=== PATIENT | female | born 1985 | race American Indian/Alaskan Native ===

== ENCOUNTER → 2016-11-22 | Outpatient (CLI) | payer OTHER ==
[2016-11-22 09:37] LABS: ALBUMIN 3.5 GM/DL (3.2-5.2); ALBUMIN/GLOBULIN RATIO 0.95 (1.00-1.93); ALKALINE PHOSPHATASE 110 U/L (45-117); ALT/SGPT 24 U/L (12-78); ANION GAP 12 MEQ/L (8-16); AST/SGOT 12 U/L (15-37); BILIRUBIN,TOTAL 0.4 MG/DL (0.2-1.0); BLOOD UREA NITROGEN 10 MG/DL (7-18); CALCIUM LEVEL 8.5 MG/DL (8.5-10.1); CARBON DIOXIDE LEVEL 22 MEQ/L (21-32); CHLORIDE LEVEL 107 MEQ/L (98-107); CHOLESTEROL LEVEL 193 MG/DL (<200); CREATININE FOR GFR 0.84 MG/DL (0.55-1.02); FREE T4 1.09 NG/DL (0.76-1.46); GLOMERULAR FILTRATION RATE > 60.0 (>60); GLUCOSE, FASTING 91 MG/DL (70-105); POTASSIUM SERUM 4.2 MEQ/L (3.5-5.1); SODIUM LEVEL 141 MEQ/L (136-145); TOTAL PROTEIN 7.2 GM/DL (6.4-8.2); TRIGLYCERIDES LEVEL 106 MG/DL (<150)
[2016-11-22 10:35] LABS: BASO % 0.5 % (0.0-1.0); EOS # 0.3 K/mm3 (0.0-0.50); EOS % 3.1 % (0.0-3.0); LARGE UNSTAINED CELL # 0.1 K/mm3 (0.0-0.4); LARGE UNSTAINED CELL % 0.6 % (0.0-4.0); LYMPH # 3.2 K/mm3 (1.5-4.5); LYMPH % 30.7 % (24.0-44.0); MEAN CORPUSCULAR HEMOGLOBIN 26.3 pg (27.0-33.0); MEAN CORPUSCULAR HGB CONC 33.8 g/dl (32.0-36.5); MEAN CORPUSCULAR VOLUME 77.8 fl (80.0-96.0); MONO # 0.4 K/mm3 (0.0-0.8); MONO % 3.9 % (0.0-5.0); NEUTROPHILS # 6.2 K/mm3 (1.8-7.7); NEUTROPHILS % 61.2 % (36.0-66.0); PLATELET COUNT, AUTOMATED 314 k/mm3 (150-450); RED CELL DISTRIBUTION WIDTH 13.8 % (11.5-14.5); WHITE BLOOD COUNT 10.1 K/mm3 (4.0-10.0)
== END ==
LOC: M LAB 08:39
PROVIDERS: ATTEND Family Medicine
DX: Z00.00 Encounter for general adult medical examination without abnormal findings (principal)

== ENCOUNTER 2017-03-30 08:22 | Emergency (ER) | payer OTHER ==
[~2017-03-30] VITALS: Ht 170.2 cm; Wt 140.0 kg
[2017-03-30 08:26] VITALS: BP 141/91
[2017-03-30] MEDS ORDERED: ALBUTEROL SULFATE 2.5 MG/0.5 ML INH NEB SOLN NEB ONE (08:45)
--- NOTE | 2017-03-30 09:10 | REP ---
PA and lateral chest: Comparison is the portable chest dated 09/01/2015. The lung brody are clear. The cardiac size is normal The trini, mediastinum, and bony thorax are unremarkable. Impression: Negative PA and lateral chest. There is no interval change. Signed by Tommy Paredes MD 03/30/2017 09:01 A
[2017-03-30] MEDS ORDERED: ALBU17IN INH (09:15)
[2017-03-30] MEDS ORDERED: ZITHTAB PO (09:15)
== END 2017-03-30 09:19 | disposition home or self-care (01) ==
LOC: M ED 08:22
DX: J45.909 Unspecified asthma, uncomplicated (principal); J20.9 Acute bronchitis, unspecified; F17.200 Nicotine dependence, unspecified, uncomplicated

== ENCOUNTER → 2018-07-24 | Outpatient (REF) | payer OTHER ==
[~2018-07-24] MED LIST: ALBU17IN INH; ZITHTAB PO
== END ==
LOC: M LAB REF 12:48
PROVIDERS: ATTEND Specialist
DX: H66.11 Chronic tubotympanic suppurative otitis media, right ear (principal)

== ENCOUNTER → 2018-12-06 | Outpatient (CLI) | payer OTHER ==
[2018-12-06 08:40] LABS: BASO # 0.1 10^3/uL (0.0-0.2); BASO % 0.6 % (0.0-1.0); EOS # 0.4 10^3/uL (0.0-0.50); HEMATOCRIT 44.9 % (36.0-47.0); HEMOGLOBIN 14.3 g/dl (12.0-15.5); LYMPH # 3.2 10^3/uL (1.5-4.5); MEAN CORPUSCULAR HEMOGLOBIN 24.4 pg (27.0-33.0); MEAN CORPUSCULAR HGB CONC 31.8 g/dl (32.0-36.5); MEAN CORPUSCULAR VOLUME 76.5 fl (80.0-96.0); MONO # 0.5 10^3/uL (0.0-0.8); MONO % 4.7 % (0.0-5.0); NEUTROPHILS # 6.5 10^3/uL (1.8-7.7); NEUTROPHILS % 60.1 % (36.0-66.0); PLATELET COUNT, AUTOMATED 324 10^3/uL (150-450); RED BLOOD COUNT 5.87 10^6/uL (4.00-5.40); WHITE BLOOD COUNT 10.8 10^3/uL (4.0-10.0)
[2018-12-06 08:43] LABS: AMORPHOUS SEDIMENT SMALL (NEGATIVE); APPEARANCE, URINE HAZY (CLEAR); BACTERIA, URINE AUTO 1+ (NEGATIVE); BILIRUBIN, URINE AUTO NEGATIVE (NEGATIVE); BLOOD, URINE BLOOD NEGATIVE (NEGATIVE); COLOR, URINE YELLOW (YELLOW); GLUCOSE, URINE (UA) AUTO NEGATIVE (NEGATIVE); KETONE, URINE AUTO NEGATIVE (NEGATIVE); LEUKOCYTE ESTERASE, URINE AUTO 3+ (NEGATIVE); MUCUS, URINE SMALL (NEGATIVE); NITRITE, URINE AUTO NEGATIVE (NEGATIVE); PROTEIN, URINE AUTO NEGATIVE (NEGATIVE); RBC, URINE AUTO 2 /HPF (0-3); SPECIFIC GRAVITY URINE AUTO 1.024 (1.002-1.035); SQUAMOUS EPITHELIAL CELL UR AU 18 /HPF (0-6); UROBILINOGEN, URINE AUTO 0.2 mg/dL (0.0-2.0); WBC, URINE AUTO 11 /HPF (0-3)
[2018-12-06 09:03] LABS: HEMOGLOBIN A1c 6.1 %
[2018-12-06 09:22] LABS: ALBUMIN 3.6 GM/DL (3.2-5.2); ALT/SGPT 33 U/L (12-78); BILIRUBIN,TOTAL 0.4 MG/DL (0.2-1.0); BLOOD UREA NITROGEN 13 MG/DL (7-18); CALCIUM LEVEL 8.8 MG/DL (8.5-10.1); CARBON DIOXIDE LEVEL 23 MEQ/L (21-32); CHLORIDE LEVEL 108 MEQ/L (98-107); CHOLESTEROL LEVEL 209 MG/DL (<200); CHOLESTEROL RISK RATIO 6.147 (<5); CREATININE FOR GFR 0.78 MG/DL (0.55-1.30); FREE T4 0.92 NG/DL (0.76-1.46); GLOMERULAR FILTRATION RATE > 60.0 (>60); GLUCOSE, FASTING 96 MG/DL (70-100); HDL CHOLESTEROL 34 MG/DL (>40); IRON (FE) 43 UG/DL (50-170); LDL CHOLESTEROL 142 MG/DL (<100); NON-HDL-C 175 MG/DL; POTASSIUM SERUM 4.4 MEQ/L (3.5-5.1); SODIUM LEVEL 138 MEQ/L (136-145); THYROID STIMULATING HORMONE 0.928 uIU/ML (0.358-3.740); TOTAL PROTEIN 7.5 GM/DL (6.4-8.2); TRIGLYCERIDES LEVEL 166 MG/DL (<150)
[2018-12-06 09:51] LABS: VITAMIN B12 LEVEL 775 PG/ML (247-911)
[2018-12-06 09:52] LABS: FOLATE 9.6 NG/ML (>5.4)
[2018-12-07 10:11] LABS: ANTINUCLEAR ANTIBODIES DIRECT Negative (Negative)
== END ==
LOC: M LAB 07:58
PROVIDERS: ATTEND Family Medicine
DX: R53.83 Other fatigue (principal)

== ENCOUNTER → 2019-03-19 | Outpatient (CLI) | payer OTHER ==
[2019-03-19 16:28] LABS: BASO # 0.1 10^3/uL (0.0-0.2); BASO % 0.5 % (0.0-1.0); EOS # 0.4 10^3/uL (0.0-0.5); EOS % 3.3 % (0.0-3.0); HEMOGLOBIN 13.7 g/dl (12.0-15.5); LYMPH # 3.7 10^3/uL (1.5-5.0); MEAN CORPUSCULAR HEMOGLOBIN 24.7 pg (27.0-33.0); MEAN CORPUSCULAR HGB CONC 31.9 g/dl (32.0-36.5); MEAN CORPUSCULAR VOLUME 77.6 fl (80.0-96.0); MONO # 0.6 10^3/uL (0.0-0.8); MONO % 4.9 % (0.0-5.0); NEUTROPHILS # 7.5 10^3/uL (1.5-8.5); PLATELET COUNT, AUTOMATED 331 10^3/uL (150-450); RED BLOOD COUNT 5.54 10^6/uL (4.00-5.40); WHITE BLOOD COUNT 12.2 10^3/uL (4.0-10.0)
[2019-03-19 16:56] LABS: ALBUMIN 3.5 GM/DL (3.2-5.2); ALT/SGPT 31 U/L (12-78); BILIRUBIN,TOTAL 0.2 MG/DL (0.2-1.0); BLOOD UREA NITROGEN 11 MG/DL (7-18); CALCIUM LEVEL 8.8 MG/DL (8.5-10.1); CARBON DIOXIDE LEVEL 24 MEQ/L (21-32); CHLORIDE LEVEL 108 MEQ/L (98-107); CHOLESTEROL LEVEL 184 MG/DL (<200); CREATININE FOR GFR 0.95 MG/DL (0.55-1.30); FERRITIN 16 NG/ML (8-252); GLOMERULAR FILTRATION RATE > 60.0 (>60); GLUCOSE, FASTING 93 MG/DL (70-100); HDL CHOLESTEROL 32 MG/DL (>40); IRON (FE) 34 UG/DL (50-170); LDL CHOLESTEROL 115 MG/DL (<100); NON-HDL-C 152 MG/DL; PERCENT SATURATION 9.3 % (13.2-45.0); POTASSIUM SERUM 4.2 MEQ/L (3.5-5.1); SODIUM LEVEL 140 MEQ/L (136-145); TOTAL IRON BINDING CAPACITY 364 UG/DL (250-450); TOTAL PROTEIN 7.3 GM/DL (6.4-8.2); TRIGLYCERIDES LEVEL 183 MG/DL (<150)
[2019-03-19 17:15] LABS: HEMOGLOBIN A1c 5.9 %
== END ==
LOC: M LAB 15:43
PROVIDERS: ATTEND Family Medicine
DX: D50.9 Iron deficiency anemia, unspecified (principal)

== ENCOUNTER → 2020-11-19 | Outpatient (CLI) | payer OTHER ==
[2020-11-19 13:59] LABS: BASO % 0.5 % (0.0-1.0); EOS # 0.4 10^3/uL (0.0-0.5); EOS % 4.5 % (0.0-3.0); HEMOGLOBIN 12.6 g/dl (12.0-15.5); LYMPH # 2.2 10^3/uL (1.5-5.0); LYMPH % 26.8 % (24.0-44.0); MEAN CORPUSCULAR HEMOGLOBIN 25.3 pg (27.0-33.0); MEAN CORPUSCULAR HGB CONC 31.5 g/dl (32.0-36.5); MEAN CORPUSCULAR VOLUME 80.2 fl (80.0-96.0); MONO # 0.4 10^3/uL (0.0-0.8); MONO % 5.2 % (2.0-8.0); NEUTROPHILS # 5.2 10^3/uL (1.5-8.5); NEUTROPHILS % 62.6 % (36.0-66.0); PLATELET COUNT, AUTOMATED 282 10^3/uL (150-450); RED BLOOD COUNT 4.99 10^6/uL (4.00-5.40); WHITE BLOOD COUNT 8.3 10^3/uL (4.0-10.0)
[2020-11-19 14:01] LABS: HEMATOCRIT 40.5 % (36.0-47.0)
[2020-11-19 14:37] LABS: ALBUMIN 3.3 GM/DL (3.2-5.2); ALT/SGPT 23 U/L (12-78); BILIRUBIN,TOTAL 0.3 MG/DL (0.2-1.0); BLOOD UREA NITROGEN 8 MG/DL (7-18); CALCIUM LEVEL 8.5 MG/DL (8.5-10.1); CARBON DIOXIDE LEVEL 25 MEQ/L (21-32); CHLORIDE LEVEL 112 MEQ/L (98-107); CREATININE FOR GFR 0.68 MG/DL (0.55-1.30); FERRITIN 15 NG/ML (8-252); GLOMERULAR FILTRATION RATE > 60.0 (>60); GLUCOSE, FASTING 138 MG/DL (70-100); IRON (FE) 30 UG/DL (50-170); MAGNESIUM LEVEL 2.2 MG/DL (1.8-2.4); PERCENT SATURATION 9.6 % (13.2-45.0); POTASSIUM SERUM 3.6 MEQ/L (3.5-5.1); SODIUM LEVEL 142 MEQ/L (136-145); TOTAL 25(OH) VITAMIN D 35.5 NG/ML (30.0-100.0); TOTAL IRON BINDING CAPACITY 311 UG/DL (250-450); TOTAL PROTEIN 6.3 GM/DL (6.4-8.2); VITAMIN B12 LEVEL 599 PG/ML (247-911)
[2020-11-19 14:39] LABS: HEMOGLOBIN A1c 5.4 %
== END ==
LOC: M LAB 13:06
DX: K91.2 Postsurgical malabsorption, not elsewhere classified (principal); E55.9 Vitamin D deficiency, unspecified; Z98.84 Bariatric surgery status

== ENCOUNTER → 2021-03-26 | Outpatient (CLI) | payer OTHER ==
[2021-03-26 19:13] LABS: HIV 1&2 SCREEN CENTAUR NEGATIVE (NEGATIVE)
== END ==
LOC: M LAB 16:35
PROVIDERS: ATTEND Nurse Practitioner Adult Health
DX: Z11.3 Encounter for screening for infections with a predominantly sexual mode of transmission (principal)

== ENCOUNTER → 2021-04-22 | Outpatient (CLI) | payer OTHER ==
[2021-04-22 14:15] LABS: HEMATOCRIT 45.1 % (36.0-47.0)
[2021-04-22 14:16] LABS: BASO # 0.1 10^3/uL (0.0-0.2); BASO % 0.5 % (0.0-1.0); EOS # 0.2 10^3/uL (0.0-0.5); EOS % 2.6 % (0.0-3.0); HEMATOCRIT 43.3 % (36.0-47.0); HEMOGLOBIN 13.9 g/dl (12.0-15.5); LYMPH # 3.5 10^3/uL (1.5-5.0); LYMPH % 37.5 % (24.0-44.0); MEAN CORPUSCULAR HEMOGLOBIN 26.1 pg (27.0-33.0); MEAN CORPUSCULAR HGB CONC 32.1 g/dl (32.0-36.5); MEAN CORPUSCULAR VOLUME 81.4 fl (80.0-96.0); MONO # 0.5 10^3/uL (0.0-0.8); MONO % 5.3 % (2.0-8.0); NEUTROPHILS % 53.8 % (36.0-66.0); PLATELET COUNT, AUTOMATED 297 10^3/uL (150-450); RED BLOOD COUNT 5.32 10^6/uL (4.00-5.40); WHITE BLOOD COUNT 9.2 10^3/uL (4.0-10.0)
[2021-04-22 14:40] LABS: HEMOGLOBIN A1c 5.1 %
[2021-04-22 14:44] LABS: ALBUMIN 3.6 GM/DL (3.2-5.2); ALT/SGPT 28 U/L (12-78); BILIRUBIN,TOTAL 0.2 MG/DL (0.2-1.0); BLOOD UREA NITROGEN 14 MG/DL (7-18); CALCIUM LEVEL 9.1 MG/DL (8.5-10.1); CARBON DIOXIDE LEVEL 24 MEQ/L (21-32); CHLORIDE LEVEL 111 MEQ/L (98-107); CREATININE FOR GFR 0.64 MG/DL (0.55-1.30); FERRITIN 16 NG/ML (8-252); GLOMERULAR FILTRATION RATE > 60.0 (>60); GLUCOSE, FASTING 68 MG/DL (70-100); IRON (FE) 33 UG/DL (50-170); MAGNESIUM LEVEL 2.2 MG/DL (1.8-2.4); PERCENT SATURATION 8.5 % (13.2-45.0); PHOSPHORUS LEVEL 4.2 MG/DL (2.5-4.9); POTASSIUM SERUM 4.2 MEQ/L (3.5-5.1); SODIUM LEVEL 140 MEQ/L (136-145); TOTAL IRON BINDING CAPACITY 390 UG/DL (250-450); TOTAL PROTEIN 7.3 GM/DL (6.4-8.2)
[2021-04-22 15:06] LABS: TOTAL 25(OH) VITAMIN D 25.6 NG/ML (30.0-100.0)
[2021-04-22 15:07] LABS: VITAMIN B12 LEVEL > 2000 PG/ML (247-911)
== END ==
LOC: M LAB 13:07
PROVIDERS: ATTEND Physician Assistant Surgical
DX: K91.2 Postsurgical malabsorption, not elsewhere classified (principal); Z98.84 Bariatric surgery status; E55.9 Vitamin D deficiency, unspecified; Z86.39 Personal history of other endocrine, nutritional and metabolic disease

== ENCOUNTER 2021-05-11 11:31 | Emergency (ER) | payer OTHER ==
[~2021-05-11] VITALS: Ht 167.6 cm; Wt 98.6 kg
[2021-05-11 11:31] VITALS: BP 130/80
--- OUTSIDE RECORDS SUMMARY | 2021-05-11 11:39 | CCD | Continuity of Care Document ---
Author Author Corie MOROCHO M.D. Organization Unknown Address [address] [place] [address] Phone [phone] Care Team Providers Care Conference Assistant Name Role Phone Marco Antonio Godinez M.D. AUTM [phone] [facility] Sleep Center AUTM [phone] [facility] Nutrition Services AUTM [phone] Cristobal Peña AUTM [phone] [facility] vinson AUTM [phone] Problems Active Problems Provider Date Obesity Marco Antonio Godinez MD Onset: 01/26/2016 Pure hypercholesterolemia Marco Antonio Godinez MD Onset: 016 Allison-en-Y gastrojejunostomy Tati Vasquez NP Onset: 02/05 Note: done 10/22 Alopecia Marco Antonio Godinez MD Onset: 03/05/2021 Iron deficiency anemia Marco Antonio Godinez MD Onset: 03/05/2021 Hyperlipidemia Marco Antonio Godinez MD Onset: 03/05/2021 Abnormal glucose level Marco Antonio Godinez MD Onset: 03/05/2021 Adult health examination Marco Antonio Godinez MD Onset: 03/05/20 Social History Type Date Description Comments Sex Unknown Tobacco Use Start: Unknown End: Unknown Former Cigar ette Smoker 5-10 Cigarettes Daily Tobacco Use Start: Unknown Never Smoked Cigars Tobacco Use Start: Unknown Never Smoked A Pipe Tobacco Use Start: Unknown Never Used Smokeless Tobacco ETOH Use Denies alcohol use Recreational Drug Use Denies Drug Use Tobacco Use Start: Unknown End: Unknown Patient is a former smoker Quit 10/02/20 Exercise Type/Frequency Exercises sporadically Tattoo/Piercing Tattoo Tattoo/Piercing Pierced tongue Tattoo/Piercing Pierced ears Seat Belt/Car Seat Always uses seat belt Allergies and adverse reactions Active Allergies Criticality Reaction | Severity Comments Date NKDA Unable to assess criticality 01/23/2016 NKEA Unable to assess criticality 01/23/2016 NKEA Unable to assess criticality 01/26/2016 Inactive Allergies NKFA Unable to assess criticality 01/23/2016 Medications Active Medications SIG Qnty Indications Ordering Provide r Date Ferrous Sulfate 325(65Fe) mg Table ts take 1 tablet by mouth once daily with food 90tabs D50.9 Marco Antonio Godinez MD 12/14/2018 Vitamin B12 1000mcg Tablets ER 1 by mouth every day Unknown Flintstones Gummies Chewtabs 1 by mouth every day Unknown Biotin 2500mcg Capsules take one capusle by mouth once daily Unknown Omeprazole 40mg Capsules DR 1 by mouth every day 30caps Unknown Immunizations Description No Information Available Vital Signs Date Vital Result Comment 04/17/2021 10:12am BP Systolic 130 mmHg BP Diastolic 78 mmHg Heart Rate 75 /min O2 % BldC Oximetry 100 % Weight 220.25 lb Weight 99.905 kg Height 67 inches 5'7" BMI (Body Mass Index) 34.5 kg/m2 BSA (Body Surface Area) 2.11 m2 03/26/2021 2:54pm BP Systolic 110 mmHg BP Diastolic 72 mmHg Heart Rate 60 /min Respiratory Rate 16 /min O2 % BldC Oximetry 99 % Weight 218.12 lb Weight 98.942 kg Height 67 inches 5'7" BMI (Body Mass Index) 34.2 kg/m2 BSA (Body Surface Area) 2.10 m2 Results Test Acquired Date Facility Test Result H/L Range Note Hepatitis C Quant By PCR 03/26/2021 [facility] Hepatitis C Quantitation HCV Not Detected IU/mL Normal . 1 Hepatitis C log10 TNP Normal . Test Information: (SEE NOTE) Normal . 2 H Simplex Virus Type 1&2 Igm 03/26/2021 [facility] C HSV IgM Types 1&2 <0.91 Ratio Normal 0.00-0.90 3 HSV Type 1&2 Igg Specific 03/26/2021 [facility] HSV Type I IgG Specific 56.60 index High 0.00-0.90 4 HSV Type II IgG Specific 10.50 index High 0.00-0.90 5 Laboratory test finding 03/26/2021 In Office Inhouse Urine Test Negative Negative Laboratory test finding 03/26/2021 [facility] Syphilis NONREACTIVE Normal Nonreactive HIV 1&2 Screen [facility] NEGATIVE Normal Negative 6 Comprehensive Metabolic Panel 03/05/2021 [facility] [place] [employer] Comprehensive Metabo (SEE NOTE) 7, 8 Sodium 139 mEq/L 134 - 153 Potassium 3.9 mEq/L 3.6 - 5.0 Chloride 106 mEq/L 98 - 107 Co2 22 mEq/L 22 - 30 Glucose 137 mg/dL High 70 - 99 BUN 14 mg/dL 7 - 21 Creatinine 0.7 mg/dL 0.7 - 1.5 BUN/Creat 20 8 - 27 Total Protein 7.1 g/dL 6.3 - 8.2 Albumin 4.3 g/dL 3.9 - 5.0 Globulin 2.8 GM/DL 2.4 - 3.2 A/G Ratio 1.5 0.8 - 2.0 Calcium 9.2 mg/dL 8.4 - 10.2 Total Bili <0.7 mg/dL 0.2 - 1.3 Alkaline Phos 104 U/L 38 - 126 Sgot/Ast 18 U/L 5 - 40 SGPT/Alt 15 U/L 7 - 56 Anion Gap 11.0 mmol/L 8.0 - 16.0 Age 35 yrs Non-Aa GFR >60 mL/min Afr Amer GFR >60 mL/min 9 Laboratory test finding 03/05/2021 [facility] Vitamin B12 Serum >2000 pg/mL High 232 - 1245 Vitamin D (25-Hydroxy) 46 NG/ML 10 TSH Highly Sensitive 0.73 uIU/mL 0.47 - 5.01 Folic Acid Serum(Folate) 14.4 NG/ML 4.4 - 31.0 Sedimentation Rate 03/05/2021 [facility] Sed Rate 5 mm/hr 0 - 20 Sed Rate Reenter 5 Laboratory test finding 03/05/2021 [facility] Hgba1c 4.9 % 4.4 - 6.1 11 CRP (High Sensitivity) 2.52 mg/L 1.00 - 3.00 12 Cve Panel 03/05/2021 [facility] Cve Panel (SEE NOTE) 13 Cholesterol 159 mg/dL 131 - 200 Triglycerides 127 mg/dL 35 - 160 HDL 44 mg/dL 29 - 86 LDL 103 mg/dL 65 - 175 Risk Factor 3.6 3.2 - 4.4 LDL/HDL 2.34 1.47 - 3.22 14 CBC W/Automated Diff 03/05/2021 [facility] CBC W/Automated Diff (SEE NOTE) 15 WBC 7.3 10^3/uL 4.2 - 11.0 RBC 5.31 10^6/uL 4.20 - 5.40 Hemoglobin 13.8 g/dL 12.0 - 16.0 Hematocrit 42.7 % 37.0 - 47.0 MCV 80.4 fL Low 81.0 - 101 MCH 26.0 pg Low 27.0 - 34.0 MCHC 32.3 g/dL 31.0 - 36.0 RDW 14.2 % 11.5 - 14.5 Platelets 306 10^3/uL 150 - 450 MPV 10.5 fL High 7.4 - 10.4 Neut 60.3 % 37.0 - 80.0 Lymph 32.7 % 25.0 - 40.0 Mayes 4.6 % 3.0 - 8.0 Eos 1.9 % 0.0 - 7.0 Baso 0.4 % 0.0 - 2.5 %Ig 0.1 % High 0.0 - 0.0 %NRBC 0.0 % 0.0 - 0.0 #Neut 4.41 10^3/uL 2.00 - 6.90 #Lymph 2.39 10^3/uL 0.60 - 3.40 #Mayes 0.34 10^3/uL 0.00 - 0.90 #Eos 0.14 10^3/uL 0.00 - 0.70 #Baso 0.03 10^3/uL 0.00 - 0.20 #Ig 0.01 10^3/uL 0.00 - 0.10 #NRBC 0.00 10^3/uL 0.00 - 0.00 Manual Diff NOT INDICATED RBC Morph NOT INDICATED Laboratory test finding 03/05/2021 [facility] l Ferritin Brooke 25.9 ng/mL 3.0 - 105 Iron Binding Capacity 03/05/2021 [facility] Iron 38 g/dL Low 42 - 135 Uibc 312 g/dL 112 - 347 Tibc 350 g/dL 250 - 450 Iron Sat 11 % Chlamydia GC/Am 02/05/2021 [facility] Chlamydia trachomatis,Ksenia Negative Negative 16 Neisseria gonorrhoeae,Ksenia Negative Negative RBC Folate 11/19/2020 [facility] Hematocrit 40.5 % Normal 36.0-47.0 RBC Folate 539 NG/ML Normal 280-791 CBC With Differential 11/19/2020 [facility] White Blood Count 8.3 10 Normal 4.0-10.0 Red Blood Count 4.99 10 Normal 4.00-5.40 Hemoglobin 12.6 g/dL Normal 12.0-15.5 Hematocrit 40.0 % Normal 36.0-47.0 Mean Corpuscular Volume 80.2 fl Normal 80.0-96.0 Mean Corpuscular Hemoglobin 25.3 pg Low 27.0-33.0 Mean Corpuscular HGB Conc 31.5 g/dL Low 32.0-36.5 Red Cell Distribution Width 15.3 % High 11.5-14.5 Platelet Count, Automated 282 10 Normal 150-450 Neutrophils % 62.6 % Normal 36.0-66.0 Lymph % 26.8 % Normal 24.0-44.0 Mayes % 5.2 % Normal 2.0-8.0 Eos % 4.5 % High 0.0-3.0 Baso % 0.5 % Normal 0.0-1.0 Immature Granulocyte % 0.4 % Normal 0-3.0 Nucleated Red Blood Cell % 0.0 % Normal 0-0 Neutrophils # 5.2 10 Normal 1.5-8.5 Lymph # 2.2 10 Normal 1.5-5.0 Mayes # 0.4 10 Normal 0.0-0.8 Eos # 0.4 10 Normal 0.0-0.5 Baso # 0.0 10 Normal 0.0-0.2 Comprehensive Metabolic Profil 11/19/2020 [facility] Glucose, Fasting 138 mg/dL High 70-100 Blood Urea Nitrogen 8 mg/dL Normal 7-18 Creatinine For GFR 0.68 mg/dL Normal 0.55-1.30 Glomerular Filtration Rate > 60.0 Normal >60 1 7 Sodium Level 142 mEq/L Normal 136-145 Potassium Serum 3.6 mEq/L Normal 3.5-5.1 Chloride Level 112 mEq/L High 98-107 Carbon Dioxide Level 25 mEq/L Normal 21-32 Anion Gap 5 mEq/L Low 8-16 Calcium Level 8.5 mg/dL Normal 8.5-10.1 Ast/Sgot 19 U/L Normal 7-37 Alt/SGPT 23 U/L Normal 12-78 Alkaline Phosphatase 97 U/L Normal 45-117 Bilirubin,Total 0.3 mg/dL Normal 0.2-1.0 Total Protein 6.3 GM/DL Low 6.4-8.2 Albumin 3.3 GM/DL Normal 3.2-5.2 Albumin/Globulin Ratio 1.1 Low 1.2-2.2 Laboratory test finding 11/19/2020 [facility] Phosphorus Level 3.0 mg/dL Normal 2.5-4.9 Magnesium Level 2.2 mg/dL Normal 1.8-2.4 Total Iron Binding Capacit 11/19/2020 [facility] Iron (Fe) 30 g/dL Low 50-170 Total Iron Binding Capacity 311 g/dL Normal 250-450 Percent Saturation 9.6 % Low 13.2-45.0 Laboratory test finding 11/19/2020 [facility] Vitamin B12 Level 599 pg/mL Normal 247-911 18 Total 25(Oh) Vitamin D 35.5 NG/ML Normal 30.0-100.0 Ferritin 15 NG/ML Normal 8-252 Hemoglobin A1c 11/19/2020 [facility] Hemoglobin A1c 5.4 % Normal 19 Estimated Average Glucose 108 mg/dL Normal 60-110 Laboratory test finding 11/19/2020 [facility] Vitamin B1 Level Whole Blood 129.9 nmol/L Normal 66.5-200.0 20 1 HCV Not Detected 2 . The quantitative range of this assay is 15 IU/mL to 100 million IU/mL. 3 Negative <0.91 Equivocal 0.91 - 1.09 Positive >1.09 Performed at: RN - [facility] [address] [id number] Environmental Health Nurse: Lois Billy MD, Phone: [phone] 4 Negative <0.91 Equivocal 0.91 - 1.09 Positive >1.09 Note: Negative indicates no antibodies detected to HSV-1. Equivocal may suggest early infection. If clinically appropriate, retest at later date. Positive indicates antibodies detected to HSV-1. 5 Negative <0.91 Equivocal 0.91 - 1.09 Positive >1.09 Note: Negative indicates no antibodies detected to HSV-2. Equivocal may suggest early infection. If clinically appropriate, retest at later date. Positive indicates antibodies detected to HSV-2. 6 This assay was performed uti lizing a chemiluminescent principle technique for the simultaneous qualitative detection of HIV-1 p24 antigen & antibodies to HIV-1 (including group O) & HIV-2 using the [facility] system. The estimated 95% confidence interval for sensitivity of this antigen/antibody combination assay for HIV-1&2 antibodies is 99.7-100% and HIV p24 antigen is 89.4-99.9%. The estimated 95% confidence interval for specificity of this antigen/antibody combination in low risk populations is 99.6-99.8%. 7 Is patient fasting? N 8 COMPREHENSIVE METABOLIC PANE L 9 Male GFR Interprentation 20-49 yrs >60 mL/min Normal 50-59 yrs >56 mL/min Normal 60-69 yrs >49 mL/min Normal 70-79yrs >42 mL/min Normal 80 and above >35 mL/min Normal Female GFR Interpretation 20-39 yrs >60 mL/min Normal 40-49 yrs >58 mL/min Normal 50-59 yrs >51 mL/min Normal 60-69 yrs >45 mL/min Normal 70-79 yrs >39 mL/min Normal 80 and above >32 mL/min Normal 10 VITAMIN-D(25HYDROXY) Deficiency: <=20 ng/ml Insufficiency: 21-29 ng/ml Preferred level: => 30 ng/ml 11 {A1] {HB] 12 CDC/AHS HS-CRP CUT-OFF: RELATIVE RISK: <1.0 mg/L Low 1.0 - 3.0 mg/L A verage >3.0 mg/L High Optimally, the average of HS-CRP results repeated two weeks apart should be used for risk assessment. 13 LIPID PANEL 14 CVE RISK CHOL/HDL LDL/HDL MEN: 1/2 AVERAGE 3.43 1.00 AVERAGE 4.97 3.55 2X AVERAGE 9.55 6.25 3X AVERAGE 23.99 7.99 WOMEN: 1/2 AVERAGE 3.27 1.47 AVERAGE 4.44 3.22 2X AVERAGE 7.05 5.03 3X AVERAGE 11.04 6.14 15 COMPLETE BLOOD COUNT 16 {SOURCE:~.~.~<DG1.3.1>Z01.41 9</DG1.3.1><DG1.3.1>Z01.419</DG1.3.1> 17 Units are mL/min/1.73 m2 Chronic Kidney Disease Staging per NKF: Stage I & II GFR >=60 Normal to Mildly Decreased Stage III GFR 30-59 Moderately Decreased Stage IV GFR 15-29 Severely Decreased Stage V GFR <15 Very Little GFR Left ESRD GFR <15 on TELEMETRY TECHNICIAN 18 VITAMIN B12 NORMAL RANGE NORMAL 247 - 911 PG/ML INDETERMINATE 211 - 246 PG/ML DEFICIENT LESS THAN 211 PG/ML 19 REFERENCE RANGES: <=5.6% NORMAL 5.7-6.4% SUGGESTS IMPAIRED GLUCOSE META BOLISM/PREDIABETIC >= 6.5% ABNORMAL 20 Performed at: - [facility] [id number] Environmental Health Nurse: Margarita Nicholas MD, Phone: [phone] Procedures Date Code Description Status 04/17/2021 18450 Office/Outpatient Established SF MDM 10-19 Min Completed 03/26/2021 82606 Office/Outpatient Established Mo d MDM 30-39 Min Completed 03/17/2021 45413 Phone Evaluation/Management By Connie berg 5-10 Mins Completed 03/05/2021 22440 Preventive Visit Est 18-39 Yrs C ompleted 02/05/2021 52227 Preventive Visit Est 18-39 Yrs C ompleted Medical Devices Description No Information Available Encounters Type Date Location Provider Dx Diagnosis Office Visit 04/17/2021 10:15a [facility] Hayes M.D. Z71.9 Counseling, unspecified Assessments Date Code Description Provider 04/17/2021 Z71.9 Counseling, unspecified Lc Morocho M.D. 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) Tati Vasquez NP 03/26/2021 Z11.3 Encounter for screen ing for infections with a predominantly sexual mode of transmission Tati Vasquez NP 03/17/2021 R73.9 Hyperglycemia, unspecified Nicole Godinez MD 03/17/2021 D50.9 Iron deficiency anemia, unspecif ied Marco Antonio Godinez MD 03/17/2021 E78.00 Pure hypercholesterolemia, unspe cified Marco Antonio Godinez MD 03/05/2021 Z98.84 Bariatric surgery status Marco Antonio Godinez MD 03/05/2021 L65.9 Nonscarring hair loss, unspecifi ed Marco Antonio Godinez MD 03/05/2021 D50.9 Iron deficiency anemia, unspecif ied Marco Antonio Godinez MD 03/05/2021 E78.5 Hyperlipidemia, unspecified Simone Godinez MD 03/05/2021 R73.9 Hyperglycemia, unspecified Nicole Godinez MD 03/05/2021 Z00.00 Encounter for genera l adult medical examination without abnormal findings Marco Antonio Godinez MD 03/05/2021 R01.1 Cardiac murmur, unspecified Simone Godinez MD 02/05/2021 Z01.419 Encounter for gyneco logical examination (general) (routine) without abnormal findings Tati Vasquez NP 02/05/2021 Z80.3 Family history of malignant neop lasm of breast Tati Vasquez NP Plan of Treatment Future Appointment(s):* 05/20/2021 9:00 am - Covid Resource Schedule at [facility] * 05/15/2021 10:00 am - Lc [facility] M.D. [facility] * 06/29/2021 9:00 am - Marco Antonio Godinez MD at [facility] 04/17/2021 - Lc Morocho M.D.* Z71.9 Counseling, unspecified * All * Comments:* We discussed colposcopy results with the patient and need for surgery to remove lesion. We did recommend LEEP procedure and explained what LEEP is. * Follow up:* We will call patient with preop appointment for LEEP. Functional Status Description No Information Available Mental Status Description No Information Available Referrals Refer to Reason for Referral Status Appt Date Yoseph Kat 35 y/o F with 2/6 systolic aortic murmur . Eval and treat. Patient Notified 05/01/2021 [id number] [address] [id number] [phone]
--- OUTSIDE RECORDS SUMMARY | 2021-05-11 11:39 | CCD | Continuity of Care Document ---
Author Author Corie GODINEZ M.D. Organization Unknown Address [address] [place] [address] Phone [phone] Care Team Providers Care Tank House Operator Name Role Phone Marco Antonio Godinez M.D. AUTM [phone] [facility] Sleep Center AUTM [phone] [facility] Nutrition Services AUTM [phone] Cristobal Peña AUTM [phone] Yoseph Kat AUTM [phone] Problems Active Problems Provider Date Obesity Marco [...] Onset: 03/05/2021 Adult health examination Marco Antonio Godniez MD Onset: 03/05/20 Social History Type Date [...] Date Facility Test Result H/L Range Note Hemoglobin A1c 04/22/2021 [facility] Hemoglobin A1c 5.1 % Normal 1 Estimated Average Glucose 100 mg/dL Normal 60-110 Comprehensive Metabolic Profil 04/22/2021 [facility] Glucose, Fasting 68 mg/dL Low 70-100 Blood Urea Nitrogen 14 mg/dL Normal 7-18 Creatinine For GFR 0.64 mg/dL Normal 0.55-1.30 Glomerular Filtration Rate > 60.0 Normal >60 2 Sodium Level 140 mEq/L Normal 136-145 Potassium Serum 4.2 mEq/L Normal 3.5-5.1 Chloride Level 111 mEq/L High 98-107 Carbon Dioxide Level 24 mEq/L Normal 21-32 Anion Gap 5 mEq/L Low 8-16 Calcium Level 9.1 mg/dL Normal 8.5-10.1 Ast/Sgot 13 U/L Normal 7-37 Alt/SGPT 28 U/L Normal 12-78 Alkaline Phosphatase 107 U/L Normal 45-117 Bilirubin,Total 0.2 mg/dL Normal 0.2-1.0 Total Protein 7.3 GM/DL Normal 6.4-8.2 Albumin 3.6 GM/DL Normal 3.2-5.2 Albumin/Globulin Ratio 1.0 Low 1.2-2.2 Laboratory test finding 04/22/2021 [facility] Phosphorus Level 4.2 mg/dL Normal 2.5-4.9 Magnesium Level 2.2 mg/dL Normal 1.8-2.4 Total Iron Binding Capacit 04/22/2021 [facility] Iron (Fe) 33 g/dL Low 50-170 Total Iron Binding Capacity 390 g/dL Normal 250-450 Percent Saturation 8.5 % Low 13.2-45.0 Laboratory test finding 04/22/2021 [facility] Vitamin B12 Level > 2000 pg/mL High 247-911 3 Total 25(Oh) Vitamin D 25.6 NG/ML Low 30.0-100.0 Ferritin 16 NG/ML Normal 8-252 CBC With Differential 04/22/2021 [facility] White Blood Count 9.2 10 Normal 4.0-10.0 Red Blood Count 5.32 10 Normal 4.00-5.40 Hemoglobin 13.9 g/dL Normal 12.0-15.5 Hematocrit 43.3 % Normal 36.0-47.0 Mean Corpuscular Volume 81.4 fl Normal 80.0-96.0 Mean Corpuscular Hemoglobin 26.1 pg Low 27.0-33.0 Mean Corpuscular HGB Conc 32.1 g/dL Normal 32.0-36.5 Red Cell Distribution Width 13.8 % Normal 11.5-14.5 Platelet Count, Automated 297 10 Normal 150-450 Neutrophils % 53.8 % Normal 36.0-66.0 Lymph % 37.5 % Normal 24.0-44.0 [place] % 5.3 % Normal 2.0-8.0 Eos % 2.6 % Normal 0.0-3.0 Baso % 0.5 % Normal 0.0-1.0 Immature Granulocyte % 0.3 % Normal 0-3.0 Nucleated Red Blood Cell % 0.0 % Normal 0-0 Neutrophils # 5.0 10 Normal 1.5-8.5 Lymph # 3.5 10 Normal 1.5-5.0 [place] # 0.5 10 Normal 0.0-0.8 Eos # 0.2 10 Normal 0.0-0.5 Baso # 0.1 10 Normal 0.0-0.2 HSV Type 1&2 Igg Specific 03/26/2021 [facility] HSV Type I IgG Specific 56.60 index High 0.00-0.90 4 HSV Type II IgG Specific 10.50 index High 0.00-0.90 5 Laboratory test finding 03/26/2021 In Office Inhouse Urine Test Negative Negative H Simplex Virus Type 1&2 Igm 03/26/2021 [facility] HSV IgM Types 1&2 <0.91 Ratio Normal 0.00-0.90 6 Hepatitis C Quant By PCR 03/26/2021 [facility] Hepatitis C Quantitation HCV Not Detected IU/mL Normal . 7 Hepatitis C log10 TNP Normal . Test Information: (SEE NOTE) Normal . 8 Laboratory test finding 03/26/2021 [facility] Syphilis NONREACTIVE Normal Nonreactive HIV 1&2 Screen [facility] NEGATIVE Normal Negative 9 Laboratory test finding 03/05/2021 [facility] Ferritin Brooke 25.9 ng/mL 3.0 - 105 10 Laboratory test finding 03/05/2021 [facility] Vitamin B12 Serum >2000 pg/mL High 232 - 1245 Vitamin D (25-Hydroxy) 46 NG/ML 11 TSH Highly Sensitive 0.73 uIU/mL 0.47 - 5.01 Folic Acid Serum(Folate) 14.4 NG/ML 4.4 - 31.0 Sedimentation Rate 03/05/2021 [facility] Sed Rate 5 mm/hr 0 - 20 Sed Rate Reenter 5 Laboratory test finding 03/05/2021 [facility] Hgba1c 4.9 % 4.4 - 6.1 12 CRP (High Sensitivity) 2.52 mg/L 1.00 - 3.00 13 Comprehensive Metabolic Panel 03/05/2021 [facility] Comprehensive Metabo (SEE NOTE) 14 Sodium 139 mEq/L 134 - 153 Potassium [...] >60 mL/min Afr Amer GFR >60 mL/min 15 Cve Panel 03/05/2021 [facility] Cve Panel (SEE NOTE) 16 Cholesterol 159 mg/dL 131 - 200 Triglycerides 127 mg/dL 35 - 160 HDL 44 mg/dL 29 - 86 LDL 103 mg/dL 65 - 175 Risk Factor 3.6 3.2 - 4.4 LDL/HDL 2.34 1.47 - 3.22 17 CBC W/Automated Diff 03/05/2021 [facility] CBC W/Automated Diff (SEE NOTE) 18 WBC 7.3 10^3/uL 4.2 - 11.0 RBC [...] 80.0 Lymph 32.7 % 25.0 - 40.0 [place] 4.6 % 3.0 - 8.0 Eos 1.9 % 0.0 - 7.0 Baso 0.4 % 0.0 - 2.5 %Ig 0.1 % High 0.0 - 0.0 %NRBC 0.0 % 0.0 - 0.0 #Neut 4.41 10^3/uL 2.00 - 6.90 #Lymph 2.39 10^3/uL 0.60 - 3.40 #[place] 0.34 10^3/uL 0.00 - 0.90 #Eos 0.14 10^3/uL 0.00 - 0.70 #Baso 0.03 10^3/uL 0.00 - 0.20 #Ig 0.01 10^3/uL 0.00 - 0.10 #NRBC 0.00 10^3/uL 0.00 - 0.00 Manual Diff NOT INDICATED RBC Morph NOT INDICATED Iron Binding Capacity 03/05/2021 [facility] Iron 38 g/dL Low 42 - 135 Uibc 312 g/dL 112 - 347 Tibc 350 g/dL 250 - 450 Iron Sat 11 % Chlamydia GC/Am 02/05/2021 [facility] Chlamydia trachomatis,Ksenia Negative Negative 19 Neisseria gonorrhoeae,Ksenia Negative Negative RBC Folate 11/19/2020 [facility] Hematocrit 40.5 % Normal 36.0-47.0 RBC Folate 539 NG/ML Normal 280-791 CBC With Differential 11/19/2020 [facility] White Blood Count 8.3 10 [...] 36.0-66.0 Lymph % 26.8 % Normal 24.0-44.0 [place] % 5.2 % Normal 2.0-8.0 Eos % 4.5 % High 0.0-3.0 Baso % 0.5 % Normal 0.0-1.0 Immature Granulocyte % 0.4 % Normal 0-3.0 Nucleated Red Blood Cell % 0.0 % Normal 0-0 Neutrophils # 5.2 10 Normal 1.5-8.5 Lymph # 2.2 10 Normal 1.5-5.0 [place] # 0.4 10 Normal 0.0-0.8 Eos # 0.4 10 Normal 0.0-0.5 Baso # 0.0 10 Normal 0.0-0.2 Comprehensive Metabolic Profil 11/19/2020 [facility] Glucose, Fasting 138 mg/dL High 70-100 Blood Urea Nitrogen 8 mg/dL Normal 7-18 Creatinine For GFR 0.68 mg/dL Normal 0.55-1.30 Glomerular Filtration Rate > 60.0 Normal >60 2 0 Sodium Level 142 mEq/L Normal 136-145 Potassium [...] Low 1.2-2.2 Laboratory test finding 11/19/2020 [facility] Phosphorus Level 3.0 mg/dL Normal 2.5-4.9 Magnesium Level 2.2 mg/dL Normal 1.8-2.4 Total Iron Binding Capacit 11/19/2020 [facility] Iron (Fe) 30 g/dL Low 50-170 Total Iron Binding Capacity 311 g/dL Normal 250-450 Percent Saturation 9.6 % Low 13.2-45.0 Laboratory test finding 11/19/2020 [facility] Vitamin B12 Level 599 pg/mL Normal 247-911 21 Total 25(Oh) Vitamin D 35.5 NG/ML Normal 30.0-100.0 Ferritin 15 NG/ML Normal 8-252 Hemoglobin A1c 11/19/2020 [facility] Hemoglobin A1c 5.4 % Normal 22 Estimated Average Glucose 108 mg/dL Normal 60-110 Laboratory test finding 11/19/2020 [facility] Vitamin B1 Level Whole Blood 129.9 nmol/L Normal 66.5-200.0 23 1 REFERENCE RANGES: <=5.6% NORMAL 5.7-6.4% SUGGESTS IMPAIRED GLUCOSE META BOLISM/PREDIABETIC >= 6.5% ABNORMAL 2 Units are mL/min/1.73 m2 Chronic Kidney Disease Staging per NKF: Stage I & II GFR >=60 Normal to Mildly Decreased Stage III GFR 30-59 Moderately Decreased Stage IV GFR 15-29 Severely Decreased Stage V GFR <15 Very Little GFR Left ESRD GFR <15 on QUALITY REVIEW TRAINER 3 VITAMIN B12 NORMAL RANGE NORMAL 247 - 911 PG/ML INDETERMINATE 211 - 246 PG/ML DEFICIENT LESS THAN 211 PG/ML 4 Negative <0.91 Equivocal 0.91 - 1.09 [...] Positive indicates antibodies detected to HSV-2. 6 Negative <0.91 Equivocal 0.91 - 1.09 Positive >1.09 Performed at: RN - [facility] [address] [id number] Office Rental Clerk: Lois Billy MD, Phone: [phone] HCV Not Detected 8 . The quantitative range of this assay is 15 IU/mL to 100 million IU/mL. 9 This assay was performed uti lizing a chemiluminescent principle technique for the simultaneous qualitative detection of HIV-1 p24 antigen & antibodies to HIV-1 (including group O) & HIV-2 using the [employer] system. The estimated 95% confidence interval for sensitivity of this antigen/antibody combination assay for HIV-1&2 antibodies is 99.7-100% and HIV p24 antigen is 89.4-99.9%. The estimated 95% confidence interval for specificity of this antigen/antibody combination in low risk populations is 99.6-99.8%. 10 Is patient fasting? N 11 VITAMIN-D(25HYDROXY) Deficiency: <=20 ng/ml Insufficiency: 21-29 ng/ml Preferred level: => 30 ng/ml 12 {A1] {HB] 13 CDC/S HS-CRP CUT-OFF: RELATIVE RISK: <1.0 mg/L Low 1.0 - 3.0 mg/L A verage >3.0 mg/L High Optimally, the average of HS-CRP results repeated two weeks apart should be used for risk assessment. 14 COMPREHENSIVE METABOLIC PANE L 15 Male GFR Interprentation 20-49 yrs >60 mL/min Normal 50-59 yrs >56 mL/min Normal 60-69 yrs >49 mL/min Normal 70-79yrs >42 mL/min Normal 80 and above >35 mL/min Normal Female GFR Interpretation 20-39 yrs >60 mL/min Normal 40-49 yrs >58 mL/min Normal 50-59 yrs >51 mL/min Normal 60-69 yrs >45 mL/min Normal 70-79 yrs >39 mL/min Normal 80 and above >32 mL/min Normal 16 LIPID PANEL 17 CVE RISK CHOL/HDL LDL/HDL MEN: 1/2 AVERAGE 3.43 1.00 AVERAGE 4.97 3.55 2X AVERAGE 9.55 6.25 3X AVERAGE 23.99 7.99 WOMEN: 1/2 AVERAGE 3.27 1.47 AVERAGE 4.44 3.22 2X AVERAGE 7.05 5.03 3X AVERAGE 11.04 6.14 18 COMPLETE BLOOD COUNT 19 {SOURCE:~.~.~<DG1.3.1>Z01.41 9</DG1.3.1><DG1.3.1>Z01.419</DG1.3.1> 20 Units are mL/min/1.73 m2 Chronic Kidney Disease Staging per NKF: Stage I & II GFR >=60 Normal to Mildly Decreased Stage III GFR 30-59 Moderately Decreased Stage IV GFR 15-29 Severely Decreased Stage V GFR <15 Very Little GFR Left ESRD GFR <15 on QUALITY REVIEW TRAINER 21 VITAMIN B12 NORMAL RANGE NORMAL 247 - 911 PG/ML INDETERMINATE 211 - 246 PG/ML DEFICIENT LESS THAN 211 PG/ML 22 REFERENCE RANGES: <=5.6% NORMAL 5.7-6.4% SUGGESTS IMPAIRED GLUCOSE META BOLISM/PREDIABETIC >= 6.5% ABNORMAL 23 Performed at: [facility] [address] [id number] Office Rental Clerk: Margarita Nicholas MD, Phone: [phone] Procedures Date Code Description Status 04/17/2021 95948 Office/Outpatient Established SF MDM 10-19 Min Completed 03/26/2021 54423 Office/Outpatient Established Mo d MDM 30-39 Min Completed 03/17/2021 44239 Phone Evaluation/Management By Connie berg 5-10 Mins Completed 03/05/2021 74290 Preventive Visit Est 18-39 Yrs C ompleted 02/05/2021 19814 Preventive Visit Est 18-39 Yrs C ompleted Medical Devices Description No Information Available Encounters Description No Information Available Assessments Date Code Description Provider 04/17/2021 Z71.9 Counseling, unspecified Lc Peoples M.D. 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) Tati Vasquez NP 03/26/2021 Z11.3 Encounter for screen ing for infections with a predominantly sexual mode of transmission Tati Vasquez NP 03/17/2021 R73.9 Hyperglycemia, unspecified Nicole Godinez MD 03/17/2021 D50.9 Iron deficiency anemia, unspecif ied Marco Antonio Godinez MD 03/17/2021 E78.00 Pure hypercholesterolemia, unspe cified Marco Antonio Godinze MD 03/05/2021 Z98.84 Bariatric surgery status Marco Antonio Godinez MD 03/05/2021 L65.9 Nonscarring hair loss, unspecifi ed Marco Antonio Godinez MD 03/05/2021 D50.9 Iron deficiency anemia, unspecif ied Marco Antonio Godinez MD 03/05/2021 E78.5 Hyperlipidemia, unspecified Simone Godinez MD 03/05/2021 R73.9 Hyperglycemia, unspecified Hardi k I. Godinez, MD 03/05/2021 Z00.00 Encounter for genera l adult medical examination without abnormal findings Marco Antonio Godinez MD 03/05/2021 R01.1 Cardiac murmur, unspecified Simone Godinez MD 02/05/2021 Z01.419 Encounter for gyneco logical examination (general) (routine) without abnormal findings Tati Vasquez NP 02/05/2021 Z80.3 Family history of malignant neop lasm of breast Tati Vasquez NP Plan of Treatment Future Appointment(s):* 05/20/2021 9:00 am - [facility] at [facility] * 05/15/2021 10:00 am - Lc Peoples M.D. at [facility] * 06/29/2021 9:00 am - Marco Antonio Godinez MD at [facility] 04/17/2021 - Lc Peoples M.D.* Z71.9 Counseling, unspecified * All * [...] . Eval and treat. Patient Notified 05/01/2021 [address] [place] [address] [phone]
--- OUTSIDE RECORDS SUMMARY | 2021-05-11 11:39 | CCD | Continuity of Care Document ---
Author Author Corie KAT MD Organization Unknown Address [address] [facility], [place] [address] Phone [phone] Care Team Providers Care Tobacco Sprayer Name Role Phone Marco Antonio Godinez MD AUTM [phone] Cristobal Peña MD AUTM [phone] Problems Active Problems Provider Date Dietary management surveillance Yoseph Kat MD Onset: 05/01/2021 Obesity Yoseph Kat MD Onset: 05/01/2021 Heart murmur Yoseph Kat MD Onset: 05/01/2021 Social History Type Date Description Comments Sex Unknown ETOH Use Consumes Liquor 3-4 every 6 mar hs Tobacco Use Start: Unknown End: Unknown Patient is a former smoker up to 1 ppd from age 17, quit 10/2020 Smoking Status Reviewed: 05/01/21 Patient is a former smoker up to 1 ppd from age 17, quit 10/2020 Exercise Type/Frequency Does housework 3 times a week 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 Exercise Type/Frequency Jogs twice a week Exercise Type/Frequency Walks 5 times a week Exercise Limitations None Allergies and adverse reactions Description No Known Drug Allergies Medications Active Medications SIG Qnty Indications Ordering Provide r Date Biotin 2500mcg Capsules take one capusle by mouth once daily Unknown 04/30/[address] 1 by mouth every day 30caps Unknown 04/30/2021 Ferrous Sulfate 325(65Fe) mg Table ts 1 by mouth twice a day D50.9 Cristobal Peña MD 04/30/20 21 Flintstones Complete 18mg Chewtabs chew and swallow 1 by mouth daily Cristobal Peña MD 04/30/2021 Immunizations Description No Information Available Vital Signs Date Vital Result Comment 05/01/2021 8:10am Weight 220.00 lb Height 66 inches 5'6" BMI (Body Mass Index) 35.5 kg/m2 Heart Rate 48 /min BP Systolic Sitting 113 mmHg Omron large cuff, Ra BP Diastolic Sitting 72 mmHg Omron large cuff, R a Results Test Acquired Date Facility Test Result H/L Range Note Laboratory test finding 03/05/2021 [facility] Ferritin Brooke 25.9 ng/mL 3.0-105 1 Cve Panel 03/05/2021 N2N/[facility] Impor t Cve Panel (See Note) 2 Cholesterol 159 mg/dL 131-200 Triglycerides 127 mg/dL 35-160 HDL 44 mg/dL 29-86 LDL 103 mg/dL 65-175 Risk Factor 3.6 1 3.2-4.4 LDL/HDL 2.34 1 1.47-3.22 3 Comprehensive Metabolic Panel 03/05/2021 N2N/[facility] Import Comprehensive Metabo (See Note) 4 Sodium 139 mEq/L 134-153 Potassium 3.9 mEq/L 3.6-5.0 Chloride 106 mEq/L 98-107 Co2 22 mEq/L 22-30 Glucose 137 mg/dL High 70-99 BUN 14 mg/dL 7-21 Creatinine 0.7 mg/dL 0.7-1.5 BUN/Creat 20 1 8-27 Total Protein 7.1 g/dL 6.3-8.2 Albumin 4.3 g/dL 3.9-5.0 Globulin 2.8 GM/DL 2.4-3.2 A/G Ratio 1.5 1 0.8-2.0 Calcium 9.2 mg/dL 8.4-10.2 Total Bili <0.7 mg/dL 0.2-1.3 Alkaline Phos 104 U/L 38-126 Sgot/Ast 18 U/L 5-40 SGPT/Alt 15 U/L 7-56 Anion Gap 11.0 mmol/L 8.0-16.0 Age 35 yrs Non-Aa GFR >60 mL/min Afr Amer GFR >60 mL/min 5 Laboratory test finding 03/05/2021 [facility] Hgba1c 4.9 % 4.4-6.1 6 CRP (High Sensitivity) 2.52 mg/L 1.00-3.00 7 Sedimentation Rate 03/05/2021 N2N/[facility] Impor t Sed Rate 5 mm/hr 0-20 Sed Rate Reenter 5 1 Laboratory test finding 03/05/2021 [facility] Vitamin B12 Serum >2000 pg/mL High 232-1245 Vitamin D (25-Hydroxy) 46 ng/mL 8 TSH Highly Sensitive 0.73 uIU/mL 0.47-5.01 Folic Acid Serum(Folate) 14.4 ng/mL 4.4-31.0 Iron Binding Capacity 03/05/2021 N2N/[facility] Imp ort Iron 38 g/dL Low 42-135 Uibc 312 g/dL 112-347 Tibc 350 g/dL 250-450 Iron Sat 11 % Comprehensive Metabolic Profil 11/19/2020 N2N/Direc t CCD Import Glucose, Fasting 138 mg/dL High 70-100 Blood Urea Nitrogen 8 mg/dL 7-18 Creatinine For GFR 0.68 mg/dL 0.55-1.30 Glomerular Filtration Rate > 60.0 9 Sodium Level 142 mEq/L 136-145 Potassium Serum 3.6 mEq/L 3.5-5.1 Chloride Level 112 mEq/L High 98-107 Carbon Dioxide Level 25 mEq/L 21-32 Anion Gap 5 mEq/L Low 8-16 Calcium Level 8.5 mg/dL 8.5-10.1 Ast/Sgot 19 U/L 7-37 Alt/SGPT 23 U/L 12-78 Alkaline Phosphatase 97 U/L 45-117 Bilirubin,Total 0.3 mg/dL 0.2-1.0 Total Protein 6.3 GM/DL Low 6.4-8.2 Albumin 3.3 GM/DL 3.2-5.2 Albumin/Globulin Ratio 1.1 1 Low 1.2-2.2 Laboratory test finding 11/19/2020 [facility] Vitamin B1 Level Whole Blood 129.9 nmol/L 66.5-200.0 10 Hemoglobin A1c 11/19/2020 N2N/[facility] Impor t Hemoglobin A1c 5.4 % 11 Estimated Average Glucose 108 mg/dL 60-110 Laboratory test finding 11/19/2020 [facility] Vitamin B12 Level 599 pg/mL 247-911 12 Total 25(Oh) Vitamin D 35.5 ng/mL 30.0-100.0 Ferritin 15 ng/mL 8-252 Total Iron Binding Capacit 11/19/2020 N2N/Direct CC D Import Iron (Fe) 30 g/dL Low 50-170 Total Iron Binding Capacity 311 g/dL 250-450 Percent Saturation 9.6 % Low 13.2-45.0 Laboratory test finding 11/19/2020 [facility] Phosphorus Level 3.0 mg/dL 2.5-4.9 Magnesium Level 2.2 mg/dL 1.8-2.4 CBC With Differential 11/19/2020 N2N/Direct CCD Imp ort White Blood Count 8.3 10 4.0-10.0 Red Blood Count 4.99 10 4.00-5.40 Hemoglobin 12.6 g/dL 12.0-15.5 Hematocrit 40.0 % 36.0-47.0 Mean Corpuscular Volume 80.2 fl 80.0-96.0 Mean Corpuscular Hemoglobin 25.3 pg Low 27.0-33.0 Mean Corpuscular HGB Conc 31.5 g/dL Low 32.0-36.5 Red Cell Distribution Width 15.3 % High 11.5-14.5 Platelet Count, Automated 282 10 150-450 Neutrophils % 62.6 % 36.0-66.0 Lymph % 26.8 % 24.0-44.0 [place] % 5.2 % 2.0-8.0 Eos % 4.5 % High 0.0-3.0 Baso % 0.5 % 0.0-1.0 Immature Granulocyte % 0.4 % 0-3.0 Nucleated Red Blood Cell % 0.0 % 0-0 Neutrophils # 5.2 10 1.5-8.5 Lymph # 2.2 10 1.5-5.0 [place] # 0.4 10 0.0-0.8 Eos # 0.4 10 0.0-0.5 Baso # 0.0 10 0.0-0.2 RBC Folate 11/19/2020 N2N/Direct CCD Impor t Hematocrit 40.5 % 36.0-47.0 RBC Folate 539 ng/mL 280-791 1 Is patient fasting? N 2 LIPID PANEL 3 CVE RISK CHOL/HDL LDL/HDL MEN: 1/2 AVERAGE 3.43 1.00 AVERAGE 4.97 3.55 2X AVERAGE 9.55 6.25 3X AVERAGE 23.99 7.99 WOMEN: 1/2 AVERAGE 3.27 1.47 AVERAGE 4.44 3.22 2X AVERAGE 7.05 5.03 3X AVERAGE 11.04 6.14 4 COMPREHENSIVE METABOLIC PANE L 5 Male GFR Interprentation 20-49 yrs >60 mL/min Normal 50-59 yrs >56 mL/min Normal 60-69 yrs >49 mL/min Normal 70-79yrs >42 mL/min Normal 80 and above >35 mL/min Normal Female GFR Interpretation 20-39 yrs >60 mL/min Normal 40-49 yrs >58 mL/min Normal 50-59 yrs >51 mL/min Normal 60-69 yrs >45 mL/min Normal 70-79 yrs >39 mL/min Normal 80 and above >32 mL/min Normal 6 {A1] {HB] 7 CDC/S HS-CRP CUT-OFF: RELATIVE RISK: <1.0 mg/L Low 1.0 - 3.0 mg/L A verage >3.0 mg/L High Optimally, the average of HS-CRP results repeated two weeks apart should be used for risk assessment. 8 VITAMIN-D(25HYDROXY) Deficiency: <=20 ng/ml Insufficiency: 21-29 ng/ml Preferred level: => 30 ng/ml 9 Units are mL/min/1.73 m2 Chronic Kidney Disease Staging per NKF: Stage I & II GFR >=60 Normal to Mildly Decreased Stage III GFR 30-59 Moderately Decreased Stage IV GFR 15-29 Severely Decreased Stage V GFR <15 Very Little GFR Left ESRD GFR <15 on PREPARATION ROOM WORKER 10 Performed at: [facility] [id number] Finance Director: Margarita Nicholas MD, Phone: [phone] REFERENCE RANGES: <=5.6% NORMAL 5.7-6.4% SUGGESTS IMPAIRED GLUCOSE META BOLISM/PREDIABETIC >= 6.5% ABNORMAL 12 VITAMIN B12 NORMAL RANGE NORMAL 247 - 911 PG/ML INDETERMINATE 211 - 246 PG/ML DEFICIENT LESS THAN 211 PG/ML Procedures Date Code Description Status 05/01/2021 61650 Office/Outpatient New Moderate M DM 45-59 Minutes Completed 05/01/2021 68246 ECG 12-Lead Completed Medical Devices Description No Information Available Encounters Type Date Location Provider Dx Diagnosis Office Visit 05/01/2021 8:00a Main Office Yoseph Kat MD R01.1 Cardiac murmur, unspecified E66.09 Other obesity due to excess calories Z71.3 Dietary counseling and surve illance Z68.35 Body mass index [BMI] 35.0-3 5.9, adult Assessments Date Code Description Provider 05/01/2021 R01.1 Systolic murmur NOS Yoseph carolina MD 05/01/2021 E66.09 Other obesity due to excess ravi pedrito Yoseph Kat MD 05/01/2021 Z71.3 Dietary counseling and surveilla nce Yoseph Kat MD 05/01/2021 Z68.35 Body mass index [BMI] 35.0-35.9, adult Yoseph Kat MD Plan of Treatment Future Appointment(s):* 07/24/2021 3:00 pm - ECHO at Main Office 05/01/2021 - Yoseph Kat MD* R01.1 Systolic murmur NOS* New Xrays:* US Echocardiogram Transthoracic W Doppler And Color Flow, Ordered: 05/01/21 * Recommendations:* Echocardiogram-Doppler was ordered * E66.09 Other obesity due to excess calories* Recommendations:* Low-fat, whole- food, plant-based nutrition was encouraged. Walking or equivalent aerobic activity for 40-60 minutes every day. * Z71.3 Dietary counseling and surveillance * Z68.35 Body mass index [BMI] 35.0-35.9, adult * All * Follow up:* Further follow-up, if any, depending upon results of cardiac testing. Functional Status Functional Condition Comment Date Status Independent with all ADL's Activ e Mental Status Description No Information Available Referrals Description No Information Available
--- OUTSIDE RECORDS SUMMARY | 2021-05-11 11:39 | CCD | Continuity of Care Document ---
Author Author Corie GODINEZ M.D. Organization Unknown Address [address] [place] [address] Phone [phone] Care Team Providers Care Quality Technician Fiberglass Name Role Phone Marco Antonio Godinez M.D. AUTM [phone] [facility] Sleep Center AUTM [phone] [facility] Nutrition Services AUTM [phone] Cristobal Peña AUTM [phone] Yoseph Kat AUTM [phone] Problems Active Problems Provider Date Obesity Marco [...] Result H/L Range Note Hemoglobin A1c 04/22/2021 [facility] Hemoglobin A1c 5.1 % Normal 1 Estimated Average Glucose 100 mg/dL Normal 60-110 Comprehensive Metabolic Profil 04/22/2021 [facility] Glucose, Fasting 68 mg/dL Low [...] 1.0 Low 1.2-2.2 Laboratory test finding 04/22/2021 [facility] Phosphorus Level 4.2 mg/dL Normal 2.5-4.9 Magnesium Level 2.2 mg/dL Normal 1.8-2.4 Total Iron Binding Capacit 04/22/2021 [facility] Iron (Fe) 33 g/dL Low 50-170 Total Iron Binding Capacity 390 g/dL Normal 250-450 Percent Saturation 8.5 % Low 13.2-45.0 Laboratory test finding 04/22/2021 [facility] Vitamin B12 Level > 2000 pg/mL High 247-911 3 Total 25(Oh) Vitamin D 25.6 NG/ML Low 30.0-100.0 Ferritin 16 NG/ML Normal 8-252 RBC Folate 04/22/2021 [facility] Hematocrit 45.1 % Normal 36.0-47.0 RBC Folate 591 NG/ML Normal 280-791 CBC With Differential 04/22/2021 [facility] White Blood Count 9.2 10 [...] 36.0-66.0 Lymph % 37.5 % Normal 24.0-44.0 [place] % 5.3 % Normal 2.0-8.0 Eos % 2.6 % Normal 0.0-3.0 Baso % 0.5 % Normal 0.0-1.0 Immature Granulocyte % 0.3 % Normal 0-3.0 Nucleated Red Blood Cell % 0.0 % Normal 0-0 Neutrophils # 5.0 10 Normal 1.5-8.5 Lymph # 3.5 10 Normal 1.5-5.0 [place] # 0.5 10 Normal 0.0-0.8 Eos # 0.2 10 Normal 0.0-0.5 Baso # 0.1 10 Normal 0.0-0.2 HSV Type 1&2 Igg Specific 03/26/2021 [facility] HSV Type I IgG Specific 56.60 index High 0.00-0.90 4 HSV Type II IgG Specific 10.50 index High 0.00-0.90 5 Laboratory test finding 03/26/2021 In Office Inhouse Urine Test Negative Negative H Simplex Virus Type 1&2 Igm 03/26/2021 [facility] HSV IgM Types 1&2 <0.91 Ratio Normal 0.00-0.90 6 Hepatitis C Quant By PCR 03/26/2021 [facility] Hepatitis C Quantitation HCV Not Detected IU/mL Normal . 7 Hepatitis C log10 TNP Normal . Test Information: (SEE NOTE) Normal . 8 Laboratory test finding 03/26/2021 [facility] Syphilis NONREACTIVE Normal Nonreactive HIV 1&2 Screen Centaur NEGATIVE Normal Negative 9 Iron Binding Capacity 03/05/2021 [facility] Iron 38 g/dL Low 42 - 135 10 Uibc 312 g/dL 112 - 347 Tibc 350 g/dL 250 - 450 Iron Sat 11 % Laboratory test finding 03/05/2021 [facility] Vitamin B12 Serum >2000 pg/mL High 232 - 1245 Vitamin D (25-Hydroxy) 46 NG/ML 11 TSH Highly Sensitive 0.73 uIU/mL 0.47 - 5.01 Folic Acid Serum(Folate) 14.4 NG/ML 4.4 - 31.0 Sedimentation Rate 03/05/2021 [facility] Sed Rate 5 mm/hr 0 - 20 Sed Rate Reenter 5 Laboratory test finding 03/05/2021 [facility] l Hgba1c 4.9 % 4.4 - 6.1 12 CRP (High Sensitivity) 2.52 mg/L 1.00 - 3.00 13 Comprehensive Metabolic Panel 03/05/2021 [facility] ospital Comprehensive Metabo (SEE NOTE) 14 Sodium 139 [...] GFR >60 mL/min 15 Cve Panel 03/05/2021 [facility] Cve Panel (SEE NOTE) 16 Cholesterol 159 mg/dL 131 - 200 Triglycerides 127 mg/dL 35 - 160 HDL 44 mg/dL 29 - 86 LDL 103 mg/dL 65 - 175 Risk Factor 3.6 3.2 - 4.4 LDL/HDL 2.34 1.47 - 3.22 17 CBC W/Automated Diff 03/05/2021 [facility] CBC W/Automated Diff (SEE NOTE) 18 WBC [...] 80.0 Lymph 32.7 % 25.0 - 40.0 [place] 4.6 % 3.0 - 8.0 Eos 1.9 % 0.0 - 7.0 Baso 0.4 % 0.0 - 2.5 %Ig 0.1 % High 0.0 - 0.0 %NRBC 0.0 % 0.0 - 0.0 #Neut 4.41 10^3/uL 2.00 - 6.90 #Lymph 2.39 10^3/uL 0.60 - 3.40 #[place] 0.34 10^3/uL 0.00 - 0.90 #Eos 0.14 10^3/uL 0.00 - 0.70 #Baso 0.03 10^3/uL 0.00 - 0.20 #Ig 0.01 10^3/uL 0.00 - 0.10 #NRBC 0.00 10^3/uL 0.00 - 0.00 Manual Diff NOT INDICATED RBC Morph NOT INDICATED Laboratory test finding 03/05/2021 [facility] Ferritin Brooke 25.9 ng/mL 3.0 - 105 Chlamydia GC/Am 02/05/2021 [facility] Chlamydia trachomatis,Ksenia Negative Negative 19 Neisseria gonorrhoeae,Ksenia Negative Negative RBC Folate 11/19/2020 [facility] Hematocrit 40.5 % Normal 36.0-47.0 RBC Folate 539 NG/ML Normal 280-791 CBC With Differential 11/19/2020 [facility] White Blood Count 8.3 10 [...] 36.0-66.0 Lymph % 26.8 % Normal 24.0-44.0 [place] % 5.2 % Normal 2.0-8.0 Eos % 4.5 % High 0.0-3.0 Baso % 0.5 % Normal 0.0-1.0 Immature Granulocyte % 0.4 % Normal 0-3.0 Nucleated Red Blood Cell % 0.0 % Normal 0-0 Neutrophils # 5.2 10 Normal 1.5-8.5 Lymph # 2.2 10 Normal 1.5-5.0 [place] # 0.4 10 Normal 0.0-0.8 Eos # 0.4 10 Normal 0.0-0.5 Baso # 0.0 10 Normal 0.0-0.2 Comprehensive Metabolic Profil 11/19/2020 [facility] Glucose, Fasting 138 mg/dL High [...] 1.1 Low 1.2-2.2 Laboratory test finding 11/19/2020 [facility] Phosphorus Level 3.0 mg/dL Normal 2.5-4.9 Magnesium Level 2.2 mg/dL Normal 1.8-2.4 Total Iron Binding Capacit 11/19/2020 [facility] Iron (Fe) 30 g/dL Low 50-170 Total Iron Binding Capacity 311 g/dL Normal 250-450 Percent Saturation 9.6 % Low 13.2-45.0 Laboratory test finding 11/19/2020 [facility] Vitamin B12 Level 599 pg/mL Normal 247-911 21 Total 25(Oh) Vitamin D 35.5 NG/ML Normal 30.0-100.0 Ferritin 15 NG/ML Normal 8-252 Hemoglobin A1c 11/19/2020 [facility] Hemoglobin A1c 5.4 % Normal 22 Estimated Average Glucose 108 mg/dL Normal 60-110 Laboratory test finding 11/19/2020 [facility] Vitamin B1 Level Whole Blood [...] Little GFR Left ESRD GFR <15 on ENGINEER AUTOMATED EQUIPMENT 3 VITAMIN B12 NORMAL RANGE NORMAL 247 [...] Positive >1.09 Performed at: RN - [facility] [address] [id number] Tire Builder: Lois Billy MD, Phone: [phone] 7 HCV Not Detected 8 . The quantitative range of this assay is 15 IU/mL to 100 million IU/mL. 9 This assay was performed uti lizing a chemiluminescent principle technique for the simultaneous qualitative detection of HIV-1 p24 antigen & antibodies to HIV-1 (including group O) & HIV-2 using the Undertone system. The estimated 95% confidence interval for [...] Little GFR Left ESRD GFR <15 on ENGINEER AUTOMATED EQUIPMENT 21 VITAMIN B12 NORMAL RANGE NORMAL 247 - 911 PG/ML INDETERMINATE 211 - 246 PG/ML DEFICIENT LESS THAN 211 PG/ML 22 REFERENCE RANGES: <=5.6% NORMAL 5.7-6.4% SUGGESTS IMPAIRED GLUCOSE META BOLISM/PREDIABETIC >= 6.5% ABNORMAL 23 Performed at: [facility] [address] [id number] Tire Builder: Margarita Nicholas MD, Phone: [phone] Procedures Date Code Description Status 04/17/2021 69981 Office/Outpatient Established SF MDM 10-19 Min Completed 03/26/2021 27635 Office/Outpatient Established Mo d MDM 30-39 Min Completed 03/17/2021 76911 Phone Evaluation/Management By Connie berg 5-10 Mins Completed 03/05/2021 22683 Preventive Visit Est 18-39 Yrs C ompleted 02/05/2021 09574 Preventive Visit Est 18-39 Yrs C ompleted [...] Tati Vasquez NP 03/17/2021 R73.9 Hyperglycemia, unspecified Simonei toby Godinez MD 03/17/2021 D50.9 Iron deficiency anemia, unspecif ied Marco Antonio Godinez MD 03/17/2021 E78.00 Pure hypercholesterolemia, unspe cified Marco Antonio Godinez MD 03/05/2021 Z98.84 Bariatric surgery status Marco Antonio Godinez MD 03/05/2021 L65.9 Nonscarring hair loss, unspecifi ed Marco Antonio Godinez MD 03/05/2021 D50.9 Iron deficiency anemia, unspecif ied Marco Antonio Godinez MD 03/05/2021 E78.5 Hyperlipidemia, unspecified Hard renee Godinez MD 03/05/2021 R73.9 Hyperglycemia, unspecified Hardi k Willy Godinez MD 03/05/2021 Z00.00 Encounter for genera l adult medical examination without abnormal findings Marco Antonio Godinez MD 03/05/2021 R01.1 Cardiac murmur, unspecified Hard renee Godinez MD 02/05/2021 Z01.419 Encounter for gyneco logical examination (general) (routine) without abnormal findings Tati Vasquez NP 02/05/2021 Z80.3 Family history of malignant neop lasm of breast Tati Vasquez NP Plan of Treatment Future Appointment(s):* 05/25/2021 6:00 am - Lyndon Simpson DO at [facility] * 05/25/2021 6:00 am - Lc Peoples M.D. at [facility] * 05/20/2021 9:00 am - [employer] Resource Schedule at [facility] * 05/15/2021 10:00 am - Lc Peoples M.D. at [facility] * 06/29/2021 9:00 am - Marco Antonio Godinez MD at [facility] 04/17/2021 - Lc Peoples M.D.* Z71.9 Counseling, [...] . Eval and treat. Patient Notified 05/01/2021 [address] [place] [address] [phone]
--- OUTSIDE RECORDS SUMMARY | 2021-05-11 11:39 | CCD | Continuity of Care Document ---
Author Author Corie MOROCHO M.D. Organization Unknown Address [address] [place] [address] Phone [phone] Care Team Providers Care Salt Machine Operator Name Role Phone Marco Antonio Godinez M.D. AUTM [phone] [facility] Sleep Center AUTM [phone] [facility] Nutrition Services AUTM [phone] Cristobal Peña AUTM [phone] [employer] vinson AUTM [phone] Problems Active Problems Provider Date Obesity Marco [...] Note Hepatitis C Quant By PCR 03/26/2021 [facility] Hepatitis C Quantitation HCV Not Detected IU/mL Normal . 1 Hepatitis C log10 TNP Normal . Test Information: (SEE NOTE) Normal . 2 H Simplex Virus Type 1&2 Igm 03/26/2021 [facility] C HSV IgM Types 1&2 <0.91 Ratio Normal 0.00-0.90 3 HSV Type 1&2 Igg Specific 03/26/2021 [facility] HSV Type I IgG Specific 56.60 index High 0.00-0.90 4 HSV Type II IgG Specific 10.50 index High 0.00-0.90 5 Laboratory test finding 03/26/2021 In Office Inhouse Urine Test Negative Negative Laboratory test finding 03/26/2021 [facility] Syphilis NONREACTIVE Normal Nonreactive HIV 1&2 Screen [facility]aur NEGATIVE Normal Negative 6 Comprehensive Metabolic Panel 03/05/2021 [facility] Comprehensive Metabo (SEE NOTE) 7, 8 Sodium [...] >60 mL/min 9 Laboratory test finding 03/05/2021 [facility] Vitamin B12 Serum >2000 pg/mL High 232 - 1245 Vitamin D (25-Hydroxy) 46 NG/ML 10 TSH Highly Sensitive 0.73 uIU/mL 0.47 - 5.01 Folic Acid Serum(Folate) 14.4 NG/ML 4.4 - 31.0 Sedimentation Rate 03/05/2021 [facility] Sed Rate 5 mm/hr 0 - 20 Sed Rate Reenter 5 Laboratory test finding 03/05/2021 [facility] Hgba1c 4.9 % 4.4 - 6.1 11 CRP (High Sensitivity) 2.52 mg/L 1.00 - 3.00 12 Cve Panel 03/05/2021 [facility] Cve Panel (SEE NOTE) 13 Cholesterol 159 mg/dL 131 - 200 Triglycerides 127 mg/dL 35 - 160 HDL 44 mg/dL 29 - 86 LDL 103 mg/dL 65 - 175 Risk Factor 3.6 3.2 - 4.4 LDL/HDL 2.34 1.47 - 3.22 14 CBC W/Automated Diff 03/05/2021 [facility] CBC W/Automated Diff (SEE NOTE) 15 WBC [...] 80.0 Lymph 32.7 % 25.0 - 40.0 [place] 4.6 % 3.0 - 8.0 Eos 1.9 % 0.0 - 7.0 Baso 0.4 % 0.0 - 2.5 %Ig 0.1 % High 0.0 - 0.0 %NRBC 0.0 % 0.0 - 0.0 #Neut 4.41 10^3/uL 2.00 - 6.90 #Lymph 2.39 10^3/uL 0.60 - 3.40 #[place] 0.34 10^3/uL 0.00 - 0.90 #Eos 0.14 10^3/uL 0.00 - 0.70 #Baso 0.03 10^3/uL 0.00 - 0.20 #Ig 0.01 10^3/uL 0.00 - 0.10 #NRBC 0.00 10^3/uL 0.00 - 0.00 Manual Diff NOT INDICATED RBC Morph NOT INDICATED Laboratory test finding 03/05/2021 [facility] l Ferritin Brooke 25.9 ng/mL 3.0 - 105 Iron Binding Capacity 03/05/2021 [facility] Iron 38 g/dL Low 42 - 135 Uibc 312 g/dL 112 - 347 Tibc 350 g/dL 250 - 450 Iron Sat 11 % Chlamydia GC/Am 02/05/2021 [facility] Chlamydia trachomatis,Ksenia Negative Negative 16 Neisseria gonorrhoeae,Ksenia Negative Negative RBC Folate 11/19/2020 [facility] Hematocrit 40.5 % Normal 36.0-47.0 RBC Folate 539 NG/ML Normal 280-791 CBC With Differential 11/19/2020 [facility] White Blood Count 8.3 10 Normal 4.0-10.0 [...] 36.0-66.0 Lymph % 26.8 % Normal 24.0-44.0 [place] % 5.2 % Normal 2.0-8.0 Eos % 4.5 % High 0.0-3.0 Baso % 0.5 % Normal 0.0-1.0 Immature Granulocyte % 0.4 % Normal 0-3.0 Nucleated Red Blood Cell % 0.0 % Normal 0-0 Neutrophils # 5.2 10 Normal 1.5-8.5 Lymph # 2.2 10 Normal 1.5-5.0 [place] # 0.4 10 Normal 0.0-0.8 Eos # 0.4 10 Normal 0.0-0.5 Baso # 0.0 10 Normal 0.0-0.2 Comprehensive Metabolic Profil 11/19/2020 [facility] Glucose, Fasting 138 mg/dL High 70-100 Blood [...] 1.1 Low 1.2-2.2 Laboratory test finding 11/19/2020 [facility] Phosphorus Level 3.0 mg/dL Normal 2.5-4.9 Magnesium Level 2.2 mg/dL Normal 1.8-2.4 Total Iron Binding Capacit 11/19/2020 [facility] Iron (Fe) 30 g/dL Low 50-170 Total Iron Binding Capacity 311 g/dL Normal 250-450 Percent Saturation 9.6 % Low 13.2-45.0 Laboratory test finding 11/19/2020 [facility] Vitamin B12 Level 599 pg/mL Normal 247-911 18 Total 25(Oh) Vitamin D 35.5 NG/ML Normal 30.0-100.0 Ferritin 15 NG/ML Normal 8-252 Hemoglobin A1c 11/19/2020 [facility] Hemoglobin A1c 5.4 % Normal 19 Estimated Average Glucose 108 mg/dL Normal 60-110 Laboratory test finding 11/19/2020 [facility] Vitamin B1 Level Whole Blood 129.9 nmol/L Normal 66.5-200.0 20 1 HCV Not Detected 2 . The quantitative range of this assay is 15 IU/mL to 100 million IU/mL. 3 Negative <0.91 Equivocal 0.91 - 1.09 Positive >1.09 Performed at: RN - [facility] [address] [id number] Assistant Professor Of Drama: Lois Billy MD, Phone: [phone] Negative <0.91 Equivocal 0.91 - 1.09 [...] (including group O) & HIV-2 using the [employer] system. The estimated 95% confidence interval for [...] Little GFR Left ESRD GFR <15 on UNIX CONSULTANT 18 VITAMIN B12 NORMAL RANGE NORMAL 247 - 911 PG/ML INDETERMINATE 211 - 246 PG/ML DEFICIENT LESS THAN 211 PG/ML 19 REFERENCE RANGES: <=5.6% NORMAL 5.7-6.4% SUGGESTS IMPAIRED GLUCOSE META BOLISM/PREDIABETIC >= 6.5% ABNORMAL 20 Performed at: - [address] [id number] Assistant Professor Of Drama: Margarita Nicholas MD, Phone: [phone] Procedures Date Code Description Status 04/17/2021 10240 Office/Outpatient Established SF MDM 10-19 Min Completed 03/26/2021 21658 Office/Outpatient Established Mo d MDM 30-39 Min Completed 03/17/2021 69999 Phone Evaluation/Management By Connie berg 5-10 Mins Completed 03/05/2021 10612 Preventive Visit Est 18-39 Yrs C ompleted 02/05/2021 11952 Preventive Visit Est 18-39 Yrs C ompleted [...] 9:00 am - Covid Resource Schedule at [facility] * 05/15/2021 10:00 am - Lc Morocho M.D. at [facility] * 06/29/2021 9:00 am - Marco Antonio Godinez MD at [facility] 04/17/2021 - Lc Morocho M.D.* Z71.9 [...] . Eval and treat. Patient Notified 05/01/2021 [address] [place] [id number] [phone]
--- OUTSIDE RECORDS SUMMARY | 2021-05-11 11:40 | CCD | Continuity of Care Document ---
Author Author Corie LANZA Organization Unknown Address [address] [place] [address] Phone [phone] Care Team Providers Care Technology Applications Engineer Name Role Phone Marco Antonio Godinez M.D. AUTM [phone] [facility] Sleep Center AUTM [phone] [facility] Nutrition Services AUTM [phone] Cristobal Peña AUTM [phone] Yoseph Kat AUTM [phone] Problems Active Problems Provider Date Obesity Marco [...] Seat Belt/Car Seat Always uses seat belt Allergies, Adverse Reactions, Alerts Active Allergies Criticality Reaction | Severity Comments [...] Available Vital Signs Date Vital Result Comment 03/26/2021 2:54pm BP Systolic 110 mmHg BP Diastolic 72 mmHg Heart Rate 60 /min Respiratory Rate 16 /min O2 % BldC Oximetry 99 % Weight 218.12 lb Weight 98.942 kg Height 67 inches 5'7" BMI (Body Mass Index) 34.2 kg/m2 BSA (Body Surface Area) 2.10 m2 03/05/2021 9:46am BP Systolic 106 mmHg BP Diastolic 60 mmHg Heart Rate 58 /min Body Temperature 97.3 F Respiratory Rate 16 /min O2 % BldC Oximetry 99 % Weight 217.00 lb Weight 98.431 kg Height 67 inches 5'7" BMI (Body Mass Index) 34.0 kg/m2 BSA (Body Surface Area) 2.09 m2 Results Test Acquired Date Facility Test Result H/L Range Note Laboratory test finding 03/26/2021 In Office Inhouse Urine Test Negative Negative Laboratory test finding 03/26/2021 [facility] Cervical Biopsy Jar 1 <pending> Endocervical Biopsy Jar 1 <pending> Laboratory test finding 03/05/2021 [facility] Vitamin B12 Serum >2000 pg/mL High 232 - 1245 1 Vitamin D (25-Hydroxy) 46 NG/ML 2 TSH Highly Sensitive 0.73 uIU/mL 0.47 - 5.01 Folic Acid Serum(Folate) 14.4 NG/ML 4.4 - 31.0 Sedimentation Rate 03/05/2021 [facility] Sed Rate 5 mm/hr 0 - 20 Sed Rate Reenter 5 Laboratory test finding 03/05/2021 [facility] l Hgba1c 4.9 % 4.4 - 6.1 3 CRP (High Sensitivity) 2.52 mg/L 1.00 - 3.00 4 Comprehensive Metabolic Panel 03/05/2021 [facility] ospital Comprehensive Metabo (SEE NOTE) 5 Sodium 139 mEq/L 134 - 153 Potassium [...] >60 mL/min Afr Amer GFR >60 mL/min 6 Cve Panel 03/05/2021 [facility] Cve Panel (SEE NOTE) 7 Cholesterol 159 mg/dL 131 - 200 Triglycerides 127 mg/dL 35 - 160 HDL 44 mg/dL 29 - 86 LDL 103 mg/dL 65 - 175 Risk Factor 3.6 3.2 - 4.4 LDL/HDL 2.34 1.47 - 3.22 8 CBC W/Automated Diff 03/05/2021 [facility] CBC W/Automated Diff (SEE NOTE) 9 WBC 7.3 10^3/uL 4.2 - 11.0 RBC [...] 80.0 Lymph 32.7 % 25.0 - 40.0 [place] 4.6 % 3.0 - 8.0 Eos 1.9 % 0.0 - 7.0 Baso 0.4 % 0.0 - 2.5 %Ig 0.1 % High 0.0 - 0.0 %NRBC 0.0 % 0.0 - 0.0 #Neut 4.41 10^3/uL 2.00 - 6.90 #Lymph 2.39 10^3/uL 0.60 - 3.40 #[place] 0.34 10^3/uL 0.00 - 0.90 #Eos 0.14 10^3/uL 0.00 - 0.70 #Baso 0.03 10^3/uL 0.00 - 0.20 #Ig 0.01 10^3/uL 0.00 - 0.10 #NRBC 0.00 10^3/uL 0.00 - 0.00 Manual Diff NOT INDICATED RBC Morph NOT INDICATED Laboratory test finding 03/05/2021 [facility] l Ferritin Brooke 25.9 ng/mL 3.0 - 105 Iron Binding Capacity 03/05/2021 [facility] Iron 38 g/dL Low 42 - 135 Uibc 312 g/dL 112 - 347 Tibc 350 g/dL 250 - 450 Iron Sat 11 % Chlamydia GC/Am 02/05/2021 [facility] Chlamydia trachomatis,Ksenia Negative Negative 10 Neisseria gonorrhoeae,Ksenia Negative Negative RBC Folate 11/19/2020 [facility] Hematocrit 40.5 % Normal 36.0-47.0 RBC Folate 539 NG/ML Normal 280-791 CBC With Differential 11/19/2020 [facility] White Blood Count 8.3 10 [...] 36.0-66.0 Lymph % 26.8 % Normal 24.0-44.0 [place] % 5.2 % Normal 2.0-8.0 Eos % 4.5 % High 0.0-3.0 Baso % 0.5 % Normal 0.0-1.0 Immature Granulocyte % 0.4 % Normal 0-3.0 Nucleated Red Blood Cell % 0.0 % Normal 0-0 Neutrophils # 5.2 10 Normal 1.5-8.5 Lymph # 2.2 10 Normal 1.5-5.0 [place] # 0.4 10 Normal 0.0-0.8 Eos # 0.4 10 Normal 0.0-0.5 Baso # 0.0 10 Normal 0.0-0.2 Comprehensive Metabolic Profil 11/19/2020 [facility] Glucose, Fasting 138 mg/dL High 70-100 Blood Urea Nitrogen 8 mg/dL Normal 7-18 Creatinine For GFR 0.68 mg/dL Normal 0.55-1.30 Glomerular Filtration Rate > 60.0 Normal >60 1 1 Sodium Level 142 mEq/L Normal 136-145 Potassium [...] 1.1 Low 1.2-2.2 Laboratory test finding 11/19/2020 [facility] Phosphorus Level 3.0 mg/dL Normal 2.5-4.9 Magnesium Level 2.2 mg/dL Normal 1.8-2.4 Total Iron Binding Capacit 11/19/2020 [facility] Iron (Fe) 30 g/dL Low 50-170 Total Iron Binding Capacity 311 g/dL Normal 250-450 Percent Saturation 9.6 % Low 13.2-45.0 Laboratory test finding 11/19/2020 [facility] Vitamin B12 Level 599 pg/mL Normal 247-911 12 Total 25(Oh) Vitamin D 35.5 NG/ML Normal 30.0-100.0 Ferritin 15 NG/ML Normal 8-252 Hemoglobin A1c 11/19/2020 [facility] Hemoglobin A1c 5.4 % Normal 13 Estimated Average Glucose 108 mg/dL Normal 60-110 Laboratory test finding 11/19/2020 [facility] Vitamin B1 Level Whole Blood 129.9 nmol/L Normal 66.5-200.0 14 1 Is patient fasting? N 2 VITAMIN-D(25HYDROXY) Deficiency: <=20 ng/ml Insufficiency: 21-29 ng/ml Preferred level: => 30 ng/ml 3 {A1] {HB] 4 CDC/S HS-CRP CUT-OFF: RELATIVE RISK: <1.0 mg/L Low 1.0 - 3.0 mg/L A verage >3.0 mg/L High Optimally, the average of HS-CRP results repeated two weeks apart should be used for risk assessment. 5 COMPREHENSIVE METABOLIC PANE L 6 Male GFR Interprentation 20-49 yrs >60 mL/min Normal 50-59 yrs >56 mL/min Normal 60-69 yrs >49 mL/min Normal 70-79yrs >42 mL/min Normal 80 and above >35 mL/min Normal Female GFR Interpretation 20-39 yrs >60 mL/min Normal 40-49 yrs >58 mL/min Normal 50-59 yrs >51 mL/min Normal 60-69 yrs >45 mL/min Normal 70-79 yrs >39 mL/min Normal 80 and above >32 mL/min Normal 7 LIPID PANEL 8 CVE RISK CHOL/HDL LDL/HDL MEN: 1/2 AVERAGE 3.43 1.00 AVERAGE 4.97 3.55 2X AVERAGE 9.55 6.25 3X AVERAGE 23.99 7.99 WOMEN: 1/2 AVERAGE 3.27 1.47 AVERAGE 4.44 3.22 2X AVERAGE 7.05 5.03 3X AVERAGE 11.04 6.14 9 COMPLETE BLOOD COUNT 10 {SOURCE:~.~.~<DG1.3.1>Z01.41 9</DG1.3.1><DG1.3.1>Z01.419</DG1.3.1> 11 Units are mL/min/1.73 m2 Chronic Kidney Disease Staging per NKF: Stage I & II GFR >=60 Normal to Mildly Decreased Stage III GFR 30-59 Moderately Decreased Stage IV GFR 15-29 Severely Decreased Stage V GFR <15 Very Little GFR Left ESRD GFR <15 on MANAGER ARCHITECTURE 12 VITAMIN B12 NORMAL RANGE NORMAL 247 - 911 PG/ML INDETERMINATE 211 - 246 PG/ML DEFICIENT LESS THAN 211 PG/ML 13 REFERENCE RANGES: <=5.6% NORMAL 5.7-6.4% SUGGESTS IMPAIRED GLUCOSE META BOLISM/PREDIABETIC >= 6.5% ABNORMAL 14 Performed at: [facility] [address] [id number] Development Mgr: Margarita Nicholas MD, Phone: [phone] Procedures Date Code Description Status 03/26/2021 86202 Office/Outpatient Established Mo d MDM 30-39 Min Completed 03/17/2021 31128 Phone Evaluation/Management By Connie berg 5-10 Mins Completed 03/05/2021 03830 Preventive Visit Est 18-39 Yrs C ompleted 02/05/2021 64649 Preventive Visit Est 18-39 Yrs C ompleted Medical Devices Description No Information Available Encounters Type Date Location Provider Dx Diagnosis Office Visit 03/26/2021 3:[address] [facility] Tati Vasquez NP R87.613 High grade intrepith lesion cyto smr crvx (HGSIL) Z11.3 Encntr screen for infections w sexl mode of transmiss Assessments Date Code Description Provider 03/26/2021 R87.613 High grade squamous intraepithelial lesion [...] Vasquez NP Plan of Treatment Future Appointment(s):* 06/29/2021 9:00 am - Marco Antonio Godinez MD at [facility] 03/26/2021 - Tati Vasquez NP* R86.934 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 * Z11.3 Encounter for screening for infections with a predominantly sexual mode of transmission* Recommendations:* I will notify results Functional Status Description No Information Available Mental Status Description No Information Available Referrals Refer to Reason for Referral Status Appt Date Yoseph Kat 35 y/o F with 2/6 systolic aortic murmur . Eval and treat. Patient Notified 05/01/2021 [address] [place] [address] [phone]
--- OUTSIDE RECORDS SUMMARY | 2021-05-11 11:40 | CCD | Continuity of Care Document ---
Author Author Corie LANZA Organization Unknown Address [address] [place] [address] Phone [phone] Care Team Providers Care Paper Products Supervisor Name Role Phone Marco Antonio Godinez M.D. AUTM [phone] [facility] Sleep Center AUTM [phone] [facility] Nutrition Services AUTM [phone] Cristobal Peña AUTM [phone] Yoseph Kat AUTM [phone] Problems Active Problems Provider Date Obesity Marco [...] H/L Range Note Laboratory test finding 03/26/2021 [facility] Cervical Biopsy Jar 1 <pending> Endocervical Biopsy Jar 1 <pending> Laboratory test finding 03/26/2021 In Office Inhouse Urine Test Negative Negative STD Panel Custom 03/26/2021 [facility] Syphilis <pending> Hepatitis C Antibody W/Refelx Quant PCR <pending> Laboratory test finding 03/26/2021 [facility] Syphilis NONREACTIVE Normal Nonreactive HIV 1&2 Screen Centaur NEGATIVE Normal Negative 1 Laboratory test finding 03/05/2021 [facility] Hgba1c 4.9 % 4.4 - 6.1 2, 3 CRP (High Sensitivity) 2.52 mg/L 1.00 - 3.00 4 Laboratory test finding 03/05/2021 [facility] Vitamin B12 Serum >2000 pg/mL High 232 - 1245 Vitamin D (25-Hydroxy) 46 NG/ML 5 TSH Highly Sensitive 0.73 uIU/mL 0.47 - 5.01 Folic Acid Serum(Folate) 14.4 NG/ML 4.4 - 31.0 Sedimentation Rate 03/05/2021 [facility] Sed Rate 5 mm/hr 0 - 20 Sed Rate Reenter 5 Comprehensive Metabolic Panel 03/05/2021 [facility] ospital Comprehensive Metabo (SEE NOTE) 6 Sodium 139 mEq/L 134 - 153 Potassium [...] >60 mL/min Afr Amer GFR >60 mL/min 7 Cve Panel 03/05/2021 [facility] Cve Panel (SEE NOTE) 8 Cholesterol 159 mg/dL 131 - 200 Triglycerides 127 mg/dL 35 - 160 HDL 44 mg/dL 29 - 86 LDL 103 mg/dL 65 - 175 Risk Factor 3.6 3.2 - 4.4 LDL/HDL 2.34 1.47 - 3.22 9 CBC W/Automated Diff 03/05/2021 [facility] CBC W/Automated Diff (SEE NOTE) 10 WBC 7.3 10^3/uL 4.2 - 11.0 RBC [...] 80.0 Lymph 32.7 % 25.0 - 40.0 [place] 4.6 % 3.0 - 8.0 Eos 1.9 % 0.0 - 7.0 Baso 0.4 % 0.0 - 2.5 %Ig 0.1 % High 0.0 - 0.0 %NRBC 0.0 % 0.0 - 0.0 #Neut 4.41 10^3/uL 2.00 - 6.90 #Lymph 2.39 10^3/uL 0.60 - 3.40 #[place] 0.34 10^3/uL 0.00 - 0.90 #Eos 0.14 10^3/uL 0.00 - 0.70 #Baso 0.03 10^3/uL 0.00 - 0.20 #Ig 0.01 10^3/uL 0.00 - 0.10 #NRBC 0.00 10^3/uL 0.00 - 0.00 Manual Diff NOT INDICATED RBC Morph NOT INDICATED Laboratory test finding 03/05/2021 [facility] l Ferritin Brooke 25.9 ng/mL 3.0 - 105 Iron Binding Capacity 03/05/2021 [facility] Iron 38 g/dL Low 42 - 135 Uibc 312 g/dL 112 - 347 Tibc 350 g/dL 250 - 450 Iron Sat 11 % Chlamydia GC/Am 02/05/2021 [facility] Chlamydia trachomatis,Ksenia Negative Negative 11 Neisseria gonorrhoeae,Ksenia Negative Negative RBC Folate 11/19/2020 [facility] Hematocrit 40.5 % Normal 36.0-47.0 RBC Folate 539 NG/ML Normal 280-791 CBC With Differential 11/19/2020 [facility] White Blood Count 8.3 10 Normal 4.0-10.0 [...] 36.0-66.0 Lymph % 26.8 % Normal 24.0-44.0 [place] % 5.2 % Normal 2.0-8.0 Eos % 4.5 % High 0.0-3.0 Baso % 0.5 % Normal 0.0-1.0 Immature Granulocyte % 0.4 % Normal 0-3.0 Nucleated Red Blood Cell % 0.0 % Normal 0-0 Neutrophils # 5.2 10 Normal 1.5-8.5 Lymph # 2.2 10 Normal 1.5-5.0 [place] # 0.4 10 Normal 0.0-0.8 Eos # 0.4 10 Normal 0.0-0.5 Baso # 0.0 10 Normal 0.0-0.2 Comprehensive Metabolic Profil 11/19/2020 [facility] Glucose, Fasting 138 mg/dL High 70-100 Blood Urea Nitrogen 8 mg/dL Normal 7-18 Creatinine For GFR 0.68 mg/dL Normal 0.55-1.30 Glomerular Filtration Rate > 60.0 Normal >60 1 2 Sodium Level 142 mEq/L Normal 136-145 Potassium [...] 1.1 Low 1.2-2.2 Laboratory test finding 11/19/2020 [facility] Phosphorus Level 3.0 mg/dL Normal 2.5-4.9 Magnesium Level 2.2 mg/dL Normal 1.8-2.4 Total Iron Binding Capacit 11/19/2020 [facility] Iron (Fe) 30 g/dL Low 50-170 Total Iron Binding Capacity 311 g/dL Normal 250-450 Percent Saturation 9.6 % Low 13.2-45.0 Laboratory test finding 11/19/2020 [facility] Vitamin B12 Level 599 pg/mL Normal 247-911 13 Total 25(Oh) Vitamin D 35.5 NG/ML Normal 30.0-100.0 Ferritin 15 NG/ML Normal 8-252 Hemoglobin A1c 11/19/2020 [facility] Hemoglobin A1c 5.4 % Normal 14 Estimated Average Glucose 108 mg/dL Normal 60-110 Laboratory test finding 11/19/2020 [facility] Vitamin B1 Level Whole Blood 129.9 nmol/L Normal 66.5-200.0 15 1 This assay was performed uti lizing a chemiluminescent principle technique for the simultaneous qualitative detection of HIV-1 p24 antigen & antibodies to HIV-1 (including group O) & HIV-2 using the [employer] system. The estimated 95% confidence interval for sensitivity of this antigen/antibody combination assay for HIV-1&2 antibodies is 99.7-100% and HIV p24 antigen is 89.4-99.9%. The estimated 95% confidence interval for specificity of this antigen/antibody combination in low risk populations is 99.6-99.8%. 2 Is patient fasting? N 3 {A1] {HB] 4 CDC/AHS HS-CRP CUT-OFF: RELATIVE RISK: <1.0 mg/L Low 1.0 - 3.0 mg/L A verage >3.0 mg/L High Optimally, the average of HS-CRP results repeated two weeks apart should be used for risk assessment. 5 VITAMIN-D(25HYDROXY) Deficiency: <=20 ng/ml Insufficiency: 21-29 ng/ml Preferred level: => 30 ng/ml 6 COMPREHENSIVE METABOLIC PANE L 7 Male GFR Interprentation 20-49 yrs >60 mL/min Normal 50-59 yrs >56 mL/min Normal 60-69 yrs >49 mL/min Normal 70-79yrs >42 mL/min Normal 80 and above >35 mL/min Normal Female GFR Interpretation 20-39 yrs >60 mL/min Normal 40-49 yrs >58 mL/min Normal 50-59 yrs >51 mL/min Normal 60-69 yrs >45 mL/min Normal 70-79 yrs >39 mL/min Normal 80 and above >32 mL/min Normal 8 LIPID PANEL 9 CVE RISK CHOL/HDL LDL/HDL MEN: 1/2 AVERAGE 3.43 1.00 AVERAGE 4.97 3.55 2X AVERAGE 9.55 6.25 3X AVERAGE 23.99 7.99 WOMEN: 1/2 AVERAGE 3.27 1.47 AVERAGE 4.44 3.22 2X AVERAGE 7.05 5.03 3X AVERAGE 11.04 6.14 10 COMPLETE BLOOD COUNT 11 {SOURCE:~.~.~<DG1.3.1>Z01.41 9</DG1.3.1><DG1.3.1>Z01.419</DG1.3.1> 12 Units are mL/min/1.73 m2 Chronic Kidney Disease Staging per NKF: Stage I & II GFR >=60 Normal to Mildly Decreased Stage III GFR 30-59 Moderately Decreased Stage IV GFR 15-29 Severely Decreased Stage V GFR <15 Very Little GFR Left ESRD GFR <15 on HEALTH OCCUPATIONS INSTRUCTOR 13 VITAMIN B12 NORMAL RANGE NORMAL 247 - 911 PG/ML INDETERMINATE 211 - 246 PG/ML DEFICIENT LESS THAN 211 PG/ML 14 REFERENCE RANGES: <=5.6% NORMAL 5.7-6.4% SUGGESTS IMPAIRED GLUCOSE META BOLISM/PREDIABETIC >= 6.5% ABNORMAL 15 Performed at: - [facility] [id number] Proposal Analyst: Margarita Nicholas MD, Phone: [phone] Procedures Date Code Description Status 03/26/2021 02454 Office/Outpatient Established Mo d MDM 30-39 Min Completed 03/17/2021 38688 Phone Evaluation/Management By Connie berg 5-10 Mins Completed 03/05/2021 44107 Preventive Visit Est 18-39 Yrs C ompleted 02/05/2021 99546 Preventive Visit Est 18-39 Yrs C ompleted [...] am - Marco Antonio Godinez MD at [facility] 03/26/2021 - Tati Vasquez NP* R87.613 High grade squamous intraepithelial lesion on [...] . Eval and treat. Patient Notified 05/01/2021 [address] [employer] [place], [place] [id number] [phone]
--- OUTSIDE RECORDS SUMMARY | 2021-05-11 11:40 | CCD | Continuity of Care Document ---
Author Author Corie MOROCHO M.D. Organization Unknown Address [address] [place] [address] Phone [phone] Care Team Providers Care Chronic Care Nurse Name Role Phone Marco Antonio Godinez M.D. AUTM [phone] [facility] Sleep Center AUTM [phone] [facility] Nutrition Services AUTM [phone] Cristobal Peña AUTM [phone] AntecYoseph vinson AUTM [phone] Problems Active Problems Provider Date Obesity Marco [...] Note Hepatitis C Quant By PCR 03/26/2021 [facility] Hepatitis C Quantitation HCV Not Detected IU/mL Normal . 1 Hepatitis C log10 TNP Normal . Test Information: (SEE NOTE) Normal . 2 H Simplex Virus Type 1&2 Igm 03/26/2021 [facility] C HSV IgM Types 1&2 <0.91 Ratio Normal 0.00-0.90 3 HSV Type 1&2 Igg Specific 03/26/2021 [facility] HSV Type I IgG Specific 56.60 index High 0.00-0.90 4 HSV Type II IgG Specific 10.50 index High 0.00-0.90 5 Laboratory test finding 03/26/2021 In Office Inhouse Urine Test Negative Negative Laboratory test finding 03/26/2021 [facility] Syphilis NONREACTIVE Normal Nonreactive HIV 1&2 Screen Centaur NEGATIVE Normal Negative 6 Comprehensive Metabolic Panel 03/05/2021 [facility] Comprehensive Metabo (SEE NOTE) 7, 8 Sodium [...] >60 mL/min 9 Laboratory test finding 03/05/2021 [facility] Vitamin B12 Serum >2000 pg/mL High 232 - 1245 Vitamin D (25-Hydroxy) 46 NG/ML 10 TSH Highly Sensitive 0.73 uIU/mL 0.47 - 5.01 Folic Acid Serum(Folate) 14.4 NG/ML 4.4 - 31.0 Sedimentation Rate 03/05/2021 [facility] Sed Rate 5 mm/hr 0 - 20 Sed Rate Reenter 5 Laboratory test finding 03/05/2021 [facility] Hgba1c 4.9 % 4.4 - 6.1 11 CRP (High Sensitivity) 2.52 mg/L 1.00 - 3.00 12 Cve Panel 03/05/2021 [facility] Cve Panel (SEE NOTE) 13 Cholesterol 159 mg/dL 131 - 200 Triglycerides 127 mg/dL 35 - 160 HDL 44 mg/dL 29 - 86 LDL 103 mg/dL 65 - 175 Risk Factor 3.6 3.2 - 4.4 LDL/HDL 2.34 1.47 - 3.22 14 CBC W/Automated Diff 03/05/2021 [facility] CBC W/Automated Diff (SEE NOTE) 15 [...] 80.0 Lymph 32.7 % 25.0 - 40.0 [place] 4.6 % 3.0 - 8.0 Eos 1.9 % 0.0 - 7.0 Baso 0.4 % 0.0 - 2.5 %Ig 0.1 % High 0.0 - 0.0 %NRBC 0.0 % 0.0 - 0.0 #Neut 4.41 10^3/uL 2.00 - 6.90 #Lymph 2.39 10^3/uL 0.60 - 3.40 #[place] 0.34 10^3/uL 0.00 - 0.90 #Eos 0.14 10^3/uL 0.00 - 0.70 #Baso 0.03 10^3/uL 0.00 - 0.20 #Ig 0.01 10^3/uL 0.00 - 0.10 #NRBC 0.00 10^3/uL 0.00 - 0.00 Manual Diff NOT INDICATED RBC Morph NOT INDICATED Laboratory test finding 03/05/2021 [facility] l Ferritin Brooke 25.9 ng/mL 3.0 - 105 Iron Binding Capacity 03/05/2021 [facility] Iron 38 g/dL Low 42 - 135 Uibc 312 g/dL 112 - 347 Tibc 350 g/dL 250 - 450 Iron Sat 11 % Chlamydia GC/Am 02/05/2021 [facility] Chlamydia trachomatis,Ksenia Negative Negative 16 Neisseria gonorrhoeae,Ksenia Negative Negative RBC Folate 11/19/2020 [facility] Hematocrit 40.5 % Normal 36.0-47.0 RBC Folate 539 NG/ML Normal 280-791 CBC With Differential 11/19/2020 [facility] White Blood Count 8.3 10 Normal [...] 36.0-66.0 Lymph % 26.8 % Normal 24.0-44.0 [place] % 5.2 % Normal 2.0-8.0 Eos % 4.5 % High 0.0-3.0 Baso % 0.5 % Normal 0.0-1.0 Immature Granulocyte % 0.4 % Normal 0-3.0 Nucleated Red Blood Cell % 0.0 % Normal 0-0 Neutrophils # 5.2 10 Normal 1.5-8.5 Lymph # 2.2 10 Normal 1.5-5.0 [place] # 0.4 10 Normal 0.0-0.8 Eos # 0.4 10 Normal 0.0-0.5 Baso # 0.0 10 Normal 0.0-0.2 Comprehensive Metabolic Profil 11/19/2020 [facility] Glucose, Fasting 138 mg/dL High 70-100 [...] 1.1 Low 1.2-2.2 Laboratory test finding 11/19/2020 [facility] Phosphorus Level 3.0 mg/dL Normal 2.5-4.9 Magnesium Level 2.2 mg/dL Normal 1.8-2.4 Total Iron Binding Capacit 11/19/2020 [facility] Iron (Fe) 30 g/dL Low 50-170 Total Iron Binding Capacity 311 g/dL Normal 250-450 Percent Saturation 9.6 % Low 13.2-45.0 Laboratory test finding 11/19/2020 [facility] Vitamin B12 Level 599 pg/mL Normal 247-911 18 Total 25(Oh) Vitamin D 35.5 NG/ML Normal 30.0-100.0 Ferritin 15 NG/ML Normal 8-252 Hemoglobin A1c 11/19/2020 [facility] Hemoglobin A1c 5.4 % Normal 19 Estimated Average Glucose 108 mg/dL Normal 60-110 Laboratory test finding 11/19/2020 [facility] Vitamin B1 Level Whole Blood 129.9 nmol/L Normal 66.5-200.0 20 1 HCV Not Detected 2 . The quantitative range of this assay is 15 IU/mL to 100 million IU/mL. 3 Negative <0.91 Equivocal 0.91 - 1.09 Positive >1.09 Performed at: RN - [facility] [address] [id number] Manganese Wheeler: Lois Billy MD, Phone: [phone] 4 Negative <0.91 Equivocal 0.91 - 1.09 [...] (including group O) & HIV-2 using the [employer] system. The estimated 95% confidence interval for [...] Little GFR Left ESRD GFR <15 on MILKER MACHINE 18 VITAMIN B12 NORMAL RANGE NORMAL 247 - 911 PG/ML INDETERMINATE 211 - 246 PG/ML DEFICIENT LESS THAN 211 PG/ML 19 REFERENCE RANGES: <=5.6% NORMAL 5.7-6.4% SUGGESTS IMPAIRED GLUCOSE META BOLISM/PREDIABETIC >= 6.5% ABNORMAL 20 Performed at: - [facility] [id number] Manganese Wheeler: Margarita Nicholas MD, Phone: [phone] Procedures Date Code Description Status 04/17/2021 94190 Office/Outpatient Established SF MDM 10-19 Min Completed 03/26/2021 24523 Office/Outpatient Established Mo d MDM 30-39 Min Completed 03/17/2021 46708 Phone Evaluation/Management By Connie berg 5-10 Mins Completed 03/05/2021 98112 Preventive Visit Est 18-39 Yrs C ompleted 02/05/2021 01148 Preventive Visit Est 18-39 Yrs C ompleted [...] 9:00 am - Covid Resource Schedule at [facility] * 05/15/2021 10:00 am - Lc Morocho M.D. at [facility] * 06/29/2021 9:00 am - Marco Antonio Godinez MD at [facility] 04/17/2021 - Lc Morocho M.D.* Z71.9 Counseling, [...] . Eval and treat. Patient Notified 05/01/2021 [address] [place] [id number] [phone]
--- OUTSIDE RECORDS SUMMARY | 2021-05-11 11:40 | CCD | Continuity of Care Document ---
Author Organization Unknown Address Unknown Phone Unavailable Care Team Providers Care Hardwood Floor Finisher Name Role Phone Marco Antonio Godinez MD AUT [phone] Problems Description No Information Available Social History Type Date Description Comments Sex Unknown Allergies, Adverse Reactions, Alerts Description No Information Available Medications Description No Information Available Immunizations Description No Information Available Vital Signs Description No Information Available Results Test Acquired Date Facility Test Result [...] % 36.0-66.0 Lymph % 26.8 % 24.0-44.0 [place] % 5.2 % 2.0-8.0 Eos % 4.5 % High 0.0-3.0 Baso % 0.5 % 0.0-1.0 Immature Granulocyte % 0.4 % 0-3.0 Nucleated Red Blood Cell % 0.0 % 0-0 Neutrophils # 5.2 10 1.5-8.5 Lymph # 2.2 10 1.5-5.0 [place] # 0.4 10 0.0-0.8 Eos # 0.4 [...] Little GFR Left ESRD GFR <15 on CAFETERIA ASSOCIATE 10 Performed at: [facility] - [facility] [id number] Mail Carrier: Margarita Nicholas MD, Phone: [phone] REFERENCE RANGES: <=5.6% NORMAL 5.7-6.4% SUGGESTS IMPAIRED GLUCOSE META BOLISM/PREDIABETIC >= 6.5% ABNORMAL 12 VITAMIN B12 NORMAL RANGE NORMAL 247 - 911 PG/ML INDETERMINATE 211 - 246 PG/ML DEFICIENT LESS THAN 211 PG/ML Procedures Description No Information Available Medical Devices Description No Information Available Encounters Description No Information Available Assessments Description No Information Available Plan of Treatment Future Appointment(s):* 05/01/2021 8:00 am - Yoseph Kat MD at Main Office Functional Status Description No Information Available Mental Status Description No Information Available Referrals Description No Information Available
--- OUTSIDE RECORDS SUMMARY | 2021-05-11 11:40 | CCD | Continuity of Care Document ---
Author Organization Unknown Address Unknown Phone Unavailable Care Team Providers Care Employee Relation Manager Name Role Phone Marco Antonio Godinez MD AUT [phone] Problems Description No Information Available Social History [...] % 36.0-66.0 Lymph % 26.8 % 24.0-44.0 [place] % 5.2 % 2.0-8.0 Eos % 4.5 % High 0.0-3.0 Baso % 0.5 % 0.0-1.0 Immature Granulocyte % 0.4 % 0-3.0 Nucleated Red Blood Cell % 0.0 % 0-0 Neutrophils # 5.2 10 1.5-8.5 Lymph # 2.2 10 1.5-5.0 [place] # 0.4 10 0.0-0.8 Eos # 0.4 [...] Little GFR Left ESRD GFR <15 on HIGH SCHOOL PHYSICAL EDUCATION TEACHER 10 Performed at: [place] - [facility] [id number] Resident Services Manager: Margarita Nicholas MD, Phone: [phone] REFERENCE RANGES: <=5.6% NORMAL 5.7-6.4% SUGGESTS [...]
--- OUTSIDE RECORDS SUMMARY | 2021-05-11 11:40 | CCD | Continuity of Care Document ---
Author Author Corie LANZA Organization Unknown Address [address] [place] [address] Phone [phone] Care Team Providers Care Biometrics Analyst Name Role Phone Marco Antonio Godinez M.D. AUTM [phone] [facility] Sleep Center AUTM [phone] [facility] Nutrition Services AUTM [phone] Cristobal Peña AUTM [phone] Yoseph Kat AUTM [phone] Problems Active Problems Provider Date Obesity Marco [...] Note Hepatitis C Quant By PCR 03/26/2021 [facility] Hepatitis C Quantitation HCV Not Detected IU/mL Normal . 1 Hepatitis C log10 TNP Normal . Test Information: (SEE NOTE) Normal . 2 H Simplex Virus Type 1&2 Igm 03/26/2021 [facility] HSV IgM Types 1&2 <0.91 Ratio Normal 0.00-0.90 3 HSV Type 1&2 Igg Specific 03/26/2021 [facility] HSV Type I IgG Specific 56.60 index High 0.00-0.90 4 HSV Type II IgG Specific 10.50 index High 0.00-0.90 5 Laboratory test finding 03/26/2021 In Office Inhouse Urine Test Negative Negative Laboratory test finding 03/26/2021 [facility] Syphilis NONREACTIVE Normal Nonreactive HIV 1&2 Screen Centaur NEGATIVE Normal Negative 6 Comprehensive Metabolic Panel 03/05/2021 [facility] Comprehensive Metabo (SEE NOTE) 7, 8 [...] >60 mL/min 9 Laboratory test finding 03/05/2021 [facility] Vitamin B12 Serum >2000 pg/mL High 232 - 1245 Vitamin D (25-Hydroxy) 46 NG/ML 10 TSH Highly Sensitive 0.73 uIU/mL 0.47 - 5.01 Folic Acid Serum(Folate) 14.4 NG/ML 4.4 - 31.0 Sedimentation Rate 03/05/2021 [facility] Sed Rate 5 mm/hr 0 - 20 Sed Rate Reenter 5 Laboratory test finding 03/05/2021 [facility] Hgba1c 4.9 % 4.4 - 6.1 11 CRP (High Sensitivity) 2.52 mg/L 1.00 - 3.00 12 Cve Panel 03/05/2021 [facility] Cve Panel (SEE NOTE) 13 Cholesterol 159 mg/dL 131 - 200 Triglycerides 127 mg/dL 35 - 160 HDL 44 mg/dL 29 - 86 LDL 103 mg/dL 65 - 175 Risk Factor 3.6 3.2 - 4.4 LDL/HDL 2.34 1.47 - 3.22 14 CBC W/Automated Diff 03/05/2021 [facility] CBC W/Automated Diff (SEE NOTE) 15 [...] 80.0 Lymph 32.7 % 25.0 - 40.0 [place] 4.6 % 3.0 - 8.0 Eos 1.9 % 0.0 - 7.0 Baso 0.4 % 0.0 - 2.5 %Ig 0.1 % High 0.0 - 0.0 %NRBC 0.0 % 0.0 - 0.0 #Neut 4.41 10^3/uL 2.00 - 6.90 #Lymph 2.39 10^3/uL 0.60 - 3.40 #[place] 0.34 10^3/uL 0.00 - 0.90 #Eos 0.14 10^3/uL 0.00 - 0.70 #Baso 0.03 10^3/uL 0.00 - 0.20 #Ig 0.01 10^3/uL 0.00 - 0.10 #NRBC 0.00 10^3/uL 0.00 - 0.00 Manual Diff NOT INDICATED RBC Morph NOT INDICATED Laboratory test finding 03/05/2021 [facility] Ferritin Brooke 25.9 ng/mL 3.0 - 105 Iron Binding Capacity 03/05/2021 [facility] Iron 38 g/dL Low 42 - 135 Uibc 312 g/dL 112 - 347 Tibc 350 g/dL 250 - 450 Iron Sat 11 % Chlamydia GC/Am 02/05/2021 [facility] Chlamydia trachomatis,Ksenia Negative Negative 16 Neisseria gonorrhoeae,Ksenia Negative Negative RBC Folate 11/19/2020 [facility] Hematocrit 40.5 % Normal 36.0-47.0 RBC Folate 539 NG/ML Normal 280-791 CBC With Differential 11/19/2020 [facility] White Blood Count 8.3 10 Normal [...] 36.0-66.0 Lymph % 26.8 % Normal 24.0-44.0 [place] % 5.2 % Normal 2.0-8.0 Eos % 4.5 % High 0.0-3.0 Baso % 0.5 % Normal 0.0-1.0 Immature Granulocyte % 0.4 % Normal 0-3.0 Nucleated Red Blood Cell % 0.0 % Normal 0-0 Neutrophils # 5.2 10 Normal 1.5-8.5 Lymph # 2.2 10 Normal 1.5-5.0 [place] # 0.4 10 Normal 0.0-0.8 Eos # 0.4 10 Normal 0.0-0.5 Baso # 0.0 10 Normal 0.0-0.2 Comprehensive Metabolic Profil 11/19/2020 [facility] Glucose, Fasting 138 mg/dL High 70-100 [...] 1.1 Low 1.2-2.2 Laboratory test finding 11/19/2020 [facility] Phosphorus Level 3.0 mg/dL Normal 2.5-4.9 Magnesium Level 2.2 mg/dL Normal 1.8-2.4 Total Iron Binding Capacit 11/19/2020 [facility] Iron (Fe) 30 g/dL Low 50-170 Total Iron Binding Capacity 311 g/dL Normal 250-450 Percent Saturation 9.6 % Low 13.2-45.0 Laboratory test finding 11/19/2020 [facility] Vitamin B12 Level 599 pg/mL Normal 247-911 18 Total 25(Oh) Vitamin D 35.5 NG/ML Normal 30.0-100.0 Ferritin 15 NG/ML Normal 8-252 Hemoglobin A1c 11/19/2020 [facility] Hemoglobin A1c 5.4 % Normal 19 Estimated Average Glucose 108 mg/dL Normal 60-110 Laboratory test finding 11/19/2020 [facility] Vitamin B1 Level Whole Blood 129.9 nmol/L Normal 66.5-200.0 20 1 HCV Not Detected 2 . The quantitative range of this assay is 15 IU/mL to 100 million IU/mL. 3 Negative <0.91 Equivocal 0.91 - 1.09 Positive >1.09 Performed at: RN - [facility] [address] [id number] Survey Operations Director: Lois Billy MD, Phone: [phone] 4 Negative <0.91 Equivocal 0.91 - 1.09 [...] (including group O) & HIV-2 using the [employer] system. The estimated 95% confidence interval for [...] Little GFR Left ESRD GFR <15 on OPERATING SYSTEM PROGRAMMER 18 VITAMIN B12 NORMAL RANGE NORMAL 247 - 911 PG/ML INDETERMINATE 211 - 246 PG/ML DEFICIENT LESS THAN 211 PG/ML 19 REFERENCE RANGES: <=5.6% NORMAL 5.7-6.4% SUGGESTS IMPAIRED GLUCOSE META BOLISM/PREDIABETIC >= 6.5% ABNORMAL 20 Performed at: [facility] [address] [id number] Survey Operations Director: Margarita Nicholas MD, Phone: [phone] Procedures Date Code Description Status 03/26/2021 88578 Office/Outpatient Established Mo d MDM 30-39 Min Completed 03/17/2021 44772 Phone Evaluation/Management By Connie berg 5-10 Mins Completed 03/05/2021 06517 Preventive Visit Est 18-39 Yrs C ompleted 02/05/2021 82317 Preventive Visit Est 18-39 Yrs C ompleted Medical Devices Description No Information Available Encounters Description No Information Available Assessments Date Code Description Provider 03/26/2021 R87.613 [...] renee Godinez MD 03/05/2021 R73.9 Hyperglycemia, unspecified Simonei toby Godinez MD 03/05/2021 Z00.00 Encounter for genera l adult medical examination without abnormal findings Marco Antonio Godinez MD 03/05/2021 R01.1 Cardiac murmur, unspecified Simone Godinez MD 02/05/2021 Z01.419 Encounter for gyneco logical examination (general) (routine) without abnormal findings Tati Vasquez NP 02/05/2021 Z80.3 Family history of malignant neop lasm of breast Tati Vasquez NP Plan of Treatment Future Appointment(s):* 04/17/2021 10:15 am - Lc Peoples M.D. at [facility] * 06/29/2021 9:00 am - Marco [facility] MD at [facility] 03/26/2021 - Tati Vasquez NP* R87.613 High [...] . Eval and treat. Patient Notified 05/01/2021 [address] [place] [address] [phone]
--- OUTSIDE RECORDS SUMMARY | 2021-05-11 11:40 | CCD | Continuity of Care Document ---
Author Author Corie LANZA Organization Unknown Address [address] [place] [address] Phone [phone] Care Team Providers Care Apparel Sales Associate Name Role Phone Marco Antonio Godinez M.D. AUTM [phone] [facility] Sleep Center AUTM [phone] [facility] Nutrition Services AUTM [phone] Cristobal Peña AUTM [phone] Yoseph Kat AUTM [phone] Problems Active Problems Provider Date Obesity Marco [...] Available Vital Signs Date Vital Result Comment 03/05/2021 9:46am BP Systolic 106 mmHg BP Diastolic 60 mmHg Heart Rate 58 /min Body Temperature 97.3 F Respiratory Rate 16 /min O2 % BldC Oximetry 99 % Weight 217.00 lb Weight 98.431 kg Height 67 inches 5'7" BMI (Body Mass Index) 34.0 kg/m2 BSA (Body Surface Area) 2.09 m2 02/05/2021 10:03am BP Systolic 120 mmHg BP Diastolic 72 mmHg Heart Rate 63 /min Body Temperature 98.2 F Respiratory Rate 16 /min O2 % BldC Oximetry 98 % Weight 221.00 lb Weight 100.246 kg Height 67 inches 5'7" BMI (Body Mass Index) 34.6 kg/m2 BSA (Body Surface Area) 2.11 m2 Results Test Acquired Date Facility Test Result H/L Range Note Laboratory test finding 03/26/2021 In Office Inhouse Urine Test Negative Negative Iron Binding Capacity 03/05/2021 [facility] Iron 38 g/dL Low 42 - 135 1 Uibc 312 g/dL 112 - 347 Tibc 350 g/dL 250 - 450 Iron Sat 11 % Laboratory test finding 03/05/2021 [facility] l Ferritin Brooke 25.9 ng/mL 3.0 - 105 CBC W/Automated Diff 03/05/2021 [facility] CBC W/Automated Diff (SEE NOTE) 2 WBC 7.3 10^3/uL 4.2 - 11.0 RBC [...] 80.0 Lymph 32.7 % 25.0 - 40.0 [place] 4.6 % 3.0 - 8.0 Eos 1.9 % 0.0 - 7.0 Baso 0.4 % 0.0 - 2.5 %Ig 0.1 % High 0.0 - 0.0 %NRBC 0.0 % 0.0 - 0.0 #Neut 4.41 10^3/uL 2.00 - 6.90 #Lymph 2.39 10^3/uL 0.60 - 3.40 #[place] 0.34 10^3/uL 0.00 - 0.90 #Eos 0.14 10^3/uL 0.00 - 0.70 #Baso 0.03 10^3/uL 0.00 - 0.20 #Ig 0.01 10^3/uL 0.00 - 0.10 #NRBC 0.00 10^3/uL 0.00 - 0.00 Manual Diff NOT INDICATED RBC Morph NOT INDICATED Cve Panel 03/05/2021 [facility] Cve Panel (SEE NOTE) 3 Cholesterol 159 mg/dL 131 - 200 Triglycerides 127 mg/dL 35 - 160 HDL 44 mg/dL 29 - 86 LDL 103 mg/dL 65 - 175 Risk Factor 3.6 3.2 - 4.4 LDL/HDL 2.34 1.47 - 3.22 4 Comprehensive Metabolic Panel 03/05/2021 [facility] Comprehensive Metabo (SEE NOTE) 5 Sodium [...] mL/min Afr Amer GFR >60 mL/min 6 Laboratory test finding 03/05/2021 [facility] Hgba1c 4.9 % 4.4 - 6.1 7 CRP (High Sensitivity) 2.52 mg/L 1.00 - 3.00 8 Sedimentation Rate 03/05/2021 [facility] Sed Rate 5 mm/hr 0 - 20 Sed Rate Reenter 5 Laboratory test finding 03/05/2021 [facility] Vitamin B12 Serum >2000 pg/mL High 232 - 1245 Vitamin D (25-Hydroxy) 46 NG/ML 9 TSH Highly Sensitive 0.73 uIU/mL 0.47 - 5.01 Folic Acid Serum(Folate) 14.4 NG/ML 4.4 - 31.0 Chlamydia GC/Am 02/05/2021 [facility] Chlamydia trachomatis,Ksenia Negative Negative 10 Neisseria gonorrhoeae,Ksenia Negative Negative RBC Folate 11/19/2020 [facility] Hematocrit 40.5 % Normal 36.0-47.0 RBC Folate 539 NG/ML Normal 280-791 CBC With Differential 11/19/2020 [facility] White Blood Count 8.3 10 Normal [...] 36.0-66.0 Lymph % 26.8 % Normal 24.0-44.0 [place] % 5.2 % Normal 2.0-8.0 Eos % 4.5 % High 0.0-3.0 Baso % 0.5 % Normal 0.0-1.0 Immature Granulocyte % 0.4 % Normal 0-3.0 Nucleated Red Blood Cell % 0.0 % Normal 0-0 Neutrophils # 5.2 10 Normal 1.5-8.5 Lymph # 2.2 10 Normal 1.5-5.0 [place] # 0.4 10 Normal 0.0-0.8 Eos # 0.4 10 Normal 0.0-0.5 Baso # 0.0 10 Normal 0.0-0.2 Comprehensive Metabolic Profil 11/19/2020 [facility] Glucose, Fasting 138 mg/dL High 70-100 [...] 1.1 Low 1.2-2.2 Laboratory test finding 11/19/2020 [facility] Phosphorus Level 3.0 mg/dL Normal 2.5-4.9 Magnesium Level 2.2 mg/dL Normal 1.8-2.4 Total Iron Binding Capacit 11/19/2020 [facility] Iron (Fe) 30 g/dL Low 50-170 Total Iron Binding Capacity 311 g/dL Normal 250-450 Percent Saturation 9.6 % Low 13.2-45.0 Laboratory test finding 11/19/2020 [facility] Vitamin B12 Level 599 pg/mL Normal 247-911 12 Total 25(Oh) Vitamin D 35.5 NG/ML Normal 30.0-100.0 Ferritin 15 NG/ML Normal 8-252 Hemoglobin A1c 11/19/2020 [facility] Hemoglobin A1c 5.4 % Normal 13 Estimated Average Glucose 108 mg/dL Normal 60-110 Laboratory test finding 11/19/2020 [facility] Vitamin B1 Level Whole Blood 129.9 nmol/L Normal 66.5-200.0 14 1 Is patient fasting? N 2 COMPLETE BLOOD COUNT 3 LIPID PANEL 4 CVE RISK CHOL/HDL LDL/HDL MEN: 1/2 AVERAGE 3.43 1.00 AVERAGE 4.97 3.55 2X AVERAGE 9.55 6.25 3X AVERAGE 23.99 7.99 WOMEN: 1/2 AVERAGE 3.27 1.47 AVERAGE 4.44 3.22 2X AVERAGE 7.05 5.03 3X AVERAGE 11.04 6.14 5 COMPREHENSIVE METABOLIC PANE L 6 Male [...] 80 and above >32 mL/min Normal 7 {A1] {HB] 8 [facility]/S HS-CRP CUT-OFF: RELATIVE RISK: <1.0 mg/L Low 1.0 - 3.0 mg/L A verage >3.0 mg/L High Optimally, the average of HS-CRP results repeated two weeks apart should be used for risk assessment. 9 VITAMIN-D(25HYDROXY) Deficiency: <=20 ng/ml Insufficiency: 21-29 ng/ml Preferred level: => 30 ng/ml 10 {SOURCE:~.~.~<DG1.3.1>Z01.41 9</DG1.3.1><DG1.3.1>Z01.419</DG1.3.1> 11 Units are mL/min/1.73 m2 Chronic Kidney Disease Staging per NKF: Stage I & II GFR >=60 Normal to Mildly Decreased Stage III GFR 30-59 Moderately Decreased Stage IV GFR 15-29 Severely Decreased Stage V GFR <15 Very Little GFR Left ESRD GFR <15 on HUMAN RESOURCES CLERK 12 VITAMIN B12 NORMAL RANGE NORMAL 247 - 911 PG/ML INDETERMINATE 211 - 246 PG/ML DEFICIENT LESS THAN 211 PG/ML 13 REFERENCE RANGES: <=5.6% NORMAL 5.7-6.4% SUGGESTS IMPAIRED GLUCOSE META BOLISM/PREDIABETIC >= 6.5% ABNORMAL 14 Performed at: [facility] [address] [id number] Final Dressing Cutter: Margarita Nicholas MD, Phone: [phone] Procedures Date Code Description Status 03/17/2021 77328 Phone Evaluation/Management By Connie berg 5-10 Mins Completed 03/05/2021 03541 Preventive Visit Est 18-39 Yrs C ompleted 02/05/2021 19561 Preventive Visit Est 18-39 Yrs C ompleted Medical Devices Description No Information Available Encounters Description No Information Available Assessments Date Code Description Provider 03/17/2021 R73.9 Hyperglycemia, unspecified Simonei toby Godinez [...] Godinez MD 03/05/2021 R73.9 Hyperglycemia, unspecified Simonei k Willy Godinez MD 03/05/2021 Z00.00 Encounter [...] am - Marco Antonio Godinez MD at [facility] Functional Status Description No Information Available Mental Status Description No Information Available Referrals Refer to Reason for Referral Status Appt Date Yoseph Kat 35 y/o F with 2/6 systolic aortic murmur . Eval and treat. Patient Notified 05/01/2021 [address] [facility] [place], [place] [address] [phone]
--- OUTSIDE RECORDS SUMMARY | 2021-05-11 11:40 | CCD | Continuity of Care Document ---
Author Author Corie GODINEZ M.D. Organization Unknown Address [address] [place] [address] Phone [phone] Care Team Providers Care Tax Preparer Name Role Phone Marco Antonio Godinez M.D. AUTM [phone] [facility] Sleep Center AUTM [phone] [facility] Nutrition Services AUTM [phone] Cristobal Peña AUTM [phone] Problems Active Problems Provider Date Obesity Marco Antonio Godinez MD Onset: 01/26/2016 Pure hypercholesterolemia Marco Antonio Godinez MD Onset: 016 Allison-en-Y gastrojejunostomy Tati Vasquez NP Onset: 02/05 Note: done 10/22 Adult health examination Marco Antonio oGdinez MD Onset: 03/05/20 Abnormal glucose level Marco Antonio Godinez MD Onset: 03/05/2021 Hyperlipidemia Marco Antonio Godinez MD Onset: 03/05/2021 Iron deficiency anemia Marco Antonio Godinez MD Onset: 03/05/2021 Alopecia Marco Antonio Godinez MD Onset: 03/05/2021 Social History Type Date Description Comments Sex [...] H/L Range Note Laboratory test finding 03/05/2021 [facility] l Ferritin Brooke 25.9 ng/mL 3.0 - 105 1 CBC W/Automated Diff 03/05/2021 [facility] CBC W/Automated Diff (SEE NOTE) 2 WBC [...] 80.0 Lymph 32.7 % 25.0 - 40.0 [place] 4.6 % 3.0 - 8.0 Eos 1.9 % 0.0 - 7.0 Baso 0.4 % 0.0 - 2.5 %Ig 0.1 % High 0.0 - 0.0 %NRBC 0.0 % 0.0 - 0.0 #Neut 4.41 10^3/uL 2.00 - 6.90 #Lymph 2.39 10^3/uL 0.60 - 3.40 #[place] 0.34 10^3/uL 0.00 - 0.90 #Eos 0.14 10^3/uL 0.00 - 0.70 #Baso 0.03 10^3/uL 0.00 - 0.20 #Ig 0.01 10^3/uL 0.00 - 0.10 #NRBC 0.00 10^3/uL 0.00 - 0.00 Manual Diff NOT INDICATED RBC Morph NOT INDICATED Cve Panel 03/05/2021 [facility] Cve Panel (SEE NOTE) 3 Cholesterol 159 mg/dL 131 - 200 Triglycerides 127 mg/dL 35 - 160 HDL 44 mg/dL 29 - 86 LDL 103 mg/dL 65 - 175 Risk Factor 3.6 3.2 - 4.4 LDL/HDL 2.34 1.47 - 3.22 4 Comprehensive Metabolic Panel 03/05/2021 [facility] Comprehensive Metabo (SEE NOTE) 5 Sodium 139 [...] >60 mL/min 6 Laboratory test finding 03/05/2021 [facility] Hgba1c 4.9 % 4.4 - 6.1 7 CRP (High Sensitivity) 2.52 mg/L 1.00 - 3.00 8 Sedimentation Rate 03/05/2021 [facility] Sed Rate 5 mm/hr 0 - 20 Sed Rate Reenter 5 Laboratory test finding 03/05/2021 [facility] Vitamin B12 Serum >2000 pg/mL High 232 - 1245 Vitamin D (25-Hydroxy) 46 NG/ML 9 TSH Highly Sensitive 0.73 uIU/mL 0.47 - 5.01 Folic Acid Serum(Folate) 14.4 NG/ML 4.4 - 31.0 Iron Binding Capacity 03/05/2021 [facility] Iron 38 g/dL Low 42 - 135 Uibc 312 g/dL 112 - 347 Tibc 350 g/dL 250 - 450 Iron Sat 11 % Chlamydia GC/Am 02/05/2021 [facility] Chlamydia trachomatis,Ksenia Negative Negative 10 Neisseria gonorrhoeae,Ksenia Negative Negative RBC Folate 11/19/2020 [facility] Hematocrit 40.5 % Normal 36.0-47.0 RBC Folate 539 NG/ML Normal 280-791 CBC With Differential 11/19/2020 [facility] White Blood Count 8.3 10 Normal 4.0-10.0 [...] 36.0-66.0 Lymph % 26.8 % Normal 24.0-44.0 [place] % 5.2 % Normal 2.0-8.0 Eos % 4.5 % High 0.0-3.0 Baso % 0.5 % Normal 0.0-1.0 Immature Granulocyte % 0.4 % Normal 0-3.0 Nucleated Red Blood Cell % 0.0 % Normal 0-0 Neutrophils # 5.2 10 Normal 1.5-8.5 Lymph # 2.2 10 Normal 1.5-5.0 [place] # 0.4 10 Normal 0.0-0.8 Eos # 0.4 10 Normal 0.0-0.5 Baso # 0.0 10 Normal 0.0-0.2 Comprehensive Metabolic Profil 11/19/2020 [facility] Glucose, Fasting 138 mg/dL High 70-100 Blood [...] 1.1 Low 1.2-2.2 Laboratory test finding 11/19/2020 [facility] Phosphorus Level 3.0 mg/dL Normal 2.5-4.9 Magnesium Level 2.2 mg/dL Normal 1.8-2.4 Total Iron Binding Capacit 11/19/2020 [facility] Iron (Fe) 30 g/dL Low 50-170 Total Iron Binding Capacity 311 g/dL Normal 250-450 Percent Saturation 9.6 % Low 13.2-45.0 Laboratory test finding 11/19/2020 [facility] Vitamin B12 Level 599 pg/mL Normal 247-911 12 Total 25(Oh) Vitamin D 35.5 NG/ML Normal 30.0-100.0 Ferritin 15 NG/ML Normal 8-252 Hemoglobin A1c 11/19/2020 [facility] Hemoglobin A1c 5.4 % Normal 13 Estimated Average Glucose 108 mg/dL Normal 60-110 Laboratory test finding 11/19/2020 [facility] Vitamin B1 Level Whole Blood 129.9 nmol/L [...] >32 mL/min Normal 7 {A1] {HB] 8 CDC/S HS-CRP CUT-OFF: RELATIVE RISK: <1.0 mg/L [...] Little GFR Left ESRD GFR <15 on SENSITIZER 12 VITAMIN B12 NORMAL RANGE NORMAL 247 - 911 PG/ML INDETERMINATE 211 - 246 PG/ML DEFICIENT LESS THAN 211 PG/ML 13 REFERENCE RANGES: <=5.6% NORMAL 5.7-6.4% SUGGESTS IMPAIRED GLUCOSE META BOLISM/PREDIABETIC >= 6.5% ABNORMAL 14 Performed at: [facility] [address] [id number] Cardroom Drawing Runner: Margarita Nicholas MD, Phone: [phone] Procedures Date Code Description Status 03/05/2021 57211 Preventive Visit Est 18-39 Yrs C ompleted 02/05/2021 76919 Preventive Visit Est 18-39 Yrs C ompleted Medical Devices Description No Information Available Encounters Type Date Location Provider Dx Diagnosis Office Visit 03/05/2021 10:00a [facility] Marco Antonio Goidnez MD Z9 8.84 Bariatric surgery status L65.9 Nonscarring hair loss, unspe cified D50.9 Iron deficiency anemia, unsp ecified E78.5 Hyperlipidemia, unspecified R73.9 Hyperglycemia, unspecified Z00.00 Encntr for general adult med ical exam w/o abnormal findings R01.1 Cardiac murmur, unspecified Assessments Date Code Description Provider 03/05/2021 Z98.84 Bariatric surgery status Marco Antonio [...] Vasquez NP Plan of Treatment Future Appointment(s):* 03/17/2021 9:00 am - Marco Antonio Godinez MD at [facility] * 03/26/2021 3:00 pm - Tati Vasquez NP at [facility] 03/05/2021 - Marco Antonio Godinez MD* Z98.84 Bariatric surgery status* Comments:* The patient has lost 4 lb of body weight since previous visit and currently weighs 217 lb. Her current BMI is 34.0. * L65.9 Nonscarring hair loss, unspecified* Comments:* She takes Biotin 2500 mcg and uses a special shampoo for thinning of hair. * D50.9 Iron deficiency anemia, unspecified* Comments:* We will check her iron levels. If her iron levels are low, we will give her IV iron infusion. * E78.5 Hyperlipidemia, unspecified* Comments:* She was encouraged to maintain a low-cholesterol diet. Include more whole grains, fruits and vegetables in diet. Avoid red meat and include lean meat in diet. Advised the patient about the importance of regular exercise regimen to help control his cholesterol. She is aware of the cardiac risks associated with elevated cholesterol. We will continue to monitor. * R73.9 Hyperglycemia, unspecified* Comments:* Glucose 138. We will recheck HbA1c and fasting glucose. She will benefit from maintaining a strict diabetic diet and a regular exercise regimen. Advised to try to limit carbs in her diet. We will continue to monitor. * Follow up:* 1-2 weeks telephone visit * Z00.00 Encounter for general adult medical examination without abnormal findings* Comments:* Examination performed today was normal. Routine labs were ordered today. * R01.1 Cardiac murmur, unspecified* Comments:* We will refer her to rustic terrazzo setter Dr. Kat for further evaluation. * Referral:* Yoseph Kat, Functional Status Description No Information Available Mental Status Description No Information Available Referrals Refer to Reason for Referral Status Appt Date Yoseph Kat 35 y/o F with 2/6 systolic aortic murmur . Eval and treat. Created [address] [place] [address] [phone]
--- OUTSIDE RECORDS SUMMARY | 2021-05-11 11:40 | CCD | Continuity of Care Document ---
Author Author Corie LANZA Organization Unknown Address [address] [place] [address] Phone [phone] Care Team Providers Care Oyster Planter Name Role Phone Marco Antonio Godinez M.D. AUTM [phone] [facility] Sleep Center AUTM [phone] [facility] Nutrition Services AUTM [phone] Cristobal Peña AUTM [phone] Yoseph Kat AUTM [phone] Problems Active Problems Provider Date Obesity Marco [...] Note Hepatitis C Quant By PCR 03/26/2021 [facility] Hepatitis C Quantitation HCV Not Detected IU/mL Normal . 1 Hepatitis C log10 TNP Normal . Test Information: (SEE NOTE) Normal . 2 H Simplex Virus Type 1&2 Igm 03/26/2021 [facility] HSV IgM Types 1&2 <0.91 Ratio Normal 0.00-0.90 3 HSV Type 1&2 Igg Specific 03/26/2021 [facility] HSV Type I IgG Specific 56.60 index High 0.00-0.90 4 HSV Type II IgG Specific 10.50 index High 0.00-0.90 5 Laboratory test finding 03/26/2021 In Office Inhouse Urine Test Negative Negative Laboratory test finding 03/26/2021 [facility] Syphilis NONREACTIVE Normal Nonreactive HIV 1&2 Screen Centaur NEGATIVE Normal Negative 6 Comprehensive Metabolic Panel 03/05/2021 [facility] Comprehensive Metabo (SEE NOTE) 7, 8 [...] >60 mL/min 9 Laboratory test finding 03/05/2021 [facility] Vitamin B12 Serum >2000 pg/mL High 232 - 1245 Vitamin D (25-Hydroxy) 46 NG/ML 10 TSH Highly Sensitive 0.73 uIU/mL 0.47 - 5.01 Folic Acid Serum(Folate) 14.4 NG/ML 4.4 - 31.0 Sedimentation Rate 03/05/2021 [facility] Sed Rate 5 mm/hr 0 - 20 Sed Rate Reenter 5 Laboratory test finding 03/05/2021 [facility] Hgba1c 4.9 % 4.4 - 6.1 11 CRP (High Sensitivity) 2.52 mg/L 1.00 - 3.00 12 Cve Panel 03/05/2021 [facility] Cve Panel (SEE NOTE) 13 Cholesterol 159 mg/dL 131 - 200 Triglycerides 127 mg/dL 35 - 160 HDL 44 mg/dL 29 - 86 LDL 103 mg/dL 65 - 175 Risk Factor 3.6 3.2 - 4.4 LDL/HDL 2.34 1.47 - 3.22 14 CBC W/Automated Diff 03/05/2021 [facility] CBC W/Automated Diff (SEE NOTE) 15 [...] 80.0 Lymph 32.7 % 25.0 - 40.0 Barren 4.6 % 3.0 - 8.0 Eos 1.9 % 0.0 - 7.0 Baso 0.4 % 0.0 - 2.5 %Ig 0.1 % High 0.0 - 0.0 %NRBC 0.0 % 0.0 - 0.0 #Neut 4.41 10^3/uL 2.00 - 6.90 #Lymph 2.39 10^3/uL 0.60 - 3.40 #Barren 0.34 10^3/uL 0.00 - 0.90 #Eos 0.14 10^3/uL 0.00 - 0.70 #Baso 0.03 10^3/uL 0.00 - 0.20 #Ig 0.01 10^3/uL 0.00 - 0.10 #NRBC 0.00 10^3/uL 0.00 - 0.00 Manual Diff NOT INDICATED RBC Morph NOT INDICATED Laboratory test finding 03/05/2021 [facility] Ferritin Brooke 25.9 ng/mL 3.0 - 105 Iron Binding Capacity 03/05/2021 [facility] Iron 38 g/dL Low 42 - 135 Uibc 312 g/dL 112 - 347 Tibc 350 g/dL 250 - 450 Iron Sat 11 % Chlamydia GC/Am 02/05/2021 [facility] Chlamydia trachomatis,Ksenia Negative Negative 16 Neisseria gonorrhoeae,Ksenia Negative Negative RBC Folate 11/19/2020 [facility] Hematocrit 40.5 % Normal 36.0-47.0 RBC Folate 539 NG/ML Normal 280-791 CBC With Differential 11/19/2020 [facility] White Blood Count 8.3 10 Normal 4.0-10.0 [...] 36.0-66.0 Lymph % 26.8 % Normal 24.0-44.0 Barren % 5.2 % Normal 2.0-8.0 Eos % 4.5 % High 0.0-3.0 Baso % 0.5 % Normal 0.0-1.0 Immature Granulocyte % 0.4 % Normal 0-3.0 Nucleated Red Blood Cell % 0.0 % Normal 0-0 Neutrophils # 5.2 10 Normal 1.5-8.5 Lymph # 2.2 10 Normal 1.5-5.0 Barren # 0.4 10 Normal 0.0-0.8 Eos # 0.4 10 Normal 0.0-0.5 Baso # 0.0 10 Normal 0.0-0.2 Comprehensive Metabolic Profil 11/19/2020 [facility] Glucose, Fasting 138 mg/dL High 70-100 Blood [...] 1.1 Low 1.2-2.2 Laboratory test finding 11/19/2020 [facility] Phosphorus Level 3.0 mg/dL Normal 2.5-4.9 Magnesium Level 2.2 mg/dL Normal 1.8-2.4 Total Iron Binding Capacit 11/19/2020 [facility] Iron (Fe) 30 g/dL Low 50-170 Total Iron Binding Capacity 311 g/dL Normal 250-450 Percent Saturation 9.6 % Low 13.2-45.0 Laboratory test finding 11/19/2020 [facility] Vitamin B12 Level 599 pg/mL Normal 247-911 18 Total 25(Oh) Vitamin D 35.5 NG/ML Normal 30.0-100.0 Ferritin 15 NG/ML Normal 8-252 Hemoglobin A1c 11/19/2020 [facility] Hemoglobin A1c 5.4 % Normal 19 Estimated Average Glucose 108 mg/dL Normal 60-110 Laboratory test finding 11/19/2020 [facility] Vitamin B1 Level Whole Blood 129.9 nmol/L Normal 66.5-200.0 20 1 HCV Not Detected 2 . The quantitative range of this assay is 15 IU/mL to 100 million IU/mL. 3 Negative <0.91 Equivocal 0.91 - 1.09 Positive >1.09 Performed at: RN - [facility] [address] [id number] Milk Vendor: Lois Billy MD, Phone: [phone] Negative <0.91 Equivocal 0.91 - 1.09 [...] (including group O) & HIV-2 using the [employer] system. The estimated 95% confidence interval for [...] Little GFR Left ESRD GFR <15 on POWER PLANT OPERATOR 18 VITAMIN B12 NORMAL RANGE NORMAL 247 - 911 PG/ML INDETERMINATE 211 - 246 PG/ML DEFICIENT LESS THAN 211 PG/ML 19 REFERENCE RANGES: <=5.6% NORMAL 5.7-6.4% SUGGESTS IMPAIRED GLUCOSE META BOLISM/PREDIABETIC >= 6.5% ABNORMAL 20 Performed at: [facility] [address] [id number] 61 Milk Vendor: Margarita Nicholas MD, Phone: [phone] Procedures Date Code Description Status 03/26/2021 54481 Office/Outpatient Established Mo d MDM 30-39 Min Completed 03/17/2021 89268 Phone Evaluation/Management By Connie breg 5-10 Mins Completed 03/05/2021 74130 Preventive Visit Est 18-39 Yrs C ompleted 02/05/2021 99555 Preventive Visit Est 18-39 Yrs C ompleted [...] am - Lc Peoples M.D. at [facility] * 06/29/2021 9:00 am - Marco Antonio Godinez MD at [facility] 03/26/2021 - Tati Vasquez NP* R87.613 High [...] . Eval and treat. Patient Notified 05/01/2021 [address] [place] [address] [phone]
--- OUTSIDE RECORDS SUMMARY | 2021-05-11 11:40 | CCD | Continuity of Care Document ---
Author Organization Unknown Address Unknown Phone Unavailable Care Team Providers Care Delivery Truck Driver Name Role Phone Marco Antonio Godinez MD AUT [phone] Problems Description No Information Available Social History [...] % 36.0-66.0 Lymph % 26.8 % 24.0-44.0 [place] % 5.2 % 2.0-8.0 Eos % 4.5 % High 0.0-3.0 Baso % 0.5 % 0.0-1.0 Immature Granulocyte % 0.4 % 0-3.0 Nucleated Red Blood Cell % 0.0 % 0-0 Neutrophils # 5.2 10 1.5-8.5 Lymph # 2.2 10 1.5-5.0 [place] # 0.4 10 0.0-0.8 Eos # 0.4 [...] Little GFR Left ESRD GFR <15 on FLASHER ADJUSTER 10 Performed at: [facility] [id number] Manager Beauty: Margarita Nicholas MD, Phone: [phone] REFERENCE RANGES: <=5.6% NORMAL 5.7-6.4% SUGGESTS [...]
--- OUTSIDE RECORDS SUMMARY | 2021-05-11 11:41 | CCD | Continuity of Care Document ---
Author Author Corie GODINEZ M.D. Organization Unknown Address [address] [place] [address] Phone [phone] Care Team Providers Care Embedded Software Test Engineer Name Role Phone Marco Antonio Godinez M.D. AUTM [phone] [facility] Sleep Center AUTM [phone] [facility] Nutrition Services AUTM [phone] Cristobal Peña AUTM [phone] Problems Active Problems Provider Date Obesity Marco Antonio Godinez MD Onset: 01/26/2016 Pure hypercholesterolemia Marco Antonio Godinez MD Onset: 016 Allison-en-Y gastrojejunostomy Tati Vasquez NP Onset: 02/05 Note: done 10/22 Adult health examination Marco Antonio Godinez MD Onset: 03/05/20 21 Abnormal glucose level Marco Antonio Godinez MD [...] H/L Range Note Laboratory test finding 03/05/2021 [facility] Iron <pending> Iron Binding Capacity <pending> Ferritin Brooke <pending> Laboratory test finding 03/05/2021 [facility] Hgba1c <pending> CRP (High Sensitivity) <pending> Sedimentation Rate <pending> Vitamin B12 Serum <pending> Vitamin D (25-Hydroxy) <pending> TSH Highly Sensitive <pending> Folic Acid Serum (Folate) <pending> Chlamydia GC/Am 02/05/2021 [facility] Chlamydia trachomatis,Ksenia Negative Negative 1 Neisseria gonorrhoeae,Ksenia Negative Negative RBC Folate 11/19/2020 [facility] Hematocrit 40.5 % Normal 36.0-47.0 RBC Folate 539 NG/ML Normal 280-791 CBC With Differential 11/19/2020 [facility] White Blood Count 8.3 10 Normal [...] 36.0-66.0 Lymph % 26.8 % Normal 24.0-44.0 Fisher % 5.2 % Normal 2.0-8.0 Eos % 4.5 % High 0.0-3.0 Baso % 0.5 % Normal 0.0-1.0 Immature Granulocyte % 0.4 % Normal 0-3.0 Nucleated Red Blood Cell % 0.0 % Normal 0-0 Neutrophils # 5.2 10 Normal 1.5-8.5 Lymph # 2.2 10 Normal 1.5-5.0 Fisher # 0.4 10 Normal 0.0-0.8 Eos # 0.4 10 Normal 0.0-0.5 Baso # 0.0 10 Normal 0.0-0.2 Comprehensive Metabolic Profil 11/19/2020 [facility] Glucose, Fasting 138 mg/dL High 70-100 Blood Urea Nitrogen 8 mg/dL Normal 7-18 Creatinine For GFR 0.68 mg/dL Normal 0.55-1.30 Glomerular Filtration Rate > 60.0 Normal >60 2 Sodium Level 142 mEq/L Normal 136-145 [...] 1.1 Low 1.2-2.2 Laboratory test finding 11/19/2020 [facility] Phosphorus Level 3.0 mg/dL Normal 2.5-4.9 Magnesium Level 2.2 mg/dL Normal 1.8-2.4 Total Iron Binding Capacit 11/19/2020 [facility] Iron (Fe) 30 g/dL Low 50-170 Total Iron Binding Capacity 311 g/dL Normal 250-450 Percent Saturation 9.6 % Low 13.2-45.0 Laboratory test finding 11/19/2020 [facility] Vitamin B12 Level 599 pg/mL Normal 247-911 3 Total 25(Oh) Vitamin D 35.5 NG/ML Normal 30.0-100.0 Ferritin 15 NG/ML Normal 8-252 Hemoglobin A1c 11/19/2020 [facility] Hemoglobin A1c 5.4 % Normal 4 Estimated Average Glucose 108 mg/dL Normal 60-110 Laboratory test finding 11/19/2020 [facility] Vitamin B1 Level Whole Blood 129.9 nmol/L Normal 66.5-200.0 5 1 {SOURCE:~.~.~<DG1.3.1>Z01.41 9</DG1.3.1><DG1.3.1>Z01.419</DG1.3.1> 2 Units are mL/min/1.73 m2 Chronic Kidney Disease Staging per NKF: Stage I & II GFR >=60 Normal to Mildly Decreased Stage III GFR 30-59 Moderately Decreased Stage IV GFR 15-29 Severely Decreased Stage V GFR <15 Very Little GFR Left ESRD GFR <15 on [employer]JUNCT [employer] DEPARTMENT 3 VITAMIN B12 NORMAL RANGE NORMAL 247 - 911 PG/ML INDETERMINATE 211 - 246 PG/ML DEFICIENT LESS THAN 211 PG/ML 4 REFERENCE RANGES: <=5.6% NORMAL 5.7-6.4% SUGGESTS IMPAIRED GLUCOSE META BOLISM/PREDIABETIC >= 6.5% ABNORMAL 5 Performed at: [facility] [id number] [address] Cafe Manager: Margarita Nicholas MD, Phone: [phone] Procedures Date Code Description Status 03/05/2021 79132 Preventive Visit Est 18-39 Yrs C ompleted 02/05/2021 01002 Preventive Visit Est 18-39 Yrs C ompleted Medical Devices Description No Information Available Encounters Type Date Location Provider Dx Diagnosis Office Visit 03/05/2021 10:00a Family Practice Marco Antonio Godinez MD Z9 8.84 Bariatric surgery status L65.9 [...] am - Marco Antonio Godinez MD at [facility] * 03/26/2021 3:00 pm - Tati Vasquez NP at [facility] 03/05/2021 - Marco Antonio Godinez MD* Z98.84 Bariatric surgery status * L65.9 Nonscarring hair loss, unspecified * D50.9 Iron deficiency anemia, unspecified * E78.5 Hyperlipidemia, unspecified * R73.9 Hyperglycemia, unspecified* Follow up:* 1-2 weeks telephone visit * Z00.00 Encounter for general adult medical examination without abnormal findings * R01.1 Cardiac murmur, unspecified Functional Status Description No Information Available Mental Status Description No Information Available Referrals Description No Information Available
--- OUTSIDE RECORDS SUMMARY | 2021-05-11 11:42 | CCD ---
Author Author [facility] Organization [facility] Address Unknown Phone Unavailable Care Team Providers Care Band Saw Runner Name Role Phone Maring, Jacques PA Unavailable Unavailable Maring, Jacques PA Unavailable Unavailable Maring, Jacques PA Unavailable Unavailable Maring, Jacques PA Unavailable Unavailable Maring, Jacques PA Unavailable Unavailable Maring, Jacques PA Unavailable Unavailable Maring, Jacques PA Unavailable Unavailable Maring, Jacques PA Unavailable Unavailable Maring, Jacques PA Unavailable Unavailable Maring, Jacques PA Unavailable Unavailable Maring, Jacques PA Unavailable Unavailable Maring, Jacques PA Unavailable Unavailable Maring, Jacques PA Unavailable Unavailable Maring, Jacques PA Unavailable Unavailable Maring, Jacques PA Unavailable Unavailable Maring, Jacques PA Unavailable Unavailable LYNDON LION MD Unavailable Unavailable LYNDON LION MD Unavailable Unavailable LYNDON LION MD Unavailable Unavailable LYNDON LION MD Unavailable Unavailable LETTIERE, A MEHNAZ PA Unavailable Unavailable LETTIERE, A MEHNAZ PA Unavailable Unavailable LETTIERE, A MEHNAZ PA Unavailable Unavailable LETTIERE, A MEHNAZ PA Unavailable Unavailable LETTIERE, A MEHNAZ PA Unavailable Unavailable LETTIERE, A MEHNAZ PA Unavailable Unavailable LETTIERE, A MEHNAZ PA Unavailable Unavailable LETTIERE, A MEHNAZ PA Unavailable Unavailable LETTIERE, A MEHNAZ PA Unavailable Unavailable LETTIERE, A MEHNAZ PA Unavailable Unavailable LETTIERE, A MEHNAZ PA Unavailable Unavailable LETTIERE, A MEHNAZ PA Unavailable Unavailable LETTIERE, A MEHNAZ PA Unavailable Unavailable LETTIERE, A MEHNAZ PA Unavailable Unavailable LETTIERE, A MEHNAZ PA Unavailable Unavailable LETTIERE, A MEHNAZ PA Unavailable Unavailable LETTIERE, A MEHNAZ PA Unavailable Unavailable LETTIERE, A MEHNAZ PA Unavailable Unavailable LETTIERE, A MEHNAZ PA Unavailable Unavailable LETTIERE, A MEHNAZ PA Unavailable Unavailable LETTIERE, A MEHNAZ PA Unavailable Unavailable LETTIERE, A MEHNAZ PA Unavailable Unavailable LETTIERE, A MEHNAZ PA Unavailable Unavailable LETTIERE, A MEHNAZ PA Unavailable Unavailable LETTIERE, A MEHNAZ PA Unavailable Unavailable LETTIERE, A MEHNAZ PA Unavailable Unavailable LETTIERE, A MEHNAZ PA Unavailable Unavailable LETTIERE, A MEHNAZ PA Unavailable Unavailable LETTIERE, A MEHNAZ PA Unavailable Unavailable LETTIERE, A MEHNAZ PA Unavailable Unavailable LETTIERE, A MEHNAZ PA Unavailable Unavailable Landon Ibrahim MD Unavailable Unavailable Landon Ibrahim MD Unavailable Unavailable Landon Ibrahim MD Unavailable Unavailable Landon Ibrahim MD Unavailable Unavailable Landon Ibrahim MD Unavailable Unavailable Landon Ibrahim MD Unavailable Unavailable Landon Ibrahim MD Unavailable Unavailable Landon Ibrahim MD Unavailable Unavailable Landon Ibrahim MD Unavailable Unavailable Landon bIrahim MD Unavailable Unavailable Landon Ibrahim MD Unavailable Unavailable Landon Ibrahim MD Unavailable Unavailable Landon Ibrahim MD Unavailable Unavailable Landon Ibrahim MD Unavailable Unavailable Landon Ibrahim MD Unavailable Unavailable Landon Ibrahim MD Unavailable Unavailable Landon Ibrahim MD Unavailable Unavailable Landon Ibrahim MD Unavailable Unavailable Landon Ibrahim MD Unavailable Unavailable Landon Ibrahim MD Unavailable Unavailable Landon Ibrahim MD Unavailable Unavailable Landon Ibrahim MD Unavailable Unavailable Landon Ibrahim MD Unavailable Unavailable Landon Ibrahim MD Unavailable Unavailable Landon Ibrahim MD Unavailable Unavailable Landon Ibrahim MD Unavailable Unavailable Landon Ibrahim MD Unavailable Unavailable Landon Ibrahim MD Unavailable Unavailable Landon Ibrahim MD Unavailable Unavailable Landon Ibrahim MD Unavailable Unavailable Landon Ibrahim MD Unavailable Unavailable Landon Ibrahim MD Unavailable Unavailable Landon Ibrahim MD Unavailable Unavailable Landon Ibrahim MD Unavailable Unavailable Landon Ibrahim MD Unavailable Unavailable Landon Ibrahim MD Unavailable Unavailable Landon Ibrahim MD Unavailable Unavailable Landon Ibrahim MD Unavailable Unavailable Landon Ibrahim MD Unavailable Unavailable Landon Ibrahim MD Unavailable Unavailable Landon Ibrahim MD Unavailable Unavailable Landon Ibrahim MD Unavailable Unavailable Landon Ibrahim MD Unavailable Unavailable Landon Ibrahim MD Unavailable Unavailable Landon Ibrhaim MD Unavailable Unavailable Landon Ibrahim MD Unavailable Unavailable Landon Ibrahim MD Unavailable Unavailable Landon Ibrahim MD Unavailable Unavailable Landon Ibrahim MD Unavailable Unavailable Landon Ibrahim MD Unavailable Unavailable Landon Ibrahim MD Unavailable Unavailable Landon Ibrahim MD Unavailable Unavailable Patrice, Landon Hagen MD Unavailable Unavailable Landon Ibrahim MD Unavailable Unavailable Landon Ibrahim MD Unavailable Unavailable Landon Ibrahim MD Unavailable Unavailable Landon Ibrahim MD Unavailable Unavailable Landon Ibrahim MD Unavailable Unavailable Landon Ibrahim MD Unavailable Unavailable Landon Ibrahim MD Unavailable Unavailable Landon Ibrahim MD Unavailable Unavailable Landon Ibrahim MD Unavailable Unavailable Landon Ibrahim MD Unavailable Unavailable Landon Ibrahim MD Unavailable Unavailable LAROCK, J CRISTOBAL CHISEL WORKER Unavailable Unavailable LAROCK, J CRISTOBAL CHISEL WORKER Unavailable Unavailable LAROCK, J CRISTOBAL CHISEL WORKER Unavailable Unavailable LAROCK, J CRISTOBAL CHISEL WORKER Unavailable Unavailable LAROCK, J CRISTOBAL CHISEL WORKER Unavailable Unavailable LAROCK, J CRISTOBAL CHISEL WORKER Unavailable Unavailable LAROCK, J CRISTOBAL CHISEL WORKER Unavailable Unavailable LAROCK, J CRISTOBAL CHISEL WORKER Unavailable Unavailable LAROCK, J CRISTOBAL CHISEL WORKER Unavailable Unavailable LAROCK, J CRISTOBAL CHISEL WORKER Unavailable Unavailable LAROCK, J CRISTOBAL CHISEL WORKER Unavailable Unavailable LAROCK, J CRISTOBAL CHISEL WORKER Unavailable Unavailable LAROCK, J CRISTOBAL CHISEL WORKER Unavailable Unavailable LAROCK, J CRISTOBAL CHISEL WORKER Unavailable Unavailable LAROCK, J CRISTOBAL CHISEL WORKER Unavailable Unavailable LAROCK, J CRISTOBAL CHISEL WORKER Unavailable Unavailable LAROCK, J CRISTOBAL CHISEL WORKER Unavailable Unavailable LAROCK, J CRISTOBAL CHISEL WORKER Unavailable Unavailable LAROCK, J CRISTOBAL CHISEL WORKER Unavailable Unavailable LAROCK, J CRISTOBAL CHISEL WORKER Unavailable Unavailable LAROCK, J CRISTOBAL CHISEL WORKER Unavailable Unavailable LAROCK, J CRISTOBAL CHISEL WORKER Unavailable Unavailable Feola, T Jazmyne PA Unavailable Unavailable Feola, T Jazmyne PA Unavailable Unavailable Feola, T Jazmyne PA Unavailable Unavailable Feola, T Jazmyne PA Unavailable Unavailable Feola, T Jazmyne PA Unavailable Unavailable Feola, T Jazmyne PA Unavailable Unavailable Feola, T Jazmyne PA Unavailable Unavailable Feola, T Jazmyne PA Unavailable Unavailable Feola, T Jazmyne PA Unavailable Unavailable Feola, T Jazmyne PA Unavailable Unavailable Feola, T Jazmyne PA Unavailable Unavailable Feola, T Jazmyne PA Unavailable Unavailable Feola, T Jazmyne PA Unavailable Unavailable Feola, T Jazmyne PA Unavailable Unavailable Feola, T Jazmyne PA Unavailable Unavailable Feola, T Jazmyne PA Unavailable Unavailable Feola, T Jazmyne PA Unavailable Unavailable Feola, T Jazmyne PA Unavailable Unavailable Feola, T Jazmyne PA Unavailable Unavailable Feola, T Jazmyne PA Unavailable Unavailable Feola, T Jazmyne PA Unavailable Unavailable Feola, T Jazmyne PA Unavailable Unavailable Feola, T Jazmyne PA Unavailable Unavailable Feola, T Jazmyne PA Unavailable Unavailable Feola, T Jazmyne PA Unavailable Unavailable Feola, T Jazmyne PA Unavailable Unavailable Feola, T Jazmyne PA Unavailable Unavailable Feola, T Jazmyne PA Unavailable Unavailable Feola, T Jazmyne PA Unavailable Unavailable Feola, T Jazmyne PA Unavailable Unavailable Feola, T Jazmyne PA Unavailable Unavailable Feola, T Jazmyne PA Unavailable Unavailable Feola, T Jazmyne PA Unavailable Unavailable Feola, T Jazmyne PA Unavailable Unavailable Feola, T Jazmyne PA Unavailable Unavailable Feola, T Jazmyne PA Unavailable Unavailable Feola, T Jazmyne PA Unavailable Unavailable Feola, T Jazmyne PA Unavailable Unavailable Feola, T Jazmyne PA Unavailable Unavailable Feola, T Jazmyne PA Unavailable Unavailable Feola, T Jazmyne PA Unavailable Unavailable BLAIRABDULAZIZ TREJO MD Unavailable Unavailable BLAIRABDULAZIZ TREJO MD Unavailable Unavailable BLAIRABDULAZIZ TREJO MD Unavailable Unavailable BLAIRABDULAZIZ TREJO MD Unavailable Unavailable BLAIRABDULAZIZ TREJO MD Unavailable Unavailable BALIRABDULAZIZ TREJO MD Unavailable Unavailable BLAIRABDULAZIZ TREJO MD Unavailable Unavailable BLAIRABDULAZIZ TREJO MD Unavailable Unavailable BLAIRABDULAZIZ TREJO MD Unavailable Unavailable BLAIRABDULAZIZ TREJO MD Unavailable Unavailable BLAIRABDULAZIZ TREJO MD Unavailable Unavailable BLAIRABDULAZIZ TREJO MD Unavailable Unavailable BLAIRABDULAZIZ TREJO MD Unavailable Unavailable BLAIRABDULAZIZ TREJO MD Unavailable Unavailable BLAIRABDULAZIZ TREJO MD Unavailable Unavailable BLAIRABDULAZIZ TREJO MD Unavailable Unavailable BLAIRABDULAZIZ TREJO MD Unavailable Unavailable BLAIRABDULAZIZ TREJO MD Unavailable Unavailable BLAIRABDULAZIZ TREJO MD Unavailable Unavailable BLAIRABDULAZIZ TREJO MD Unavailable Unavailable BLAIRABDULAZIZ TREJO MD Unavailable Unavailable BLAIRABDULAZIZ TREJO MD Unavailable Unavailable BLAIRABDULAZIZ TREJO MD Unavailable Unavailable BLAIRABDULAZIZ TREJO MD Unavailable Unavailable BLAIRABDULAZIZ TREJO MD Unavailable Unavailable BLAIRABDULAZIZ TREJO MD Unavailable Unavailable BLAIRABDULAZIZ TREJO MD Unavailable Unavailable BLAIRABDULAZIZ TREJO MD Unavailable Unavailable BLAIRABDULAZIZ TREJO MD Unavailable Unavailable BLAIRABDULAZIZ TREJO MD Unavailable Unavailable BLAIRABDULAZIZ TREJO MD Unavailable Unavailable BLAIRABDULAZIZ TREJO MD Unavailable Unavailable BLAIRABDULAZIZ TREJO MD Unavailable Unavailable BLAIRABDULAZIZ TREJO MD Unavailable Unavailable BLAIRABDULAZIZ TREJO MD Unavailable Unavailable BLAIRABDULAZIZ TREJO MD Unavailable Unavailable BLAIRABDULAZIZ TREJO MD Unavailable Unavailable BLAIRABDULAZIZ TREJO MD Unavailable Unavailable BLAIRABDULAZIZ TREJO MD Unavailable Unavailable BLAIRABDULAZIZ TREJO MD Unavailable Unavailable BLAIRABDULAZIZ MD Unavailable Unavailable BLAIRABDULAZIZ MD Unavailable Unavailable BLAIR ABDULAZIZ MD Unavailable Unavailable BLAIR, ABDULAZIZ MD Unavailable Unavailable BLAIRABDULAZIZ TREJO MD Unavailable Unavailable BLAIR, ABDULAZIZ MD Unavailable Unavailable BLAIR, ABDULAZIZ MD Unavailable Unavailable BLAIR ABDULAZIZ MD Unavailable Unavailable BLAIR ABDULAZIZ MD Unavailable Unavailable BLAIR ABDULAZIZ MD Unavailable Unavailable BLAIR ABDULAZIZ MD Unavailable Unavailable BLAIR ABDULAZIZ MD Unavailable Unavailable BLAIRABDULAZIZ TREJO MD Unavailable Unavailable BLAIR ABDULAZIZ MD Unavailable Unavailable BLAIR ABDULAZIZ MD Unavailable Unavailable BLAIR ABDULAZIZ MD Unavailable Unavailable BLAIR ABDULAZIZ MD Unavailable Unavailable BLAIR, ABDULAZIZ MD Unavailable Unavailable BLAIR, ABDULAZIZ MD Unavailable Unavailable BLAIRABDULAZIZ TREJO MD Unavailable Unavailable BLAIRABDULAZIZ TREJO MD Unavailable Unavailable BLAIRABDULAZIZ TREJO MD Unavailable Unavailable BLAIRABDULAZIZ TREJO MD Unavailable Unavailable BLAIRABDULAZIZ TREJO MD Unavailable Unavailable BLAIRABDULAZIZ TREJO MD Unavailable Unavailable BLAIRABDULAZIZ TREJO MD Unavailable Unavailable BLAIRABDULAZIZ TREJO MD Unavailable Unavailable BLAIRABDULAZIZ TREJO MD Unavailable Unavailable BLAIRABDULAZIZ TREJO MD Unavailable Unavailable BLAIRABDULAZIZ TREJO MD Unavailable Unavailable ROCK, AICHA RUY CHISEL WORKER Unavailable Unavailable ROCK, AICHA RUY CHISEL WORKER Unavailable Unavailable ROCK, AICHA RUY CHISEL WORKER Unavailable Unavailable ROCK, AICHA RUY CHISEL WORKER Unavailable Unavailable ROCK, AICHA RUY CHISEL WORKER Unavailable Unavailable ROCK, AIHCA RUY CHISEL WORKER Unavailable Unavailable ROCK, AICHA RUY CHISEL WORKER Unavailable Unavailable ROCK, AICHA RUY CHISEL WORKER Unavailable Unavailable ROCK, AICHA RUY CHISEL WORKER Unavailable Unavailable ROCK, AICHA RUY CHISEL WORKER Unavailable Unavailable ROCK, AICHA RUY CHISEL WORKER Unavailable Unavailable ROCK, AICHA RUY CHISEL WORKER Unavailable Unavailable ROCK, AICHA RUY CHISEL WORKER Unavailable Unavailable ROCK, AICHA RUY CHISEL WORKER Unavailable Unavailable ROCK, AICHA RUY CHISEL WORKER Unavailable Unavailable ROCK, AICHA RUY CHISEL WORKER Unavailable Unavailable ROCK, AICHA RUY CHISEL WORKER Unavailable Unavailable ROCK, AICHA RUY CHISEL WORKER Unavailable Unavailable ROCK, AICHA RUY CHISEL WORKER Unavailable Unavailable ROCK, AICHA RUY CHISEL WORKER Unavailable Unavailable ROCK, AICHA RUY CHISEL WORKER Unavailable Unavailable ROCK, AICHA RUY CHISEL WORKER Unavailable Unavailable ROCK, AICHA RUY CHISEL WORKER Unavailable Unavailable BAILEE, F BENNY BA Unavailable Unavailable BAILEE F BENNY BA Unavailable Unavailable BAILEEMoses MD Unavailable Unavailable BAILEEMoses MD Unavailable Unavailable BAILEEMoses MD Unavailable Unavailable BAILEEMoses MD Unavailable Unavailable BAILEEMoses MD Unavailable Unavailable BAILEEMoses MD Unavailable Unavailable BAILEEMoses MD Unavailable Unavailable BAILEEMoses MD Unavailable Unavailable BAILEEMoses MD Unavailable Unavailable BAILEEMoses MD Unavailable Unavailable BAILEEMoses MD Unavailable Unavailable BAILEEMoses MD Unavailable Unavailable BAILEEMoses MD Unavailable Unavailable BAILEEMoses MD Unavailable Unavailable BAILEEMoses MD Unavailable Unavailable BAILEEMoses MD Unavailable Unavailable BAILEEMoses MD Unavailable Unavailable BAILEEMoses MD Unavailable Unavailable BAILEEMoses MD Unavailable Unavailable BAILEEMoses MD Unavailable Unavailable BAILEEMoses MD Unavailable Unavailable BAILEEMoses MD Unavailable Unavailable BAILEEMoses MD Unavailable Unavailable BAILEEMoses MD Unavailable Unavailable BAILEEMoses MD Unavailable Unavailable BAILEEMoses MD Unavailable Unavailable BAILEEMoses MD Unavailable Unavailable BAILEEMoses MD Unavailable Unavailable BAILEEMoses MD Unavailable Unavailable ANTECOL, Marlene MCINTYRE MD Unavailable Unavailable ANTECOL, Marlene MCINTYRE MD Unavailable Unavailable ANTECOL, Marlene MCINTYRE MD Unavailable Unavailable ANTECOL, Marlene MCINTYRE MD Unavailable Unavailable ANTECOL, Marlene MCINTYRE MD Unavailable Unavailable ANTECOL, Marlene MCINTYRE MD Unavailable Unavailable ANTECOL, Marlene MCINTYRE MD Unavailable Unavailable ANTECOL, Marlene MCINTYRE MD Unavailable Unavailable ANTECOL, Marlene MCINTYRE MD Unavailable Unavailable ANTECOL, Marlene MCINTYRE MD Unavailable Unavailable ANTECOL, Marlene MCINTYRE MD Unavailable Unavailable ANTECOL, Marlene MCINTYRE MD Unavailable Unavailable ANTECOL, Marlene MCINTYRE MD Unavailable Unavailable ANTECOL, Marlene MCINTYRE MD Unavailable Unavailable ANTECOL, Marlene MCINTYRE MD Unavailable Unavailable ANTECOL, Marlene MCINTYRE MD Unavailable Unavailable ANTECOL, Marlene MCINTYRE MD Unavailable Unavailable ANTECOL, Marlene MCINTYRE MD Unavailable Unavailable ANTECOL, Marlene MCINTYRE MD Unavailable Unavailable ANTECOL, Marlene MCINTYRE MD Unavailable Unavailable ANTECOL, Marlene MCINTYRE MD Unavailable Unavailable ANTECOL, Marlene MCINTYRE MD Unavailable Unavailable ANTECOL, Marlene MCINTYRE MD Unavailable Unavailable ANTECOL, Marlene MCINTYRE MD Unavailable Unavailable ANTECOL, Marlene MCINTYRE MD Unavailable Unavailable ANTECOL, Marlene MCINTYRE MD Unavailable Unavailable ANTECOL, Marlene MCINTYRE MD Unavailable Unavailable ANTECOL, Marlene MCINTYRE MD Unavailable Unavailable ANTECOL, Marlene MCINTYRE MD Unavailable Unavailable ANTECOL, Marlene MCINTYRE MD Unavailable Unavailable ANTECOL, Marlene MCINTYRE MD Unavailable Unavailable ANTECOL, Marlene MCINTYRE MD Unavailable Unavailable ANTECOL, Marlene MCINTYRE MD Unavailable Unavailable ANTECOL, Marlene MCINTYRE MD Unavailable Unavailable ANTECOL, Marlene MCINTYRE MD Unavailable Unavailable ANTECOL, Marlene MCINTYRE MD Unavailable Unavailable ANTECOL, Marlene MCINTYRE MD Unavailable Unavailable ANTECOL, Marlene MCINTYRE MD Unavailable Unavailable ANTECOL, Marlene MCINTYRE MD Unavailable Unavailable ANTECOL, Marlene MCINTYRE MD Unavailable Unavailable ANTECOL, Marlene MCINTYRE MD Unavailable Unavailable ANTECOL, Marlene MCINTYRE MD Unavailable Unavailable ANTECOL, Marlene MCINTYRE MD Unavailable Unavailable ANTECOL, Marlene MCINTYRE MD Unavailable Unavailable ANTECOL, Marlene MCINTYRE MD Unavailable Unavailable ANTECOL, Marlene MCINTYRE MD Unavailable Unavailable ANTECOL, Marlene MCINTYRE MD Unavailable Unavailable ANTECOL, Marlene MCINTYRE MD Unavailable Unavailable ANTECOL, Marlene MCINTYRE MD Unavailable Unavailable ANTECOL, Marlene MCINTYRE MD Unavailable Unavailable ANTECOL, Marlene MCINTYRE MD Unavailable Unavailable ANTECOL, Marlene MCINTYRE MD Unavailable Unavailable ANTECOL, Marlene MCINTYRE MD Unavailable Unavailable ANTECOL, Marlene MCINTYRE MD Unavailable Unavailable Casey, Joey Jain MD Unavailable Unavailable Casey, Joey Jain MD Unavailable Unavailable Casey, Joey Jain MD Unavailable Unavailable Casey, Joey Jain MD Unavailable Unavailable Casey, Joey Jain MD Unavailable Unavailable Casey, Joey Jain MD Unavailable Unavailable Casey, Joey Jain MD Unavailable Unavailable Casey, Joey Jain MD Unavailable Unavailable Casey, Joey Jain MD Unavailable Unavailable Casey, Joey Jain MD Unavailable Unavailable Casey, Joey Jain MD Unavailable Unavailable Casey, Joey Jain MD Unavailable Unavailable Casey, Joey Jain MD Unavailable Unavailable Casey, Joey Jain MD Unavailable Unavailable Casey, Joey Jain MD Unavailable Unavailable Casey, Joey Jain MD Unavailable Unavailable Casey, Joey Jain MD Unavailable Unavailable Casey, Joey Jain MD Unavailable Unavailable Casey, Joey Jain MD Unavailable Unavailable Casey, Joey Jain MD Unavailable Unavailable Casey, Joey Jain MD Unavailable Unavailable Casey, Joey Jain MD Unavailable Unavailable Casey, Joey Jain MD Unavailable Unavailable Casey, Joey Jain MD Unavailable Unavailable Casey, Joey Jain MD Unavailable Unavailable Casey, Joey Jain MD Unavailable Unavailable Casey, Joey Jain MD Unavailable Unavailable Casey, Joey Jain MD Unavailable Unavailable Casey, Joey Jain MD Unavailable Unavailable Casey, Joey Jain MD Unavailable Unavailable Casey, Joey Jain MD Unavailable Unavailable Casey, Joey Jain MD Unavailable Unavailable Casey, Joey Jain MD Unavailable Unavailable Casey, Joey Jain MD Unavailable Unavailable Casey, Joey Jain MD Unavailable Unavailable Casey, Joey Jain MD Unavailable Unavailable Casey, A Cristobal BA Unavailable Unavailable Casey, A Cristobal BA Unavailable Unavailable Casey, A Cristobal BA Unavailable Unavailable Casey, A Cristobal BA Unavailable Unavailable Casey, A Cristobal BA Unavailable Unavailable Casey, A Cristobal BA Unavailable Unavailable Casey, A Cristobal BA Unavailable Unavailable Casey, A Cristobal BA Unavailable Unavailable Casey, A Cristobal BA Unavailable Unavailable Casey, A Cristobal BA Unavailable Unavailable Casey, A Cristobal BA Unavailable Unavailable Casey, A Cristobal BA Unavailable Unavailable Casey, A Cristobal BA Unavailable Unavailable Casey, A Cristobal BA Unavailable Unavailable Casey, A Cristobal BA Unavailable Unavailable Casey, A Cristobal BA Unavailable Unavailable Casey, A Cristobal BA Unavailable Unavailable Casey, A Cristobal BA Unavailable Unavailable Casey, A Cristobal BA Unavailable Unavailable Casey, A Cristobal BA Unavailable Unavailable Casey, A Cristobal BA Unavailable Unavailable Casey, A Cristobal BA Unavailable Unavailable Casey, A Cristobal BA Unavailable Unavailable Casey, A Cristobal BA Unavailable Unavailable Casey, A Cristobal BA Unavailable Unavailable Casey, A Cristobal BA Unavailable Unavailable Casey, A Cristobal BA Unavailable Unavailable Casey, A Cristobal BA Unavailable Unavailable Casey, A Cristobal BA Unavailable Unavailable Casey, A Cristobal BA Unavailable Unavailable Casey, A Cristobal BA Unavailable Unavailable Casey, A Cristobal BA Unavailable Unavailable Casey, A Cristobal BA Unavailable Unavailable Casey, A Cristobal BA Unavailable Unavailable Casey, A Cristobal BA Unavailable Unavailable Casey, A Cristobal BA Unavailable Unavailable Casey, A Cristobal BA Unavailable Unavailable Casey, A Cristobal BA Unavailable Unavailable Casey, A Cristobal BA Unavailable Unavailable Casey, A Cristobal BA Unavailable Unavailable Casey, A Cristobal BA Unavailable Unavailable Casey, A Cristobal BA Unavailable Unavailable Casey, A Cristobal BA Unavailable Unavailable Casey, A Cristobal BA Unavailable Unavailable Casey, A Cristobal BA Unavailable Unavailable Casey, A Cristobal BA Unavailable Unavailable Casey, A Cristobal BA Unavailable Unavailable Casey, A Cristobal BA Unavailable Unavailable Casey, A Cristobal BA Unavailable Unavailable Casey, A Cristobal BA Unavailable Unavailable Casey, A Cristobal BA Unavailable Unavailable Casey, A Cristobal BA Unavailable Unavailable Casey, A Cristobal BA Unavailable Unavailable Casey, A Cristobal BA Unavailable Unavailable Casey, A Cristobal BA Unavailable Unavailable Casey, A Cristobal BA Unavailable Unavailable Casey, A Cristobal BA Unavailable Unavailable Casey, A Cristobal BA Unavailable Unavailable Casey, A Cristobal BA Unavailable Unavailable Casey, A Cristobal BA Unavailable Unavailable Casey, A Cristobal BA Unavailable Unavailable Casey, A Cristobal BA Unavailable Unavailable Casey, A Cristobal BA Unavailable Unavailable Casey, A Cristobal BA Unavailable Unavailable Casey, A Cristobal BA Unavailable Unavailable Casey, A Cristobal BA Unavailable Unavailable Casey, A Cristobal BA Unavailable Unavailable Casey, A Cristobal BA Unavailable Unavailable Casey, A Cristobal BA Unavailable Unavailable Casey, A Cristobal BA Unavailable Unavailable Casey, A Cristobal BA Unavailable Unavailable Pritchard, Landon Richard MD Unavailable Unavailable Pritchard, Landon Richard MD Unavailable Unavailable Pritchard, Landon Richard MD Unavailable Unavailable Pritchard, Landon Richard MD Unavailable Unavailable Pritchard, Landon Richard MD Unavailable Unavailable Pritchard, C Hilary MD Unavailable Unavailable Pritchard, C Hilary MD Unavailable Unavailable Pritchard, C Hilary MD Unavailable Unavailable Pritchard, C Hilary MD Unavailable Unavailable Pritchard, C Hilary MD Unavailable Unavailable Pritchard, C Hilary MD Unavailable Unavailable Pritchard, C Hilary MD Unavailable Unavailable Pritchard, C Hilary MD Unavailable Unavailable Pritchard, C Hilary MD Unavailable Unavailable Pritchard, C Hilary MD Unavailable Unavailable Pritchard, C Hilary MD Unavailable Unavailable Pritchard, Landon Richard MD Unavailable Unavailable Pritchard, Landon Richard MD Unavailable Unavailable Pritchard, Landon Richard MD Unavailable Unavailable Pritchard, C Hilary MD Unavailable Unavailable Pritchard, C Hilary MD Unavailable Unavailable Pritchard, C Hilary MD Unavailable Unavailable Pritchard, C Hilary MD Unavailable Unavailable Pritchard, C Hilary MD Unavailable Unavailable Pritchard, C Hilary MD Unavailable Unavailable Re-disclosure Warning The records that you are about to access may contain information from federally-assisted alcohol or drug abuse programs. If such information is present, then the following federally mandated warning applies: This information has been disclosed to you from records protected by federal confidentiality rules (42 CFR part 2). The federal rules prohibit you from making any further disclosure of this information unless further disclosure is expressly permitted by the written consent of the person to whom it pertains or as otherwise permitted by 42 CFR part 2. A general authorization for the release of medical or other information is NOT sufficient for this purpose. The Federal rules restrict any use of the information to criminally investigate or prosecute any alcohol or drug abuse patient.The records that you are about to access may contain highly sensitive health information, the redisclosure of which is protected by Article 27-F of the [place] State Public Health law. If you continue you may have access to information: Regarding HIV / AIDS; Provided by facilities licensed or operated by the [facility] of Mental Health; or Provided by the [facility] Office for People With Developmental Disabilities. If such information is present, then the following [facility] mandated warning applies: This information has been disclosed to you from confidential records which are protected by state law. State law prohibits you from making any further disclosure of this information without the specific written consent of the person to whom it pertains, or as otherwise permitted by law. Any unauthorized further disclosure in violation of state law may result in a fine or care home sentence or both. A general authorization for the release of medical or other information is NOT sufficient authorization for further disc losure. Allergies and Adverse Reactions Type Description Substance Reaction Status Data Source(s ) No Known Drug Allergies No Known Drug Allergies [facility] No Known Environmental Allergies No Known Environmental Al lergies [facility] No Known Food Allergies No Known Food Allergies [facility] Family History Family Member Name Family Member Gender Family Member Status Date o f Status Description Data Source(s) Unknown Unknown Problem [facility] Unknown Female Problem [facility] ([facility]) Unknown Female Problem [facility] ([facility]) Unknown Female Problem [facility] ([facility]) Encounters Encounter Providers Location Date Indications Data Source(s ) Outpatient Attender: FRANCISCO JAVIER LAZCANO MD Main Office 05/01/2021 08:00:00 AM EDT [facility] ([facility]) Outpatient Attender: BENNY MOROCHO MD Family Practice 04/03 10:15:00 AM EDT [facility] ([facility]) Outpatient Attender: BENNY MOROCHO MDConsultant: ABDULAZIZ ROBERTSON MD 04/17/2021 10:09:00 AM EDT - 04/17/2021 10:09:00 AM EDT [facility] Outpatient Attender: RUY ROCK NP Family Practice 03/26/2021 03 :00:00 PM EDT [facility] ([facility]) Outpatient Attender: RUY ROCK NPConsultant: ABDULAZIZ BLAIR MD 03/26/2021 02:46:00 PM EDT - 03/26/2021 02:46:00 PM EDT [facility] Outpatient Attender: ABDULAZIZ NINOonsultant: ABDULAZIZ Garg MD 03/17/2021 09:40:00 AM EDT - 03/17/2021 09:40:00 AM EDT [facility] Outpatient Attender: ABDULAZIZ BLAIR MD Family Practice 03/05/2021 1 0:00:00 AM EDT [facility] ([facility]) Outpatient Attender: ABDULAZIZ BLAIR MDConsultant: ABDULAZIZ Garg MD 03/05/2021 09:37:00 AM EDT - 03/05/2021 09:37:00 AM EDT [facility] Outpatient Attender: RUY ROCK NP [facility] 02/05/2021 10 :30:00 AM EDT [facility] ([facility]) Outpatient Attender: RUY ROCK NPConsultant: ABDULAZIZ BLAIR MD 02/05/2021 10:03:00 AM EDT - 02/05/2021 10:03:00 AM EDT [facility] Outpatient Attender: CRISTOBAL LEONARD NP 10/04 12:30:12 PM EDT - 10/31/2020 12:37:04 PM EDT [facility] ([facility] ) Outpatient Attender: Jazmyne MANSFIELD 11:52:48 AM EDT - 10/28/2020 12:20:03 PM EDT [facility] ([facility] ) Outpatient Attender: Hilary Pritchard MD 0 10/18/2020 06:13:11 PM EDT - 10/18/2020 06:18:11 PM EDT [facility] ([facility]) Outpatient Admitter: Cristobal Peña MD MOB-MOB.PAT 10/02 12:00:00 AM EDT - 10/18/2020 09:51:01 AM EDT [facility] Outpatient Attender: Jacques MANSFIELD 10/17/19 11:55:48 AM EDT - 10/16/2020 12:29:35 PM EDT [facility] ([facility] ) Outpatient Attender: Cristobal Peña MDAdmitter: Cristobal mercer MD MOB-MOB.PAT 10/09/2020 12:45:58 PM EDT - 10/09/2020 01:38:04 PM EDT [facility] Inpatient Attender: Cristobal Peña MDAdmitter: Cristobal mercer MD [id number] 09/16/2020 03:54:20 PM EDT - 10/24/2020 01:52:00 PM EDT [facility] Patient discharged. Outpatient MOB-MOB.PAT 08/13/2020 09:50:11 AM EST [facility] Outpatient Attender: Hieu Ibrahim MDAdmit ter: Hieu Ibrahim MDReferrer: LYNDON GLYNN MD [id number] 06/30/2020 11:35:29 AM EST - 08/18/2020 11:53:00 AM EST [facility] Patient discharged. Outpatient Attender: MEHNAZ de la fuente 04/21/2020 08:00:00 AM EDT [facility] ([facility] Medications Medication Brand Name Start Date Product Form Dose Route Admi nistrative Instructions Pharmacy Instructions Status Indications Reaction Description Data Source(s) Omeprazole 40 MG Delayed Release Oral Capsule Omeprazole 04/30/2021 12:00:00 AM EDT ORAL active [facility] Biotin 2.5 MG Oral Capsule Biotin 04/30/2021 12:00:00 AM EDT ORAL active [facility] ([facility]) Flintstones Complete 04/30/2021 12:00:00 AM EDT ORAL active [facility] ([facility]) ferrous sulfate 325 MG Oral Tablet Ferrous Sulfate 04/30/2021 12:00 :00 AM EDT ORAL active [facility] ([facility]) Clindamycin 300 MG Oral Capsule CLINDAMYCIN HCL 03/18/2021 12:00 :00 AM EDT capsule 20 TAKE ONE CAPSULE BY MOUTH TWICE A DAY FOR 10 DAYS TAKE ONE CAPSULE BY MOUTH TWICE A DAY FOR 10 DAYS SOLD: 03/18/2021 [facility] 40 mg 02/06/2021 12:00:00 AM EDT capsule,delayed release (DR/EC) 30 TAKE ONE CAPSULE BY MOUTH EVERY DAY TAKE ONE CAPSULE BY MOUTH EVERY DAY SOLD: 02/06/2021 [facility] 40 mg 02/06/2021 12:00:00 AM EDT capsule,delayed release (DR/EC) 30 TAKE ONE CAPSULE BY MOUTH EVERY DAY TAKE ONE CAPSULE BY MOUTH EVERY DAY SOLD: 04/08/2021 [facility] 40 mg 02/06/2021 12:00:00 AM EDT capsule,delayed release (DR/EC) 30 TAKE ONE CAPSULE BY MOUTH EVERY DAY TAKE ONE CAPSULE BY MOUTH EVERY DAY SOLD: 03/08/2021 [facility] normal saline flush 0.9 % injection 3 mL [id number] 10/24/2020 06:00:00 AM EDT 3 mL Intravenous active 3 mL , Intravenous, PROTOCOL, First dose on Tue10/24/20 at 0600, Post-op
Convert to saline lock after discontinuing D5LR IV.
[facility] Medication administered onsite lactated ringers bolus 1,000 mL [id number] 10/24/2020 06:00:00 AM EDT 1000 mL Intravenous completed 1,000 mL , Intravenous, Administer over 2 Hours, Once, On Tue10/24/20 at 0600, For 1 dose, Post-op [facility] Medication administered onsite ondansetron (ZOFRAN-ODT) disintegrating tablet 8 mg 10/24/2020 06:00:00 AM EDT 8 mg Oral active [Order 1 Start] Name: ondansetron (ZOFRAN-ODT) disintegrating tablet 8 mg Signed Summary: 8 mg, Oral, Every 6 hours PRN, nausea, Starting on Tue10/24/20 at 0600, Post-op [Order 1 End] [Order 2 Start] Name: ondansetron (ZOFRAN) injection 8 mg Signed Summary: 8 mg, Intravenous, Every 6 hours PRN, nausea, severe nausea, Starting on Tue10/24/20 at 0600, Post- op [Order 2 End] [facility] Medication administered onsite Acetaminophen 500 MG Oral Tablet acetaminophen (TYLENO L) tablet 1,000 mg acetaminophen (TYLENOL) tablet 1,000 mg 10/23/2020 11:00:00 PM EDT 1000 mg Oral active 1,000 mg, Oral , Every 8 hours, First dose on Tue10/23/20 at 2300, For 48 hours, Post-op [facility] Medication administered onsite gabapentin 300 MG Oral Capsule gabapentin (NEURONTIN) capsule 300 mg gabapentin (NEURONTIN) capsule 300 mg 10/23/2020 09:00:00 PM EDT 300 mg Oral active 300 mg, Oral, 3 times daily, First dose on Tue10/23/20 at 2100, Post-op [facility] Medication administered onsite Ondansetron 4 MG Disintegrating Oral Tab let ondansetron (ZOFRAN-ODT) disintegrating tablet 8 mg ondansetron (ZOFRAN-ODT) disintegrating tablet 8 mg 10/23/2020 09:00:00 PM EDT 8 mg Oral active 8 mg, Oral, Every 6 hours (scheduled), First dose on Tue10/23/20 at 2100, For 24 hours, Post-op [facility] Medication administered onsite Calcium Chloride 0.001 MEQ/ML / Glucose 50 MG/ML / Potassium Chloride 0.004 MEQ/ML / Sodium Chloride 0.103 MEQ/ML / Sodium Lactate 0.028 MEQ/ML Injectable Solution dextrose 5 % in lactated ringers infusion dextrose 5 % in lactated ringers infusion 10/23/2020 06:00:00 PM EDT 100 mL/h Intravenous active at 100 mL/hr, 100 mL/hr, Intravenous, Co ntinuous, Starting on Tue10/23/20 at 1800, Post-op
Discontinue IV & convert to saline lock in AM of POD #1.
[facility] Medication administered onsite Insulin Lispro 100 UNT/ML Injectable Beth ution insulin lispro (HumaLOG) injection 4-16 Units insulin lispro (HumaLOG) injection 4-16 Units 10/24/19 06:00:00 PM EDT U Subcutaneous active 4-1 6 Units, Subcutaneous, Q6HSS, First dose on Tue10/23/20 at 1800, Post-op
Blood Sugar Units of HumaLOG 145-170 4 units 171-220 6 units 221-270 8 units 271-320 10 units 321-370 12 units 371-420 14 units >420 16 units, Call MD
[facility] Medication administered onsite Simethicone 80 MG Chewable Tablet simethicone (MYLICON ) chewable tablet 80 mg simethicone (MYLICON) chewable tablet 80 mg 10/23/2020 06:00:00 PM EDT 80 mg Oral active 80 mg, Oral, E very 4 hours (relative), First dose on Helen 10/23/20 at 1800, Post-op
Don't wake pt up at night
[facility] Medication administered onsite 1 ML Ketorolac Tromethamine 30 MG/ML Car tridge ketorolac (TORADOL) injection 30 mg ketorolac (TORADOL) injection 30 mg 10/23/2020 06:00:00 PM EDT 30 mg Intravenous completed Moderate to Severe Pain 30 mg, Intravenous, Every 6 hours (relative), First dose on Helen 10/23/20 at 1800, For 4 doses, Post-op [facility] Moderate to Severe Pain Medication administered onsite pantoprazole 40 MG Delayed Release Oral Tablet pantoprazole (PROTONIX) EC tablet 40 mg pantoprazole (PROTONIX) EC tablet 40 mg 10/23/2020 06:00:00 PM E DT 40 mg Oral active Stress Ulcer Prophylaxis 40 mg, Oral, Daily, Indications: Stress Ulcer Prophylaxis, First dose on Helen 10/23/20 at 1800, Post-op [facility] Stress Ulcer Prophylaxis Medication administered onsite heparin (porcine) injection 5,000 Units [id number] 10/24/19 06:00:00 PM EDT 5000 U Subcutaneous active 5,000 Units , Subcutaneous, Every 8 hours (relative), First dose on Helen 10/23/20 at 1800, Post-op
If platelet count is less than 100,000 or hematocrit is less than 30, or there is a 5 point decrease in hematocrit, do not give the dose and call physician/designee
[facility] Medication administered onsite metoclopramide (REGLAN) injection 10 mg 10/23/2020 05:07:2 0 PM EDT 10 mg Intravenous active [Order 1 Star t] Name: metoclopramide (REGLAN) injection 10 mg Signed Summary: 10 mg, Intravenous, Every 6 hours PRN, nausea, not relieved by ondansetron, Starting on Helen 10/23/20 at 1707, Post-op
Once in PACU then every 6 hours PRN for nausea
[Order 1 End] [Order 2 Start] Name: metoclopramide (REGLAN) tablet 10 mg Signed Summary: 10 mg, Oral, Every 6 hours PRN, nausea, not relieved by ondansetron, Starting on Helen 10/23/20 at 1707, Post- op
Once in PACU then every 6 hours PRN for nausea
[Order 2 End] [facility] Medication administered onsite Promethazine Hydrochloride 25 MG Oral Ta blet promethazine (PHENERGAN) tablet 12.5 mg promethazine (PHENERGAN) tablet 12.5 mg 10/23/2020 05:07:19 PM E DT 12.5 mg Oral active 12.5 mg, O ral, Every 4 hours PRN, nausea, Starting on Helen 10/23/20 at 1707, Post-op [facility] Medication administered onsite Prochlorperazine 10 MG Oral Tablet prochlorperazine (C OMPAZINE) tablet 10 mg prochlorperazine (COMPAZINE) tablet 10 mg 10/23/2020 05:07:19 PM EDT 10 mg Oral active 10 mg, Oral, E very 6 hours PRN, nausea, Starting on Helen 10/23/20 at 1707, Post-op [facility] Medication administered onsite enalaprilat (VASOTEC) injection 1.25 mg [id number] 10/24/19 05:07:18 PM EDT 1.25 mg Intravenous active 1.25 mg, Int ravenous, Every 6 hours PRN, for SBP > 140 mmHg and/or DBP > 90 mmHg, Starting on Helen 10/23/20 at 1707, Post- op
Mix in 50 mL NS, infuse over 30 minutes via infusion pump. For IVMB on NON-ICU units.
[facility] Medication administered onsite 0.4 ML Enoxaparin sodium 100 MG/ML Prefi lled Syringe enoxaparin (LOVENOX) syringe 40 mg enoxaparin (LOVENOX) syringe 40 mg 10/23/2020 05:07:18 PM EDT 40 mg Subcutaneous completed 40 mg, Subcutaneous, Before Discharge, DVT prophilaxis, Starting on Helen 10/23/20 at 1707, For 1 dose, Post-op
At discharge. To be administered by patient or significant other.
[facility] Medication administered onsite Insulin Lispro 100 UNT/ML Injectable Beth ution insulin lispro (HumaLOG) injection 0-6 Units insulin lispro (HumaLOG) injection 0-6 Units 05:00:00 PM EDT U Subcutaneous aborted 0-6 Units, Subcutaneous, Every 1 hour, First dose on Helen 10/23/20 at 1700, PACU (only)
PACU Use Only!! Blood Glucose every 1 hour with following coverage: Blood Sugar &a mp;nbsp; Units of HumaLOG 145 - 170 4 units 171 - 220 6 units > 200 &nbsp ; Call MD (May need Lantus dose) Blood Sugar Units of HumaLOG 145-170 4 units 171-220 6 units 221-270 8 units 271-320 10 units 321-370 12 units 371-420 14 units >420 16 units, Call MD
[facility] Medication administered onsite Insulin Glargine 100 UNT/ML Injectable S olution [Lantus] insulin glargine (LANTUS) injection 20 Units insulin glargine (LANTUS) injection 20 Units 10/23/2020 05:00:00 PM EDT 20 U Subcutaneous complete d 20 Units, Subcutaneous, Once, On Helen 10/23/20 at 1700, For 1 dose, PACU (only) [facility] Medication administered onsite Calcium Chloride 0.0014 MEQ/ML / Potassi um Chloride 0.004 MEQ/ML / Sodium Chloride 0.103 MEQ/ML / Sodium Lactate 0.028 MEQ/ML Injectable Solution lactated ringers infusion lactated ringers infusion 10/23/2020 01:00:00 PM EDT Intravenous active at 100 mL/hr, Intravenous, Continuous, Starting on Helen 10/23/20 at 1300, PACU (only) [facility] Medication administered onsite Albuterol 0.83 MG/ML Inhalant Solution a lbuterol (PROVENTIL) nebulizer solution 2.5 mg albuterol (PROVENTIL) nebulizer solution 2.5 mg 2020 12:00:00 PM EDT 2.5 mg completed 2.5 mg , Nebulization, safety attendant, On Helen 10/23/20 at 1200, For 1 dose, Pre-op
To be started by pre-op unit
[facility] Medication administered onsite Calcium Chloride 0.0014 MEQ/ML / Potassi um Chloride 0.004 MEQ/ML / Sodium Chloride 0.103 MEQ/ML / Sodium Lactate 0.028 MEQ/ML Injectable Solution lactated ringers infusion lactated ringers infusion 10/23/2020 12:00:00 PM EDT 100 mL/h Intravenous active at 100 m L/hr, 100 mL/hr, Intravenous, Continuous, Starting on Helen 10/23/20 at 1200, Pre-op
Please place IV on left side if able
[facility] Medication administered onsite Dexamethasone 4 MG Oral Tablet dexamethasone (DECADRON ) tablet 4 mg dexamethasone (DECADRON) tablet 4 mg 10/23/2020 12:00:00 PM EDT 4 mg Oral completed 4 mg, Oral, safety attendant, On Helen 10/23 at 1200, For 1 dose, Pre-op [facility] Medication administered onsite gabapentin 600 MG Oral Tablet gabapentin (NEURONTIN) t ablet 600 mg gabapentin (NEURONTIN) tablet 600 mg 10/23/2020 12:00:00 PM EDT 600 mg Oral completed 600 mg, Oral, On rinku l, On Helen 10/23/20 at 1200, For 1 dose, Pre-op
Hold if age greater than 70 or chronic renal failure/insufficiency
[facility] Medication administered onsite heparin (porcine) injection 5,000 Units [id number] 10/24/19 12:00:00 PM EDT 5000 U Subcutaneous completed 5,000 Uni ts, Subcutaneous, safety attendant, On Helen 10/23/20 at 1200, For 1 dose, Pre-op
If platelet count is less than 100,000 or hematocrit is less than 25, or if there is a 5 point decrease in hematocrit, do not give the dose and call physician/designee.
[facility] Medication administered onsite Prochlorperazine 10 MG Oral Tablet prochlorperazine (C OMPAZINE) tablet 10 mg prochlorperazine (COMPAZINE) tablet 10 mg 10/23/2020 12:00:00 PM EDT 10 mg Oral completed 10 mg, Oral, O n call, On Helen 10/23/20 at 1200, For 1 dose, Pre-op [facility] Medication administered onsite Tetrahydrocannabinol 2.5 MG Oral Capsule dronabinol (M ARINOL) capsule 5 mg dronabinol (MARINOL) capsule 5 mg 10/23/2020 12:00:00 PM EDT 5 mg Oral completed 5 mg, Oral, safety attendant, On 10/23 at 1200, For 1 dose, Pre-op [facility] Medication administered onsite celecoxib 100 MG Oral Capsule celecoxib (CeleBREX) cap esa 200 mg celecoxib (CeleBREX) capsule 200 mg 10/23/2020 12:00:00 PM EDT 200 mg Oral completed 200 mg, Oral, safety attendant, On Tue at 1200, For 1 dose, Pre-op [facility] Medication administered onsite Acetaminophen 325 MG Oral Tablet acetaminophen (TYLENO L) 325 MG tablet 975 mg acetaminophen (TYLENOL) 325 MG tablet 975 mg 10/23/2020 12:00:00 PM EDT 975 mg Oral completed 975 mg, Or al, safety attendant, On Helen 10/23/20 at 1200, For 1 dose, Pre-op
"Maximum dose of acetaminophen is 4,000 mg from all sources in 24 hours."
[facility] Medication administered onsite Clonidine Hydrochloride 0.1 MG Oral Tablet cloNIDine ( CATAPRES) tablet 0.1 mg cloNIDine (CATAPRES) tablet 0.1 mg 10/23/2020 12:00:00 PM EDT 0.1 mg Oral completed 0.1 mg, Oral, safety attendant, On Tue at 1200, For 1 dose, Pre-op [facility] Medication administered onsite Alprazolam 0.25 MG Oral Tablet ALPRAZolam (XANAX) tabl et 0.25 mg ALPRAZolam (XANAX) tablet 0.25 mg 10/23/2020 12:00:00 PM EDT 0.25 mg Oral completed 0.25 mg, Oral, safety attendant, On Tue10/23/20 a t 1200, For 1 dose, Pre-op [facility] Medication administered onsite scopolamine (TRANSDERM-SCOP) 1.5 MG (Bariatric only) 1 patch [id number] 10/23/2020 11:07:41 AM EDT 1 {patch} Transdermal aborted 1 patch, Transdermal, Administer over 24 Hours, Every 24 hours (relative), First dose on Helen 10/23/20 at 1200, For 1 dose, Pre-op
Scopolamine patch applied behind ear. Hold for any of the followin+ yrs old, hx of glaucoma, hx of vertigo, dementia.
[facility] Medication administered onsite Simethicone 80 MG Chewable Tablet simethicone (MYLICON ) 80 MG chewable tablet simethicone (MYLICON) 80 MG chewable tablet 10/23/2020 12:00:00 AM EDT 80 mg Oral active Chew 1 tablet (80 mg total) every 6 (six) hours as needed for flatulence [facility] Omeprazole 40 MG Delayed Release Oral Ca psule omeprazole (PriLOSEC) 40 MG capsule omeprazole (PriLOSEC) 40 MG capsule 10/23/2020 12:00:00 AM EDT 40 mg Oral active Take 1 capsule (40 m g total) by mouth daily [facility] Vitamin B 12 0.5 MG Oral Tablet vitamin B-12 (CYANOCOB ALAMIN) 500 MCG tablet vitamin B-12 (CYANOCOBALAMIN) 500 MCG tablet 10/23/2020 12:00:00 AM EDT 500 ug Oral active Take 1 tablet (500 mcg t otal) by mouth daily [facility] Ondansetron 4 MG Disintegrating Oral Tab let ondansetron (ZOFRAN-ODT) 4 MG disintegrating tablet ondansetron (ZOFRAN-ODT) 4 MG disintegrating tablet 10/23/2020 12:00:00 AM EDT 4 mg Oral active Take 1 tablet (4 mg total) by mouth every 8 (eight) hours as needed for nausea [facility] 0.4 ML Enoxaparin sodium 100 MG/ML Prefi lled Syringe enoxaparin (Lovenox) 40 MG/0.4ML SOLN enoxaparin (Lovenox) 40 MG/0.4ML SOLN 10/23/2020 12:00:00 AM EDT 40 mg Subcutaneous active Inject 0.4 mL (40 mg total) under the skin daily for 10 days [facility] Magnesium Hydroxide 80 MG/ML Oral Suspen kerri magnesium hydroxide (Milk of Magnesia) 400 MG/5ML suspension magnesium hydroxide (Milk of Magnesia) 4 00 MG/5ML suspension 10/23/2020 12:00:00 AM EDT 30 mL Oral active Take 30 mL by mouth daily as needed for constipation [facility] 40 mg 09/12/2020 12:00:00 AM EST capsule,delayed release (DR/EC) 30 TAKE 1 CAP.BY MOUTH DAILY 30MIN.BEFORE A.M. MEAL FOR 3 MONTHS AFTER SURGERY TAKE 1 CAP.BY MOUTH DAILY 30MIN.BEFORE A.M. MEAL FOR 3 MONTHS AFTER SURGERY SOLD: 09/16/2020 [facility] 40 mg 09/12/2020 12:00:00 AM EST capsule,delayed release (DR/EC) 30 TAKE 1 CAP.BY MOUTH DAILY 30MIN.BEFORE A.M. MEAL FOR 3 MONTHS AFTER SURGERY TAKE 1 CAP.BY MOUTH DAILY 30MIN.BEFORE A.M. MEAL FOR 3 MONTHS AFTER SURGERY SOLD: 11/24/2020 [facility] 40 mg/0.4 mL 09/12/2020 12:00:00 AM EST syringe 4 INJECT 0.4ML [40MG] UNDER THE SKIN DAILY FOR 10 DAYS AFTER SURGERY INJECT 0.4ML [40MG] UNDER THE SKIN DAILY FOR 10 DAYS AFTER SURGERY SOLD: 09/16/2020 [facility] 4 mg 09/12/2020 12:00:00 AM EST tablet,disintegrating [address] 1 TABLET ON TONGUE & AND ALLOW TO DISSOLVE EVERY 8 HOU[address] NEEDED FOR NAUSEA PLACE 1 TABLET ON TONGUE & AND ALLOW TO DISSOLVE EVERY 8 HOURS NEEDED FOR NAUSEA SOLD: 09/16/2020 [facility] 40 mg 09/12/2020 12:00:00 AM EST capsule,delayed release (DR/EC) 30 TAKE 1 CAP.BY MOUTH DAILY 30MIN.BEFORE A.M. MEAL FOR 3 MONTHS AFTER SURGERY TAKE 1 CAP.BY MOUTH DAILY 30MIN.BEFORE A.M. MEAL FOR 3 MONTHS AFTER SURGERY SOLD: 01/01/2021 [facility] normal saline flush 0.9 % injection 3 mL [id number] 08/18/2020 02:00:00 PM EST 3 mL Intravenous active 3 mL , Intravenous, Every 8 hours (scheduled), First dose on Tue08/18/20 at 1400, PACU (only)
flush per protocol, D/C Main IV fluid if appropriate
[facility] Medication administered onsite Magnesium Chloride 0.09624 MEQ/ML / Pota ssium Chloride 0.0497 MEQ/ML / Sodium Acetate 0.0163 MEQ/ML / Sodium Chloride 0.0899 MEQ/ML / Sodium gluconate 5.02 MG/ML Injectable Solution [Normosol-R] electrolyte-R (NORMOSOL-R/PLASMALYTE-R) solution electrolyte-R (NORMOSOL-R/PLASMALYTE-R) solution 08/18 12:00:00 PM EST Intravenous active at 1 00 mL/hr, Intravenous, Continuous, Starting Tue08/18/20 at 1200, PACU (only) [facility] Medication administered onsite ondansetron (ZOFRAN) injection 4 mg [id number] 08/18/2020 11:22:4 0 AM EST 4 mg Intravenous active 4 mg, In travenous, Once as needed, nausea, vomiting, if not given in last 4 hours, Starting Tue08/18/20 at 1122, For 1 dose, PACU & Post-op [facility] Medication administered onsite fentaNYL Citrate (PF) (SUBLIMAZE) injection 25 mcg [id number] 08/18/2020 11:22:34 AM EST 25 ug Intravenous active 25 mcg, Intravenous, Every 5 min PRN, moderate pain (4 to 6), Starting Tue08/18/20 at 1122, For 8 doses, PACU (only) [facility] Medication administered onsite Albuterol 0.833 MG/ML / Ipratropium Brom rossy 0.167 MG/ML Inhalant Solution ipratropium-albuterol (DUO-NEB) 0.5-2.5 mg/mL nebulizer solution 3 mL ipratropium-albuterol (DUO-NEB) 0.5-2.5 mg/mL nebulizer solution 3 mL 08/18/2020 11:22:34 AM EST 3 mL Inhalation active 3 mL, Inhalation, Once as needed, shortness of breath, Starting Tue08/18/20 at 1122, For 1 dose, PACU (only) [facility] Medication administered onsite 10 ML Atropine Sulfate 0.1 MG/ML Prefill ed Syringe atropine sulfate injection 0.5 mg atropine sulfate injection 0.5 mg 08/18/2020 11:22:33 AM EST 0.5 mg active 0.5 mg, Intrave nous Push, Every 5 min PRN, other, As needed, for heart rate less than 60 BPM and the patient is hemodynamically unstable and/or SBP is less than 90mmHg, Starting 08/18/20 at 1122, For 1 day, PACU (only)
Not to exceed a total of 3 mg or 0.04 mg/kg. Max of 6 doses
[facility] Medication administered onsite 37.5 mg 05/09/2020 12:00:00 AM EST tablet 30 TAKE ONE TABLET BY MOUTH EVERY MORNING MAXIMUM DAILY DOSE = 1 TABLET TAKE ONE TABLET BY MOUTH EVERY MORNING MAXIMUM DAILY DOSE = 1 TABLET SOLD: 09/08/2020 [facility] 50 mg 05/09/2020 12:00:00 AM EST tablet 60 TAKE ONE TABLET BY MOUTH TWO TIMES A DAY TAKE ONE TABLET BY MOUTH TWO TIMES A DAY SOLD: 08/06/2020 [facility] 37.5 mg 05/09/2020 12:00:00 AM EST tablet 30 TAKE ONE TABLET BY MOUTH EVERY MORNING MAXIMUM DAILY DOSE = 1 TABLET TAKE ONE TABLET BY MOUTH EVERY MORNING MAXIMUM DAILY DOSE = 1 TABLET SOLD: 06/08/2020 [facility] 37.5 mg 05/09/2020 12:00:00 AM EST tablet 30 TAKE ONE TABLET BY MOUTH EVERY MORNING MAXIMUM DAILY DOSE = 1 TABLET TAKE ONE TABLET BY MOUTH EVERY MORNING MAXIMUM DAILY DOSE = 1 TABLET SOLD: 07/07/2020 [facility] 50 mg 05/09/2020 12:00:00 AM EST tablet 60 TAKE ONE TABLET BY MOUTH TWO TIMES A DAY TAKE ONE TABLET BY MOUTH TWO TIMES A DAY SOLD: 05/09/2020 [facility] 37.5 mg 05/09/2020 12:00:00 AM EST tablet 30 TAKE ONE TABLET BY MOUTH EVERY MORNING MAXIMUM DAILY DOSE = 1 TABLET TAKE ONE TABLET BY MOUTH EVERY MORNING MAXIMUM DAILY DOSE = 1 TABLET SOLD: 10/10/2020 [facility] 50 mg 05/09/2020 12:00:00 AM EST tablet 60 TAKE ONE TABLET BY MOUTH TWO TIMES A DAY TAKE ONE TABLET BY MOUTH TWO TIMES A DAY SOLD: 07/07/2020 [facility] 37.5 mg 05/09/2020 12:00:00 AM EST tablet 30 TAKE ONE TABLET BY MOUTH EVERY MORNING MAXIMUM DAILY DOSE = 1 TABLET TAKE ONE TABLET BY MOUTH EVERY MORNING MAXIMUM DAILY DOSE = 1 TABLET SOLD: 05/09/2020 [facility] 50 mg 05/09/2020 12:00:00 AM EST tablet 60 TAKE ONE TABLET BY MOUTH TWO TIMES A DAY TAKE ONE TABLET BY MOUTH TWO TIMES A DAY SOLD: 09/08/2020 [facility] 37.5 mg 05/09/2020 12:00:00 AM EST tablet 30 TAKE ONE TABLET BY MOUTH EVERY MORNING MAXIMUM DAILY DOSE = 1 TABLET TAKE ONE TABLET BY MOUTH EVERY MORNING MAXIMUM DAILY DOSE = 1 TABLET SOLD: 08/06/2020 [facility] 50 mg 05/09/2020 12:00:00 AM EST tablet 60 TAKE ONE TABLET BY MOUTH TWO TIMES A DAY TAKE ONE TABLET BY MOUTH TWO TIMES A DAY SOLD: 06/08/2020 [facility] Cyclobenzaprine hydrochloride 10 MG Oral Tablet CYCLOBENZAPR INE HCL 04/21/2020 12:00:00 AM EDT tablet 14 TAKE ONE TABLET BY MOUTH AT BEDTIME TAKE ONE TABLET BY MOUTH AT BEDTIME SOLD: 04/21/2020 [facility] 500 mg 04/21/2020 12:00:00 AM EDT tablet 60 TAKE ONE TABLET BY MOUTH TWICE A DAY WITH FOOD TAKE ONE TABLET BY MOUTH TWICE A DAY WITH FOOD SOLD: 04/21/2020 [facility] Cyclobenzaprine hydrochloride 10 MG Oral Tablet Cyclobenzapr ine HCL 04/21/2020 12:00:00 AM EDT active M [facility] ([facility]) Naproxen 500 MG Oral Tablet Naproxen 04/21/2020 12:00:00 AM EDT ORAL active [facility] ([facility]) topiramate 50 MG Oral Tablet topiramate (TOPAMAX) 50 M G tablet topiramate (TOPAMAX) 50 MG tablet 50 mg Oral aborted Take 50 mg by mouth 2 (two) times a day [facility] Phentermine Hydrochloride 37.5 MG Oral T ablet phentermine (ADIPEX-P) 37.5 MG tablet phentermine (ADIPEX-P) 37.5 MG tablet 37.5 mg Oral aborted Take 37.5 mg by mouth every morning before breakfast [facility] Insurance Providers Payer name Policy type / Coverage type Policy ID Covered libertarian ID Covered libertarian's relationship to whitaker Policy Whitaker Plan Information Medicaid S [id number] S [id number] Managed Care - Community Plan [facility] P [id number] S [id number] Medicaid S [id number] Managed Care - Community Plan [facility] P [id number] S [id number] Medicaid S [id number] S [id number] [facility] I [id number] Self [id number] UNHC COMMUNITY PLAN [id number] SP [id number] Medicaid S [id number] S [id number] Managed Care - Community Plan [facility] P [id number] S [id number] Managed Care - [facility] Community Plan P [id number] S [id number] [facility] MEDICAID [id number] Janet [id number] [facility] MEDICAID [id number] xxxxxxxxx [id number] INSURANCE COVID-19 [id number] INSURANCE COVID-19 COVID Janet C OVID SELF PAY [facility] MED emp [id number] Employee [id number] FFS Self Pay [id number] Self [id number] [facility] [employer] Health Maintenance Organization (HMO) [id number] Self [id number] [facility] Health Maintenance Organization (HMO) [id number] Self [id number] [facility](MCAID) O [id number] S [id number] [employer] Community Plan Medicaid [id number] Self [id number] [employer] COMMUNITY PLAN [id number] 18 [id number] [facility] Community Plan Medicaid [id number] Self [id number] [facility] Community Plan Medicaid [id number] Self [id number] [facility] Community Plan Medicaid 44 Self [facility] O [id number] S [id number] [facility] [id number] UNHC AMERICHOICE XIX -HMO [id number] 18 [id number] UN COMMUNITY PLAN XIX [id number] 18 [id number] [facility] COMMUNTY PLAN [id number] [facility] Communty Plan Medicaid [id number] Self [id number] [facility] Health Maintenance Organization (HMO) [id number] Self [id number] [facility] Health Maintenance Organization (HMO) [id number] Self [id number] Problems, Conditions, and Diagnoses Code Display Name Description Problem Type Effective Dates Data Source(s) 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 Diagnosis 03/26/2021 02:46:00 PM EDT [facility] E7800 Pure hypercholesterolemia, unspecified P ure hypercholesterolemia, unspecified Diagnosis 03/17/2021 09:40:00 AM T [facility] D509 Iron deficiency anemia, unspecified Iron deficie ncy anemia, unspecified Diagnosis 03/17/2021 09:40:00 AM [facility] R739 Hyperglycemia, unspecified Hyperglycemia, unspecified Diagnosis 03/17/2021 09:40:00 AM EDT [facility] R011 Cardiac murmur, unspecified Cardiac murmur, unspecifie d Diagnosis 03/05/2021 09:37:00 AM T [facility] L659 Nonscarring hair loss, unspecified Nonscarring h air loss, unspecified Diagnosis 03/05/2021 09:37:00 AM [facility] E785 Hyperlipidemia, unspecified Hyperlipidemia, unspecifie d Diagnosis 03/05/2021 09:37:00 AM [facility] Z9884 Bariatric surgery status Bariatric surgery status Diag nosis 03/05[facility] Encounter for general adult medical exam ination with abnormal findings Encounter for general adult medical examination with abnormal findings Diagnosis 03/05/2021 09:37:00 AM EDT [facility] Z803 Family history of malignant neoplasm of breast Family history of malignant neoplasm of breast Diagnosis 02/05/2021 10:03:00 AM EDT [facility] [id number] Encounter for gynecological examination (general) (routine) without abnormal findings Encounter for gynecological examination (general) (routine) without abnormal findings Diagnosis 02/05/2021 10:03:00 AM EDT [facility] E66.01 Morbid (severe) obesity due to excess ca lories Morbid (severe) obesity due to excess ca Diagnosis 10/23/2020 10:09:00 AM EDT [facility] U07.1 COVID-19 COVID-19 Diagnosis 10/18/2020 09:50:58 AM ED T [facility] K21.9 Gastro-esophageal reflux disease without esophagitis Gastro-esophageal reflux disease without Diagnosis 08/18/2020 10:03:00 AM EST [facility] R01.1 Heart murmur Heart murmur Problem 05/01/2021 12:00:00 A M EDT [facility] ([facility]) E66.09 Obesity Obesity Problem 05/01/2021 12:00:00 AM ED T [facility] ([facility]) Z71.3 Dietary management surveillance Dietary management ben veillance Problem 05/01/2021 12:00:00 AM EDT [facility] ([facility]) Z00.00 Adult health examination Adult health examination Prob xavier 03/05/2021 12:00:00 AM EDT [facility] ([facility]) R73.9 Abnormal glucose level Abnormal glucose level Problem 03/05/2021 12:00:00 AM EDT [facility] ([facility]) E78.5 Hyperlipidemia Hyperlipidemia Problem 03/05/2021 12:00: 00 AM EDT [facility] ([facility]) D50.9 Iron deficiency anemia Iron deficiency anemia Problem 03/05/2021 12:00:00 AM EDT [facility] ([facility]) L65.9 Alopecia Alopecia Problem 03/05/2021 12:00:00 AM ED T [facility] ([facility]) [id number] Tootie-en-Y gastrojejunostomy Tootie-en-Y gastrojejunostom y Problem 02/05/2021 12:00:00 AM EDT [facility]) Note: done 10/22 E66.01 Morbid obesity Morbid obesity [id number] 10/23/2020 12:00: 00 AM EDT [facility] Surgeries/Procedures Procedure Description Date Indications Data Source(s) ECG ROUTINE ECG W/LEAST 12 LDS W/I&R 05/01/2021 12:00: 00 AM EDT [facility] ([facility]) OFFICE OUTPATIENT NEW 45 MINUTES 05/01/2021 12:00:00 A M EDT [facility] ([facility]) OFFICE OUTPATIENT VISIT 10 MINUTES 04/17/2021 12:00:00 AM EDT [facility] ([facility]) OFFICE OUTPATIENT VISIT 25 MINUTES 03/26/2021 12:00:00 AM EDT [facility]) PHYSICIAN TELEPHONE EVALUATION 5-10 MIN 03/17/2021 12: 00:00 AM EDT [facility] ([facility]) PERIODIC PREVENTIVE MED EST PATIENT 18-39 YRS 03/05/20 12:00:00 AM EDT [facility] ([facility]) PERIODIC PREVENTIVE MED EST PATIENT 18-39 YRS 02/06/20 21 12:00:00 AM EDT [facility] ([facility]) GLUC BLD GLUC MNTR DEV CLEARED FDA SPEC HOME USE <td>P OCT GLUCOSE</td><td>Routine</td><td>10/24/2020 11:49 AM EDT</td><td></td><td> </td> 10/24/2020 11:49:00 AM EDT [facility] GLUC BLD GLUC MNTR DEV CLEARED FDA SPEC HOME USE <td>P OCT GLUCOSE</td><td>Routine</td><td>10/24/2020 6:05 AM EDT</td><td></td><td> </td> 10/24/2020 06:05:00 AM EDT [facility] GLUC BLD GLUC MNTR DEV CLEARED FDA SPEC HOME USE <td>P OCT GLUCOSE</td><td>Routine</td><td>10/24/2020 12:02 AM EDT</td><td></td><td> </td> 10/24/2020 12:02:00 AM EDT [facility] GLUC BLD GLUC MNTR DEV CLEARED FDA SPEC HOME USE <td>P OCT GLUCOSE</td><td>Routine</td><td>10/23/2020 6:50 PM EDT</td><td></td><td> </td> 10/23/2020 06:50:00 PM EDT [facility] GLUC BLD GLUC MNTR DEV CLEARED FDA SPEC HOME USE <td>P OCT GLUCOSE</td><td>Routine</td><td>10/23/2020 4:01 PM EDT</td><td></td><td> </td> 10/23/2020 04:01:00 PM EDT [facility] LAPS GSTR RSTCV PX W/BYP TOOTIE-EN-Y LIMB <150 CM <td>CR EATION, GASTRIC BYPASS, TOOTIE-EN-Y, LAPAROSCOPIC, WITH SLEEVE GASTRECTOMY IF INDICATED, WITH LIVER BIOPSY IF INDICATED, WITH HIATAL HERNIA REPAIR IF INDICATED, WITH LAPAROTOMY IF INDICATED</td><td></td><td>10/23/2020 1:21 PM EDT</td><td> Morbid obesity Fatty liver</td><td></td> 10/23/2020 01:21:00 PM EDT - 10/23/2020 04:19:00 PM EDT Fatty liverMorbid obesity [facility] Fatty liver Morbid obesity POCT I-STAT BETA HCG <td>POCT I-STAT BETA HCG</td ><td>Routine</td><td>10/23/2020 11:49 AM EDT</td><td></td><td> </td> 10/23/2020 11:49:00 AM EDT [facility] POCT I-STAT BETA HCG <td>POCT I-STAT BETA HCG</td ><td>Routine</td><td>10/23/2020 11:39 AM EDT</td><td></td><td> </td> 10/23/2020 11:39:00 AM EDT [facility] GLUC BLD GLUC MNTR DEV CLEARED FDA SPEC HOME USE <td>P OCT GLUCOSE</td><td>Routine</td><td>10/23/2020 11:32 AM EDT</td><td></td><td> </td> 10/23/2020 11:32:00 AM EDT [facility] BLOOD TYPING ABO <td>TYPE AND SCREEN</td><td> Routine</td><td>10/09/2020 1:50 PM EDT</td><td> Morbid obesity</td><td> </td> 10/09/2020 05:50:00 PM EDT Morbid obesity [facility] Morbid obesity ECG ROUTINE ECG W/LEAST 12 LDS TRCG ONLY W/O I&R <td>E CG 12- LEAD</td><td>Routine</td><td>10/09/2020 1:36 PM EDT</td><td> Morbid obesity</td><td></td> 10/09/2020 05:36:42 PM EDT Morbid obesity [facility] Morbid obesity BLOOD COUNT COMPLETE AUTOMATED <td>CBC</td><td>Routine </td><td>10/09/2020 1:30 PM EDT</td><td> Morbid obesity</td><td> </td> 10/09/2020 05:30:00 PM EDT Morbid obesity [facility] Morbid obesity THYROID STIMULATING HORMONE TSH <td>TSH</td><td>Routin e</td><td>10/09/2020 1:30 PM EDT</td><td> Morbid obesity</td><td> </td> 10/09/2020 05:30:00 PM EDT Morbid obesity [facility] Morbid obesity HEMOGLOBIN GLYCOSYLATED A1C <td>HEMOGLOBIN A1C</td><td>Routine</td><td>10/09/2020 1:30 PM EDT</td><td> Morbid obesity</td><td> </td> 10/09/2020 05:30:00 PM EDT Morbid obesity [facility] Morbid obesity COMPREHENSIVE METABOLIC PANEL <td>COMPREHENSIVE METABO LIC PANEL</td><td>Routine</td><td>10/09/2020 1:30 PM EDT</td><td> Morbid obesity</td><td> </td> 10/09/2020 05:30:00 PM EDT Morbid obesity [facility] Morbid obesity UPPER NDSC BIOPSY SINGLE/MULTIPLE 08/18/2020 12:00:00 AM EST [facility] ([facility] Results ID Date Data Source [id number] 05/04/2021 12:00:00 AM EDT [facility] Name Value Range Interpretation Code Description Data Jeannette rce(s) Supporting Document(s) SARS coronavirus 2 Ag Negative [facility] This lab was ordered by [facility] and reported by [facility]. ID Date Data Source [id number] 04/22/2021 01:19:00 PM EDT [facility] ([facility]) Name Value Range Interpretation Code Description Data Jeannette rce(s) Supporting Document(s) White Blood Count 9.2 10 4.0-10.0 Normal (applies to non-numeri c results) [facility] ([facility]) Red Blood Count 5.32 10 4.00-5.40 Normal (applies to non-numeric results) [facility] ([facility]) Hemoglobin 13.9 g/dL 12.0-15.5 Normal (applies to non-numeric resul ts) [facility] ([facility]) Hematocrit 43.3 % 36.0-47.0 Normal (applies to non-numeric resul ts) [facility] ([facility]) Mean Corpuscular Volume 81.4 fl 80.0-96.0 Normal ( applies to non-numeric results) [facility]) Mean Corpuscular Hemoglobin 26.1 pg 27.0-33.0 Below low normal [facility] ([facility]) Mean Corpuscular HGB Conc 32.1 g/dL 32.0-36.5 Normal (applies to non-numeric results) [facility] ([facility]) Platelet Count, Automated 297 10 150-450 Normal (applies to non-numeric results) [facility]) Red Cell Distribution Width 13.8 % 11.5-14.5 Norm al (applies to non-numeric results) [facility] ([facility]) Lymph % 37.5 % 24.0-44.0 Normal (applies to non-numeric resul ts) [facility] ([facility]) Custer % 5.3 % 2.0-8.0 Normal (applies to non-numeric resul ts) [facility] ([facility]) Neutrophils % 53.8 % 36.0-66.0 Normal (applies to non-numeric re sults) [facility] ([facility]) Eos % 2.6 % 0.0-3.0 Normal (applies to non-numeric resul ts) [facility] ([facility]) Baso % 0.5 % 0.0-1.0 Normal (applies to non-numeric resul ts) [facility] ([facility]) Immature Granulocyte % 0.3 % 0-3.0 Normal (applies to non-n umeric results) [facility] ([facility]) Nucleated Red Blood Cell % 0.0 % 0-0 Normal (applies to n on-numeric results) [facility] ([facility]) Neutrophils # 5.0 10 1.5-8.5 Normal (applies to non-numeric re sults) [facility] ([facility]) Custer # 0.5 10 0.0-0.8 Normal (applies to non-numeric resul ts) [facility] ([facility]) Lymph # 3.5 10 1.5-5.0 Normal (applies to non-numeric resul ts) [facility] ([facility]) Eos # 0.2 10 0.0-0.5 Normal (applies to non-numeric resul ts) [facility] ([facility]) Baso # 0.1 10 0.0-0.2 Normal (applies to non-numeric resul ts) [facility] ([facility]) ID Date Data Source [id number] 04/22/2021 01:19:00 PM EDT [facility] ([facility]) Name Value Range Interpretation Code Description Data Jeannette rce(s) Supporting Document(s) Hematocrit 45.1 % 36.0-47.0 Normal (applies to non-numeric resul ts) [facility] ([facility]) RBC Folate 591 ng/mL 280-791 Normal (applies to non-numeric resul ts) [facility] ([facility]) ID Date Data Source [id number] 04/22/2021 01:19:00 PM EDT [facility] ([facility]) Name Value Range Interpretation Code Description Data Jeannette rce(s) Supporting Document(s) Cobalamin (Vitamin B12) [Mass/volume] in Serum or Plasma Lab oratory test result 247-911 Above high normal [facility] ([facility]) VITAMIN B12 NORMAL RANGE NORMAL 247 - 911 PG/ML INDETERMINATE 211 - 246 PG/ML DEFICIENT LESS THAN 211 PG/ML Calcidiol [Mass/volume] in Serum or Plasma 25.6 ng/mL 30.0- 100.0 Below low normal [facility] ([facility]) Ferritin [Mass/volume] in Serum or Plasma 16 ng/mL 8-252 Normal (applies to non- numeric results) [facility]) ID Date Data Source [id number] 04/22/2021 01:19:00 PM EDT [facility] ([facility]) Name Value Range Interpretation Code Description Data Jeannette rce(s) Supporting Document(s) Iron (Fe) 33 ug/dL 50-170 Below low normal [facility] ( [facility]) Total Iron Binding Capacity 390 ug/dL 250-450 Norm al (applies to non-numeric results) [facility] ([facility]) Percent Saturation 8.5 % 13.2-45.0 Below low [facility] ID Date Data Source [id number] 04/22/2021 01:19:00 PM EDT [facility] ([facility]) Name Value Range Interpretation Code Description Data Jeannette rce(s) Supporting Document(s) Magnesium [Mass/volume] in Serum or Plasma 2.2 mg/dL 1.8-2 .4 Normal (applies to non-numeric results) [facility] ([facility]) Phosphate [Moles/volume] in Serum or Plasma 4.2 mg/dL 2.5- 4.9 Normal (applies to non-numeric results) [facility] ([facility] ) ID Date Data Source [id number] 04/22/2021 01:19:00 PM EDT [facility] ([facility]) Name Value Range Interpretation Code Description Data Jeannette rce(s) Supporting Document(s) Glucose, Fasting 68 mg/dL 70-100 Below low normal [facility] ([facility]) Blood Urea Nitrogen 14 mg/dL 7-18 Normal (applies to non-nume isela results) [facility] ([facility]) Glomerular Filtration Rate Laboratory test result Normal (applies to non- numeric results) [facility] ([facility]) <content>Units are mL/min/1.73 m2</content>
<content></content>
<content>Chronic Kidney Disease Staging per NKF:</content>
<content></content>
<content>Stage I & II GFR >=60 Normal to Mildly Decreased</content>
<content>Stage III GFR 30- 59 Moderately Decreased</content>
<content>Stage IV GFR 15-29 Severely Decreased</content>
<content>Stage V GFR <15 Very Little GFR Left</content>
<content>ESRD GFR <15 on [employer]CH[employer]ECT</content>
<content></content> Creatinine For GFR 0.64 mg/dL 0.55-1.30 Normal (applies to non -numeric results) [facility] ([facility]) Potassium Serum 4.2 meq/L 3.5-5.1 Normal (applies to non-numeric results) [facility] ([facility]) Sodium Level 140 meq/L 136-145 Normal (applies to non-numeric res ults) [facility] ([facility]) Chloride Level 111 meq/L 98-107 Above high normal [facility] ([facility]) Carbon Dioxide Level 24 meq/L 21-32 Normal (applies to non-num arlette results) [facility] ([facility]) Anion Gap 5 meq/L 8-16 Below low normal [facility] ( [facility]) Ast/Sgot 13 U/L 7-37 Normal (applies to non-numeric resul ts) [facility] ([facility]) Calcium Level 9.1 mg/dL 8.5-10.1 Normal (applies to non-numeric re sults) [facility] ([facility]) Alkaline Phosphatase 107 U/L 45-117 Normal (applies to non-num arlette results) [facility] ([facility]) Alt/SGPT 28 U/L 12-78 Normal (applies to non-numeric resul ts) [facility] ([facility]) Bilirubin,Total 0.2 mg/dL 0.2-1.0 Normal (applies to non-numeric results) [facility] ([facility]) Albumin 3.6 GM/DL 3.2-5.2 Normal (applies to non-numeric resul ts) [facility] ([facility]) Total Protein 7.3 GM/DL 6.4-8.2 Normal (applies to non-numeric re sults) [facility] ([facility]) Albumin/Globulin Ratio 1.0 1.2-2.2 Below low normal [facility] ([facility]) ID Date Data Source [id number] 04/22/2021 01:19:00 PM EDT [facility] ([facility]) Name Value Range Interpretation Code Description Data Jeannette rce(s) Supporting Document(s) Hemoglobin A1c 5.1 % Normal (applies to non-numeric r esults) [facility]) <content>REFERENCE RANGES:</content><br/ ><content></content>
<content><=5.6% NORMAL</content>
<content>5.7-6.4% SUGGESTS IMPAIRED GLUCOSE METABOLISM/PREDIABETIC</content>
<content>>= 6.5% ABNORMAL</content>
<content></content> Estimated Average Glucose 100 mg/dL 60-110 Normal (applies to non-numeric results) [facility]) ID Date Data Source [id number] 03/26/2021 04:54:00 PM EDT [facility] ([facility]) Name Value Range Interpretation Code Description Data Jeannette rce(s) Supporting Document(s) Reagin Ab [Presence] in Serum by RPR Laboratory test result Normal (applies to non-numeric results) [facility] ([facility] ) HIV 1+2 Ab [Presence] in Serum Laboratory test result Normal (applies to non- numeric results) [facility] ([facility]) <content>This assay was performed utiliz ing a chemiluminescent</content>
<content>principle technique for the simultaneous qualitative</content>
<content>detection of HIV-1 p24 antigen & antibodies to HIV-1</content>
<content>(including group O) & HIV-2 using the Siemens Centaur XP</content>
<content>system.</content>
<content>The estimated 95% confidence interval for sensitivity of</content>
<content>this antigen/antibody combination assay for HIV-1&2</content>
<content>antibodies is 99.7-100% and HIV p24 antigen is 89.4-99.9%.</content>
<content>The estimated 95% confidence interval for specificity of</content>
<content>this antigen/antibody combination in low risk populations is</content>
<content>99.6-99.8%.</content>
<content></content> ID Date Data Source [id number] 03/26/2021 04:54:00 PM EDT [facility] ([facility]) Name Value Range Interpretation Code Description Data Jeannette rce(s) Supporting Document(s) Hepatitis C Quantitation Laboratory test result Normal (applies to non-numeric results) [facility] ([facility]) HCV Not Detected Hepatitis C log10 Laboratory test result Normal (applies to non-numeric results) [facility] ([facility]) Test Information: Laboratory test result Normal (applies to non-numeric results) [facility] ([facility]) . The quantitative range of this assay is 15 IU/mL to 100 million IU/mL. ID Date Data Source [id number] 03/26/2021 04:54:00 PM EDT [facility] ([facility]) Name Value Range Interpretation Code Description Data Jeannette rce(s) Supporting Document(s) Laboratory test finding (navigational concept) Laboratory test r esult 0.00-0.90 Normal (applies to non-numeric results) [facility] ([facility]) <content>Negative <0.91</content>
<content>Equivocal 0.91 - 1.09</content>
<content>Positive >1.09</content>
<content>Performed at: [facility]</content>
<content>[address] [place] [address] [id number]</content>
<content>Junior Graphic Designer: Lois Billy MD, Phone: [phone]</content>
<content></content> ID Date Data Source [id number] 03/26/2021 04:54:00 PM EDT [facility] ([facility]) Name Value Range Interpretation Code Description Data Jeannette rce(s) Supporting Document(s) HSV Type II IgG Specific 10.50 index 0.00-0.90 Above high normal [facility] ([facility]) <content>Negative <0.91</content>
<content>Equivocal 0.91 - 1.09</content>
<content>Positive >1.09</content>
<content>Note: Negative indicates no antibodies detected to</content>
<content>HSV-2. Equivocal may suggest early infection. If</content>
<content>clinically appropriate, retest at later date. Positive</content>
<content>indicates antibodies detected to HSV-2.</content>
<content></content> HSV Type I IgG Specific 56.60 index 0.00-0.90 Above high normal [facility] ([facility]) <content>Negative <0.91</content>
<content>Equivocal 0.91 - 1.09</content>
<content>Positive >1.09</content>
<content>Note: Negative indicates no antibodies detected to</content>
<content>HSV-1. Equivocal may suggest early infection. If</content>
<content>clinically appropriate, retest at later date. Positive</content>
<content>indicates antibodies detected to HSV-1.</content>
<content></content> ID Date Data Source [id number] 03/26/2021 03:26:00 PM EDT [facility] ([facility]) Name Value Range Interpretation Code Description Data Jeannette rce(s) Supporting Document(s) Cervical Biopsy Jar 1 Laboratory test result [facility] ([facility]) Endocervical Biopsy Jar 1 Laboratory test result [facility] ([facility]) ID Date Data Source [id number] 03/26/2021 02:53:00 PM EDT [facility] ([facility]) Name Value Range Interpretation Code Description Data Jeannette rce(s) Supporting Document(s) Choriogonadotropin.beta subunit ( test) [Pres ence] in Urine Laboratory test result [facility] ([facility]) ID Date Data Source [id number] 03/26/2021 08:01:00 AM EDT [facility] ([facility]) Name Value Range Interpretation Code Description Data Jeannette rce(s) Supporting Document(s) Treponema pallidum Ab [Presence] in Serum Laboratory test result [facility] ([facility]) Laboratory test finding (navigational concept) Laboratory test result [facility] ([facility]) ID Date Data Source [id number] 03/05/2021 10:06:00 AM EDT [facility] ([facility] [place]) Name Value Range Interpretation Code Description Data Jeannette rce(s) Supporting Document(s) Iron 38 ug/dL 42-135 [facility] ([facility]) Is patient fasting? N Iron binding capacity [Mass/volume] in Serum or Plasma 350 ug/dL 250 -450 [facility] ([facility]) Is patient fasting? N Iron binding capacity.unsaturated [Mass/volume] in Serum or Plasma 312 ug/dL 112-347 [facility] ([facility]) Is patient fasting? N Iron Sat 11 % [facility] ([facility] [place]) Is patient fasting? N ID Date Data Source [id number] 03/05/2021 10:06:00 AM EDT [facility] ([facility] [place]) Name Value Range Interpretation Code Description Data Jeannette rce(s) Supporting Document(s) Cobalamin (Vitamin B12) [Mass/volume] in Serum or Plasma Lab oratory test result [id number] [facility] ([facility]) Is patient fasting? N Calcidiol [Mass/volume] in Serum or Plasma 46 ng/mL [facility] ([facility]) Is patient fasting? N Thyrotropin [Units/volume] in Serum or Plasma 0.73 uIU/mL 0.47-5.01 [facility] ([facility] [place]) Is patient fasting? N Folate [Mass/volume] in Serum or Plasma 14.4 ng/mL 4.4-31.0 [facility] ([facility]) Is patient fasting? N ID Date Data Source [id number] 03/05/2021 10:06:00 AM EDT [facility] ([facility] [place]) Name Value Range Interpretation Code Description Data Jeannette rce(s) Supporting Document(s) Sed Rate Reenter 5 [facility] ([facility] [place]) Is patient fasting? N Erythrocyte sedimentation rate by Westergren method 5 mm/hr 0-20 [facility] ([facility]) Is patient fasting? N ID Date Data Source [id number] 03/05/2021 10:06:00 AM EDT [facility] Name Value Range Interpretation Code Description Data Jeannette rce(s) Supporting Document(s) Hemoglobin A1c/Hemoglobin.total in Blood 4.9 % 4.4-6.1 [facility] ([facility]) Is patient fasting? N C reactive protein [Mass/volume] in Serum or Plasma by High sensitivity method 2.52 mg/L 1.00-3.00 [facility] ([employer]) Is patient fasting? N ID Date Data Source [id number] 03/05/2021 10:06:00 AM EDT [facility] ([facility] [place]) Name Value Range Interpretation Code Description Data Jeannette rce(s) Supporting Document(s) Comprehensive Metabo Laboratory test result [facility] ([facility]) Is patient fasting? N Sodium 139 meq/L 134-153 [facility] Is patient fasting? N Potassium 3.9 meq/L 3.6-5.0 [facility] Is patient fasting? N Chloride 106 meq/L 98-107 [facility] Is patient fasting? N Co2 22 meq/L 22-30 [facility] Is patient fasting? N Glucose 137 mg/dL 70-99 [facility] Is patient fasting? N BUN 14 mg/dL 7-21 [facility] Is patient fasting? N Creatinine 0.7 mg/dL 0.7-1.5 [facility] ([facility]) Is patient fasting? N Albumin 4.3 g/dL 3.9-5.0 [facility] Is patient fasting? N BUN/Creat 20 8-27 [facility] Is patient fasting? N Total Protein 7.1 g/dL 6.3-8.2 [facility] ([facility]) Is patient fasting? N Globulin [Mass/volume] in Serum by calculation 2.8 GM/DL 2.4-3.2 [facility] ([facility]) Is patient fasting? N Calcium 9.2 mg/dL 8.4-10.2 [facility] ([facility]) Is patient fasting? N A/G Ratio 1.5 0.8-2.0 [facility] ([facility]) Is patient fasting? N Alkaline Phos 104 U/L 38-126 [facility] ([facility]) Is patient fasting? N Sgot/Ast 18 U/L 5-40 [facility] Is patient fasting? N Total Bili Laboratory test result 0.2-1.3 ME [facility] ([facility]) Is patient fasting? N SGPT/Alt 15 U/L 7-56 [facility] Is patient fasting? N Anion gap in Serum or Plasma 11.0 mmol/L 8.0-16.0 [facility] ([facility]) Is patient fasting? N Non-Aa GFR Laboratory test result [facility] ([facility]) Is patient fasting? N Age 35 yrs [facility] Is patient fasting? N Afr Amer GFR Laboratory test result [facility] NT ([facility]) Is patient fasting? N ID Date Data Source [id number] 03/05/2021 10:06:00 AM EDT [facility] ([facility]) Name Value Range Interpretation Code Description Data Jeannette rce(s) Supporting Document(s) Cholesterol 159 mg/dL 131-200 [facility] ([facility]) Is patient fasting? N Cve Panel Laboratory test result [facility] ([facility]) Is patient fasting? N Triglycerides 127 mg/dL 35-160 [facility] ([facility]) Is patient fasting? N HDL 44 mg/dL 29-86 [facility] Is patient fasting? N Risk Factor 3.6 3.2-4.4 [facility] ([facility]) Is patient fasting? N LDL 103 mg/dL 65-175 [facility] Is patient fasting? N LDL/HDL 2.34 1.47-3.22 [facility] ([facility]) Is patient fasting? N ID Date Data Source [id number] 03/05/2021 10:06:00 AM EDT [facility] ([facility]) Name Value Range Interpretation Code Description Data Jeannette rce(s) Supporting Document(s) Ferritin [Mass/volume] in Serum or Plasma 25.9 ng/mL 3.0-105 [facility] ([facility]) Is patient fasting? N ID Date Data Source [id number] 03/05/2021 10:06:00 AM EDT [facility] ([facility]) Name Value Range Interpretation Code Description Data Jeannette rce(s) Supporting Document(s) Ferritin [Mass/volume] in Serum or Plasma 25.9 ng/mL 3.0-105 [facility] ([facility]) Is patient fasting? N ID Date Data Source [id number] 03/05/2021 10:06:00 AM EDT [facility] ([facility]) Name Value Range Interpretation Code Description Data Jeannette rce(s) Supporting Document(s) WBC 7.3 10^3/uL 4.2-11.0 [facility] ([facility]) Is patient fasting? N CBC W/Automated Diff Laboratory test result [facility] ([facility]) Is patient fasting? N RBC 5.31 10^6/uL 4.20-5.40 [facility] ([facility]) Is patient fasting? N Hemoglobin 13.8 g/dL 12.0-16.0 [facility] ([facility]) Is patient fasting? N Hematocrit 42.7 % 37.0-47.0 [facility] ([facility]) Is patient fasting? N MCV 80.4 fL 81.0-101 Below low normal [facility] ([facility]) Is patient fasting? N MCHC 32.3 g/dL 31.0-36.0 [facility] ([facility]) Is patient fasting? N MCH 26.0 pg 27.0-34.0 Below low normal [facility] ( [facility]) Is patient fasting? N RDW 14.2 % 11.5-14.5 [facility] ([facility]) Is patient fasting? N Platelets 306 10^3/uL 150-450 [facility] ([facility]) Is patient fasting? N MPV 10.5 fL 7.4-10.4 Above high normal [facility] ([facility]) Is patient fasting? N Neut 60.3 % 37.0-80.0 [facility] ([facility]) Is patient fasting? N Lymph 32.7 % 25.0-40.0 [facility] ([facility]) Is patient fasting? N Custer 4.6 % 3.0-8.0 [facility] ([facility]) Is patient fasting? N Baso 0.4 % 0.0-2.5 [facility] ([facility]) Is patient fasting? N Eos 1.9 % 0.0-7.0 [facility] ([facility]) Is patient fasting? N %NRBC 0.0 % 0.0-0.0 [facility] ([facility]) Is patient fasting? N %Ig 0.1 % 0.0-0.0 Above high normal [facility] ([facility]) Is patient fasting? N #Lymph 2.39 10^3/uL 0.60-3.40 [facility] ([facility]) Is patient fasting? N #Neut 4.41 10^3/uL 2.00-6.90 [facility] ([facility]) Is patient fasting? N #Eos 0.14 10^3/uL 0.00-0.70 [facility] ([facility]) Is patient fasting? N #Custer 0.34 10^3/uL 0.00-0.90 [facility] ([facility]) Is patient fasting? N #Baso 0.03 10^3/uL 0.00-0.20 [facility] ([facility]) Is patient fasting? N #Ig 0.01 10^3/uL 0.00-0.10 [facility] ([facility]) Is patient fasting? N RBC Morph Laboratory test result [facility] ([facility]) Is patient fasting? N #NRBC 0.00 10^3/uL 0.00-0.00 [facility] ([facility]) Is patient fasting? N Manual Diff Laboratory test result M [facility] ([facility]) Is patient fasting? N ID Date Data Source [id number] 03/05/2021 10:06:00 AM EDT [facility] ([facility]) Name Value Range Interpretation Code Description Data Jeannette rce(s) Supporting Document(s) Cve Panel Laboratory test result [facility] ([facility]) Is patient fasting? N Cholesterol 159 mg/dL 131-200 [facility] ([facility]) Is patient fasting? N Triglycerides 127 mg/dL 35-160 [facility] ([facility]) Is patient fasting? N HDL 44 mg/dL 29-86 [facility] ([facility]) Is patient fasting? N LDL 103 mg/dL 65-175 [facility] ([facility]) Is patient fasting? N Risk Factor 3.6 3.2-4.4 [facility] ([facility]) Is patient fasting? N LDL/HDL 2.34 1.47-3.22 [facility] ([facility]) Is patient fasting? N ID Date Data Source [id number] 03/05/2021 10:06:00 AM EDT [facility] ([facility]) Name Value Range Interpretation Code Description Data Jeannette rce(s) Supporting Document(s) Sodium 139 meq/L 134-153 [facility] ([facility]) Is patient fasting? N Comprehensive Metabo Laboratory test result [facility] ([facility]) Is patient fasting? N Potassium 3.9 meq/L 3.6-5.0 [facility] Is patient fasting? N Chloride 106 meq/L 98-107 [facility] ([facility]) Is patient fasting? N Co2 22 meq/L 22-30 [facility] ([facility]) Is patient fasting? N Glucose 137 mg/dL 70-99 Above high normal [facility] ([facility]) Is patient fasting? N BUN 14 mg/dL 7-21 [facility] ([facility]) Is patient fasting? N Creatinine 0.7 mg/dL 0.7-1.5 [facility] ([facility]) Is patient fasting? N BUN/Creat 20 8-27 [facility] ([facility]) Is patient fasting? N Albumin 4.3 g/dL 3.9-5.0 [facility] Is patient fasting? N Total Protein 7.1 g/dL 6.3-8.2 [facility] ([facility]) Is patient fasting? N Globulin 2.8 GM/DL 2.4-3.2 [facility] ([facility]) Is patient fasting? N A/G Ratio 1.5 0.8-2.0 [facility] ([facility]) Is patient fasting? N Calcium 9.2 mg/dL 8.4-10.2 [facility] ([facility]) Is patient fasting? N Total Bili Laboratory test result 0.2-1.3 [facility] ([facility]) Is patient fasting? N Alkaline Phos 104 U/L 38-126 [facility] ([facility]) Is patient fasting? N Sgot/Ast 18 U/L 5-40 [facility] ([facility]) Is patient fasting? N Anion Gap 11.0 mmol/L 8.0-16.0 [facility] ([facility]) Is patient fasting? N SGPT/Alt 15 U/L 7-56 [facility] ([facility]) Is patient fasting? N Age 35 yrs [facility] ([facility]) Is patient fasting? N Non-Aa GFR Laboratory test result [facility] ([facility]) Is patient fasting? N Afr Amer GFR Laboratory test result [facility] ([facility]) Is patient fasting? N ID Date Data Source [id number] 03/05/2021 10:06:00 AM EDT [facility] ([facility]) Name Value Range Interpretation Code Description Data Jeannette rce(s) Supporting Document(s) Erythrocyte sedimentation rate by Westergren method Laboratory test result [facility] ([facility]) Calcidiol [Mass/volume] in Serum or Plasma Laboratory test result [facility] ([facility]) Cobalamin (Vitamin B12) [Mass/volume] in Serum or Plasma Lab oratory test result [facility] ([facility]) Thyrotropin [Units/volume] in Serum or Plasma Laboratory test result [facility] ([facility]) Folate [Mass/volume] in Serum or Plasma Laboratory test result [facility] ([facility]) Hemoglobin A1c/Hemoglobin.total in Blood 4.9 % 4.4-6.1 [facility] ([facility]) Is patient fasting? N C reactive protein [Mass/volume] in Serum or Plasma by High sensitivity method 2.52 mg/L 1.00-3.00 [facility] ([facility]) Is patient fasting? N ID Date Data Source [id number] 03/05/2021 10:06:00 AM EDT [facility] ([facility]) Name Value Range Interpretation Code Description Data Jeannette rce(s) Supporting Document(s) Sed Rate 5 mm/hr 0-20 [facility] ([facility]) Is patient fasting? N Sed Rate Reenter 5 [facility] ([facility]) Is patient fasting? N ID Date Data Source [id number] 03/05/2021 10:06:00 AM EDT [facility] ([facility]) Name Value Range Interpretation Code Description Data Jeannette rce(s) Supporting Document(s) Cobalamin (Vitamin B12) [Mass/volume] in Serum or Plasma Lab oratory test result [id number] Above high normal [facility] ([facility]) Is patient fasting? N Calcidiol [Mass/volume] in Serum or Plasma 46 ng/mL [facility] ([facility]) Is patient fasting? N Thyrotropin [Units/volume] in Serum or Plasma 0.73 uIU/mL 0.47-5.01 [facility] ([facility]) Is patient fasting? N Folate [Mass/volume] in Serum or Plasma 14.4 ng/mL 4.4-31.0 [facility] ([facility]) Is patient fasting? N ID Date Data Source [id number] 03/05/2021 10:06:00 AM EDT [facility] ([facility]) Name Value Range Interpretation Code Description Data Jeannette rce(s) Supporting Document(s) Iron 38 ug/dL 42-135 Below low normal [facility] ([facility]) Is patient fasting? N Uibc 312 ug/dL 112-347 [facility] ([facility]) Is patient fasting? N Tibc 350 ug/dL 250-450 [facility] ([facility]) Is patient fasting? N Iron Sat 11 % [facility] ([facility]) Is patient fasting? N ID Date Data Source [id number] 03/06/2021 07:12:00 AM EDT [facility] Value Range Interpretation Code Description Data Jeannette rce(s) Supporting Document(s) Calcidiol [Moles/volume] in Serum or Plasma 46 NG/ML [facility] VITAMIN-D(2 5HYDROXY) Deficiency: <=20 ng/ml Insufficiency: 21-29 ng/ml Preferred level: => 30 ng/ml ID Date Data Source [id number] 03/05/2021 06:10:00 PM EDT [facility] Value Range Interpretation Code Description Data Jeannette rce(s) Supporting Document(s) Cobalamin (Vitamin B12) [Mass/volume] in Serum or Plasma >2000 P G/ML 232 - 1245 H [facility] ID Date Data Source [id number] 03/05/2021 05:30:00 PM EDT [facility] Value Range Interpretation Code Description Data Jeannette rce(s) Supporting Document(s) Erythrocyte sedimentation rate by Westergren method 5 mm/hr 0 - 20 [facility] SED RATE REENTER 5 [facility] ID Date Data Source [id number] 03/05/2021 05:25:00 PM EDT [facility] Value Range Interpretation Code Description Data Jeannette rce(s) Supporting Document(s) Folate [Mass/volume] in Serum or Plasma 14.4 NG/ML 4.4 - 31.0 [facility] ID Date Data Source [id number] 03/05/2021 05:25:00 PM EDT [facility] Value Range Interpretation Code Description Data Jeannette rce(s) Supporting Document(s) Ferritin [Mass/volume] in Serum or Plasma 25.9 ng/mL 3.0 - 105 [facility] ID Date Data Source [id number] 03/05/2021 05:25:00 PM EDT [facility] Name Value Range Interpretation Code Description Data Jeannette rce(s) Supporting Document(s) Thyrotropin [Units/volume] in Serum or Plasma by Detec tion limit <= 0.05 mIU/L 0.73 uIU/mL 0.47 - 5.01 [facility] ID Date Data Source [id number] 03/05/2021 05:24:00 PM EDT [facility] Name Value Range Interpretation Code Description Data Jeannette rce(s) Supporting Document(s) C reactive protein [Mass/volume] in Serum or Plasma by High sensitivity method 2.52 MG/L 1.00 - 3.00 [facility] HS-CRP CUT-OFF: RELATIVE RISK: <1.0 mg/L Low 1.0 - 3.0 mg/L Average >3.0 mg/L High Optimally, the average of HS-CRP results repeated two weeks apart should be used for risk assessment. ID Date Data Source [id number] 03/05/2021 05:24:00 PM EDT [facility] Name Value Range Interpretation Code Description Data Jeannette rce(s) Supporting Document(s) Iron [Mass/volume] in Serum or Plasma 38 UG/DL 42 - 135 L [facility] Iron binding capacity.unsaturated [Mass/volume] in Serum or Plasma 312 UG/DL 112 - 347 [facility] Iron binding capacity [Mass/volume] in Serum or Plasma 350 ug/dL 250 - 450 [facility] Iron saturation [Mass Fraction] in Serum or Plasma 11 % [facility] ID Date Data Source [id number] 03/05/2021 05:24:00 PM EDT [facility] Name Value Range Interpretation Code Description Data Jeannette rce(s) Supporting Document(s) COMPREHENSIVE METABOLIC PANEL [facility] COMPREHENSIVE METABOLIC PANEL Sodium [Moles/volume] in Serum or Plasma 139 mEq/L 134 - 153 [facility] Potassium [Moles/volume] in Serum or Plasma 3.9 mEq/L 3.6 - 5.0 [facility] Chloride [Moles/volume] in Serum or Plasma 106 mEq/L 98 - 107 [facility] Carbon dioxide, total [Moles/volume] in Serum or Plasma 22 MEQ/L 22 - 30 [facility] Glucose [Mass/volume] in Serum or Plasma 137 MG/DL 70 - 99 H [facility] BUN 14 MG/DL 7 - 21 [facility] Creatinine [Mass/volume] in Serum or Plasma 0.7 MG/DL 0.7 - 1.5 [facility] BUN/CREAT 20 8 - 27 [facility] al Protein [Mass/volume] in Serum or Plasma 7.1 G/DL 6.3 - 8.2 [facility] Albumin [Mass/volume] in Serum or Plasma 4.3 G/DL 3.9 - 5.0 [facility] Globulin [Mass/volume] in Serum by calculation 2.8 GM/DL 2.4 - 3.2 [facility] A/G RATIO 1.5 0.8 - 2.0 [facility] Calcium [Mass/volume] in Serum or Plasma 9.2 MG/DL 8.4 - 10.2 [facility] Bilirubin.total [Mass/volume] in Serum or Plasma <0.7 MG/DL 0.2 - 1.3 [facility] Alkaline phosphatase [Enzymatic activity/volume] in Serum or Plasma 104 U/L 38 - 126 [facility] Aspartate aminotransferase [Enzymatic activity/volume] in Serum or Plasma 18 U/L 5 - 40 [facility] Alanine aminotransferase [Enzymatic activity/volume] in Seru m or Plasma 15 U/L 7 - 56 [facility] Anion gap 3 in Serum or Plasma 11.0 mmol/L 8.0 - 16.0 [facility] AGE 35 yrs [facility] al NON-AA GFR >60 mL/min [facility] ital AFR AMER GFR >60 mL/min [facility] Ho spital Male GFR In terprentation 20-49 yrs >60 mL/min Normal 50-59 yrs >56 mL/min Normal 60-69 yrs >49 mL/min Normal 70-79yrs >42 mL/min Normal 80 and above >35 mL/min Normal Female GFR Interpretation 20-39 yrs >60 mL/min Normal 40-49 yrs >58 mL/min Normal 50-59 yrs >51 mL/min Normal 60-69 yrs >45 mL/min Normal 70-79 yrs >39 mL/min Normal 80 and above >32 mL/min Normal ID Date Data Source [id number] 03/05/2021 05:24:00 PM EDT [facility] Name Value Range Interpretation Code Description Data Jeannette rce(s) Supporting Document(s) [facility] Cholesterol [Mass/volume] in Serum or Plasma 159 MG/DL 131 - 200 [facility] Deprecated Triglyceride [Mass/volume] in Serum or Plasma 127 MG/DL 3 5 - 160 [facility] HDL 44 MG/DL 29 - 86 [facility] al Cholesterol in LDL [Mass/volume] in Serum or Plasma by Direc t assay 103 mg/dL 65 - 175 [facility] Cholesterol.total/Cholesterol in HDL [Mass Ratio] in Serum o r Plasma 3.6 3.2 - 4.4 [facility] LDL/HDL 2.34 1.47 - 3.22 [facility] ital CVE RISK CHOL/HDL LDL/HDLMEN: 1/2 AVERAGE 3.43 1.00 AVERAGE 4.97 3.55 2X AVERAGE 9.55 6.25 3X AVERAGE 23.99 7.99WOMEN: 1/2 AVERAGE 3.27 1.47 AVERAGE 4.44 3.22 2X AVERAGE 7.05 5.03 3X AVERAGE 11.04 6.14 ID Date Data Source [id number] 03/05/2021 05:08:00 PM EDT [facility] Name Value Range Interpretation Code Description Data Jeannette rce(s) Supporting Document(s) Hemoglobin A1c/Hemoglobin.total in Blood 4.9 % 4.4 - 6.1 [facility] {A1]{HB] ID Date Data Source [id number] 03/05/2021 04:54:00 PM EDT [facility] Name Value Range Interpretation Code Description Data Jeannette rce(s) Supporting Document(s) CBC W/AUTOMATED DIFF [facility] COMPLETE BLOOD COUNT Leukocytes [#/volume] in Blood by Automated count 7.3 10^3/uL 4.2 - 1 1.0 [facility] Erythrocytes [#/volume] in Blood by Automated count 5.31 10^6/uL 4. 20 - 5.40 [facility] Hemoglobin [Mass/volume] in Blood 13.8 g/dL 12.0 - 16.0 [facility] Hematocrit [Volume Fraction] of Blood by Automated count 42.7 % 3 7.0 - 47.0 [facility] Erythrocyte mean corpuscular volume [Entitic volume] by Auto mated count 80.4 fL 81.0 - 101 L [facility] Erythrocyte mean corpuscular hemoglobin [Entitic mass] by Automated count 26.0 pg 27.0 - 34.0 L [facility] Erythrocyte mean corpuscular hemoglobin concentration [Mass/volume] by Automated count 32.3 g/dL 31.0 - 36.0 [facility] Erythrocyte distribution width [Ratio] by Automated count 14.2 % 11.5 - 14.5 [facility] Platelets [#/volume] in Blood by Automated count 306 10^3/uL 150 - 45 0 [facility] Platelet mean volume [Entitic volume] in Blood by Automated count 10.5 fL 7.4 - 10.4 H [facility] Neutrophils/100 leukocytes in Blood by Automated count 60.3 % 37. 0 - 80.0 [facility] Lymphocytes/100 leukocytes in Blood by Manual count 32.7 % 25.0 - 40.0 [facility] Monocytes/100 leukocytes in Blood by Automated count 4.6 % 3.0 - 8.0 [facility] Eosinophils/100 leukocytes in Blood by Automated count 1.9 % 0.0 - 7.0 [facility] Basophils/100 leukocytes in Blood by Automated count 0.4 % 0.0 - 2.5 [facility] %IG 0.1 % 0.0 - 0.0 [facility] %NRBC 0.0 % 0.0 - 0.0 [facility] al Neutrophils [#/volume] in Blood by Automated count 4.41 10^3/uL 2.00 - 6.90 [facility] Lymphocytes [#/volume] in Blood by Automated count 2.39 10^3/uL 0.60 - 3.40 [facility] Monocytes [#/volume] in Blood by Automated count 0.34 10^3/uL 0.00 - 0.90 [facility] Eosinophils [#/volume] in Blood by Automated count 0.14 10^3/uL 0.00 - 0.70 [facility] Basophils [#/volume] in Blood by Automated count 0.03 10^3/uL 0.00 - 0.20 [facility] #IG 0.01 10^3/uL 0.00 - 0.10 [facility] H ospital #NRBC 0.00 10^3/uL 0.00 - 0.00 [facility] ospital MANUAL DIFF NOT INDICATED [facility] RBC MORPH NOT INDICATED [facility] spital ID Date Data Source [id number] 03/05/2021 10:06:00 AM EDT [facility] ([facility]) Name Value Range Interpretation Code Description Data Jeannette rce(s) Supporting Document(s) Iron [Mass/volume] in Serum or Plasma Laboratory test result [facility] ([facility]) Iron binding capacity [Mass/volume] in Serum or Plasma Laborator y test result [facility] ([facility]) Ferritin [Mass/volume] in Serum or Plasma Laboratory test result [facility] ([facility]) ID Date Data Source [id number] 03/02/2021 12:00:00 AM EDT [facility] Name Value Range Interpretation Code Description Data Jeannette rce(s) Supporting Document(s) SARS coronavirus 2 Ag Negative [facility] This lab was ordered by [facility] and reported by [facility]. ID Date Data Source [id number] 02/26/2021 07:30:00 PM EDT [facility] Name Value Range Interpretation Code Description Data Jeannette rce(s) Supporting Document(s) SARS coronavirus 2 RNA [Presence] in Res piratory specimen by KSENIA with probe detection anterior nasal swabs [facility] This lab was ordered by [facility] and re ported by [facility]. ID Date Data Source [id number] 02/26/2021 03:30:00 PM EDT [facility] Name Value Range Interpretation Code Description Data Jeannette rce(s) Supporting Document(s) SARS-CoV-2 NEGATIVE [facility] This lab was ordered by [facility] and reported by [employer]. ID Date Data Source [id number] 02/05/2021 10:30:00 AM EDT [facility] ([facility]) Name Value Range Interpretation Code Description Data Jeannette rce(s) Supporting Document(s) Chlamydia trachomatis,Ksenia Laboratory test result [facility] ([facility]) {SOURCE:~.~.~<DG1.3.1>Z01.419</DG1.3.1>< DG1.3.1>Z01.419</DG1.3.1> Neisseria gonorrhoeae,Ksenia Laboratory test result [facility] ([facility]) {SOURCE:~.~.~<DG1.3.1>Z01.419</DG1.3.1>< DG1.3.1>Z01.419</DG1.3.1> ID Date Data Source [id number] 02/07/2021 06:30:00 AM EDT [facility] Name Value Range Interpretation Code Description Data Jeannette rce(s) Supporting Document(s) Chlamydia trachomatis rRNA [Presence] in Unspecified specimen by Probe and target amplification method Negative Negative [facility] Neisseria gonorrhoeae rRNA [Presence] in Unspecified specimen by Probe and target amplification method Negative Negative [facility] ID Date Data Source [id number] 02/05/2021 10:30:00 AM EDT [facility] ([facility]) Name Value Range Interpretation Code Description Data Jeannette rce(s) Supporting Document(s) Cytology report of Cervical or vaginal smear or scrapi ng Cyto stain.thin prep Laboratory test result [facility] ([facility]) ID Date Data Source [id number] 02/20/2021 08:31:17 AM EDT Laboratory [facility] [address] HPV GENOTYPES 16, 18/45 TO QUEST 9 1826HPV GENOTYPES 16, 18/45HPV 16 RNADETECTED (A)HPV 18/45 RNANOT DETECTEDREFERENCE RANGE: HPV 16 RNA: NOT DETECTEDHPV 18/45 RNA: NOT DETECTEDMethodology: Curtain Fitter Mediated AmplificationThe analytical performance characteristics of this assay have been determined by [facility]. The modifications have not been cleared or approved by the FDA. This assay has been validated pursuant to the CLIA regulations and is used for clinical purposes. Name Value Range Interpretation Code Description Data Jeannette rce(s) Supporting Document(s) PERFORMING LAB: Laboratory All iance of [address] [address] ID Date Data Source [id number] 12/09/2020 08:32:00 AM EDT [facility] Name Value Range Interpretation Code Description Data Jeannette rce(s) Supporting Document(s) SARS-CoV-2 (COVID-19) RNA [Presence] in Respiratory specimen by KSENIA with probe detection Not Detected [facility] This lab was ordered by [facility] and reported by [employer]. ID Date Data Source [id number] 11/19/2020 01:21:00 PM EDT [facility] ([facility]) Name Value Range Interpretation Code Description Data Jeannette rce(s) Supporting Document(s) RBC Folate 539 ng/mL 280-791 [facility] ([facility]) Hematocrit 40.5 % 36.0-47.0 [facility] ([facility]) ID Date Data Source [id number] 11/19/2020 01:21:00 PM EDT [facility] ([facility]) Name Value Range Interpretation Code Description Data Jeannette rce(s) Supporting Document(s) White Blood Count 8.3 10 4.0-10.0 [facility] ([facility]) Hemoglobin 12.6 g/dL 12.0-15.5 [facility] ([facility]) Hematocrit 40.0 % 36.0-47.0 [facility] ([facility]) Red Blood Count 4.99 10 4.00-5.40 [facility] ([facility]) Mean Corpuscular Volume 80.2 fl 80.0-96.0 M EDENT ([facility]) Mean Corpuscular Hemoglobin 25.3 pg 27.0-33.0 [facility] ([facility]) Mean Corpuscular HGB Conc 31.5 g/dL 32.0-36.5 [facility] ([facility]) Red Cell Distribution Width 15.3 % 11.5-14.5 [facility] ([facility]) Platelet Count, Automated 282 10 150-450 [facility] ([facility]) Neutrophils % 62.6 % 36.0-66.0 [facility] ([facility]) Lymphocytes/100 leukocytes in Blood by Automated count 26.8 % 24. 0-44.0 [facility] ([facility]) Baso % 0.5 % 0.0-1.0 [facility] Custer % 5.2 % 2.0-8.0 [facility] Eos % 4.5 % 0.0-3.0 [facility] Nucleated Red Blood Cell % 0.0 % 0-0 [facility] ([facility]) Immature Granulocyte % 0.4 % 0-3.0 [facility] ([facility]) Neutrophils # 5.2 10 1.5-8.5 [facility] ([facility]) Lymph # 2.2 10 1.5-5.0 [facility] Custer # 0.4 10 0.0-0.8 [facility] Eos # 0.4 10 0.0-0.5 [facility] Baso # 0.0 10 0.0-0.2 [facility] ID Date Data Source [id number] 11/19/2020 01:21:00 PM EDT [facility] ([facility] Name Value Range Interpretation Code Description Data Jeannette rce(s) Supporting Document(s) Phosphate [Moles/volume] in Serum or Plasma 3.0 mg/dL 2.5-4.9 [facility] ([facility]) Magnesium [Mass/volume] in Serum or Plasma 2.2 mg/dL 1.8-2.4 [facility] ([facility]) ID Date Data Source [id number] 11/19/2020 01:21:00 PM EDT [facility] Name Value Range Interpretation Code Description Data Jeannette rce(s) Supporting Document(s) Iron (Fe) 30 ug/dL 50-170 [facility] Total Iron Binding Capacity 311 ug/dL 250-450 [facility] ([facility]) Percent Saturation 9.6 % 13.2-45.0 [facility] ([facility] [place]) ID Date Data Source [id number] 11/19/2020 01:21:00 PM EDT [facility] ([facility]) Name Value Range Interpretation Code Description Data Jeannette rce(s) Supporting Document(s) Cobalamin (Vitamin B12) [Mass/volume] in Serum or Plasma 599 pg/mL 2 47-911 [facility] ([facility]) VITAMIN B12 NORMAL RANGE NORMAL 247 - 911 PG/ML INDETERMINATE 211 - 246 PG/ML DEFICIENT LESS THAN 211 PG/ML Calcidiol [Mass/volume] in Serum or Plasma 35.5 ng/mL 30.0-100.0 [facility] ([facility]) Ferritin [Mass/volume] in Serum or Plasma 15 ng/mL 8-252 [facility] ([facility]) ID Date Data Source [id number] 11/19/2020 01:21:00 PM EDT [facility] ([facility]) Name Value Range Interpretation Code Description Data Jeannette rce(s) Supporting Document(s) Hemoglobin A1c 5.4 % [facility] ([facility]) <content>REFERENCE RANGES:</content><br/ ><content></content>
<content><=5.6% NORMAL</content>
<content>5.7-6.4% SUGGESTS IMPAIRED GLUCOSE METABOLISM/PREDIABETIC</content>
<content>>= 6.5% ABNORMAL</content>
<content></content>
<content></content> Estimated Average Glucose 108 mg/dL 60-110 [facility] ([facility]) ID Date Data Source [id number] 11/19/2020 01:21:00 PM EDT [facility] ([facility]) Name Value Range Interpretation Code Description Data Jeannette rce(s) Supporting Document(s) Thiamine [Mass/volume] in Blood 129.9 nmol/L 66.5-200.0 [facility] ([facility]) Performed at: [address], [place], [place] [id number] 61 Junior Graphic Designer: Margarita Nicholas MD, Phone: [phone] ID Date Data Source [id number] 11/19/2020 01:21:00 PM EDT [facility] ([facility]) Name Value Range Interpretation Code Description Data Jeannette rce(s) Supporting Document(s) Glucose, Fasting 138 mg/dL 70-100 [facility] ([facility]) Blood Urea Nitrogen 8 mg/dL 7-18 [facility] ([facility]) Creatinine For GFR 0.68 mg/dL 0.55-1.30 [facility] ([facility]) Glomerular Filtration Rate Laboratory test result [facility] ([facility]) <content>Units are mL/min/1.73 m2</content>
<content></content>
<content>Chronic Kidney Disease Staging per NKF:</content>
<content></content>
<content>Stage I & II GFR >=60 Normal to Mildly Decreased</content>
<content>Stage III GFR 30- 59 Moderately Decreased</content>
<content>Stage IV GFR 15-29 Severely Decreased</content>
<content>Stage V GFR <15 Very Little GFR Left</content>
<content>ESRD GFR <15 on SENIOR SOLUTIONS ARCHITECT</content>
<content></content>
<content></content> Potassium Serum 3.6 meq/L 3.5-5.1 [facility] ([facility]) Sodium Level 142 meq/L 136-145 [facility] ([facility]) Chloride Level 112 meq/L 98-107 [facility] ([facility]) Anion gap in Serum or Plasma 5 meq/L 8-16 [facility] ([facility]) Carbon Dioxide Level 25 meq/L 21-32 [facility] ([facility]) Calcium Level 8.5 mg/dL 8.5-10.1 [facility] ([facility]) Aspartate aminotransferase [Enzymatic activity/volume] in Serum or Plasma 19 U/L 7-37 [facility] ([employer] [facility]) Alkaline phosphatase [Enzymatic activity/volume] in Serum or Plasma 97 U/L 45-117 [facility] ([facility]) Alanine aminotransferase [Enzymatic activity/volume] in Seru m or Plasma 23 U/L 12-78 [facility] ([facility]) Total Protein 6.3 GM/DL 6.4-8.2 [facility] ([facility]) Bilirubin,Total 0.3 mg/dL 0.2-1.0 [facility] ([facility]) Albumin/Globulin Ratio 1.1 1.2-2.2 [facility] ([facility]) Albumin 3.3 GM/DL 3.2-5.2 [facility] ([facility]) ID Date Data Source [id number] 11/19/2020 01:21:00 PM EDT [facility] Name Value Range Interpretation Code Description Data Jeannette rce(s) Supporting Document(s) Thiamine [Mass/volume] in Blood 129.9 nmol/L 66.5-200.0 Normal (applies to non- numeric results) [facility]) Performed at: [address] [id number] Junior Graphic Designer: Margarita Nicholas MD, Phone: [phone] ID Date Data Source [id number] 11/19/2020 01:21:00 PM EDT [facility] Name Value Range Interpretation Code Description Data Jeannette rce(s) Supporting Document(s) Hemoglobin A1c 5.4 % Normal (applies to non-numeric r esults) [facility] <content>REFERENCE RANGES:</content><br/ ><content></content>
<content><=5.6% NORMAL</content>
<content>5.7-6.4% SUGGESTS IMPAIRED GLUCOSE METABOLISM/PREDIABETIC</content>
<content>>= 6.5% ABNORMAL</content>
<content></content> Estimated Average Glucose 108 mg/dL 60-110 Normal (applies to non-numeric results) [facility] ID Date Data Source [id number] 11/19/2020 01:21:00 PM EDT [facility] ([facility]) Name Value Range Interpretation Code Description Data Jeannette rce(s) Supporting Document(s) Cobalamin (Vitamin B12) [Mass/volume] in Serum or Plasma 599 pg/ mL 247-911 Normal (applies to non-numeric results) [facility] ([facility]) VITAMIN B12 NORMAL RANGE NORMAL 247 - 911 PG/ML INDETERMINATE 211 - 246 PG/ML DEFICIENT LESS THAN 211 PG/ML Ferritin [Mass/volume] in Serum or Plasma 15 ng/mL 8-252 Normal (applies to non- numeric results) [facility] ([facility]) Calcidiol [Mass/volume] in Serum or Plasma 35.5 ng/mL 30.0- 100.0 Normal (applies to non-numeric results) [facility] ([facility]) ID Date Data Source [id number] 11/19/2020 01:21:00 PM EDT [facility] ([facility]) Name Value Range Interpretation Code Description Data Ejannette rce(s) Supporting Document(s) Iron (Fe) 30 ug/dL 50-170 Below low normal [facility] ( [facility]) Total Iron Binding Capacity 311 ug/dL 250-450 Norm al (applies to non-numeric results) [facility] ([facility]) Percent Saturation 9.6 % 13.2-45.0 Below low normal [facility] ([facility]) ID Date Data Source [id number] 11/19/2020 01:21:00 PM EDT [facility] ([facility]) Name Value Range Interpretation Code Description Data Jeannette rce(s) Supporting Document(s) Phosphate [Moles/volume] in Serum or Plasma 3.0 mg/dL 2.5- 4.9 Normal (applies to non-numeric results) [facility] ([facility] ) Magnesium [Mass/volume] in Serum or Plasma 2.2 mg/dL 1.8-2 .4 Normal (applies to non-numeric results) [facility] ([facility]) ID Date Data Source [id number] 11/19/2020 01:21:00 PM EDT [facility] ([facility]) Name Value Range Interpretation Code Description Data Jeannette rce(s) Supporting Document(s) Glucose, Fasting 138 mg/dL 70-100 Above high normal M [facility] ([facility]) Blood Urea Nitrogen 8 mg/dL 7-18 Normal (applies to non-nume isela results) [facility] ([facility]) Glomerular Filtration Rate Laboratory test result Normal (applies to non- numeric results) [facility] ([facility]) <content>Units are mL/min/1.73 m2</content>
<content></content>
<content>Chronic Kidney Disease Staging per NKF:</content>
<content></content>
<content>Stage I & II GFR >=60 Normal to Mildly Decreased</content>
<content>Stage III GFR 30- 59 Moderately Decreased</content>
<content>Stage IV GFR 15-29 Severely Decreased</content>
<content>Stage V GFR <15 Very Little GFR Left</content>
<content>ESRD GFR <15 on SENIOR SOLUTIONS ARCHITECT</content>
<content></content> Creatinine For GFR 0.68 mg/dL 0.55-1.30 Normal (applies to non -numeric results) [facility] ([facility]) Sodium Level 142 meq/L 136-145 Normal (applies to non-numeric res ults) [facility] ([facility]) Potassium Serum 3.6 meq/L 3.5-5.1 Normal (applies to non-numeric results) [facility] ([facility]) Chloride Level 112 meq/L 98-107 Above high normal [facility] ([facility]) Carbon Dioxide Level 25 meq/L 21-32 Normal (applies to non-num arlette results) [facility] ([facility]) Anion Gap 5 meq/L 8-16 [facility] Calcium Level 8.5 mg/dL 8.5-10.1 Normal (applies to non-numeric re sults) [facility] ([facility]) Ast/Sgot 19 U/L 7-37 Normal (applies to non-numeric resul ts) [facility] ([facility]) Alt/SGPT 23 U/L 12-78 Normal (applies to non-numeric resul ts) [facility] ([facility]) Alkaline Phosphatase 97 U/L 45-117 Normal (applies to non-num arlette results) [facility] ([facility]) Bilirubin,Total 0.3 mg/dL 0.2-1.0 Normal (applies to non-numeric results) [facility] ([facility]) Total Protein 6.3 GM/DL 6.4-8.2 Below low normal [facility] ([facility]) Albumin 3.3 GM/DL 3.2-5.2 Normal (applies to non-numeric resul ts) [facility] ([facility]) Albumin/Globulin Ratio 1.1 1.2-2.2 Below low normal [facility] ([facility]) ID Date Data Source [id number] 11/19/2020 01:21:00 PM EDT [facility] ([facility]) Name Value Range Interpretation Code Description Data Jeannette rce(s) Supporting Document(s) White Blood Count 8.3 10 4.0-10.0 Normal (applies to non-numeri c results) [facility] ([facility]) Red Blood Count 4.99 10 4.00-5.40 Normal (applies to non-numeric results) [facility] ([facility]) Hematocrit 40.0 % 36.0-47.0 Normal (applies to non-numeric resul ts) [facility] ([facility]) Hemoglobin 12.6 g/dL 12.0-15.5 Normal (applies to non-numeric resul ts) [facility] ([facility]) Mean Corpuscular Volume 80.2 fl 80.0-96.0 Normal ( applies to non-numeric results) [facility] ([facility]) Mean Corpuscular Hemoglobin 25.3 pg 27.0-33.0 Below low normal [facility] ([facility]) Mean Corpuscular HGB Conc 31.5 g/dL 32.0-36.5 Below low normal [facility] ([facility]) Red Cell Distribution Width 15.3 % 11.5-14.5 Above high normal [facility] ([facility]) Platelet Count, Automated 282 10 150-450 Normal (applies to non-numeric results) [facility] ([facility]) Neutrophils % 62.6 % 36.0-66.0 Normal (applies to non-numeric re sults) [facility] ([facility]) Lymph % 26.8 % 24.0-44.0 Normal (applies to non-numeric resul ts) [facility] ([facility]) Custer % 5.2 % 2.0-8.0 Normal (applies to non-numeric resul ts) [facility] ([facility]) Eos % 4.5 % 0.0-3.0 Above high normal [facility] ([facility]) Baso % 0.5 % 0.0-1.0 Normal (applies to non-numeric resul ts) [facility] ([facility]) Immature Granulocyte % 0.4 % 0-3.0 Normal (applies to non-n umeric results) [facility] ([facility]) Nucleated Red Blood Cell % 0.0 % 0-0 Normal (applies to n on-numeric results) [facility] ([facility]) Neutrophils # 5.2 10 1.5-8.5 Normal (applies to non-numeric re sults) [facility] ([facility]) Lymph # 2.2 10 1.5-5.0 Normal (applies to non-numeric resul ts) [facility] ([facility]) Custer # 0.4 10 0.0-0.8 Normal (applies to non-numeric resul ts) [facility] ([facility]) Eos # 0.4 10 0.0-0.5 Normal (applies to non-numeric resul ts) [facility] ([facility]) Baso # 0.0 10 0.0-0.2 Normal (applies to non-numeric resul ts) [facility] ([facility]) ID Date Data Source [id number] 11/19/2020 01:21:00 PM EDT [facility] ([facility]) Name Value Range Interpretation Code Description Data Jeannette rce(s) Supporting Document(s) Hematocrit 40.5 % 36.0-47.0 Normal (applies to non-numeric resul ts) [facility] ([facility]) RBC Folate 539 ng/mL 280-791 Normal (applies to non-numeric resul ts) [facility] ([facility]) ID Date Data Source [id number] 10/27/2020 01:17:59 PM EDT [facility] Corporation[facility] NT INFORMATIONPatient MRN Name Date of Age Gend*PT [id number] Corie Love 1985 35 years F IPPT Location Admission Date/Time Visit ID Attending [id number] 10/23/20 1009 --- --- EPI ID CSN Admitting Provider [id number] Cristobal Peña MD([id number]) Attestation signed by Cristobal Peña MD at 10/27/2020 1:17 PMI have reviewed the above and agree.Signature: Cristobal Peña MDDate: October 27, 2020Time: 1:17 PM Surgical Services Discharge SummaryCorie Love date: 10/23/2020ttending Physician: Denilson Campos Procedures: CREATION, GASTRIC BYPASS, TOOTIE-EN-Y, LAPAROSCOPIC, WITHLIVER BIOPSYIndication for Admission: scheduled above procedureHospital Course & Complications: Patient admitted 10/23/20 for scheduled gastricbypass. She underwent uneventful LRNYGB with liver biopsy. She did wellpost-operatively. Today, she is doing well. She is sipping liquids withoutdifficulty. Her pain is controlled. She is ambulating. She is voiding withoutdifficulty. Her vitals and glucose in good range. She is meeting criteria fordischarge.Medications:Your medication listSTART taking these medications Instructions Last Dose Given Morning Afternoon Evening Bedtime As Neededenoxaparin 40 MG/0.4ML SolnCommonly known as: Lovenox Inject 0.4 mL (40 mg total) under the skin daily for 10 daysMilk of Magnesia 400 MG/5ML suspensionGeneric drug: magnesium hydroxide Take 30 mL by mouth daily as needed for constipationomeprazole 40 MG capsuleCommonly known as: PriLOSEC Take 1 capsule (40 mg total) by mouth dailyondansetron 4 MG disintegrating t abletCommonly known as: ZOFRAN-ODT Take 1 tablet (4 mg total) by mouth every 8 (eight) hours as needed for nauseasimethicone 80 MG chewable tabletCommonly known as: MYLICON Chew 1 tablet (80 mg total) every 6 (six) hours as needed for flatulencevitamin B-12 500 MCG tabletCommonly known as: CYANOCOBALAMIN Take 1 tablet (500 mcg total) by mouth dailySTOP taking these medicationsphentermine 37.5 MG tabletCommonly known as: ADIPEX-PASK your doctor about these medications Instructions Last Dose Given Morning Afternoon Evening Bedtime As Neededtopiramate 50 MG tabletCommonly known as: TOPAMAX Take 50 mg by mouth 2 (two) times a dayWhere to Get Your MedicationsThese medications were sent to [id number] - [place], [place] - [address] [address] [place] [id number] enoxaparin 40 MG/0.4ML Soln omeprazole 40 MG capsule ondansetron 4 MG disintegrating tablet vitamin B-12 500 MCG tabletYou can get these medications from any pharmacyYou don't need a prescription for these medications Milk of Magnesia 400 MG/5ML suspension simethicone 80 MG chewable tabletDischarge Exam:Temp: [97.7 F-98.2 F] 97.8 FHeart Rate: [49-80] 49Resp: [16-26] 16BP: (81-125)/(55-83) 122/83Intake/Output Summary (Last 24 hours) at 10/24/2020 1156Last data filed at 10/24/2020 0900Gross per 24 hourIntake 2440 mlOutput Net 2440 ml+urine occurences General: Alert, conversing appropriatelyHeart: H1W1Vjysa: Resp unlaboredAbdomen: obese, soft ND min tender port sites c/d/i with dermabondExtremities: No edema, erythema, or tenderness of lower ext b ilaterally.Surgical site(s): as aboveDischarged Condition:stableCode status: Full CodeDisposition: Home or Self CareFollow Up: Discharge instructions were reviewed with patient. Follow up in theoffice as scheduled. She understands to call the office with any questions orconcerns. Discussed above discharge plan with Dr. Mccoyature: Nicole Verdin PADate: October 24, 2020Time: 11:56 AM Name Value Range Interpretation Code Description Data Jeannette rce(s) Supporting Document(s) ID Date Data Source [id number] 10/24/2020 11:50:29 AM EDT [facility] [place] [facility] Name Value Range Interpretation Code Description Data Jeannette rce(s) Supporting Document(s) POC NOVA GLU 79 mg/dL (70-99) [facility] [place] [facility] [place] [facility] ID Date Data Source [id number] 10/24/2020 06:15:21 AM EDT [facility] [place] [facility] Name Value Range Interpretation Code Description Data Jeannette rce(s) Supporting Document(s) POC NOVA GLU 115 mg/dL (70-99) H [facility] [place] [facility] [place] [facility] ID Date Data Source [id number] 10/24/2020 12:04:35 AM EDT [facility] [place] [facility] Name Value Range Interpretation Code Description Data Jeannette rce(s) Supporting Document(s) POC NOVA GLU 146 mg/dL (70-99) H [facility] [place] [facility] [place] [facility] ID Date Data Source [id number] 10/23/2020 06:51:29 PM EDT [facility] [place] [facility] [place] Name Value Range Interpretation Code Description Data Jeannette rce(s) Supporting Document(s) POC NOVA GLU 168 mg/dL (70-99) [facility] [place] [facility] [place] [facility] ID Date Data Source [id number] 10/23/2020 04:06:57 PM EDT [facility] [place] [facility] [place] Name Value Range Interpretation Code Description Data Jeannette rce(s) Supporting Document(s) POC NOVA GLU 207 mg/dL (70-99) [facility] [place] [facility] [place] [facility] ID Date Data Source [id number] 10/23/2020 03:27:57 PM EDT [facility] CorporationPATIE NT INFORMATIONPatient MRN Name Date of Age Gend*PT [id number] Corie Love 1985 35 years F SDAPT Location Admission Date/Time Visit [facility] --- Cristobal Peña MD([id number]) EPI ID CSN Admitting Provider [id number] Cristobal Peña MD([id number])Bariatric Surgery Operative ReportPatient Name: Corie Thurstonate of : 1985 35 years SurgeonLAVERN Camposrocedure : ,Laparoscopic Tootie Y Gastric Bypass, antecolic, antegastric, 50 cmPancreatico Biliary Limb, 150 cm Tootie Limb,Wedge Liver BiopsyEsophagogastrojejuosocopy Ruth Aaron MDOR Instructor Industrial Design: Jane Cardona RN; Lou Llanos RNOR Relief Instructor Industrial Design: Yuliana Shannon RNOR Relief Scrub: Kameron King Scrub Person: Feliciano HagerAnesthesiaAnesthesia Staff: Anesthesiologist: MICA DaughertyRNA: Nancy Riggins CRNAAnesthesia: *Anesthesia ServicesDiagnosesPre-Op Diagnosis: Morbid obesity [E66.01]Post-Op Diagnosis: Post-Op Diagnosis Codes: * Morbid obesity [E66.01] * Fatty liver [K76.0]Estimated Blood Loss: 20 mlComplications: None; patient tolerated the procedure well.Implants: NoneDrains: noneID Type Source Tests Collected by [employer] : Liver Biopsy Tissue Tissue SURGICAL PATHOLOGY EXAM Cristobal Peña MD10/23/2020 1420FindingsCentral obesity and fatty liver. Enlarged with blunt edgeIndicationsCorie Love is 35 years old female who has suffered from the disease ofsevere obesity for her entire adult life . Corie cannot control weight withdiet and exercise and has met NIH criteria for bariatric surgery with BMI of 41and comorbid conditions of joint pain . High weight status also significantlyimpacts the patient's activities of daily living. Surgery is medicallynecessary. I recommended a laparoscopic Tootie-en-Y Gastric Bypass.Description of Procedure:Corie Love was placed on the table in supine position, administered generalanesthesia, and endotracheally intubated. Her abdomen was prepped and draped asa sterile field, entered under direct vision with a 12-mm Optiview port,RUQ,pneumoperitoneum was established, 10-mm scope was introduced, and standard6-port technique was used. 12 mm ports on the right midclavicular line , costalmargin, mid abdomen, umbilical area, left anterior axillary line, costal margin,mid abdomen, and an epigastric 5 mm port.The omentum was divided and a wedge biopsy was obtained from the left lobe ofthe liver. The Tootie was constructed by starting at the ligament of Treitzmeasuring 50 cm along the jejunum for the pancreaticobiliary limb, this waspushed to the patient's left and an additional 150 cm for the Tootie limb. A 60-mmblue cartridge was used to divide the bowel at 50 cm and create thejejunojejunostomy. The mesenteric defect and enterotomy was closed with aV-Loc.The Tootie was brought antecolic antegastric, the patient was placed insteep reverse Trendelenburg, and the NG tube was removed.A Hiatal hernia was not foundThe gastric pouch was created by sharpening the angle of His as well as exposingleft ebenezer, measuring 7 cm along the lesser curve and dissecting the lesseromentum from the lesser curve entering the lesser sac. A 60-mm green cartridgewas used to staple transversely across the lesser curve 50 mm and then parallelto the lesser curve to the angle of His, the pouch from the stomachusing a 30-Danish bougie as a guide. The gastrojejunal anastomosis was createdby stapling the Tootie to the anterior wall of the pouch with a 60-mm bluecartridge inserted 3 cm, the remaining enterotomy was closed in 2 layers with aV-Loc and the Tootie limb was anchored to the pouch at the apex of the anastomosiswith another V-Loc. This was tested for leaks, my general office assistant clamped the Rouxlimb with a bowel clamp, and flooded the field with saline. I endoscoped thepatient, insufflating air into the pouch , there were no leaks. The retro Rouxspace was closed with a V-Loc. The ports were removed under direct vision. Theumbilical port site fascia was closed with 0-Vicryl. Hemostasis was excellent.Pneumoperitoneum was relieved. Skin incisions were closed with subcuticularsutures of 4-0 Vicryl. Sterile dressings were applied. The patient tolerated theprocedure well. Signature: JOE Camposate: October 23, 2020Time: 3:24 PM Name Value Range Interpretation Code Description Data Jeannette rce(s) Supporting Document(s) ID Date Data Source [id number] 10/23/2020 01:42:03 PM EDT [facility] CorporationPATIE NT INFORMATIONPatient MRN Name Date of Age Gend*PT [id number] Corie Love Norma 1985 35 years F SDAPT Location Admission Date/Time Visit ID Attending Provider --- --- --- --- [facility] Ad[facility] Provider [id number] ---AirwayPatient location during procedure: ORUrgency: electiveDifficult airway: noAdvanced airway equipment used: yesStaffingPerformed by: Nancy Riggins CRNAAnesthesiologist: Lyndon Lion MDIndications and Patient ConditionIndications for airway management: anesthesiaPreoxygenated: yesPatient position: sniffingIn-line stabilization: noMask ventilation: 1 - vent by maskFinal Airway/ApproachesFinal airway type: ETTNumber of attempts at final approach: 1Number of other approaches attempted: 0Final Airway DetailsFinal ETT airway: ETT - singleCuffed: yesTechnique used for successful ETT placement: GlidescopeCricoid pressure: noRSI: noInsertion site: oralBlade type/size: MAC 3ETT size: 7.0 mmMeasured from: lipsETT to lips: 22 cmPlacement verified by: chest auscultation and + [id number]: equal breath sounds bilateralGrade view: grade IIa - partial view of glottis Name Value Range Interpretation Code Description Data Jeannette rce(s) Supporting Document(s) ID Date Data Source [id number] 10/23/2020 12:20:39 PM EDT [facility] CorporationPATIE NT INFORMATIONPatient MRN Name Date of Age Gend*PT [id number] MaryCorie mix Norma 1985 35 years F SDAPT Location Admission Date/Time Visit ID [facility]9 --- Cristobal Peña MD([id number]) EPI ID CSN Admitting Provider [id number] Cristobal Peña MD([id number])H&P reviewed. The patient was examined and there are no changes to the H&P.Signature: JOE Camposate: October 23, 2020Time: 12:20 PM Name Value Range Interpretation Code Description Data Jeannette rce(s) Supporting Document(s) ID Date Data Source [id number] 10/23/2020 12:01:22 PM EDT [facility] [place] [facility] [place] Name Value Range Interpretation Code Description Data Jeannette rce(s) Supporting Document(s) POC [facility] <5.0 IU/L [facility] [place] [facility] [place] INTERPRETATION:<5.0 NEGATIVE5.0- 25.0 INDETERMINATE>25.0 POSITIVELEVELS BETWEEN 5 AND 25 IU/L MAY INDICATEEARLY AND SHOULD BE REPEATED QUANG BLOOD SAMPLE AFTER 48 HOURS.[facility] BY [facility] ID Date Data Source [id number] 10/23/2020 12:01:22 PM EDT [facility] [place] [facility] [place] Name Value Range Interpretation Code Description Data Jeannette rce(s) Supporting Document(s) POC [facility] 6.9 IU/L [facility] [place] [facility] [place] INTERPRETATION:<5.0 NEGATIVE5.0- 25.0 INDETERMINATE>25.0 POSITIVELEVELS BETWEEN 5 AND 25 IU/L MAY INDICATEEARLY AND SHOULD BE REPEATED QUANG BLOOD SAMPLE AFTER 48 HOURS.[facility] BY [facility] ID Date Data Source [id number] 10/23/2020 11:38:54 AM EDT [facility] toni [facility] Name Value Range Interpretation Code Description Data Jeannette rce(s) Supporting Document(s) POC NOVA GLU 85 mg/dL (70-99) [facility]FOR[facility] BY [facility] ID Date Data Source [id number] 10/28/2020 05:53:33 PM EDT [facility], [place] [address]Syp# Surgical Pathology ReportPatient Name: CORIE LOVE: 1985Accession #:[id number](s) ReceivedA: Liver biopsyClinical Diagnosis and HistoryMorbid obesityDIAGNOSISLIVER, WEDGE BIOPSY: MILD MACROVESICULAR STEATOSIS, SEE COMMENT. CommentsThe sections contain liver with intact, normal architecture, confirmedwith a reticulin stain. A trichrome stain shows no areas of significantscarring. An iron stain shows no increase in stainable iron. A PASstain, after diastase, highlights architectural features of the portalzones and shows no abnormal hepatocyte inclusions or steatohepatitis. Thepatient underwent serologic studies on 10/09/20 that showed normal valuesfor albumin, total bilirubin, AST and ALT. An alkaline phosphatase levelwas mildly elevated at 121 U/L. Gross DescriptionReceived in formalin labeled "liver biopsy" is a 2.0 x 1.2 x 0.6 cmtan-red wedge shaped fragment of liver tissue. Serially sectioned andentirely submitted as A1. Modified liver biopsy protocol. [email or web address]/ishan Reported: 10/28/2020Electronically Signed Out By Joshua Johnson MD [facility], [place] [address]xgsTbnjkapro component performed at [facility], Histopathology, [address] [place] [address], [address].Reported at [facility], [address] [place], [place], [address]. This report may includeimmunohistochemical or in-situ hybridization results. Testing wasdeveloped and the performance characteristics determined by [facility], [facility] as required by CLIA '88. The FDA hasdetermined that approval for specific use is not necessary for clinicaluse. The quality of Hematoxylin and Eosin stains and as applicable, forall immunohistochemical and/or special stains, including positive andnegative contro ls, were reviewed and considered appropriate.ICD codes E66.01 K76.0CPT codesA: 84279R, 49168A, 12307P, 36019Q, 30829W Name Value Range Interpretation Code Description Data Jeannette rce(s) Supporting Document(s) ID Date Data Source [id number] 10/21/2020 09:15:00 AM EDT [facility] Name Value Range Interpretation Code Description Data Jeannette rce(s) Supporting Document(s) SARS-CoV-2 (COVID-19) RNA [Presence] in Respiratory specimen by KSENIA with probe detection Not Detected [facility] This lab was ordered by [facility] and reported by [employer] ID Date Data Source [id number] 10/18/2020 09:20:00 AM EDT [facility] Name Value Range Interpretation Code Description Data Jeannette rce(s) Supporting Document(s) SARS coronavirus 2 RNA Not Detected [facility] This lab was ordered by [facility] and reported by [employer]. ID Date Data Source [id number] 10/19/2020 12:09:02 PM EDT [facility] Name Value Range Interpretation Code Description Data Jeannette rce(s) Supporting Document(s) SARS-COV-2 KSENIA [facility] Not DetectedReference range: Not Detecte d This nucleic acid amplification test was developed and its performance characteristics determined by [employer]. Nucleic acid amplification tests include RT-PCR and TMA. This test has not been FDA cleared or approved. This test has been authorized by FDA under an Emergency Use Authorization (EUA). This test is only authorized for the duration of time the declaration that circumstances exist justifying the authorization of the emergency use of in vitro diagnostic tests for detection of SARS-CoV-2 virus and/or diagnosis of COVID-19 infection under section 564(b)(1) of the Act, 21 U.S.C. 360bbb-3(b) (1), unless the authorization is terminated or revoked sooner. When diagnostic testing is negative, the possibility of a false negative result should be considered in the context of a patient's recent exposures and the presence of clinical signs and symptoms consistent with COVID- 19. An individual without symptoms of COVID- 19 and who is not shedding S ARS-CoV-2 virus would expect to have a negative (not detected) result in this assay. Performed At: [facility] [place], [place] [id number] Keegan Cook PhD Ph:[phone] ID Date Data Source [id number] 10/14/2020 08:31:00 AM EDT [facility] Name Value Range Interpretation Code Description Data Jeannette rce(s) Supporting Document(s) SARS-CoV-2 (COVID-19) RNA [Presence] in Respiratory specimen by KSENIA with probe detection Not Detected [facility] This lab was ordered by [facility] and reported by [employer]. ID Date Data Source [id number] 10/09/2020 02:05:02 PM EDT [facility] Name Value Range Interpretation Code Description Data Jeannette rce(s) Supporting Document(s) EKG [facility] [id number] jb2 [file] 9WeHf+BATT PACKER+[id number]/[id number]+B6f7 [file] [id number]== ID Date Data Source [id number] 10/09/2020 06:31:24 PM EDT [facility] [place] [facility] [place] SPEC EXP DATE 10/24/2020ATI ENT ABO/Rh O POSITIVEANTIBODY SCREEN NEGATIVETESTING SITE PERFORMED AT [address] [place] [address] Name Value Range Interpretation Code Description Data Jeannette rce(s) Supporting Document(s) TYPE AND SCREEN [facility] [place] [facility] [place] ANTIBODY SCREEN NEGATIVE ID Date Data Source [id number] 10/09/2020 06:30:24 PM EDT [facility] [place] [facility] [place] Name Value Range Interpretation Code Description Data Jeannette rce(s) Supporting Document(s) HEMOGLOBIN A1C @ 5.2 % (4.0-6.0) [facility] [place] [facility] Performed using [employer] [place] immuno[employer] y.Care must be taken when interpreting [id number] in patients with a hemoglobin variantor decreased erythrocyte lifespan. Values 5.7 - 6.4% suggest prediabetes.Values >=6.5% are diagnostic for diabetes.REFERENCE: DIABETES CARE 2018: 41(S13-S27). EST AVERAGE GLUCOSE 103 mg/dL [facility] ID Date Data Source [id number] 10/09/2020 06:19:42 PM EDT [facility] [place] [facility] [place] Name Value Range Interpretation Code Description Data Jeannette rce(s) Supporting Document(s) SODIUM 140 mmol/L (136-145) [facility] [place] [facility] [place] POTASSIUM 4.2 mmol/L (3.6-5.2) [facility] [place] [facility] [place] CHLORIDE 112 mmol/L (100-108) H [facility] [place] [facility] CO2 20 mmol/L (22-31) L [facility] [place] [facility] [place] ANION GAP 8 mmol/L (7-16) [facility] [place] [facility] UREA NITROGEN 12 mg/dL (7-24) [facility] [place] [facility] CREATININE 0.83 mg/dL (0.60-1.00) [facility] [place] [facility] BUN/CREAT RATIO 14.5 RATIO (10.0-20.0) [facility] GLUCOSE 86 mg/dL (70-99) [facility] [place] [facility] [place] CALCIUM 8.6 mg/dL (8.4-10.2) [facility] [place] [facility] TOTAL PROTEIN 7.1 g/dL (6.4-8.2) [facility] [place] [facility] [place] ALBUMIN 3.5 g/dL (3.5-4.6) [facility] [place] [facility] [place] GLOBULIN 3.6 g/dL (2.7-4.3) [facility] [place] [facility] ALB/GLOB RATIO 1.0 RATIO [facility] [place] [facility] ALKALINE PHOSPHATASE 121 U/L (45-117) [facility] BILIRUBIN,TOTAL 0.3 mg/dL (0.0-1.0) [facility] [place] [facility] [place] PLEASE NOTE:Total bilirubin results may be falselyelevated in patients taking Eltrombopag. AST (SGOT) 15 U/L (11-39) [facility] [place] [facility] ALT (SGPT) 26 U/L (12-78) [facility] [place] [facility] [place] GFR >60 ml/min/1.73m2 (>59) [facility] [place] [facility] [place] GFR ( AMER) >60 ml/min/1.73m2 (>59) [facility] [place] [facility] [place] GFR INTERPRETATION [facility] --NORMAL KIDNEY FUNCTION OR MILD DISEASE - GFR >OR= 60CHRONIC KIDNEY DISEASE - GFR 15 - 59RENAL FAILURE - GFR <15 Est. GFR calculation based on the MDRDstudy equation, which assumes a steadystate for creatinine. Est. GFR should notbe used for medication dosing. ID Date Data Source [id number] 10/09/2020 06:19:42 PM EDT [facility] [place] [facility] [place] Name Value Range Interpretation Code Description Data Jeannette rce(s) Supporting Document(s) TSH,ULTRASENSITIVE @ 0.435 mIU/L (0.360-4.170) [facility] [place] [facility] [place] ID Date Data Source [id number] 10/09/2020 05:25:59 PM EDT [facility] [place] [facility] [place] Name Value Range Interpretation Code Description Data Jeannette rce(s) Supporting Document(s) WBC 11.9 10*3/uL (4.1-11.0) H [facility] [place] [facility] [place] RBC 5.48 10*6/uL (4.00-5.40) H [facility] [place] [facility] [place] HGB 13.5 g/dL (12.0-16.0) [facility] [place] [facility] HCT 41.8 % (36.0-47.0) [facility] [place] [facility] MCV 76.3 fL (80.0-95.0) L [facility] [place] [facility] MCH 24.7 pg (27.0-32.0) L [facility] [place] [facility] MCHC 32.3 g/dL (32.0-36.0) [facility] [place] [facility] RDW 15.8 % (10.5-14.5) H [facility] [place] [facility] PLT 352 10*3/uL (150-450) [facility] MPV 8.2 fL (7.1-10.7) [facility] [place] [facility] [facility] ID Date Data Source [id number] 10/09/2020 01:29:28 PM EDT [facility] CorporationPATIE NT INFORMATIONPatient MRN Name Date of Age Gend*PT [id number] Corie Love 1985 35 years F OPPT Location Admission Date/Time Visit ID Attending Provider --- --- --- Cristobal Peña MD([id number]) EPI ID CSN Admitting Provider [id number] Cristobal Peña MD([id number])HISTORY PHYSICALName: Corie Love : 1985 Sex: female Care Provider: Nadine Muñozending Physician: Dr. PeñaInformant: The patient who is reliable.Chief Complaint: OverweightHISTORY OF PRESENT ILLNESS: 35 years old female with a 18 year year history ofbeing overweight that has been more significant over the last 3 year. She hastried multiple weight loss methods but has been unable to lose significantweight or sustain the weight loss. She is now ready for surgical intervention.The patient met with Dr. Peña, options were discussed and they have elected tounder go Creation, Gastric Bypass, Tootie-En-Y, Robot-Assisted, Laparoscopic,Using Xi, With Sleeve Gastrectomy If Indicated, With Liver Biopsy If Indicated,With Hiatal Hernia Repair If Indicated, With [place] on 10/23/2020.PAST MEDICAL HISTORY:Past Medical History:Diagnosis Date Asthma Morbid obesityPAST SURGICAL HISTORY:Past Surgical History:Procedure Laterality Date CHOLECYSTECTOMY ESSURE TUBAL LIGATION MYRINGOTOMY W/ TUBES PANENDOSCOPY N/A 08/18/2020 Procedure: ENDOSCOPY, UPPER GASTROINTESTINAL (GI) TRACT W BIOPSY ; Surgeon:Hieu Ibrahim MD; Laterality: N/A; TONSILLECTOMY AND ADENOIDECTOMYALLERGIES: No Known Drug AllergiesMEDICATIONS:Prior to Admission medicationsMedication Sig Start Date End Date Taking? Authorizing Providerphentermine (ADIPEX-P) 37.5 MG tablet Take 37.5 mg by mouth every morning beforebreakfast Historical Provider, topiramate (TOPAMAX) 50 MG tablet Take 50 mg by mouth 2 (two) times a dayHistorical Provider, ADIocial HistoryTobacco Use Smoking status: Current Every Day Smoker Packs/day: 1.00 Years: 18.00 Pack years: 18.00 Types: Cigarettes Smokeless tobacco: Never Used Tobacco comment: Eitan smokes 2 cigarettes a daySubstance Use Topics Alcohol use: Yes Comment: 1-2/year Drug use: NeverFamily HistoryProblem Relation Age of Onset Malig Hyperthermia Neg HxREVIEW OF SYSTEMS:Constitution: Reports 54 pound intentional weight loss over the last 5 months.Denies fatigue, fever or chills. Caffeine intake: None.HEENT: Denies any blurred vision, double vision, dizziness , tinnitus, dysphagiaor headaches.Respiratory: Denies any shortness of breath, cough, yellow sputum production orwheezing.Cardiovascular: Denies any chest pain, pressure or tightness. Denies anyparoxysmal nocturnal dyspnea or orthopnea.Muscle/Skeletal System: Denies any muscle ache, joint ache or weakness.Neurologic: Denies any numbness, tingling, tremors or syncope.GI: Denies any nausea, vomiting, diarrhea, constipation or melena.: Denies any dysuria, hematuria or nocturia.Endocrine: Denies polyuria, polydipsia or polyphagia. Denies any heat or coldintolerance, or night sweats.Hematology: Denies any bleeding or bruising tendencies.DNR Status: Full Code per the patient.HCP: No per patient.PHYSICAL EXAM:General: She is a 35 years old, pleasant female, in no acute distress at time ofexamination. Vitals on arrival to the office are BP 135/70 (BP Location: Leftupper arm, Patient Position: Sitting) | Pulse 85 | Resp 22 | Ht 1.676 m (5'6") | Wt (!) 119.7 kg (263 lb 12.8 oz) | SpO2 99% | BMI 42.58 kg/m Bodymass index is 42.58 kg/m ..Skin is pink warm and dry.HEENT: She is normocephalic, atraumatic. [place] conjunctivae. Anicteric sclerae.Pupils are equal, round, reactive to light and accommodation. Extraocularmovements are intact. Ears: Without drainage or lesion. Mouth: Dentition is ingood repair. She has a grade 3 airway. Neck is supple midline without cervicaladenopathy. There is no tonsillo pharyngeal congestion. Mucous membranes aremoist. There are no oral lesions. No jugular distention. No carotid bruit.CHEST/BREAST: A/P less than transverse. Breast exam declined.LUNGS: Clear to auscultation. No wheezes, rhonchi or crackles.HEART: Rate rhythm regular. S1, S2. No murmur, rub or gallop.ABDOMEN: Bowel sounds positive times four. Soft, non tender. No reboundtenderness. No he patosplenomegaly. Negative CVAT.GENITAL/RECTAL: Deferred.MUSCLE/SKELETAL: Strength is 5/5. Tie Fastener are equal.NEUROLOGICALLY: Cranial nerves II through XII are grossly intact.VASCULAR: Pulses are symmetrical. No edema.Anesthesia complications: DeniesSteroid use: She denies any oral steroid therapy for three weeks or greaterwithin the last 3 months.CSHA Frailty Scale :: 2/10 Well (without active disease, but less fit thanpeople in category I. Often they exercise or are very active occasionally, e.g.seasonally).Stop Bang Questionnaire - Total Score:STOP-Bang Total Score: 3IMPRESSION and PLAN:Primary Diagnosis: Morbid obesity. Surgery as per Dr. Peña.Secondary Diagnosis and Plan:1. Morbid Obesity Body mass index is 42.58 kg/m .2. GI prophylaxis Per surgeon3. DVT prophylaxis Early ambulation. Pneumatic compression device.Subcutaneous Heparin or LMW Heparin if clinically indicatedBased on above medical co morbidities, length of stay may be prolonged greaterthan previously anticipated.ALLERGIES:Patient has no known drug allergies.10/09/2020 1:29 PMIndigo Mota NP*This document or parts of this document, were dictated using [employer] software. A reas onable attempt at proofreading has beenmade to minimize errors. Please call with any questions or corrections. Name Value Range Interpretation Code Description Data Jeannette rce(s) Supporting Document(s) ID Date Data Source [id number] 10/07/2020 01:15:00 PM EDT [facility] Name Value Range Interpretation Code Description Data Jeannette rce(s) Supporting Document(s) SARS-CoV-2 (COVID-19) RNA [Presence] in Respiratory specimen by KSENIA with probe detection Not Detected [facility] This lab was ordered by [facility] and reported by [employer]. ID Date Data Source [id number] 09/30/2020 07:56:00 AM EDT [facility] Name Value Range Interpretation Code Description Data Jeannette rce(s) Supporting Document(s) SARS-CoV-2 (COVID-19) RNA [Presence] in Respiratory specimen by KSENIA with probe detection Not Detected [facility] This lab was ordered by [facility] and reported by [employer] ID Date Data Source [id number] 09/30/2020 12:00:00 AM EDT [facility] Name Value Range Interpretation Code Description Data Jeannette rce(s) Supporting Document(s) SARS coronavirus 2 Ag Negative [facility] This lab was ordered by [facility] and reported by [facility]. ID Date Data Source [id number] 09/23/2020 10:00:00 AM EDT [facility] Name Value Range Interpretation Code Description Data Jeannette rce(s) Supporting Document(s) SARS coronavirus 2 RNA Not Detected [facility] This lab was ordered by [facility] and reported by [facility]. ID Date Data Source [id number] 09/19/2020 12:00:00 AM EDT [facility] Name Value Range Interpretation Code Description Data Jeannette rce(s) Supporting Document(s) SARS coronavirus 2 Ag Negative [facility] This lab was ordered by [facility] and reported by [facility]. ID Date Data Source [id number] 09/16/2020 12:00:00 AM EDT [facility] Name Value Range Interpretation Code Description Data Jeannette rce(s) Supporting Document(s) SARS coronavirus 2 Ag Negative [facility] This lab was ordered by [facility] and reported by [facility]. ID Date Data Source [id number] 08/22/2020 12:00:00 AM EST [facility] Name Value Range Interpretation Code Description Data Jeannette rce(s) Supporting Document(s) SARS coronavirus 2 Ag Negative [facility] This lab was ordered by [facility] and reported by [facility]. ID Date Data Source [id number] 08/19/2020 12:00:00 AM EST [facility] Name Value Range Interpretation Code Description Data Jeannette rce(s) Supporting Document(s) SARS coronavirus 2 Ag Negative [facility] This lab was ordered by Daron Simon and reported by Daron Simon. ID Date Data Source [id number] 08/19/2020 04:33:17 PM EST [facility] LABORATORY [address] [id number]# Surgical Pathology ReportPatient Name: CORIE LOVE: 1985Accession #:[id number](s) ReceivedA: Antrum bx, r/o H. pyloriClinical Diagnosis and HistoryReflux DIAGNOSISSTOMACH, ANTRUM, BIOPSY: MILD CHRONIC GASTRITIS. NEGATIVE FOR HELICOBACTER PYLORI BY IMMUNOSTAIN. Gross DescriptionSpecimen container is labeled "A antrum bx rule out H. pylori". Thespecimen consists of a 0.5 cm fragment of hawkins-red tissue. Entirelysubmitted as A1 multilevel. jglpms/jjf Reported: 08/19/2020Electronically Signed Out By Feliciano Parker MD [facility] [place] [address] [id number] component performed at [facility], Histopathology, [address] [place] [address], [phone].Reported at [facility], [address] [place] [address], [phone]. This report may includeimmunohistochemical or in-situ hybridization results. Testing wasdeveloped and the performance characteristics determined by [facility] as required by CLIA '88. The FDA hasdetermined that approval for specific use is not necessary for clinicaluse. The quality of Hematoxylin and Eosin stains and as applicable, forall immu nohistochemical and/or special stains, including positive andnegative controls, were reviewed and considered appropriate.ICD codes K21.9 K29.30CPT codesA: 53095R, 50951f Name Value Range Interpretation Code Description Data Jeannette rce(s) Supporting Document(s) ID Date Data Source [id number] 08/18/2020 11:19:49 AM EST [facility] Corporation[facility]IE NT INFORMATIONPatient MRN Name Date of Age Gend*PT [id number] Corie Love 1985 35 years F OPPT Location Admission Date/Time [facility] --- Hieu Ibrahim MD([id number]) EPI ID CSN Admitting Provider [id number] Hieu Ibrahim MD([id number])Endoscopic Gastroduodenoscopy Procedure NotePatient: Corie Green LolarSurgery Date: August 18urgeon(s):LAVERN Enriquezre- Operative Diagnosis:Esophageal reflux [K21.9Post-Operative Diagnosis:Esophageal reflux [K21.9Recommendations:1. Will send biopsy results to Dr. Peña's officeSedation: Monitored Anesthesia Care (MAC) (see anesthesia report).ASA Class: IIIOther Equipment Type Equipment Setting Setting Low Setting High Applied By Endoscope Endoscope Pediatric (ENDO) Hieu Ibrahim MD EG 264PIndications: Esophageal reflux [K21.9Consent:After obtaining history and performing the physical examination, the procedure,indications, potential complications, including but not limited to bleeding,perforation, infection, adverse medication reaction, and alternatives wereexplained to the patient. Patient appeared to understand the benefits and risksof this procedure. Informed consent was obtained from the patient afterproviding opportunity for questions.Procedure Details:The patient was placed in the left lateral decubitus position and monitored perendoscopy protocol. The gastroscope was inserted into the mouth and advancedunder direct visualization to Duodenum 3rd portion. A careful inspection wasmade as the gastroscope was withdrawn, including a retroflexed view of theproximal stomach; findings and interventions are described below. Aftercompletion of the examination, the patient was transferred to the recovery room.* No implants in log *Findings:Oropharynx: NormalEsophagus: NormalEG Junction: Normal at 35 cmCardia: NormalFundus: NormalBody: NormalAntrum: Normal. Biopsy for H pylori taken.Pylorus: NormalDuodenum Bulb: NormalDuodenum 2nd Portion: NormalDuodenum 3rd Portion: Nor malSpecimens:ID Type Source Tests Collected by Time DestinationA : Antrum BX r/o h.pylori Tissue Biopsy SURGICAL PATHOLOGY EXAM Hieu Ibrahim MD 08/18/2020 1114Complications: None; patient tolerated the procedure well.Estimated Blood Loss: noneThbeverly Ibrahim MD111:19 AM Name Value Range Interpretation Code Description Data Jeannette rce(s) Supporting Document(s) ID Date Data Source [id number] 08/18/2020 11:19:29 AM [facility] NT INFORMATIONPatient MRN Name Date of Age Gend*PT [id number] dominguez [facility] 1985 35 years F OPPT Location Admission Date/Time Visit ID Attending [facility] 08/18/20 1003 --- Hieu Ibrahim MD([id number]) EPI ID CSN Admitting Provider [id number] Hieu Ibrahim MD([id number])H&P reviewed. The patient was examined and there are no changes to the H&P.Hieu Ibrahim MD11:19 AM Name Value Range Interpretation Code Description Data Jeannette rce(s) Supporting Document(s) ID Date Data Source [id number] 08/18/2020 11:19:13 AM [facility] NT INFORMATIONPatient MRN Name Date of Age Gend*PT [id number] Corie Love 1985 35 years F OPPT Location Admission Date/Time Visit ID Attending [facility] 08/18/20 1003 --- Hieu Ibrahim MD([id number]) EPI ID CSN Admitting Provider [id number] Hieu Ibrahim MD([id number])Pre-Procedure History and Physical:Past Medical History:Diagnosis Date AsthmaPast Surgical History:Procedure Laterality Date CHOLECYSTECTOMY TONSILLECTOMYNo Known Drug AllergiesMedications Prior to AdmissionMedication Sig Dispense Refill Last Dose phentermine (ADIPEX-P) 37.5 MG tablet Take 37.5 mg by mouth every morningbefore breakfast 08/03/2020 topiramate (TOPAMAX) 100 MG tablet Take 50 mg by mouth 2 (two) times a day08/08/2020 at Unknown timeBP (!) 151/96 | Pulse 87 | Temp 97.8 F (Oral) | Resp 15 | Ht 1.676 m (5'6") | Wt (!) 123.4 kg (272 lb) | LMP 08/18/2020 | SpO2 97% | BMI 43.90 kg/m The scanned [05/08/2020] history and physical were reviewed and the patient wasexamined.There are no changes to the H&P.Hieu Ibrahim MD08/18/20 11:10 AM Name Value Range Interpretation Code Description Data Jeannette rce(s) Supporting Document(s) ID Date Data Source [id number] 08/18/2020 12:04:42 PM EST Lab [facility] Name Value Range Interpretation Code Description Data Jeannette rce(s) Supporting Document(s) POC [facility] <5.0 IU/L [facility] INTERPRETATION:<5.0 NEGATIVE5.0- 25.0 INDETERMINATE>25.0 POSITIVELEVELS BETWEEN 5 AND 25 IU/L MAY INDICATEEARLY AND SHOULD BE REPEATED QUANG BLOOD SAMPLE AFTER 48 HOURS.PERFORMED BY [facility] CLINICAL STAFF ID Date Data Source [id number] 08/13/2020 06:24:00 AM EST [facility] Name Value Range Interpretation Code Description Data Jeannette rce(s) Supporting Document(s) SARS coronavirus 2 RNA Not Detected [facility] This lab was ordered by [facility] and reported by [facility]. ID Date Data Source [id number] 08/14/2020 03:09:05 PM EST [facility] Name Value Range Interpretation Code Description Data Jeannette rce(s) Supporting Document(s) SARS-COV-2 KSENIA [facility] Not DetectedReference range: Not Detecte d This nucleic acid amplification test was developed and its performance characteristics determined by [employer]. Nucleic acid amplification tests include RT-PCR and TMA. This test has not been FDA cleared or approved. This test has been authorized by FDA under an Emergency Use Authorization (EUA). This test is only authorized for the duration of time the declaration that circumstances exist justifying the authorization of the emergency use of in vitro diagnostic tests for detection of SARS-CoV-2 virus and/or diagnosis of COVID-19 infection under section 564(b)(1) of the Act, 21 U.S.C. 360bbb-3(b) (1), unless the authorization is terminated or revoked sooner. When diagnostic testing is negative, the possibility of a false negative result should be considered in the context of a patient's recent exposures and the presence of clinical signs and symptoms consistent with COVID- 19. An individual without symptoms of COVID- 19 and who is not shedding S ARS-CoV-2 virus would expect to have a negative (not detected) result in this assay. Performed At: [employer] [address] [place], [place] [id number] Keegan Cook PhD Ph:[phone] ID Date Data Source [id number] 08/12/2020 05:47:00 AM EST [facility] Name Value Range Interpretation Code Description Data Jeannette rce(s) Supporting Document(s) SARS coronavirus 2 RNA Not Detected [facility] This lab was ordered by [facility] and reported by [facility]. ID Date Data Source [id number] 08/05/2020 08:30:00 AM EST [facility] Name Value Range Interpretation Code Description Data Jeannette rce(s) Supporting Document(s) SARS coronavirus 2 RNA Not Detected [facility] This lab was ordered by [facility] and reported by [facility]. ID Date Data Source [id number] 07/29/2020 12:00:00 PM EST [facility] Name Value Range Interpretation Code Description Data Jeannette rce(s) Supporting Document(s) SARS coronavirus 2 RNA Not Detected [facility] This lab was ordered by [facility] and reported by [facility]. ID Date Data Source [id number] 07/22/2020 01:38:00 PM EST [facility] Name Value Range Interpretation Code Description Data Jeannette rce(s) Supporting Document(s) SARS coronavirus 2 RNA Not Detected [facility] This lab was ordered by [facility] and reported by [facility]. ID Date Data Source [id number] 2020 11:30:00 AM EST [facility] Name Value Range Interpretation Code Description Data Jeannette rce(s) Supporting Document(s) SARS coronavirus 2 RNA Not Detected [facility] This lab was ordered by [facility] and reported by [facility]. ID Date Data Source [id number] 07/08/2020 08:00:00 AM EST [facility] Name Value Range Interpretation Code Description Data Jeannette rce(s) Supporting Document(s) SARS coronavirus 2 RNA Not Detected [facility] This lab was ordered by [facility] and reported by [facility]. ID Date Data Source [id number] 07/01/2020 08:36:00 AM EST [facility] Name Value Range Interpretation Code Description Data Jeannette rce(s) Supporting Document(s) SARS coronavirus 2 RNA [facility] This lab was ordered by [facility] and reported by [facility]. ID Date Data Source [id number] 06/30/2020 12:00:00 AM EST [facility] Name Value Range Interpretation Code Description Data Jeannette rce(s) Supporting Document(s) SARS-CoV2 Rapid Antigen [facility] This lab was ordered by [facility] and reported by [facility]. ID Date Data Source [id number] 06/19/2020 12:00:00 AM EST [facility] Name Value Range Interpretation Code Description Data Jeannette rce(s) Supporting Document(s) SARS-CoV2 Rapid Antigen [facility] This lab was ordered by [facility] and reported by [facility]. ID Date Data Source [id number] 06/17/2020 09:15:00 AM EST [facility] Name Value Range Interpretation Code Description Data Jeannette rce(s) Supporting Document(s) SARS coronavirus 2 RNA [facility] This lab was ordered by [facility] and reported by [facility]. ID Date Data Source [id number] 06/10/2020 09:00:00 AM EST [facility] Name Value Range Interpretation Code Description Data Jeannette rce(s) Supporting Document(s) SARS coronavirus 2 RNA [facility] This lab was ordered by [facility] and reported by [facility]. ID Date Data Source [id number] 06/03/2020 05:32:00 AM EST [facility] Name Value Range Interpretation Code Description Data Jeannette rce(s) Supporting Document(s) SARS coronavirus 2 RNA [facility] This lab was ordered by [facility] and reported by [facility]. ID Date Data Source [id number] 05/27/2020 09:00:00 AM EST [facility] Name Value Range Interpretation Code Description Data Jeannette rce(s) Supporting Document(s) SARS coronavirus 2 RNA [facility] This lab was ordered by [facility] and reported by [facility]. ID Date Data Source [id number] 05/20/2020 08:00:00 AM EST [facility] Name Value Range Interpretation Code Description Data Jeannette rce(s) Supporting Document(s) SARS coronavirus 2 RNA [facility] This lab was ordered by [facility] and reported by [facility]. ID Date Data Source [id number] 05/13/2020 09:00:00 AM EST [facility] Name Value Range Interpretation Code Description Data Jeannette rce(s) Supporting Document(s) SARS coronavirus 2 RNA [facility] This lab was ordered by [facility] and reported by [facility]. ID Date Data Source [id number] 05/08/2020 08:21:05 PM EST [facility] Name Value Range Interpretation Code Description Data Jeannette rce(s) Supporting Document(s) TSH,ULTRASENSITIVE @ 0.826 mIU/L (0.360-4.170) Laboratory [facility] ID Date Data Source [id number] 05/08/2020 07:59:14 PM EST [facility] Name Value Range Interpretation Code Description Data Jeannette rce(s) Supporting Document(s) HEMOGLOBIN A1C @ 5.9 % (4.0-6.0) Laboratory [facility] Performed using [employer] [place] [employer] y.Care must be taken when interpreting [id number] in patients with a hemoglobin variantor decreased erythrocyte lifespan. Values 5.7 - 6.4% suggest prediabetes.Values >=6.5% are diagnostic for diabetes.REFERENCE: DIABETES CARE 2018: 41(S13-S27). EST AVERAGE GLUCOSE 123 mg/dL Laboratory [place] [facility] ID Date Data Source [id number] 05/06/2020 09:20:00 AM EST [facility] Name Value Range Interpretation Code Description Data Jeannette rce(s) Supporting Document(s) SARS coronavirus 2 RNA [facility] This lab was ordered by [facility] and reported by [facility]. ID Date Data Source [id number] 04/29/2020 07:30:00 AM EDT [facility] Name Value Range Interpretation Code Description Data Jeannette rce(s) Supporting Document(s) SARS coronavirus 2 RNA [facility] This lab was ordered by [facility] and reported by [facility]. ID Date Data Source [id number] 04/22/2020 07:55:00 AM EDT [facility] Name Value Range Interpretation Code Description Data Jeannette rce(s) Supporting Document(s) SARS coronavirus 2 RNA [facility] This lab was ordered by [facility] and reported by [facility]. ID Date Data Source [id number] 04/15/2020 07:00:00 AM EDT [facility] Name Value Range Interpretation Code Description Data Jeannette rce(s) Supporting Document(s) SARS coronavirus 2 RNA [facility] This lab was ordered by [facility] and reported by [facility]. ID Date Data Source [id number] 04/08/2020 08:00:00 AM EDT [facility] Name Value Range Interpretation Code Description Data Jeannette rce(s) Supporting Document(s) SARS coronavirus 2 RNA [facility] This lab was ordered by [facility] and reported by [facility]. ID Date Data Source [id number] 04/01/2020 07:00:00 AM EDT [facility] Name Value Range Interpretation Code Description Data Jeannette rce(s) Supporting Document(s) SARS coronavirus 2 RNA [facility] This lab was ordered by [facility] and reported by [facility]. ID Date Data Source [id number] 03/25/2020 08:02:00 AM EDT [facility] Name Value Range Interpretation Code Description Data Jeannette rce(s) Supporting Document(s) SARS coronavirus 2 RNA [facility] This lab was ordered by [facility] and reported by [facility]. ID Date Data Source [id number] 03/18/2020 08:00:00 AM EDT [facility] Name Value Range Interpretation Code Description Data Jeannette rce(s) Supporting Document(s) SARS coronavirus 2 RNA [facility] This lab was ordered by [facility] and reported by [facility]. Procedure Social History Code Duration Value Status Description Data Source(s ) Smoking 05/01/2021 12:00:00 AM EDT Patient is a former smoker completed Patient is a former smoker [facility] ([facility]) Alcohol intake 10/23/2020 12:00:00 AM EDT Current drinker of al cohol (finding) completed Current drinker of alcohol (finding) [facility] Alcohol intake 10/09/2020 12:00:00 AM EDT Yes completed [facility] Cigarette pack-years 10/09/2020 12:00:00 AM EDT UNK completed [facility] Cigarettes smoked current (pack per day) - Reported 10/10/19 12:00:00 AM EDT UNK completed [facility] Smoking 10/09/2020 12:00:00 AM EDT Current every day smoker co mpleted Current every day smoker [facility] Tobacco use and exposure 08/18/2020 12:00:00 AM EST Never used co mpleted Never used [facility] Cigarette pack-years 08/18/2020 12:00:00 AM EST UNK completed [facility] Cigarettes smoked current (pack per day) - Reported 08/18/19 12:00:00 AM EST UNK completed [facility] Smoking 08/18/2020 12:00:00 AM EST Current every day smoker co mpleted Current every day smoker [facility] Alcohol intake 08/18/2020 12:00:00 AM EST Not Currently completed [facility] Cigarettes smoked current (pack per day) - Reported 08/18/19 12:00:00 AM EST UNK completed [facility] Smoking 08/18/2020 12:00:00 AM EST Current every day smoker co mpleted Current every day smoker [facility] Vital Signs ID Date Data Source UNK Name Value Range Interpretation Code Description Data Source(s) Body weight 220.00 [lb_av] 220.00 [lb_av] [facility] T ([facility]) Body height 66 [in_i] 66 [in_i] [facility]) 5'6" Body mass index (BMI) [Ratio] 35.5 kg/m2 35.5 k g/m2 [facility] ([facility]) Heart rate 48 /min 48 /min [facility] ([facility]) Systolic blood pressure--sitting 113 mm[Hg] 113 mm[Hg] [facility] ([facility]) Omron large cuff, Ra Diastolic blood pressure--sitting 72 mm[Hg] 72 mm[Hg] [facility] ([facility]) Omron large cuff, Ra Body height 67 [in_i] 67 [in_i] [facility] ([facility]) 5'7" Systolic blood pressure 130 mm[Hg] 130 mm[Hg] EDENT ([facility]) Diastolic blood pressure 78 mm[Hg] 78 mm[Hg] [facility] ([facility]) Body surface area Derived from formula 2.11 m2 2.11 m2 [facility] ([facility]) Heart rate 75 /min 75 /min [facility] ([facility]) Oxygen saturation in Arterial blood by Pulse oximetry 100 % 100 % [facility] ([facility]) Body weight 220.25 [lb_av] 220.25 [lb_av] [facility] T ([facility]) Body weight 99.905 kg 99.905 kg [facility] ([facility]) Body mass index (BMI) [Ratio] 34.5 kg/m2 34.5 k g/m2 [facility] ([facility]) Diastolic blood pressure 72 mm[Hg] 72 mm[Hg] [facility] ([facility]) Systolic blood pressure 110 mm[Hg] 110 mm[Hg] [facility] ([facility]) Body weight 218.12 [lb_av] 218.12 [lb_av] [facility] T ([facility]) Body weight 98.942 kg 98.942 kg [facility] ([facility]) Heart rate 60 /min 60 /min [facility] ([facility]) Respiratory rate 16 /min 16 /min [facility] ( [facility]) Oxygen saturation in Arterial blood by Pulse oximetry 99 % 99 % [facility] ([facility]) Body height 67 [in_i] 67 [in_i] [facility] ([facility]) 5'7" Body mass index (BMI) [Ratio] 34.2 kg/m2 34.2 k g/m2 [facility] ([facility]) Body surface area Derived from formula 2.10 m2 2.10 m2 [facility] Oxygen saturation in Arterial blood by Pulse oximetry 99 % 99 % [facility] ([facility]) Body weight 217.00 [lb_av] 217.00 [lb_av] MED[facility] T ([facility]) Body weight 98.431 kg 98.431 kg [facility] ([facility]) Body temperature 97.3 [degF] 97.3 [degF] [facility] ([facility]) Respiratory rate 16 /min 16 /min [facility] ( [facility]) Body surface area Derived from formula 2.09 m2 2.09 m2 [facility] ([facility]) Systolic blood pressure 106 mm[Hg] 106 mm[Hg] M EDENT ([facility]) Diastolic blood pressure 60 mm[Hg] 60 mm[Hg] [facility] ([facility]) Heart rate 58 /min 58 /min [facility] ([facility]) Body height 67 [in_i] 67 [in_i] [facility] ([facility]) 5'7" Body mass index (BMI) [Ratio] 34.0 kg/m2 34.0 k g/m2 [facility] ([facility]) Body temperature 98.2 [degF] 98.2 [degF] [facility] ([facility]) Respiratory rate 16 /min 16 /min [facility] ( [facility]) Oxygen saturation in Arterial blood by Pulse oximetry 98 % 98 % [facility] Heart rate 63 /min 63 /min [facility] ([facility]) Body weight 221.00 [lb_av] 221.00 [lb_av] MED[facility] T ([facility]) Body weight 100.246 kg 100.246 kg [facility] ([facility]) Body height 67 [in_i] 67 [in_i] [facility] ([facility]) 5'7" Body mass index (BMI) [Ratio] 34.6 kg/m2 34.6 k g/m2 [facility] ([facility]) Body surface area Derived from formula 2.11 m2 2.11 m2 [facility] ([facility]) Systolic blood pressure 120 mm[Hg] 120 mm[Hg] M EDENT ([facility]) Diastolic blood pressure 72 mm[Hg] 72 mm[Hg] [facility] ([facility]) Systolic blood pressure 122 mm[Hg] 122 mm[Hg] [facility] Diastolic blood pressure 83 mm[Hg] 83 mm[Hg] [facility] Heart rate 54 /min 54 /min [facility] Body temperature 36.56 Allison 36.56 Allison [facility] Respiratory rate 18 /min 18 /min [facility] Oxygen saturation in Arterial blood by Pulse oximetry 99 % 99 % [facility] Body height 167.6 cm 167.6 cm [facility] Body weight 115.214 kg 115.214 kg [facility] Body mass index (BMI) [Ratio] 41.00 kg/m2 41.00 kg/m2 [facility] Systolic blood pressure 135 mm[Hg] 135 mm[Hg] [facility] Diastolic blood pressure 70 mm[Hg] 70 mm[Hg] [facility] Heart rate 85 /min 85 /min [facility] Respiratory rate 22 /min 22 /min [facility] Oxygen saturation in Arterial blood by Pulse oximetry 99 % 99 % [facility] Body height 167.6 cm 167.6 cm [facility] Body weight 119.659 kg 119.659 kg [facility] Body mass index (BMI) [Ratio] 42.58 kg/m2 42.58 kg/m2 [facility] Systolic blood pressure 139 mm[Hg] 139 mm[Hg] [facility] Diastolic blood pressure 96 mm[Hg] 96 mm[Hg] [facility] Heart rate 81 /min 81 /min [facility] Respiratory rate 18 /min 18 /min [facility] Oxygen saturation in Arterial blood by Pulse oximetry 99 % 99 % [facility] Body temperature 36.78 Allison 36.78 Allison [facility] Body height 167.6 cm 167.6 cm [facility] Body weight 123.378 kg 123.378 kg [facility] Body mass index (BMI) [Ratio] 43.90 kg/m2 43.90 kg/m2 [facility] Systolic blood pressure 139 mm[Hg] 139 mm[Hg] [facility] ([facility], [facility]) Diastolic blood pressure 91 mm[Hg] 91 mm[Hg] [facility] ([facility]) Heart rate 91 /min 91 /min [facility] ([facility], [facility]) Respiratory rate 16 /min 16 /min [facility] ( [facility]) Oxygen saturation in Arterial blood by Pulse oximetry 98 % 98 % [facility] ([facility]) Body temperature 97.9 [degF] 97.9 [degF] [facility] ([facility]) Body weight 317.00 [lb_av] 317.00 [lb_av] [facility] ([facility], [facility]) Body height 66 [in_i] 66 [in_i] [facility] ([facility]) 5'6" Body mass index (BMI) [Ratio] 51.2 kg/m2 51.2 k g/m2 [facility] ([facility]) Patient Treatment Plan of Care Planned Activity Planned Date Details Description Data Source (s) ondansetron (ZOFRAN-ODT) disintegrating tablet 8 mg 10/25/19 06:00:00 AM EDT [facility] metoclopramide (REGLAN) injection 10 mg 10/23/2020 05:07:20 PM EDT [facility] Prochlorperazine 10 MG Oral Tablet 10/23/2020 05:07:19 PM EDT [facility] Promethazine Hydrochloride 25 MG Oral Tablet 10/23/2020 05:07:19 PM EDT [facility] enalaprilat (VASOTEC) injection 1.25 mg 10/23/2020 05:07:18 PM EDT [facility] Simethicone 80 MG Chewable Tablet 10/23/2020 12:00:00 AM EDT [facility] Omeprazole 40 MG Delayed Release Oral Capsule 10/23/2020 12:00:00 A M EDT [facility] Vitamin B 12 0.5 MG Oral Tablet 10/23/2020 12:00:00 AM EDT [facility] Ondansetron 4 MG Disintegrating Oral Tablet 10/23/2020 12:00:00 AM EDT [facility] Magnesium Hydroxide 80 MG/ML Oral Suspension 10/23/2020 12:00:00 AM EDT [facility] 0.4 ML Enoxaparin sodium 100 MG/ML Prefilled Syringe 021 12:00:00 AM EDT [facility] Phentermine Hydrochloride 37.5 MG Oral Tablet [facility] topiramate 50 MG Oral Tablet [facility]
[2021-05-11] MEDS ORDERED: OMEP-221 PO (11:47)
--- OUTSIDE RECORDS SUMMARY | 2021-05-11 16:59 | CCD ---
Author Author [facility] Organization [facility] Address Unknown Phone Unavailable Care Team Providers Care Lube Technician Name Role Phone Maring, Jacques PA Unavailable [...] Unavailable LYNDON LION MD Unavailable Unavailable LYNDON LOIN MD Unavailable Unavailable LYNDON LION MD Unavailable [...] A MEHNAZ PA Unavailable Unavailable LETTIERE, A MHENAZ PA Unavailable Unavailable LETTIERE, A MEHNAZ PA [...] Ibrahim MD Unavailable Unavailable LAROCK, J CRISTOBAL SNUBBER Unavailable Unavailable LAROCK, J CRISTOBAL SNUBBER Unavailable Unavailable LAROCK, J CRISTOBAL SNUBBER Unavailable Unavailable LAROCK, J CRISTOBAL SNUBBER Unavailable Unavailable LAROCK, J CRISTOBAL SNUBBER Unavailable Unavailable LAROCK, J CRISTOBAL SNUBBER Unavailable Unavailable LAROCK, J CRISTOBAL SNUBBER Unavailable Unavailable LAROCK, J CRISTOBAL SNUBBER Unavailable Unavailable LAROCK, J CRISTOBAL SNUBBER Unavailable Unavailable LAROCK, J CRISTOBAL SNUBBER Unavailable Unavailable LAROCK, J CRISTOBAL SNUBBER Unavailable Unavailable LAROCK, J CRISTOBAL SNUBBER Unavailable Unavailable LAROCK, J CRISTOBAL SNUBBER Unavailable Unavailable LAROCK, J CRISTOBAL SNUBBER Unavailable Unavailable LAROCK, J CRISTOBAL SNUBBER Unavailable Unavailable LAROCK, J CRISTOBAL SNUBBER Unavailable Unavailable LAROCK, J CRISTOBAL SNUBBER Unavailable Unavailable LAROCK, J CRISTOBAL SNUBBER Unavailable Unavailable LAROCK, J CRISTOBAL SNUBBER Unavailable Unavailable LAROCK, J CRISTOBAL SNUBBER Unavailable Unavailable LAROCK, J CRISTOBAL SNUBBER Unavailable Unavailable LAROCK, J CRISTOBAL SNUBBER Unavailable Unavailable Feola, T Jazmyne PA Unavailable [...] Unavailable Unavailable BLAIRABDULAZIZ TREJO MD Unavailable Unavailable BLAIRABUDLAZIZ TREJO MD Unavailable Unavailable BLAIRABDULAZIZ TREJO MD Unavailable Unavailable BLAIRABDULAZIZ TREJO MD Unavailable Unavailable BLAIRABDULAZIZ TREJO MD Unavailable Unavailable BLAIRABDULAZIZ TREJO MD Unavailable Unavailable BLAIRABDULAZIZ TREJO MD Unavailable Unavailable BLAIRABDULAZIZ TREJO MD Unavailable Unavailable BLAIRABDULAZIZ TREJO MD Unavailable Unavailable BLAIRABDULAZIZ TREJO MD Unavailable Unavailable BLAIRABDULAZIZ TREJO MD Unavailable Unavailable BLAIRABDULAZIZ TREJO MD Unavailable Unavailable BLAIRABDULAZIZ TREJO MD Unavailable Unavailable BLAIRABDULAZIZ RTEJO MD Unavailable Unavailable BLAIRABDULAZIZ TREJO MD Unavailable [...] Unavailable Unavailable BLAIRABDULAZIZ TREJO MD Unavailable Unavailable LBAIRABDULAZIZ TREJO MD Unavailable Unavailable BLAIRABDULAZIZ TREJO MD Unavailable Unavailable BLAIRABDULAZIZ TREJO MD Unavailable Unavailable BLAIRABDULAZIZ TREJO MD Unavailable Unavailable ROCK, AICHA RUY SNUBBER Unavailable Unavailable ROCK, AICHA RUY SNUBBER Unavailable Unavailable ROCK, AICHA RUY SNUBBER Unavailable Unavailable ROCK, AICHA RUY SNUBBER Unavailable Unavailable ROCK, AICHA RUY SNUBBER Unavailable Unavailable ROCK, AICHA RUY SNUBBER Unavailable Unavailable ROCK, AICHA RUY SNUBBER Unavailable Unavailable ROCK, AICHA RUY SNUBBER Unavailable Unavailable ROCK, AICHA RUY SNUBBER Unavailable Unavailable ROCK, AICHA RUY SNUBBER Unavailable Unavailable ROCK, AICHA RUY SNUBBER Unavailable Unavailable ROCK, AICHA RUY SNUBBER Unavailable Unavailable ROCK, AICHA RUY SNUBBER Unavailable Unavailable ROCK, AICHA RUY SNUBBER Unavailable Unavailable ROCK, AICHA RUY SNUBBER Unavailable Unavailable ROCK, AICHA RUY SNUBBER Unavailable Unavailable ROCK, AICHA RUY SNUBBER Unavailable Unavailable ROCK, AICHA RUY SNUBBER Unavailable Unavailable ROCK, AICHA RUY SNUBBER Unavailable Unavailable ROCK, AICHA RUY SNUBBER Unavailable Unavailable ROCK, AICHA RUY SNUBBER Unavailable Unavailable ROCK, AICHA RUY SNUBBER Unavailable Unavailable ROCK, AICHA RUY SNUBBER Unavailable Unavailable BAILEE, F BENNY BA Unavailable [...] Casey, Joey Jain MD Unavailable Unavailable Casey, Joye Jain MD Unavailable Unavailable Casey, Joey Jain [...] Cristobal BA Unavailable Unavailable Casey, A Cristobal AB Unavailable Unavailable Casey, A Cristobal BA Unavailable Unavailable Casey, A Cristobal BA Unavailable Unavailable Casey, A Cristobal AB Unavailable Unavailable Casey, A Cristobal BA Unavailable [...] Pritchard, Landon Richard MD Unavailable Unavailable Pritchard, Ladnon Richard MD Unavailable Unavailable Pritchard, C Hilary [...] is protected by Article 27-F of the [place] State Public Health law. If you continue you may have access to information: Regarding HIV / AIDS; Provided by facilities licensed or operated by the [facility] Office of Mental Health; or Provided by the [facility] Office for People With Developmental Disabilities. If such information is present, then the following [facility] mandated warning applies: This information has been [...] law may result in a fine or correction sentence or both. A general authorization for the release of medical or other information is NOT sufficient authorization for further disc losure. Allergies and Adverse Reactions Type Description Substance Reaction Status Data Source(s ) No Known Drug Allergies No Known Drug Allergies [facility] No Known Environmental Allergies No Known Environmental Al lergies [facility] No Known Food Allergies No Known Food Allergies [facility] Family History Family Member Name Family Member Gender Family Member Status Date o f Status Description Data Source(s) Unknown Unknown Problem [facility], ) Unknown Female Problem [facility] ([facility]) Unknown Female Problem [facility] ([facility]) Unknown Female Problem [facility] ([facility]) Encounters Encounter Providers Location Date Indications Data Source(s ) Outpatient Attender: FRANCISCO JAVIER LAZCANO MD Main Office 05/01/2021 08:00:00 AM EDT [facility] ([facility]) Outpatient Attender: BENNY MOROCHO MD Family Practice 04/03 10:15:00 AM EDT [facility] ([facility]) Outpatient Attender: BENNY MOROCHO MDConsultant: ABDULAZIZ ROBERTSON MD 04/17/2021 10:09:00 AM EDT - 04/17/2021 10:09:00 AM EDT [facility] Outpatient Attender: RUY ROCK NP Family Practice 03/26/2021 03 :00:00 PM EDT [facility] ([facility]) Outpatient Attender: RUY ROCK NPConsultant: ABDULAZIZ BLAIR MD 03/26/2021 02:46:00 PM EDT - 03/26/2021 02:46:00 PM EDT [facility] Outpatient Attender: ABDULAZIZ NINOonsultant: ABDULAZIZ Garg MD 03/17/2021 09:40:00 AM EDT - 03/17/2021 09:40:00 AM EDT [facility] Outpatient Attender: ABDULAZIZ BLAIR MD Family Practice 03/05/2021 1 0:00:00 AM EDT [facility] ([facility]) Outpatient Attender: ABDULAZIZ BLAIR MDConsultant: ABDULAZIZ Garg MD 03/05/2021 09:37:00 AM EDT - 03/05/2021 09:37:00 AM EDT [facility] Outpatient Attender: RUY ROCK NP [facility] 02/05/2021 10 :30:00 AM EDT [facility] ([facility]) Outpatient Attender: RUY ROCK NPConsultant: ABDULAZIZ BLAIR MD 02/05/2021 10:03:00 AM EDT - 02/05/2021 10:03:00 AM EDT [facility] Outpatient Attender: CRISTOBAL LEONARD NP 10/04 12:30:12 [...] AM EDT - 10/18/2020 09:51:01 AM EDT [facility] Outpatient Attender: Jacques MANSFIELD 10/17/19 11:55:48 AM EDT - 10/16/2020 12:29:35 PM EDT [facility] ([facility] ) Outpatient Attender: Cristobal Peña MDAdmitter: Cristobal mercer MD MOB-MOB.PAT 10/09/2020 12:45:58 PM EDT - 10/09/2020 01:38:04 PM EDT [facility] Inpatient Attender: Cristobal Peña MDAdmitter: Cristobal mercer MD [id number] 09/16/2020 03:54:20 PM EDT - 10/24/2020 01:52:00 PM EDT [facility] Patient discharged. Outpatient MOB-MOB.PAT 08/13/2020 09:50:11 AM EST [facility] Outpatient Attender: Hieu Ibrahim MDAdmit ter: Hieu Ibrahim MDReferrer: LYNDON GLYNN MD [id number] 06/30/2020 11:35:29 AM EST - 08/18/2020 11:53:00 AM EST [facility] Patient discharged. Outpatient Attender: MEHNAZ de la fuente 04/21/2020 08:00:00 AM EDT [facility] Medications Medication Brand Name Start Date Product Form Dose Route Admi nistrative Instructions Pharmacy Instructions Status Indications Reaction Description Data Source(s) Omeprazole 40 MG Delayed Release Oral Capsule Omeprazole 04/30/2021 12:00:00 AM EDT ORAL active [facility] Biotin 2.5 MG Oral Capsule Biotin 04/30/2021 12:00:00 AM EDT ORAL active [facility] ([facility]) Flintstones Complete 04/30/2021 12:00:00 AM EDT ORAL active [facility] ([facility]) ferrous sulfate 325 MG Oral Tablet Ferrous Sulfate 04/30/2021 12:00 :00 AM EDT ORAL active [facility] ([facility]) Clindamycin 300 MG Oral [...] saline flush 0.9 % injection 3 mL [id number] 10/24/2020 06:00:00 AM EDT 3 mL Intravenous active 3 mL , Intravenous, PROTOCOL, First dose on Tue10/24/20 at 0600, Post-op
Convert to saline lock after discontinuing D5LR IV.
[facility] Medication administered onsite lactated ringers bolus 1,000 mL [id number] 10/24/2020 06:00:00 AM EDT 1000 mL Intravenous completed 1,000 mL , Intravenous, Administer over 2 Hours, Once, On Tue10/24/20 at 0600, For 1 dose, Post-op [facility] Medication administered onsite ondansetron (ZOFRAN-ODT) disintegrating [...] at 0600, Post- op [Order 2 End] [facility] Medication administered onsite Acetaminophen 500 MG Oral Tablet acetaminophen (TYLENO L) tablet 1,000 mg acetaminophen (TYLENOL) tablet 1,000 mg 10/23/2020 11:00:00 PM EDT 1000 mg Oral active 1,000 mg, Oral , Every 8 hours, First dose on Tue10/23/20 at 2300, For 48 hours, Post-op [facility] Medication administered onsite gabapentin 300 MG Oral Capsule gabapentin (NEURONTIN) capsule 300 mg gabapentin (NEURONTIN) capsule 300 mg 10/23/2020 09:00:00 PM EDT 300 mg Oral active 300 mg, Oral, 3 times daily, First dose on Tue10/23/20 at 2100, Post-op [facility] Medication administered onsite Ondansetron 4 MG Disintegrating Oral Tab let ondansetron (ZOFRAN-ODT) disintegrating tablet 8 mg ondansetron (ZOFRAN-ODT) disintegrating tablet 8 mg 10/23/2020 09:00:00 PM EDT 8 mg Oral active 8 mg, Oral, Every 6 hours (scheduled), First dose on Tue10/23/20 at 2100, For 24 hours, Post-op [facility] Medication administered onsite Calcium Chloride 0.001 [...] saline lock in AM of POD #1.
[facility] Medication administered onsite Insulin Lispro 100 [...] 14 units >420 16 units, Call MD
[facility] Medication administered onsite Simethicone 80 MG Chewable Tablet simethicone (MYLICON ) chewable tablet 80 mg simethicone (MYLICON) chewable tablet 80 mg 10/23/2020 06:00:00 PM EDT 80 mg Oral active 80 mg, Oral, E very 4 hours (relative), First dose on Helen 10/23/20 at 1800, Post-op
Don't wake pt up at night
[facility] Medication administered onsite 1 ML Ketorolac Tromethamine 30 MG/ML Car tridge ketorolac (TORADOL) injection 30 mg ketorolac (TORADOL) injection 30 mg 10/23/2020 06:00:00 PM EDT 30 mg Intravenous completed Moderate to Severe Pain 30 mg, Intravenous, Every 6 hours (relative), First dose on Helen 10/23/20 at 1800, For 4 doses, Post-op [facility] Moderate to Severe Pain Medication administered onsite pantoprazole 40 MG Delayed Release Oral Tablet pantoprazole (PROTONIX) EC tablet 40 mg pantoprazole (PROTONIX) EC tablet 40 mg 10/23/2020 06:00:00 PM E DT 40 mg Oral active Stress Ulcer Prophylaxis 40 mg, Oral, Daily, Indications: Stress Ulcer Prophylaxis, First dose on Helen 10/23/20 at 1800, Post-op [facility] Stress Ulcer Prophylaxis Medication administered onsite heparin (porcine) injection 5,000 Units [id number] 10/24/19 06:00:00 PM EDT 5000 U Subcutaneous active 5,000 Units , Subcutaneous, Every 8 hours (relative), First dose on Helen 10/23/20 at 1800, Post-op
If platelet count is less than 100,000 or hematocrit is less than 30, or there is a 5 point decrease in hematocrit, do not give the dose and call physician/designee
[facility] Medication administered onsite metoclopramide (REGLAN) injection [...] hours PRN for nausea
[Order 2 End] [facility] Medication administered onsite Promethazine Hydrochloride 25 MG Oral Ta blet promethazine (PHENERGAN) tablet 12.5 mg promethazine (PHENERGAN) tablet 12.5 mg 10/23/2020 05:07:19 PM E DT 12.5 mg Oral active 12.5 mg, O ral, Every 4 hours PRN, nausea, Starting on Helen 10/23/20 at 1707, Post-op [facility] Medication administered onsite Prochlorperazine 10 MG Oral Tablet prochlorperazine (C OMPAZINE) tablet 10 mg prochlorperazine (COMPAZINE) tablet 10 mg 10/23/2020 05:07:19 PM EDT 10 mg Oral active 10 mg, Oral, E very 6 hours PRN, nausea, Starting on Helen 10/23/20 at 1707, Post-op [facility] Medication administered onsite enalaprilat (VASOTEC) injection 1.25 mg [id number] 10/24/19 05:07:18 PM EDT 1.25 mg Intravenous active 1.25 mg, Int ravenous, Every 6 hours PRN, for SBP > 140 mmHg and/or DBP > 90 mmHg, Starting on Helen 10/23/20 at 1707, Post- op
Mix in 50 mL NS, infuse over 30 minutes via infusion pump. For IVMB on NON-ICU units.
[facility] Medication administered onsite 0.4 ML Enoxaparin sodium 100 MG/ML Prefi lled Syringe enoxaparin (LOVENOX) syringe 40 mg enoxaparin (LOVENOX) syringe 40 mg 10/23/2020 05:07:18 PM EDT 40 mg Subcutaneous completed 40 mg, Subcutaneous, Before Discharge, DVT prophilaxis, Starting on Helen 10/23/20 at 1707, For 1 dose, Post-op
At discharge. To be administered by patient or significant other.
[facility] Medication administered onsite Insulin Lispro 100 [...] 14 units >420 16 units, Call MD
[facility] Medication administered onsite Insulin Glargine 100 UNT/ML Injectable S olution [Lantus] insulin glargine (LANTUS) injection 20 Units insulin glargine (LANTUS) injection 20 Units 10/23/2020 05:00:00 PM EDT 20 U Subcutaneous complete d 20 Units, Subcutaneous, Once, On Helen 10/23/20 at 1700, For 1 dose, PACU (only) [facility] Medication administered onsite Calcium Chloride 0.0014 MEQ/ML / Potassi um Chloride 0.004 MEQ/ML / Sodium Chloride 0.103 MEQ/ML / Sodium Lactate 0.028 MEQ/ML Injectable Solution lactated ringers infusion lactated ringers infusion 10/23/2020 01:00:00 PM EDT Intravenous active at 100 mL/hr, Intravenous, Continuous, Starting on Helen 10/23/20 at 1300, PACU (only) [facility] Medication administered onsite Albuterol 0.83 MG/ML Inhalant Solution a lbuterol (PROVENTIL) nebulizer solution 2.5 mg albuterol (PROVENTIL) nebulizer solution 2.5 mg 2020 12:00:00 PM EDT 2.5 mg completed 2.5 mg , Nebulization, call or contact centre coach, On Helen 10/23/20 at 1200, For 1 dose, Pre-op
To be started by pre-op unit
[facility] Medication administered onsite Calcium Chloride 0.0014 MEQ/ML / Potassi um Chloride 0.004 MEQ/ML / Sodium Chloride 0.103 MEQ/ML / Sodium Lactate 0.028 MEQ/ML Injectable Solution lactated ringers infusion lactated ringers infusion 10/23/2020 12:00:00 PM EDT 100 mL/h Intravenous active at 100 m L/hr, 100 mL/hr, Intravenous, Continuous, Starting on Helen 10/23/20 at 1200, Pre-op
Please place IV on left side if able
[facility] Medication administered onsite Dexamethasone 4 MG Oral Tablet dexamethasone (DECADRON ) tablet 4 mg dexamethasone (DECADRON) tablet 4 mg 10/23/2020 12:00:00 PM EDT 4 mg Oral completed 4 mg, Oral, call or contact centre coach, On Helen 10/23 at 1200, For 1 dose, Pre-op [facility] Medication administered onsite gabapentin 600 MG Oral Tablet gabapentin (NEURONTIN) t ablet 600 mg gabapentin (NEURONTIN) tablet 600 mg 10/23/2020 12:00:00 PM EDT 600 mg Oral completed 600 mg, Oral, On rinku l, On Helen 10/23/20 at 1200, For 1 dose, Pre-op
Hold if age greater than 70 or chronic renal failure/insufficiency
[facility] Medication administered onsite heparin (porcine) injection 5,000 Units [id number] 10/24/19 12:00:00 PM EDT 5000 U Subcutaneous completed 5,000 Uni ts, Subcutaneous, call or contact centre coach, On Helen 10/23/20 at 1200, For 1 dose, Pre-op
If platelet count is less than 100,000 or hematocrit is less than 25, or if there is a 5 point decrease in hematocrit, do not give the dose and call physician/designee.
[facility] Medication administered onsite Prochlorperazine 10 MG Oral Tablet prochlorperazine (C OMPAZINE) tablet 10 mg prochlorperazine (COMPAZINE) tablet 10 mg 10/23/2020 12:00:00 PM EDT 10 mg Oral completed 10 mg, Oral, O n call, On Helen 10/23/20 at 1200, For 1 dose, Pre-op [facility] Medication administered onsite Tetrahydrocannabinol 2.5 MG Oral Capsule dronabinol (M ARINOL) capsule 5 mg dronabinol (MARINOL) capsule 5 mg 10/23/2020 12:00:00 PM EDT 5 mg Oral completed 5 mg, Oral, call or contact centre coach, On 10/23 at 1200, For 1 dose, Pre-op [facility] Medication administered onsite celecoxib 100 MG Oral Capsule celecoxib (CeleBREX) cap esa 200 mg celecoxib (CeleBREX) capsule 200 mg 10/23/2020 12:00:00 PM EDT 200 mg Oral completed 200 mg, Oral, call or contact centre coach, On Tue at 1200, For 1 dose, Pre-op [facility] Medication administered onsite Acetaminophen 325 MG Oral Tablet acetaminophen (TYLENO L) 325 MG tablet 975 mg acetaminophen (TYLENOL) 325 MG tablet 975 mg 10/23/2020 12:00:00 PM EDT 975 mg Oral completed 975 mg, Or al, call or contact centre coach, On Helen 10/23/20 at 1200, For 1 dose, Pre-op
"Maximum dose of acetaminophen is 4,000 mg from all sources in 24 hours."
[facility] Medication administered onsite Clonidine Hydrochloride 0.1 MG Oral Tablet cloNIDine ( CATAPRES) tablet 0.1 mg cloNIDine (CATAPRES) tablet 0.1 mg 10/23/2020 12:00:00 PM EDT 0.1 mg Oral completed 0.1 mg, Oral, call or contact centre coach, On Tue at 1200, For 1 dose, Pre-op [facility] Medication administered onsite Alprazolam 0.25 MG Oral Tablet ALPRAZolam (XANAX) tabl et 0.25 mg ALPRAZolam (XANAX) tablet 0.25 mg 10/23/2020 12:00:00 PM EDT 0.25 mg Oral completed 0.25 mg, Oral, call or contact centre coach, On Tue10/23/20 a t 1200, For 1 dose, Pre-op [facility] Medication administered onsite scopolamine (TRANSDERM-SCOP) 1.5 MG (Bariatric only) 1 patch [id number] 10/23/2020 11:07:41 AM EDT 1 {patch} Transdermal aborted 1 patch, Transdermal, Administer over 24 Hours, Every 24 hours (relative), First dose on Helen 10/23/20 at 1200, For 1 dose, Pre-op
Scopolamine patch applied behind ear. Hold for any of the followin+ yrs old, hx of glaucoma, hx of vertigo, dementia.
[facility] Medication administered onsite Simethicone 80 MG Chewable Tablet simethicone (MYLICON ) 80 MG chewable tablet simethicone (MYLICON) 80 MG chewable tablet 10/23/2020 12:00:00 AM EDT 80 mg Oral active Chew 1 tablet (80 mg total) every 6 (six) hours as needed for flatulence [facility] Omeprazole 40 MG Delayed Release Oral Ca psule omeprazole (PriLOSEC) 40 MG capsule omeprazole (PriLOSEC) 40 MG capsule 10/23/2020 12:00:00 AM EDT 40 mg Oral active Take 1 capsule (40 m g total) by mouth daily [facility] Vitamin B 12 0.5 MG Oral Tablet vitamin B-12 (CYANOCOB ALAMIN) 500 MCG tablet vitamin B-12 (CYANOCOBALAMIN) 500 MCG tablet 10/23/2020 12:00:00 AM EDT 500 ug Oral active Take 1 tablet (500 mcg t otal) by mouth daily [facility] Ondansetron 4 MG Disintegrating Oral Tab let ondansetron (ZOFRAN-ODT) 4 MG disintegrating tablet ondansetron (ZOFRAN-ODT) 4 MG disintegrating tablet 10/23/2020 12:00:00 AM EDT 4 mg Oral active Take 1 tablet (4 mg total) by mouth every 8 (eight) hours as needed for nausea [facility] 0.4 ML Enoxaparin sodium 100 MG/ML Prefi lled Syringe enoxaparin (Lovenox) 40 MG/0.4ML SOLN enoxaparin (Lovenox) 40 MG/0.4ML SOLN 10/23/2020 12:00:00 AM EDT 40 mg Subcutaneous active Inject 0.4 mL (40 mg total) under the skin daily for 10 days [facility] Magnesium Hydroxide 80 MG/ML Oral Suspen kerri magnesium hydroxide (Milk of Magnesia) 400 MG/5ML suspension magnesium hydroxide (Milk of Magnesia) 4 00 MG/5ML suspension 10/23/2020 12:00:00 AM EDT 30 mL Oral active Take 30 mL by mouth daily as needed for constipation [facility] 40 mg 09/12/2020 12:00:00 AM EST [...] FOR 3 MONTHS AFTER SURGERY SOLD: 01/01/2021 [facility] normal saline flush 0.9 % injection 3 mL [id number] 08/18/2020 02:00:00 PM EST 3 mL Intravenous active 3 mL , Intravenous, Every 8 hours (scheduled), First dose on Tue08/18/20 at 1400, PACU (only)
flush per protocol, D/C Main IV fluid if appropriate
[facility] Medication administered onsite Magnesium Chloride 0.45694 MEQ/ML / Pota ssium Chloride 0.0497 MEQ/ML / Sodium Acetate 0.0163 MEQ/ML / Sodium Chloride 0.0899 MEQ/ML / Sodium gluconate 5.02 MG/ML Injectable Solution [Normosol-R] electrolyte-R (NORMOSOL-R/PLASMALYTE-R) solution electrolyte-R (NORMOSOL-R/PLASMALYTE-R) solution 08/18 12:00:00 PM EST Intravenous active at 1 00 mL/hr, Intravenous, Continuous, Starting Tue08/18/20 at 1200, PACU (only) [facility] Medication administered onsite ondansetron (ZOFRAN) injection 4 mg [id number] 08/18/2020 11:22:4 0 AM EST 4 mg Intravenous active 4 mg, In travenous, Once as needed, nausea, vomiting, if not given in last 4 hours, Starting Tue08/18/20 at 1122, For 1 dose, PACU & Post-op [facility] Medication administered onsite fentaNYL Citrate (PF) (SUBLIMAZE) injection 25 mcg [id number] 08/18/2020 11:22:34 AM EST 25 ug Intravenous active 25 mcg, Intravenous, Every 5 min PRN, moderate pain (4 to 6), Starting Tue08/18/20 at 1122, For 8 doses, PACU (only) [facility] Medication administered onsite Albuterol 0.833 MG/ML / Ipratropium Brom rossy 0.167 MG/ML Inhalant Solution ipratropium-albuterol (DUO-NEB) 0.5-2.5 mg/mL nebulizer solution 3 mL ipratropium-albuterol (DUO-NEB) 0.5-2.5 mg/mL nebulizer solution 3 mL 08/18/2020 11:22:34 AM EST 3 mL Inhalation active 3 mL, Inhalation, Once as needed, shortness of breath, Starting Tue08/18/20 at 1122, For 1 dose, PACU (only) [facility] Medication administered onsite 10 ML Atropine [...] or 0.04 mg/kg. Max of 6 doses
[facility] Medication administered onsite 37.5 mg 05/09/2020 [...] 04/21/2020 12:00:00 AM EDT active [facility] ([facility]) Naproxen 500 MG Oral Tablet Naproxen 04/21/2020 12:00:00 AM EDT ORAL active [facility] ([facility]) topiramate 50 MG Oral Tablet topiramate (TOPAMAX) 50 M G tablet topiramate (TOPAMAX) 50 MG tablet 50 mg Oral aborted Take 50 mg by mouth 2 (two) times a day [facility] Phentermine Hydrochloride 37.5 MG Oral T ablet phentermine (ADIPEX-P) 37.5 MG tablet phentermine (ADIPEX-P) 37.5 MG tablet 37.5 mg Oral aborted Take 37.5 mg by mouth every morning before breakfast [facility] Insurance Providers Payer name Policy type / Coverage type Policy ID Covered democrat ID Covered democrat's relationship to whitaker Policy Whitaker Plan Information Medicaid S [id number] S [id number] Managed Care - Community Plan [facility] P [id number] S [id number] Medicaid S [id number] S [id number] Managed Care - Community Plan [facility] P [id number] S [id number] Medicaid S [id number] S [id number] [facility] I [id number] Self [id number] UNHC COMMUNITY PLAN [id number] SP [id number] Medicaid S [id number] S [id number] Managed Care - Community Plan [facility] P [id number] S [id number] Managed Care - [facility] Community Plan P [id number] S [id number] [facility] MEDICAID [id number] Janet [id number] [facility] MEDICAID [id number] [id number] INSURANCE COVID-19 [id number] [id number] INSURANCE COVID-19 COVID Janet C OVID SELF PAY [facility] MED emp [id number] Employee [id number] FFS Self Pay [id number] Self [id number] [facility] [employer] (HMO) [id number] Self [id number] [facility] Health Maintenance Organization (HMO) [id number] Self [id number] [facility]) O [id number] S [id number] [facility] [employer] Medicaid [id number] Self [id number] [employer] COMMUNITY PLAN [id number] 18 [id number] [facility] Medicaid [id number] Self [id number] [facility] [employer] Medicaid [id number] Self [id number] [employer] Community [employer] Medicaid 44 Self [facility] O [id number] S [id number] [facility] [id number] [employer] AMERICHOICE XIX -HMO [id number] 18 [id number] UN COMMUNITY PLAN XIX [id number] 18 [id number] [facility] COMMUNTY PLAN [id number] 18 [id number] [facility] Communty Plan Medicaid [id number] Self [id number] [facility] Health Maintenance Organization (HMO) [id number] Self [id number] [facility] Health Maintenance Organization (HMO) [id number] Self [id number] Problems, Conditions, and Diagnoses Code Display Name Description Problem Type Effective Dates Data Source(s) 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 Diagnosis 03/26/2021 02:46:00 PM EDT [facility] E7800 Pure hypercholesterolemia, unspecified P ure hypercholesterolemia, unspecified Diagnosis 03/17/2021 09:40:00 AM T [facility] D509 Iron deficiency anemia, unspecified Iron deficie ncy anemia, unspecified Diagnosis 03/17/2021 09:40:00 AM [facility] R739 Hyperglycemia, unspecified Hyperglycemia, unspecified Diagnosis 03/17/2021 09:40:00 AM EDT [facility] R011 Cardiac murmur, unspecified Cardiac murmur, unspecifie d Diagnosis 03/05/2021 09:37:00 AM T [facility] L659 Nonscarring hair loss, unspecified Nonscarring h air loss, unspecified Diagnosis 03/05/2021 09:37:00 AM [facility] E785 Hyperlipidemia, unspecified Hyperlipidemia, unspecifie d Diagnosis 03/05/2021 09:37:00 AM [facility] Z9884 Bariatric surgery status Bariatric surgery status Diag nosis [facility] Encounter for general adult medical exam ination with abnormal findings Encounter for general adult medical examination with abnormal findings Diagnosis 03/05/2021 09:37:00 AM EDT [facility] Z803 Family history of malignant neoplasm of breast Family history of malignant neoplasm of breast Diagnosis 02/05/2021 10:03:00 AM EDT [facility] [id number] Encounter for gynecological examination (general) (routine) without abnormal findings Encounter for gynecological examination (general) (routine) without abnormal findings Diagnosis 02/05/2021 10:03:00 AM EDT [facility] E66.01 Morbid (severe) obesity due to excess ca lories Morbid (severe) obesity due to excess ca Diagnosis 10/23/2020 10:09:00 AM EDT [facility] U07.1 COVID-19 COVID-19 Diagnosis 10/18/2020 09:50:58 AM ED T [facility] K21.9 Gastro-esophageal reflux disease without esophagitis Gastro-esophageal reflux disease without Diagnosis 08/18/2020 10:03:00 AM EST [facility] R01.1 Heart murmur Heart murmur Problem 05/01/2021 12:00:00 A M EDT [facility] ([facility]) E66.09 Obesity Obesity Problem 05/01/2021 12:00:00 AM ED T [facility] ([facility]) Z71.3 Dietary management surveillance Dietary management ben veillance Problem 05/01/2021 12:00:00 AM EDT [facility] ([facility]) Z00.00 Adult health examination Adult health examination Prob xavier 03/05/2021 12:00:00 AM EDT [facility] ([facility]) R73.9 Abnormal glucose level Abnormal glucose level Problem 03/05/2021 12:00:00 AM EDT [facility] ([facility]) E78.5 Hyperlipidemia Hyperlipidemia Problem 03/05/2021 12:00: 00 AM EDT [facility] ([facility]) D50.9 Iron deficiency anemia Iron deficiency anemia Problem 03/05/2021 12:00:00 AM EDT [facility] ([facility]) L65.9 Alopecia Alopecia Problem 03/05/2021 12:00:00 AM ED T [facility] ([facility]) [id number] Tootie-en-Y gastrojejunostomy Tootie-en-Y gastrojejunostom y Problem 02/05/2021 12:00:00 AM EDT [facility] ([facility]) Note: done 10/22 E66.01 Morbid obesity Morbid obesity [id number] 10/23/2020 12:00: 00 AM EDT [facility] Surgeries/Procedures Procedure Description Date Indications Data Source(s) ECG ROUTINE ECG W/LEAST 12 LDS W/I&R 05/01/2021 12:00: 00 AM EDT [facility] ([facility]) OFFICE OUTPATIENT NEW 45 MINUTES 05/01/2021 12:00:00 A M EDT [facility] ([facility]) OFFICE OUTPATIENT VISIT 10 MINUTES 04/17/2021 12:00:00 AM EDT [facility] ([facility]) OFFICE OUTPATIENT VISIT 25 MINUTES 03/26/2021 12:00:00 AM EDT [facility] ([facility]) PHYSICIAN TELEPHONE EVALUATION 5-10 MIN 03/17/2021 12: 00:00 AM EDT [facility] ([facility]) PERIODIC PREVENTIVE MED EST PATIENT 18-39 YRS 03/05/20 12:00:00 AM EDT [facility] ([facility]) PERIODIC PREVENTIVE MED EST PATIENT 18-39 YRS 02/06/20 21 12:00:00 AM EDT [facility] ([facility]) GLUC BLD GLUC MNTR DEV CLEARED FDA SPEC HOME USE <td>P OCT GLUCOSE</td><td>Routine</td><td>10/24/2020 11:49 AM EDT</td><td></td><td> </td> 10/24/2020 11:49:00 AM EDT [facility] GLUC BLD GLUC MNTR DEV CLEARED FDA SPEC HOME USE <td>P OCT GLUCOSE</td><td>Routine</td><td>10/24/2020 6:05 AM EDT</td><td></td><td> </td> 10/24/2020 06:05:00 AM EDT [facility] GLUC BLD GLUC MNTR DEV CLEARED FDA SPEC HOME USE <td>P OCT GLUCOSE</td><td>Routine</td><td>10/24/2020 12:02 AM EDT</td><td></td><td> </td> 10/24/2020 12:02:00 AM EDT [facility] GLUC BLD GLUC MNTR DEV CLEARED FDA SPEC HOME USE <td>P OCT GLUCOSE</td><td>Routine</td><td>10/23/2020 6:50 PM EDT</td><td></td><td> </td> 10/23/2020 06:50:00 PM EDT [facility] GLUC BLD GLUC MNTR DEV CLEARED FDA SPEC HOME USE <td>P OCT GLUCOSE</td><td>Routine</td><td>10/23/2020 4:01 PM EDT</td><td></td><td> </td> 10/23/2020 04:01:00 PM EDT [facility] LAPS GSTR RSTCV PX W/BYP TOOTIE-EN-Y LIMB <150 CM <td>CR EATION, GASTRIC BYPASS, TOOTIE-EN-Y, LAPAROSCOPIC, WITH SLEEVE GASTRECTOMY IF INDICATED, WITH LIVER BIOPSY IF INDICATED, WITH HIATAL HERNIA REPAIR IF INDICATED, WITH LAPAROTOMY IF INDICATED</td><td></td><td>10/23/2020 1:21 PM EDT</td><td> Morbid obesity Fatty liver</td><td></td> 10/23/2020 01:21:00 PM EDT - 10/23/2020 04:19:00 PM EDT Fatty liverMorbid obesity [facility] Fatty liver Morbid obesity POCT I-STAT BETA HCG <td>POCT I-STAT BETA HCG</td ><td>Routine</td><td>10/23/2020 11:49 AM EDT</td><td></td><td> </td> 10/23/2020 11:49:00 AM EDT [facility] POCT I-STAT BETA HCG <td>POCT I-STAT BETA HCG</td ><td>Routine</td><td>10/23/2020 11:39 AM EDT</td><td></td><td> </td> 10/23/2020 11:39:00 AM EDT [facility] GLUC BLD GLUC MNTR DEV CLEARED FDA SPEC HOME USE <td>P OCT GLUCOSE</td><td>Routine</td><td>10/23/2020 11:32 AM EDT</td><td></td><td> </td> 10/23/2020 11:32:00 AM EDT [facility] BLOOD TYPING ABO <td>TYPE AND SCREEN</td><td> Routine</td><td>10/09/2020 1:50 PM EDT</td><td> Morbid obesity</td><td> </td> 10/09/2020 05:50:00 PM EDT Morbid obesity [facility] Morbid obesity ECG ROUTINE ECG W/LEAST 12 LDS TRCG ONLY W/O I&R <td>E CG 12- LEAD</td><td>Routine</td><td>10/09/2020 1:36 PM EDT</td><td> Morbid obesity</td><td></td> 10/09/2020 05:36:42 PM EDT Morbid obesity [facility] Morbid obesity BLOOD COUNT COMPLETE AUTOMATED <td>CBC</td><td>Routine </td><td>10/09/2020 1:30 PM EDT</td><td> Morbid obesity</td><td> </td> 10/09/2020 05:30:00 PM EDT Morbid obesity [facility] Morbid obesity THYROID STIMULATING HORMONE TSH <td>TSH</td><td>Routin e</td><td>10/09/2020 1:30 PM EDT</td><td> Morbid obesity</td><td> </td> 10/09/2020 05:30:00 PM EDT Morbid obesity [facility] Morbid obesity HEMOGLOBIN GLYCOSYLATED A1C <td>HEMOGLOBIN A1C</td><td>Routine</td><td>10/09/2020 1:30 PM EDT</td><td> Morbid obesity</td><td> </td> 10/09/2020 05:30:00 PM EDT Morbid obesity [facility] Morbid obesity COMPREHENSIVE METABOLIC PANEL <td>COMPREHENSIVE METABO LIC PANEL</td><td>Routine</td><td>10/09/2020 1:30 PM EDT</td><td> Morbid obesity</td><td> </td> 10/09/2020 05:30:00 PM EDT Morbid obesity [facility] Morbid obesity UPPER NDSC BIOPSY SINGLE/MULTIPLE 08/18/2020 12:00:00 AM EST [facility] ([facility] Results ID Date Data Source [id number] 05/04/2021 12:00:00 AM EDT [facility] Name Value Range Interpretation Code Description Data Jeannette rce(s) Supporting Document(s) SARS coronavirus 2 Ag Negative [facility] This lab was ordered by [facility] and reported by [facility]. ID Date Data Source [id number] 04/22/2021 01:19:00 PM EDT [facility] ([facility]) Name Value Range Interpretation Code Description Data Jeannette rce(s) Supporting Document(s) White Blood Count 9.2 10 4.0-10.0 Normal (applies to non-numeri c results) [facility] ([facility]) Red Blood Count 5.32 10 4.00-5.40 Normal (applies to non-numeric results) [facility] ([facility]) Hemoglobin 13.9 g/dL 12.0-15.5 Normal (applies to non-numeric resul ts) [facility] ([facility]) Hematocrit 43.3 % 36.0-47.0 Normal (applies to non-numeric resul ts) [facility] ([facility]) Mean Corpuscular Volume 81.4 fl 80.0-96.0 Normal ( applies to non-numeric results) [facility] ([facility]) Mean Corpuscular Hemoglobin 26.1 pg 27.0-33.0 Below low normal [facility] ([facility]) Mean Corpuscular HGB Conc 32.1 g/dL 32.0-36.5 Normal (applies to non-numeric results) [facility] ([facility]) Platelet Count, Automated 297 10 150-450 Normal (applies to non-numeric results) [facility] ([facility]) Red Cell Distribution Width 13.8 % 11.5-14.5 Norm al (applies to non-numeric results) [facility] ([facility]) Lymph % 37.5 % 24.0-44.0 Normal (applies to non-numeric resul ts) [facility] ([facility]) [place] % 5.3 % 2.0-8.0 Normal (applies to non-numeric resul ts) [facility] ([facility]) Neutrophils % 53.8 % 36.0-66.0 Normal (applies to non-numeric re sults) [facility] ([facility]) Eos % 2.6 % 0.0-3.0 Normal (applies to non-numeric resul ts) [facility] ([facility]) Baso % 0.5 % 0.0-1.0 Normal (applies to non-numeric resul ts) [facility] ([facility]) Immature Granulocyte % 0.3 % 0-3.0 Normal (applies to non-n umeric results) [facility] ([facility]) Nucleated Red Blood Cell % 0.0 % 0-0 Normal (applies to n on-numeric results) [facility] ([facility]) Neutrophils # 5.0 10 1.5-8.5 Normal (applies to non-numeric re sults) [facility] ([facility]) Licking # 0.5 10 0.0-0.8 Normal (applies to non-numeric resul ts) [facility] ([facility]) Lymph # 3.5 10 1.5-5.0 Normal (applies to non-numeric resul ts) [facility] ([facility]) Eos # 0.2 10 0.0-0.5 Normal (applies to non-numeric resul ts) [facility] ([facility]) Baso # 0.1 10 0.0-0.2 Normal (applies to non-numeric resul ts) [facility] ([facility]) ID Date Data Source [id number] 04/22/2021 01:19:00 PM EDT [facility] ([facility]) Name Value Range Interpretation Code Description Data Jeannette rce(s) Supporting Document(s) Hematocrit 45.1 % 36.0-47.0 Normal (applies to non-numeric resul ts) [facility] ([facility]) RBC Folate 591 ng/mL 280-791 Normal (applies to non-numeric resul ts) [facility] ([facility]) ID Date Data Source [id number] 04/22/2021 01:19:00 PM EDT [facility] ([facility]) Name Value Range Interpretation Code Description Data Jeannette rce(s) Supporting Document(s) Cobalamin (Vitamin B12) [Mass/volume] in Serum or Plasma Lab oratory test result 247-911 Above high normal [facility] ([facility]) VITAMIN B12 NORMAL RANGE NORMAL 247 - 911 PG/ML INDETERMINATE 211 - 246 PG/ML DEFICIENT LESS THAN 211 PG/ML Calcidiol [Mass/volume] in Serum or Plasma 25.6 ng/mL 30.0- 100.0 Below low normal [facility] ([facility]) Ferritin [Mass/volume] in Serum or Plasma 16 ng/mL 8-252 Normal (applies to non- numeric results) [facility]) ID Date Data Source [id number] 04/22/2021 01:19:00 PM EDT [facility] ([facility]) Name Value Range Interpretation Code Description Data Jeannette rce(s) Supporting Document(s) Iron (Fe) 33 ug/dL 50-170 Below low normal [facility] ( [facility]) Total Iron Binding Capacity 390 ug/dL 250-450 Norm al (applies to non-numeric results) [facility] ([facility]) Percent Saturation 8.5 % 13.2-45.0 Below low normal [facility]) ID Date Data Source [id number] 04/22/2021 01:19:00 PM EDT [facility] ([facility]) Name Value Range Interpretation Code Description Data Jeannette rce(s) Supporting Document(s) Magnesium [Mass/volume] in Serum or Plasma 2.2 mg/dL 1.8-2 .4 Normal (applies to non-numeric results) [facility] ([facility]) Phosphate [Moles/volume] in Serum or Plasma 4.2 mg/dL 2.5- 4.9 Normal (applies to non-numeric results) [facility] ([facility] ) ID Date Data Source [id number] 04/22/2021 01:19:00 PM EDT [facility] ([facility]) Name Value Range Interpretation Code Description Data Jeannette rce(s) Supporting Document(s) Glucose, Fasting 68 mg/dL 70-100 Below low normal [facility] ([facility]) Blood Urea Nitrogen 14 mg/dL 7-18 Normal (applies to non-nume isela results) [facility] ([facility]) Glomerular Filtration Rate Laboratory test result Normal (applies to non- numeric results) [facility] ([facility]) <content>Units are mL/min/1.73 m2</content>
<content></content>
<content>Chronic Kidney Disease Staging per NKF:</content>
<content></content>
<content>Stage I & II GFR >=60 Normal to Mildly Decreased</content>
<content>Stage III GFR 30- 59 Moderately Decreased</content>
<content>Stage IV GFR 15-29 Severely Decreased</content>
<content>Stage V GFR <15 Very Little GFR Left</content>
<content>ESRD GFR <15 on CLINICAL CARE MANAGER</content>
<content></content> Creatinine For GFR 0.64 mg/dL 0.55-1.30 Normal (applies to non -numeric results) [facility] ([facility]) Potassium Serum 4.2 meq/L 3.5-5.1 Normal (applies to non-numeric results) [facility] ([facility]) Sodium Level 140 meq/L 136-145 Normal (applies to non-numeric res ults) [facility] ([facility]) Chloride Level 111 meq/L 98-107 Above high normal [facility] ([facility]) Carbon Dioxide Level 24 meq/L 21-32 Normal (applies to non-num arlette results) [facility] ([facility]) Anion Gap 5 meq/L 8-16 Below low normal [facility] ( [facility]) Ast/Sgot 13 U/L 7-37 Normal (applies to non-numeric resul ts) [facility] ([facility]) Calcium Level 9.1 mg/dL 8.5-10.1 Normal (applies to non-numeric re sults) [facility] ([facility]) Alkaline Phosphatase 107 U/L 45-117 Normal (applies to non-num arlette results) [facility] ([facility]) Alt/SGPT 28 U/L 12-78 Normal (applies to non-numeric resul ts) [facility] ([facility]) Bilirubin,Total 0.2 mg/dL 0.2-1.0 Normal (applies to non-numeric results) [facility] ([facility]) Albumin 3.6 GM/DL 3.2-5.2 Normal (applies to non-numeric resul ts) [facility] ([facility]) Total Protein 7.3 GM/DL 6.4-8.2 Normal (applies to non-numeric re sults) [facility] ([facility]) Albumin/Globulin Ratio 1.0 1.2-2.2 Below low normal [facility] ([facility]) ID Date Data Source [id number] 04/22/2021 01:19:00 PM EDT [facility] ([facility]) Name Value Range Interpretation Code Description Data Jeannette rce(s) Supporting Document(s) Hemoglobin A1c 5.1 % Normal (applies to non-numeric r esults) [facility]) <content>REFERENCE RANGES:</content><br/ ><content></content>
<content><=5.6% NORMAL</content>
<content>5.7-6.4% SUGGESTS IMPAIRED GLUCOSE METABOLISM/PREDIABETIC</content>
<content>>= 6.5% ABNORMAL</content>
<content></content> Estimated Average Glucose 100 mg/dL 60-110 Normal (applies to non-numeric results) [facility]) ID Date Data Source [id number] 03/26/2021 04:54:00 PM EDT [facility] ([facility]) Name Value Range Interpretation Code Description Data Jeannette rce(s) Supporting Document(s) Reagin Ab [Presence] in Serum by RPR Laboratory test result Normal (applies to non-numeric results) [facility] ([facility] ) HIV 1+2 Ab [Presence] in Serum Laboratory test result Normal (applies to non- numeric results) [facility] ([facility]) <content>This assay was performed utiliz ing a [...] is</content>
<content>99.6-99.8%.</content>
<content></content> ID Date Data Source [id number] 03/26/2021 04:54:00 PM EDT [facility] ([facility]) Name Value Range Interpretation Code Description Data Jeannette rce(s) Supporting Document(s) Hepatitis C Quantitation Laboratory test result Normal (applies to non-numeric results) [facility] ([facility]) HCV Not Detected Hepatitis C log10 Laboratory test result Normal (applies to non-numeric results) [facility] ([facility]) Test Information: Laboratory test result Normal (applies to non-numeric results) [facility] ([facility]) . The quantitative range of this assay is 15 IU/mL to 100 million IU/mL. ID Date Data Source [id number] 03/26/2021 04:54:00 PM EDT [facility] ([facility]) Name Value Range Interpretation Code Description Data Jeannette rce(s) Supporting Document(s) Laboratory test finding (navigational concept) Laboratory test r esult 0.00-0.90 Normal (applies to non-numeric results) [facility] ([facility]) <content>Negative <0.91</content>
<content>Equivocal 0.91 - 1.09</content>
<content>Positive >1.09</content>
<content>Performed at: [facility] [place]</content>
<content>[address] [place] [address] [id number]</content>
<content>Frankfurter Inspector: Lois Billy MD, Phone: [phone]</content>
<content></content> ID Date Data Source [id number] 03/26/2021 04:54:00 PM EDT [facility] ([facility]) Name Value Range Interpretation Code Description Data Jeannette rce(s) Supporting Document(s) HSV Type II IgG Specific 10.50 index 0.00-0.90 Above high normal [facility] ([facility]) <content>Negative <0.91</content>
<content>Equivocal 0.91 - 1.09</content>
<content>Positive >1.09</content>
<content>Note: Negative indicates no antibodies detected to</content>
<content>HSV-2. Equivocal may suggest early infection. If</content>
<content>clinically appropriate, retest at later date. Positive</content>
<content>indicates antibodies detected to HSV-2.</content>
<content></content> HSV Type I IgG Specific 56.60 index 0.00-0.90 Above high normal [facility] ([facility]) <content>Negative <0.91</content>
<content>Equivocal 0.91 - 1.09</content>
<content>Positive >1.09</content>
<content>Note: Negative indicates no antibodies detected to</content>
<content>HSV-1. Equivocal may suggest early infection. If</content>
<content>clinically appropriate, retest at later date. Positive</content>
<content>indicates antibodies detected to HSV-1.</content>
<content></content> ID Date Data Source [id number] 03/26/2021 03:26:00 PM EDT [facility] ([facility]) Name Value Range Interpretation Code Description Data Jeannette rce(s) Supporting Document(s) Cervical Biopsy Jar 1 Laboratory test result [facility] ([facility]) Endocervical Biopsy Jar 1 Laboratory test result [facility] ([facility]) ID Date Data Source [id number] 03/26/2021 02:53:00 PM EDT [facility] ([facility]) Name Value Range Interpretation Code Description Data Jeannette rce(s) Supporting Document(s) Choriogonadotropin.beta subunit ( test) [Pres ence] in Urine Laboratory test result [facility] ([facility]) ID Date Data Source [id number] 03/26/2021 08:01:00 AM EDT [facility] ([facility]) Name Value Range Interpretation Code Description Data Jeannette rce(s) Supporting Document(s) Treponema pallidum Ab [Presence] in Serum Laboratory test result [facility] ([facility]) Laboratory test finding (navigational concept) Laboratory test result [facility] ([facility]) ID Date Data Source [id number] 03/05/2021 10:06:00 AM EDT [facility] ([facility]) Name Value Range Interpretation Code Description Data Jeannette rce(s) Supporting Document(s) Iron 38 ug/dL 42-135 [facility] ([facility]) Is patient fasting? N Iron binding capacity [Mass/volume] in Serum or Plasma 350 ug/dL 250 -450 [facility] ([facility]) Is patient fasting? N Iron binding capacity.unsaturated [Mass/volume] in Serum or Plasma 312 ug/dL 112-347 [facility] ([facility]) Is patient fasting? N Iron Sat 11 % [facility] ([facility]) Is patient fasting? N ID Date Data Source [id number] 03/05/2021 10:06:00 AM EDT [facility] ([facility]) Name Value Range Interpretation Code Description Data Jeannette rce(s) Supporting Document(s) Cobalamin (Vitamin B12) [Mass/volume] in Serum or Plasma Lab oratory test result [id number] [facility] ([facility]) Is patient fasting? N Calcidiol [Mass/volume] in Serum or Plasma 46 ng/mL [facility] ([facility]) Is patient fasting? N Thyrotropin [Units/volume] in Serum or Plasma 0.73 uIU/mL 0.47-5.01 MED[facility] ([facility]) Is patient fasting? N Folate [Mass/volume] in Serum or Plasma 14.4 ng/mL 4.4-31.0 [facility] ([facility]) Is patient fasting? N ID Date Data Source [id number] 03/05/2021 10:06:00 AM EDT [facility] ([facility]) Name Value Range Interpretation Code Description Data Jeannette rce(s) Supporting Document(s) Sed Rate Reenter 5 [facility] ([facility]) Is patient fasting? N Erythrocyte sedimentation rate by Westergren method 5 mm/hr 0-20 [facility] ([facility]) Is patient fasting? N ID Date Data Source [id number] 03/05/2021 10:06:00 AM EDT [facility] ([facility]) Name Value Range Interpretation Code Description Data Jeannette rce(s) Supporting Document(s) Hemoglobin A1c/Hemoglobin.total in Blood 4.9 % 4.4-6.1 [facility] ([facility]) Is patient fasting? N C reactive protein [Mass/volume] in Serum or Plasma by High sensitivity method 2.52 mg/L 1.00-3.00 [facility] ([facility]) Is patient fasting? N ID Date Data Source [id number] 03/05/2021 10:06:00 AM EDT [facility] ([facility]) Name Value Range Interpretation Code Description Data Jeannette rce(s) Supporting Document(s) Comprehensive Metabo Laboratory test result [facility] ([facility]) Is patient fasting? N Sodium 139 meq/L 134-153 [facility] ([facility] Is patient fasting? N Potassium 3.9 meq/L 3.6-5.0 [facility] ([facility] Is patient fasting? N Chloride 106 meq/L 98-107 [facility] Is patient fasting? N Co2 22 meq/L 22-30 [facility] Is patient fasting? N Glucose 137 mg/dL 70-99 [facility] ([facility] Is patient fasting? N BUN 14 mg/dL 7-21 [facility] ([facility] Is patient fasting? N Creatinine 0.7 mg/dL 0.7-1.5 [facility] ([facility]) Is patient fasting? N Albumin 4.3 g/dL 3.9-5.0 [facility] ([facility] Is patient fasting? N BUN/Creat 20 8-27 [facility] ([facility] Is patient fasting? N Total Protein 7.1 g/dL 6.3-8.2 [facility] ([facility]) Is patient fasting? N Globulin [Mass/volume] in Serum by calculation 2.8 GM/DL 2.4-3.2 [facility] ([facility]) Is patient fasting? N Calcium 9.2 mg/dL 8.4-10.2 [facility] ([facility]) Is patient fasting? N A/G Ratio 1.5 0.8-2.0 [facility] ([facility]) Is patient fasting? N Alkaline Phos 104 U/L 38-126 [facility] ([facility]) Is patient fasting? N Sgot/Ast 18 U/L 5-40 [facility] Is patient fasting? N Total Bili Laboratory test result 0.2-1.3 ME DENT ([facility]) Is patient fasting? N SGPT/Alt 15 U/L 7-56 [facility] Is patient fasting? N Anion gap in Serum or Plasma 11.0 mmol/L 8.0-16.0 [facility] ([facility]) Is patient fasting? N Non-Aa GFR Laboratory test result [facility] ([facility]) Is patient fasting? N Age 35 yrs [facility] Is patient fasting? N Afr Amer GFR Laboratory test result MEDE NT ([facility]) Is patient fasting? N ID Date Data Source [id number] 03/05/2021 10:06:00 AM EDT [facility] ([facility]) Name Value Range Interpretation Code Description Data Jeannette rce(s) Supporting Document(s) Cholesterol 159 mg/dL 131-200 [facility] ([facility]) Is patient fasting? N Cve Panel Laboratory test result [facility] ([facility]) Is patient fasting? N Triglycerides 127 mg/dL 35-160 [facility] ([facility]) Is patient fasting? N HDL 44 mg/dL 29-86 [facility] ([facility]) Is patient fasting? N Risk Factor 3.6 3.2-4.4 [facility] ([facility]) Is patient fasting? N LDL 103 mg/dL 65-175 [facility] Is patient fasting? N LDL/HDL 2.34 1.47-3.22 [facility] ([facility]) Is patient fasting? N ID Date Data Source [id number] 03/05/2021 10:06:00 AM EDT MED[facility] ([facility]) Name Value Range Interpretation Code Description Data Jeannette rce(s) Supporting Document(s) Ferritin [Mass/volume] in Serum or Plasma 25.9 ng/mL 3.0-105 [facility] ([facility]) Is patient fasting? N ID Date Data Source [id number] 03/05/2021 10:06:00 AM EDT MED[facility] ([facility]) Name Value Range Interpretation Code Description Data Jeannette rce(s) Supporting Document(s) Ferritin [Mass/volume] in Serum or Plasma 25.9 ng/mL 3.0-105 MED[facility] ([facility]) Is patient fasting? N ID Date Data Source [id number] 03/05/2021 10:06:00 AM EDT [facility] ([facility]) Name Value Range Interpretation Code Description Data Jeannette rce(s) Supporting Document(s) WBC 7.3 10^3/uL 4.2-11.0 [facility] ([facility]) Is patient fasting? N CBC W/Automated Diff Laboratory test result [facility] ([facility]) Is patient fasting? N RBC 5.31 10^6/uL 4.20-5.40 [facility] ([facility]) Is patient fasting? N Hemoglobin 13.8 g/dL 12.0-16.0 [facility] ([facility]) Is patient fasting? N Hematocrit 42.7 % 37.0-47.0 [facility] ([facility]) Is patient fasting? N MCV 80.4 fL 81.0-101 Below low normal MED[facility] ([facility]) Is patient fasting? N MCHC 32.3 g/dL 31.0-36.0 [facility] ([facility]) Is patient fasting? N MCH 26.0 pg 27.0-34.0 Below low normal MED[facility] ( [facility]) Is patient fasting? N RDW 14.2 % 11.5-14.5 [facility] ([facility]) Is patient fasting? N Platelets 306 10^3/uL 150-450 MED[facility] ([facility]) Is patient fasting? N MPV 10.5 fL 7.4-10.4 Above high normal MED[facility] ([facility]) Is patient fasting? N Neut 60.3 % 37.0-80.0 [facility] ([facility]) Is patient fasting? N Lymph 32.7 % 25.0-40.0 [facility] ([facility]) Is patient fasting? N [place] 4.6 % 3.0-8.0 [facility] ([facility]) Is patient fasting? N Baso 0.4 % 0.0-2.5 [facility] ([facility]) Is patient fasting? N Eos 1.9 % 0.0-7.0 [facility] ([facility]) Is patient fasting? N %NRBC 0.0 % 0.0-0.0 [facility] ([facility]) Is patient fasting? N %Ig 0.1 % 0.0-0.0 Above high normal MEDENT ([facility]) Is patient fasting? N #Lymph 2.39 10^3/uL 0.60-3.40 [facility] ([facility]) Is patient fasting? N #Neut 4.41 10^3/uL 2.00-6.90 [facility] ([facility]) Is patient fasting? N #Eos 0.14 10^3/uL 0.00-0.70 [facility] ([facility]) Is patient fasting? N #Licking 0.34 10^3/uL 0.00-0.90 [facility] ([facility]) Is patient fasting? N #Baso 0.03 10^3/uL 0.00-0.20 [facility] ([facility]) Is patient fasting? N #Ig 0.01 10^3/uL 0.00-0.10 [facility] ([facility]) Is patient fasting? N RBC Morph Laboratory test result [facility] ([facility]) Is patient fasting? N #NRBC 0.00 10^3/uL 0.00-0.00 [facility] ([facility]) Is patient fasting? N Manual Diff Laboratory test result M EDENT ([facility]) Is patient fasting? N ID Date Data Source [id number] 03/05/2021 10:06:00 AM EDT MED[facility] ([facility]) Name Value Range Interpretation Code Description Data Jeannette rce(s) Supporting Document(s) Cve Panel Laboratory test result [facility] ([facility]) Is patient fasting? N Cholesterol 159 mg/dL 131-200 [facility] ([facility]) Is patient fasting? N Triglycerides 127 mg/dL 35-160 [facility] ([facility]) Is patient fasting? N HDL 44 mg/dL 29-86 [facility] ([facility]) Is patient fasting? N LDL 103 mg/dL 65-175 [facility] ([facility]) Is patient fasting? N Risk Factor 3.6 3.2-4.4 [facility] ([facility]) Is patient fasting? N LDL/HDL 2.34 1.47-3.22 [facility] ([facility]) Is patient fasting? N ID Date Data Source [id number] 03/05/2021 10:06:00 AM EDT MED[facility] ([facility]) Name Value Range Interpretation Code Description Data Jeannette rce(s) Supporting Document(s) Sodium 139 meq/L 134-153 [facility] ([facility]) Is patient fasting? N Comprehensive Metabo Laboratory test result [facility] ([facility]) Is patient fasting? N Potassium 3.9 meq/L 3.6-5.0 [facility] ([facility]) Is patient fasting? N Chloride 106 meq/L 98-107 [facility] ([facility]) Is patient fasting? N Co2 22 meq/L 22-30 [facility] ([facility]) Is patient fasting? N Glucose 137 mg/dL 70-99 Above high normal MED[facility] ([facility]) Is patient fasting? N BUN 14 mg/dL 7-21 [facility] ([facility]) Is patient fasting? N Creatinine 0.7 mg/dL 0.7-1.5 [facility] ([facility]) Is patient fasting? N BUN/Creat 20 8-27 [facility] ([facility]) Is patient fasting? N Albumin 4.3 g/dL 3.9-5.0 [facility] Is patient fasting? N Total Protein 7.1 g/dL 6.3-8.2 [facility] ([facility]) Is patient fasting? N Globulin 2.8 GM/DL 2.4-3.2 [facility] ([facility]) Is patient fasting? N A/G Ratio 1.5 0.8-2.0 [facility] ([facility]) Is patient fasting? N Calcium 9.2 mg/dL 8.4-10.2 [facility] ([facility]) Is patient fasting? N Total Bili Laboratory test result 0.2-1.3 ME DENT ([facility]) Is patient fasting? N Alkaline Phos 104 U/L 38-126 [facility] ([facility]) Is patient fasting? N Sgot/Ast 18 U/L 5-40 [facility] ([facility]) Is patient fasting? N Anion Gap 11.0 mmol/L 8.0-16.0 [facility] ([facility]) Is patient fasting? N SGPT/Alt 15 U/L 7-56 [facility] ([facility]) Is patient fasting? N Age 35 yrs MED[facility] ([facility]) Is patient fasting? N Non-Aa GFR Laboratory test result [facility] ([facility]) Is patient fasting? N Afr Amer GFR Laboratory test result [facility] ([facility]) Is patient fasting? N ID Date Data Source [id number] 03/05/2021 10:06:00 AM EDT MED[facility] ([facility]) Name Value Range Interpretation Code Description Data Jeanentte rce(s) Supporting Document(s) Erythrocyte sedimentation rate by Westergren method Laboratory test result [facility] ([facility]) Calcidiol [Mass/volume] in Serum or Plasma Laboratory test result [facility] ([facility]) Cobalamin (Vitamin B12) [Mass/volume] in Serum or Plasma Lab oratory test result [facility] ([facility]) Thyrotropin [Units/volume] in Serum or Plasma Laboratory test result [facility] ([facility]) Folate [Mass/volume] in Serum or Plasma Laboratory test result [facility] ([facility]) Hemoglobin A1c/Hemoglobin.total in Blood 4.9 % 4.4-6.1 [facility] ([facility]) Is patient fasting? N C reactive protein [Mass/volume] in Serum or Plasma by High sensitivity method 2.52 mg/L 1.00-3.00 [facility] ([facility]) Is patient fasting? N ID Date Data Source [id number] 03/05/2021 10:06:00 AM EDT MED[facility] ([facility]) Name Value Range Interpretation Code Description Data Jeannette rce(s) Supporting Document(s) Sed Rate 5 mm/hr 0-20 [facility] ([facility]) Is patient fasting? N Sed Rate Reenter 5 MED[facility] ([facility]) Is patient fasting? N ID Date Data Source [id number] 03/05/2021 10:06:00 AM EDT MED[facility] ([facility]) Name Value Range Interpretation Code Description Data Jeannette rce(s) Supporting Document(s) Cobalamin (Vitamin B12) [Mass/volume] in Serum or Plasma Lab oratory test result [id number] Above high normal MED[facility] ([facility]) Is patient fasting? N Calcidiol [Mass/volume] in Serum or Plasma 46 ng/mL MED[facility] ([facility]) Is patient fasting? N Thyrotropin [Units/volume] in Serum or Plasma 0.73 uIU/mL 0.47-5.01 [facility] ([facility]) Is patient fasting? N Folate [Mass/volume] in Serum or Plasma 14.4 ng/mL 4.4-31.0 [facility] ([facility]) Is patient fasting? N ID Date Data Source [id number] 03/05/2021 10:06:00 AM EDT MED[facility] ([facility]) Name Value Range Interpretation Code Description Data Jeannette rce(s) Supporting Document(s) Iron 38 ug/dL 42-135 Below low normal MED[facility] ([facility]) Is patient fasting? N Uibc 312 ug/dL 112-347 MED[facility] ([facility]) Is patient fasting? N Tibc 350 ug/dL 250-450 [facility] ([facility]) Is patient fasting? N Iron Sat 11 % [facility] ([facility]) Is patient fasting? N ID Date Data Source [id number] 03/06/2021 07:12:00 AM EDT [facility] Value Range Interpretation Code Description Data Jeannette rce(s) Supporting Document(s) Calcidiol [Moles/volume] in Serum or Plasma 46 NG/ML [facility] VITAMIN-D(2 [id number]) Deficiency: <=20 ng/ml Insufficiency: 21-29 ng/ml Preferred level: => 30 ng/ml ID Date Data Source [id number] 03/05/2021 06:10:00 PM EDT [facility] Value Range Interpretation Code Description Data Jeannette rce(s) Supporting Document(s) Cobalamin (Vitamin B12) [Mass/volume] in Serum or Plasma >2000 P G/ML 232 - 1245 H [facility] ID Date Data Source [id number] 03/05/2021 05:30:00 PM EDT [facility] Value Range Interpretation Code Description Data Jeannette rce(s) Supporting Document(s) Erythrocyte sedimentation rate by Westergren method 5 mm/hr 0 - 20 [facility] SED RATE REENTER 5 [facility] ID Date Data Source [id number] 03/05/2021 05:25:00 PM EDT [facility] Value Range Interpretation Code Description Data Jeannette rce(s) Supporting Document(s) Folate [Mass/volume] in Serum or Plasma 14.4 NG/ML 4.4 - 31.0 [facility] ID Date Data Source [id number] 03/05/2021 05:25:00 PM EDT [facility] Value Range Interpretation Code Description Data Jeannette rce(s) Supporting Document(s) Ferritin [Mass/volume] in Serum or Plasma 25.9 ng/mL 3.0 - 105 [facility] ID Date Data Source [id number] 03/05/2021 05:25:00 PM EDT [facility] Name Value Range Interpretation Code Description Data Jeannette rce(s) Supporting Document(s) Thyrotropin [Units/volume] in Serum or Plasma by Detec tion limit <= 0.05 mIU/L 0.73 uIU/mL 0.47 - 5.01 [facility] ID Date Data Source [id number] 03/05/2021 05:24:00 PM EDT [facility] Name Value Range Interpretation Code Description Data Jeannette rce(s) Supporting Document(s) C reactive protein [Mass/volume] in Serum or Plasma by High sensitivity method 2.52 MG/L 1.00 - 3.00 [facility] CDC/[facility] HS-CRP CUT-OFF: RELATIVE RISK: <1.0 mg/L Low 1.0 - 3.0 mg/L Average >3.0 mg/L High Optimally, the average of HS-CRP results repeated two weeks apart should be used for risk assessment. ID Date Data Source [id number] 03/05/2021 05:24:00 PM EDT [facility] Name Value Range Interpretation Code Description Data Jeannette rce(s) Supporting Document(s) Iron [Mass/volume] in Serum or Plasma 38 UG/DL 42 - 135 L [facility] Iron binding capacity.unsaturated [Mass/volume] in Serum or Plasma 312 UG/DL 112 - 347 [facility] Iron binding capacity [Mass/volume] in Serum or Plasma 350 ug/dL 250 - 450 [facility] Iron saturation [Mass Fraction] in Serum or Plasma 11 % [facility] ID Date Data Source [id number] 03/05/2021 05:24:00 PM EDT [facility] Name Value Range Interpretation Code Description Data Jeannette rce(s) Supporting Document(s) COMPREHENSIVE METABOLIC PANEL [facility] COMPREHENSIVE METABOLIC PANEL Sodium [Moles/volume] in Serum or Plasma 139 mEq/L 134 - 153 [facility] Potassium [Moles/volume] in Serum or Plasma 3.9 mEq/L 3.6 - 5.0 [facility] Chloride [Moles/volume] in Serum or Plasma 106 mEq/L 98 - 107 [facility] Carbon dioxide, total [Moles/volume] in Serum or Plasma 22 MEQ/L 22 - 30 [facility] Glucose [Mass/volume] in Serum or Plasma 137 MG/DL 70 - 99 H [facility] BUN 14 MG/DL 7 - 21 [facility] Creatinine [Mass/volume] in Serum or Plasma 0.7 MG/DL 0.7 - 1.5 [facility] BUN/CREAT 20 8 - 27 [facility] al Protein [Mass/volume] in Serum or Plasma 7.1 G/DL 6.3 - 8.2 [facility] Albumin [Mass/volume] in Serum or Plasma 4.3 G/DL 3.9 - 5.0 [facility] Globulin [Mass/volume] in Serum by calculation 2.8 GM/DL 2.4 - 3.2 [facility] A/G RATIO 1.5 0.8 - 2.0 [facility] Calcium [Mass/volume] in Serum or Plasma 9.2 MG/DL 8.4 - 10.2 [facility] Bilirubin.total [Mass/volume] in Serum or Plasma <0.7 MG/DL 0.2 - 1.3 [facility] Alkaline phosphatase [Enzymatic activity/volume] in Serum or Plasma 104 U/L 38 - 126 [facility] Aspartate aminotransferase [Enzymatic activity/volume] in Serum or Plasma 18 U/L 5 - 40 [facility] Alanine aminotransferase [Enzymatic activity/volume] in Seru m or Plasma 15 U/L 7 - 56 [facility] Anion gap 3 in Serum or Plasma 11.0 mmol/L 8.0 - 16.0 [facility] AGE 35 yrs [facility] al NON-AA GFR >60 mL/min [facility] ital AFR AMER GFR >60 mL/min [facility] spital Male GFR In terprentation 20-49 [...] >32 mL/min Normal ID Date Data Source [id number] 03/05/2021 05:24:00 PM EDT [facility] Name Value Range Interpretation Code Description Data Jeannette rce(s) Supporting Document(s) [facility] Cholesterol [Mass/volume] in Serum or Plasma 159 MG/DL 131 - 200 [facility] Deprecated Triglyceride [Mass/volume] in Serum or Plasma 127 MG/DL 3 5 - 160 [facility] HDL 44 MG/DL 29 - 86 [facility] al Cholesterol in LDL [Mass/volume] in Serum or Plasma by Direc t assay 103 mg/dL 65 - 175 [facility] Cholesterol.total/Cholesterol in HDL [Mass Ratio] in Serum o r Plasma 3.6 3.2 - 4.4 [facility] LDL/HDL 2.34 1.47 - 3.22 [facility] ital CVE RISK CHOL/HDL LDL/HDLMEN: 1/2 AVERAGE 3.43 1.00 AVERAGE 4.97 3.55 2X AVERAGE 9.55 6.25 3X AVERAGE 23.99 7.99WOMEN: 1/2 AVERAGE 3.27 1.47 AVERAGE 4.44 3.22 2X AVERAGE 7.05 5.03 3X AVERAGE 11.04 6.14 ID Date Data Source [id number] 03/05/2021 05:08:00 PM EDT [facility] Name Value Range Interpretation Code Description Data Jeannette rce(s) Supporting Document(s) Hemoglobin A1c/Hemoglobin.total in Blood 4.9 % 4.4 - 6.1 [facility] {A1]{HB] ID Date Data Source [id number] 03/05/2021 04:54:00 PM EDT [facility] Name Value Range Interpretation Code Description Data Jeannette rce(s) Supporting Document(s) CBC W/AUTOMATED DIFF [facility] COMPLETE BLOOD COUNT Leukocytes [#/volume] in Blood by Automated count 7.3 10^3/uL 4.2 - 1 1.0 [facility] Erythrocytes [#/volume] in Blood by Automated count 5.31 10^6/uL 4. 20 - 5.40 [facility] Hemoglobin [Mass/volume] in Blood 13.8 g/dL 12.0 - 16.0 [facility] Hematocrit [Volume Fraction] of Blood by Automated count 42.7 % 3 7.0 - 47.0 [facility] Erythrocyte mean corpuscular volume [Entitic volume] by Auto mated count 80.4 fL 81.0 - 101 L [facility] Erythrocyte mean corpuscular hemoglobin [Entitic mass] by Automated count 26.0 pg 27.0 - 34.0 L [facility] Erythrocyte mean corpuscular hemoglobin concentration [Mass/volume] by Automated count 32.3 g/dL 31.0 - 36.0 [facility] Erythrocyte distribution width [Ratio] by Automated count 14.2 % 11.5 - 14.5 [facility] Platelets [#/volume] in Blood by Automated count 306 10^3/uL 150 - 45 0 [facility] Platelet mean volume [Entitic volume] in Blood by Automated count 10.5 fL 7.4 - 10.4 H [facility] Neutrophils/100 leukocytes in Blood by Automated count 60.3 % 37. 0 - 80.0 [facility] Lymphocytes/100 leukocytes in Blood by Manual count 32.7 % 25.0 - 40.0 [facility] Monocytes/100 leukocytes in Blood by Automated count 4.6 % 3.0 - 8.0 [facility] Eosinophils/100 leukocytes in Blood by Automated count 1.9 % 0.0 - 7.0 [facility] Basophils/100 leukocytes in Blood by Automated count 0.4 % 0.0 - 2.5 [facility] %IG 0.1 % 0.0 - 0.0 [facility] %NRBC 0.0 % 0.0 - 0.0 [facility] al Neutrophils [#/volume] in Blood by Automated count 4.41 10^3/uL 2.00 - 6.90 [facility] Lymphocytes [#/volume] in Blood by Automated count 2.39 10^3/uL 0.60 - 3.40 [facility] Monocytes [#/volume] in Blood by Automated count 0.34 10^3/uL 0.00 - 0.90 [facility] Eosinophils [#/volume] in Blood by Automated count 0.14 10^3/uL 0.00 - 0.70 [facility] Basophils [#/volume] in Blood by Automated count 0.03 10^3/uL 0.00 - 0.20 [facility] #IG 0.01 10^3/uL 0.00 - 0.10 [facility] H ospital #NRBC 0.00 10^3/uL 0.00 - 0.00 [facility] ospital MANUAL DIFF NOT INDICATED [facility] RBC MORPH NOT INDICATED [facility] spital ID Date Data Source [id number] 03/05/2021 10:06:00 AM EDT [facility] ([facility]) Name Value Range Interpretation Code Description Data Jeannette rce(s) Supporting Document(s) Iron [Mass/volume] in Serum or Plasma Laboratory test result [facility] ([facility]) Iron binding capacity [Mass/volume] in Serum or Plasma Laborator y test result [facility] ([facility]) Ferritin [Mass/volume] in Serum or Plasma Laboratory test result [facility] ([facility]) ID Date Data Source [id number] 03/02/2021 12:00:00 AM EDT [facility] Name Value Range Interpretation Code Description Data Jeannette rce(s) Supporting Document(s) SARS coronavirus 2 Ag Negative [facility] This lab was ordered by [facility] and reported by [facility]. ID Date Data Source [id number] 02/26/2021 07:30:00 PM EDT [facility] Name Value Range Interpretation Code Description Data Jeannette rce(s) Supporting Document(s) SARS coronavirus 2 RNA [Presence] in Res piratory specimen by KSENIA with probe detection anterior nasal swabs [facility] This lab was ordered by [facility] and re ported by [facility]. ID Date Data Source [id number] 02/26/2021 03:30:00 PM EDT [facility] Name Value Range Interpretation Code Description Data Jeannette rce(s) Supporting Document(s) SARS-CoV-2 NEGATIVE [facility] This lab was ordered by [facility] and reported by [facility]. ID Date Data Source [id number] 02/05/2021 10:30:00 AM EDT [facility] ([facility]) Name Value Range Interpretation Code Description Data Jeannette rce(s) Supporting Document(s) Chlamydia trachomatis,Ksenia Laboratory test result [facility] ([facility]) {SOURCE:~.~.~<DG1.3.1>Z01.419</DG1.3.1>< DG1.3.1>Z01.419</DG1.3.1> Neisseria gonorrhoeae,Ksenia Laboratory test result [facility] ([facility]) {SOURCE:~.~.~<DG1.3.1>Z01.419</DG1.3.1>< DG1.3.1>Z01.419</DG1.3.1> ID Date Data Source [id number] 02/07/2021 06:30:00 AM EDT [facility] Name Value Range Interpretation Code Description Data Jaennette rce(s) Supporting Document(s) Chlamydia trachomatis rRNA [Presence] in Unspecified specimen by Probe and target amplification method Negative Negative [facility] Neisseria gonorrhoeae rRNA [Presence] in Unspecified specimen by Probe and target amplification method Negative Negative [facility] ID Date Data Source [id number] 02/05/2021 10:30:00 AM EDT [facility] ([facility]) Name Value Range Interpretation Code Description Data Jeannette rce(s) Supporting Document(s) Cytology report of Cervical or vaginal smear or scrapi ng Cyto stain.thin prep Laboratory test result [facility] ([facility]) ID Date Data Source [id number] 02/20/2021 08:31:17 AM EDT [facility] [address] HPV GENOTYPES 16, 18/45 TO QUEST 9 1826HPV GENOTYPES 16, 18/45HPV 16 RNADETECTED (A)HPV 18/45 RNANOT DETECTEDREFERENCE RANGE: HPV 16 RNA: NOT DETECTEDHPV 18/45 RNA: NOT DETECTEDMethodology: Color Maker Mediated AmplificationThe analytical performance characteristics of this assay have been determined by [facility]. The modifications have not been cleared or approved by the FDA. This assay has been validated pursuant to the CLIA regulations and is used for clinical purposes. Name Value Range Interpretation Code Description Data Jeannette rce(s) Supporting Document(s) PERFORMING LAB: [facility] [address] [address] ID Date Data Source [id number] 12/09/2020 08:32:00 AM EDT [facility] Name Value Range Interpretation Code Description Data Jeannette rce(s) Supporting Document(s) SARS-CoV-2 (COVID-19) RNA [Presence] in Respiratory specimen by KSENIA with probe detection Not Detected [facility] This lab was ordered by [facility] and reported by [employer]. ID Date Data Source [id number] 11/19/2020 01:21:00 PM EDT [facility] ([facility]) Name Value Range Interpretation Code Description Data Jeannette rce(s) Supporting Document(s) RBC Folate 539 ng/mL 280-791 [facility] ([facility]) Hematocrit 40.5 % 36.0-47.0 [facility] ([facility]) ID Date Data Source [id number] 11/19/2020 01:21:00 PM EDT [facility] ([facility]) Name Value Range Interpretation Code Description Data Jeannette rce(s) Supporting Document(s) White Blood Count 8.3 10 4.0-10.0 [facility] ([facility]) Hemoglobin 12.6 g/dL 12.0-15.5 [facility] ([facility]) Hematocrit 40.0 % 36.0-47.0 [facility] ([facility]) Red Blood Count 4.99 10 4.00-5.40 [facility] ([facility]) Mean Corpuscular Volume 80.2 fl 80.0-96.0 M [facility] ([facility]) Mean Corpuscular Hemoglobin 25.3 pg 27.0-33.0 [facility] ([facility]) Mean Corpuscular HGB Conc 31.5 g/dL 32.0-36.5 [facility] ([facility]) Red Cell Distribution Width 15.3 % 11.5-14.5 [facility] ([facility]) Platelet Count, Automated 282 10 150-450 [facility] ([facility]) Neutrophils % 62.6 % 36.0-66.0 [facility] ([facility]) Lymphocytes/100 leukocytes in Blood by Automated count 26.8 % 24. 0-44.0 [facility] ([facility]) Baso % 0.5 % 0.0-1.0 [facility] [place] % 5.2 % 2.0-8.0 [facility] ([facility] [...] 1.5-5.0 [facility] [place] # 0.4 10 0.0-0.8 [facility] Eos # 0.4 10 0.0-0.5 [facility] Baso # 0.0 10 0.0-0.2 [facility] ID Date Data Source [id number] 11/19/2020 01:21:00 PM EDT [facility] ([facility]) Name Value Range Interpretation Code Description Data Jeannette rce(s) Supporting Document(s) Phosphate [Moles/volume] in Serum or Plasma 3.0 mg/dL 2.5-4.9 [facility] ([facility]) Magnesium [Mass/volume] in Serum or Plasma 2.2 mg/dL 1.8-2.4 [facility] ([facility]) ID Date Data Source [id number] 11/19/2020 01:21:00 PM EDT [facility] ([facility] Name Value Range Interpretation Code Description Data Jeannette rce(s) Supporting Document(s) Iron (Fe) 30 ug/dL 50-170 [facility] Total Iron Binding Capacity 311 ug/dL 250-450 [facility] ([facility]) Percent Saturation 9.6 % 13.2-45.0 [facility] ([facility]) ID Date Data Source [id number] 11/19/2020 01:21:00 PM EDT [facility] ([facility]) Name Value Range Interpretation Code Description Data Jeannette rce(s) Supporting Document(s) Cobalamin (Vitamin B12) [Mass/volume] in Serum or Plasma 599 pg/mL 2 47-911 [facility] ([facility]) VITAMIN B12 NORMAL RANGE NORMAL 247 - 911 PG/ML INDETERMINATE 211 - 246 PG/ML DEFICIENT LESS THAN 211 PG/ML Calcidiol [Mass/volume] in Serum or Plasma 35.5 ng/mL 30.0-100.0 [facility] ([facility]) Ferritin [Mass/volume] in Serum or Plasma 15 ng/mL 8-252 [facility] ([facility]) ID Date Data Source [id number] 11/19/2020 01:21:00 PM EDT [facility] ([facility]) Name Value Range Interpretation Code Description Data Jeannette rce(s) Supporting Document(s) Hemoglobin A1c 5.4 % [facility] <content>REFERENCE RANGES:</content><br/ ><content></content>
<content><=5.6% NORMAL</content>
<content>5.7-6.4% SUGGESTS IMPAIRED GLUCOSE METABOLISM/PREDIABETIC</content>
<content>>= 6.5% ABNORMAL</content>
<content></content>
<content></content> Estimated Average Glucose 108 mg/dL 60-110 [facility] ([facility]) ID Date Data Source [id number] 11/19/2020 01:21:00 PM EDT [facility] ([facility]) Name Value Range Interpretation Code Description Data Jeannette rce(s) Supporting Document(s) Thiamine [Mass/volume] in Blood 129.9 nmol/L 66.5-200.0 [facility] ([facility]) Performed at: [address], [place], [place] [address] [address] Inspector: Margarita Nicholas MD, Phone: [phone] ID Date Data Source [id number] 11/19/2020 01:21:00 PM EDT [facility] ([facility]) Name Value Range Interpretation Code Description Data Jeannette rce(s) Supporting Document(s) Glucose, Fasting 138 mg/dL 70-100 [facility] ([facility]) Blood Urea Nitrogen 8 mg/dL 7-18 [facility] ([facility]) Creatinine For GFR 0.68 mg/dL 0.55-1.30 [facility] ([facility]) Glomerular Filtration Rate Laboratory test result [facility] ([facility]) <content>Units are mL/min/1.73 m2</content>
<content></content>
<content>Chronic Kidney Disease Staging per NKF:</content>
<content></content>
<content>Stage I & II GFR >=60 Normal to Mildly Decreased</content>
<content>Stage III GFR 30- 59 Moderately Decreased</content>
<content>Stage IV GFR 15-29 Severely Decreased</content>
<content>Stage V GFR <15 Very Little GFR Left</content>
<content>ESRD GFR <15 on CLINICAL CARE MANAGER</content>
<content></content>
<content></content> Potassium Serum 3.6 meq/L 3.5-5.1 [facility] ([facility]) Sodium Level 142 meq/L 136-145 [facility] ([facility]) Chloride Level 112 meq/L 98-107 [facility] ([facility]) Anion gap in Serum or Plasma 5 meq/L 8-16 [facility] ([facility]) Carbon Dioxide Level 25 meq/L 21-32 [facility] ([facility]) Calcium Level 8.5 mg/dL 8.5-10.1 [facility] ([facility]) Aspartate aminotransferase [Enzymatic activity/volume] in Serum or Plasma 19 U/L 7-37 [facility] ([facility]) Alkaline phosphatase [Enzymatic activity/volume] in Serum or Plasma 97 U/L 45-117 [facility] ([facility]) Alanine aminotransferase [Enzymatic activity/volume] in Seru m or Plasma 23 U/L 12-78 [facility] ([facility]) Total Protein 6.3 GM/DL 6.4-8.2 [facility] ([facility]) Bilirubin,Total 0.3 mg/dL 0.2-1.0 [facility] ([facility]) Albumin/Globulin Ratio 1.1 1.2-2.2 [facility] ([facility]) Albumin 3.3 GM/DL 3.2-5.2 [facility] ([facility]) ID Date Data Source [id number] 11/19/2020 01:21:00 PM EDT [facility] ([facility]) Name Value Range Interpretation Code Description Data Jeannette rce(s) Supporting Document(s) Thiamine [Mass/volume] in Blood 129.9 nmol/L 66.5-200.0 Normal (applies to non- numeric results) [facility] ([facility]) Performed at: [address] [id number] [address] Inspector: Margarita Nicholas MD, Phone: [phone] ID Date Data Source [id number] 11/19/2020 01:21:00 PM EDT [facility] ([facility]) Name Value Range Interpretation Code Description Data Jeannette rce(s) Supporting Document(s) Hemoglobin A1c 5.4 % Normal (applies to non-numeric r esults) [facility] ([facility]) <content>REFERENCE RANGES:</content><br/ ><content></content>
<content><=5.6% NORMAL</content>
<content>5.7-6.4% SUGGESTS IMPAIRED GLUCOSE METABOLISM/PREDIABETIC</content>
<content>>= 6.5% ABNORMAL</content>
<content></content> Estimated Average Glucose 108 mg/dL 60-110 Normal (applies to non-numeric results) [facility] ID Date Data Source [id number] 11/19/2020 01:21:00 PM EDT [facility] ([facility]) Name Value Range Interpretation Code Description Data Jeannette rce(s) Supporting Document(s) Cobalamin (Vitamin B12) [Mass/volume] in Serum or Plasma 599 pg/ mL 247-911 Normal (applies to non-numeric results) [facility] ([facility]) VITAMIN B12 NORMAL RANGE NORMAL 247 - 911 PG/ML INDETERMINATE 211 - 246 PG/ML DEFICIENT LESS THAN 211 PG/ML Ferritin [Mass/volume] in Serum or Plasma 15 ng/mL 8-252 Normal (applies to non- numeric results) [facility] ([facility]) Calcidiol [Mass/volume] in Serum or Plasma 35.5 ng/mL 30.0- 100.0 Normal (applies to non-numeric results) [facility] ([facility]) ID Date Data Source [id number] 11/19/2020 01:21:00 PM EDT [facility] ([facility]) Name Value Range Interpretation Code Description Data Jeannette rce(s) Supporting Document(s) Iron (Fe) 30 ug/dL 50-170 Below low normal [facility] ( [facility]) Total Iron Binding Capacity 311 ug/dL 250-450 Norm al (applies to non-numeric results) [facility] ([facility]) Percent Saturation 9.6 % 13.2-45.0 Below low normal [facility] ([facility]) ID Date Data Source [id number] 11/19/2020 01:21:00 PM EDT [facility] ([facility]) Name Value Range Interpretation Code Description Data Jeannette rce(s) Supporting Document(s) Phosphate [Moles/volume] in Serum or Plasma 3.0 mg/dL 2.5- 4.9 Normal (applies to non-numeric results) [facility] ([facility] ) Magnesium [Mass/volume] in Serum or Plasma 2.2 mg/dL 1.8-2 .4 Normal (applies to non-numeric results) [facility] ([facility]) ID Date Data Source [id number] 11/19/2020 01:21:00 PM EDT [facility] ([facility]) Name Value Range Interpretation Code Description Data Jeannette rce(s) Supporting Document(s) Glucose, Fasting 138 mg/dL 70-100 Above high normal M [facility] ([facility]) Blood Urea Nitrogen 8 mg/dL 7-18 Normal (applies to non-nume isela results) [facility] ([facility]) Glomerular Filtration Rate Laboratory test result Normal (applies to non- numeric results) [facility] ([facility]) <content>Units are mL/min/1.73 m2</content>
<content></content>
<content>Chronic Kidney Disease Staging per NKF:</content>
<content></content>
<content>Stage I & II GFR >=60 Normal to Mildly Decreased</content>
<content>Stage III GFR 30- 59 Moderately Decreased</content>
<content>Stage IV GFR 15-29 Severely Decreased</content>
<content>Stage V GFR <15 Very Little GFR Left</content>
<content>ESRD GFR <15 on CLINICAL CARE MANAGER</content>
<content></content> Creatinine For GFR 0.68 mg/dL 0.55-1.30 Normal (applies to non -numeric results) [facility] ([facility]) Sodium Level 142 meq/L 136-145 Normal (applies to non-numeric res ults) [facility] ([facility]) Potassium Serum 3.6 meq/L 3.5-5.1 Normal (applies to non-numeric results) [facility] ([facility]) Chloride Level 112 meq/L 98-107 Above high normal [facility] ([facility]) Carbon Dioxide Level 25 meq/L 21-32 Normal (applies to non-num arlette results) [facility] ([facility]) Anion Gap 5 meq/L 8-16 Below low normal [facility]) Calcium Level 8.5 mg/dL 8.5-10.1 Normal (applies to non-numeric re sults) [facility] ([facility]) Ast/Sgot 19 U/L 7-37 Normal (applies to non-numeric resul ts) [facility] ([facility]) Alt/SGPT 23 U/L 12-78 Normal (applies to non-numeric resul ts) [facility] ([facility]) Alkaline Phosphatase 97 U/L 45-117 Normal (applies to non-num arlette results) [facility] ([facility]) Bilirubin,Total 0.3 mg/dL 0.2-1.0 Normal (applies to non-numeric results) [facility] ([facility]) Total Protein 6.3 GM/DL 6.4-8.2 Below low normal [facility] ([facility]) Albumin 3.3 GM/DL 3.2-5.2 Normal (applies to non-numeric resul ts) [facility] ([facility]) Albumin/Globulin Ratio 1.1 1.2-2.2 Below low normal [facility] ([facility]) ID Date Data Source [id number] 11/19/2020 01:21:00 PM EDT [facility] ([facility]) Name Value Range Interpretation Code Description Data Jeannette rce(s) Supporting Document(s) White Blood Count 8.3 10 4.0-10.0 Normal (applies to non-numeri c results) [facility] ([facility]) Red Blood Count 4.99 10 4.00-5.40 Normal (applies to non-numeric results) [facility] ([facility]) Hematocrit 40.0 % 36.0-47.0 Normal (applies to non-numeric resul ts) [facility] ([facility]) Hemoglobin 12.6 g/dL 12.0-15.5 Normal (applies to non-numeric resul ts) [facility] ([facility]) Mean Corpuscular Volume 80.2 fl 80.0-96.0 Normal ( applies to non-numeric results) [facility] ([facility]) Mean Corpuscular Hemoglobin 25.3 pg 27.0-33.0 Below low normal [facility] ([facility]) Mean Corpuscular HGB Conc 31.5 g/dL 32.0-36.5 Below low normal [facility] ([facility]) Red Cell Distribution Width 15.3 % 11.5-14.5 Above high normal [facility] ([facility]) Platelet Count, Automated 282 10 150-450 Normal (applies to non-numeric results) [facility] ([facility]) Neutrophils % 62.6 % 36.0-66.0 Normal (applies to non-numeric re sults) [facility] ([facility]) Lymph % 26.8 % 24.0-44.0 Normal (applies to non-numeric resul ts) [facility] ([facility]) Licking % 5.2 % 2.0-8.0 Normal (applies to non-numeric resul ts) [facility] ([facility]) Eos % 4.5 % 0.0-3.0 Above high normal [facility] ([facility]) Baso % 0.5 % 0.0-1.0 Normal (applies to non-numeric resul ts) [facility] ([facility]) Immature Granulocyte % 0.4 % 0-3.0 Normal (applies to non-n umeric results) [facility] ([facility]) Nucleated Red Blood Cell % 0.0 % 0-0 Normal (applies to n on-numeric results) [facility] ([facility]) Neutrophils # 5.2 10 1.5-8.5 Normal (applies to non-numeric re sults) [facility] ([facility]) Lymph # 2.2 10 1.5-5.0 Normal (applies to non-numeric resul ts) [facility] ([facility]) Licking # 0.4 10 0.0-0.8 Normal (applies to non-numeric resul ts) [facility] ([facility]) Eos # 0.4 10 0.0-0.5 Normal (applies to non-numeric resul ts) [facility] ([facility]) Baso # 0.0 10 0.0-0.2 Normal (applies to non-numeric resul ts) [facility] ([facility]) ID Date Data Source [id number] 11/19/2020 01:21:00 PM EDT [facility] ([facility]) Name Value Range Interpretation Code Description Data Jeannette rce(s) Supporting Document(s) Hematocrit 40.5 % 36.0-47.0 Normal (applies to non-numeric resul ts) [facility] ([facility]) RBC Folate 539 ng/mL 280-791 Normal (applies to non-numeric resul ts) [facility] ([facility]) ID Date Data Source [id number] 10/27/2020 01:17:59 PM EDT [facility] INFORMATIONPatient MRN Name Date of Age Gend*PT [id number] Corie Love 1985 35 years F IPPT Location Admission Date/Time Visit ID Attending [id number] 10/23/20 1009 --- --- EPI ID CSN Admitting Provider [id number] Cristobal Peña MD([id number]) Attestation signed by Cristobal Peña MD at [...] Get Your MedicationsThese medications were sent to [id number] - [place], [place] - [address] [address] [place] [id number] enoxaparin 40 MG/0.4ML Soln omeprazole 40 MG [...] 2440 ml+urine occurences General: Alert, conversing appropriatelyHeart: [id number]: Resp unlaboredAbdomen: obese, soft ND min tender [...] rce(s) Supporting Document(s) ID Date Data Source [id number] 10/24/2020 11:50:29 AM EDT [facility] Name Value Range Interpretation Code Description Data Jeannette rce(s) Supporting Document(s) POC NOVA GLU 79 mg/dL (70-99) [facility] [place] [facility] [place] [facility] CL[facility]ICAL STAFF ID Date Data Source [id number] 10/24/2020 06:15:21 AM EDT [facility] Name Value Range Interpretation Code Description Data Jeannette rce(s) Supporting Document(s) POC NOVA GLU 115 mg/dL (70-99) H [facility] [facility] [place] [facility] CLINICAL STAFF ID Date Data Source [id number] 10/24/2020 12:04:35 AM EDT [facility] Name Value Range Interpretation Code Description Data Jeannette rce(s) Supporting Document(s) POC NOVA GLU 146 mg/dL (70-99) H [facility] [place] [facility] [place] [facility] CLINICAL STAFF ID Date Data Source [id number] 10/23/2020 06:51:29 PM EDT [facility] Name Value Range Interpretation Code Description Data Jeannette rce(s) Supporting Document(s) POC NOVA GLU 168 mg/dL (70-99) H [facility] [place] [facility] [place] [facility] CLINICAL STAFF ID Date Data Source [id number] 10/23/2020 04:06:57 PM EDT [facility] [place] [facility] Name Value Range Interpretation Code Description Data Jeannette rce(s) Supporting Document(s) POC NOVA GLU 207 mg/dL (70-99) H [facility] [place] [facility] [place] [facility]FOR[facility] CLINICAL STAFF ID Date Data Source [id number] 10/23/2020 03:27:57 PM EDT [facility] NT INFORMATIONPatient MRN Name Date of Age Gend*PT [id number] Corie Love 1985 35 years F SDAPT Location Ad[facility] Date/[facility] --- Cristobal Peña MD([id number]) EPI ID CSN Admitting Provider [id number] Cristobal Peña MD([id number])Bariatric Surgery Operative ReportPatient Name: Corie Thurstonate of : 1985 35 years SurgeonLAVERN Camposrocedure : ,Laparoscopic Tootie Y Gastric Bypass, antecolic, antegastric, 50 cmPancreatico Biliary Limb, 150 cm Tootie Limb,Wedge Liver BiopsyEsophagogastrojejuosocopy Ruth Aaron MDOR Rescue Instructor: Jane Cardona RN; Lou Llanos RNOR Relief Rescue Instructor: Yuliana Shannon RNOR Relief Scrub: Kameron King [...] His, the pouch from the stomachusing a 30-Qatari bougie as a guide. The gastrojejunal anastomosis was createdby stapling the Tootie to the anterior wall of the pouch with a 60-mm bluecartridge inserted 3 cm, the remaining enterotomy was closed in 2 layers with aV-Loc and the Tootie limb was anchored to the pouch at the apex of the anastomosiswith another V-Loc. This was tested for leaks, my assistant to the ceo clamped the Rouxlimb with a bowel clamp, [...] rce(s) Supporting Document(s) ID Date Data Source [id number] 10/23/2020 01:42:03 PM EDT [facility] NT INFORMATIONPatient MRN Name Date of Age Gend*PT [id number] Corie Love Norma 1985 35 years F SDAPT Location Admission Date/Time Visit ID Attending Provider --- --- --- --- EPI ID [facility] Admitting Provider [id number] ---AirwayPatient location during procedure: ORUrgency: electiveDifficult airway: noAdvanced airway equipment used: yesStaffingPerformed by: Nancy Rgigins CRNAAnesthesiologist: Lyndon Lion MDIndications and Patient ConditionIndications [...] cmPlacement verified by: chest auscultation and + [id number]: equal breath sounds bilateralGrade view: grade IIa - partial view of glottis Name Value Range Interpretation Code Description Data Jeannette rce(s) Supporting Document(s) ID Date Data Source [id number] 10/23/2020 12:20:39 PM EDT [facility] NT INFORMATIONPatient MRN Name Date of Age Gend*PT [id number] MaryCorie mix Norma 1985 35 years F SDAPT Location Admission Date/Time [facility] --- Cristobal Peña MD([id number]) EPI ID CSN Admitting Provider [id number] Cristobal Peña MD([id number])H&P reviewed. The patient was examined and there are no changes to the H&P.Signature: JOE Camposate: October 23, 2020Time: 12:20 PM Name Value Range Interpretation Code Description Data Jeannette rce(s) Supporting Document(s) ID Date Data Source [id number] 10/23/2020 12:01:22 PM EDT [facility] [place] [facility] Name Value Range Interpretation Code Description Data Jeannette rce(s) Supporting Document(s) POC [facility]CG [facility] <5.0 IU/L [facility] [place] [facility] [place] INTERPRETATION:<5.0 NEGATIVE5.0- 25.0 INDETERMINATE>25.0 POSITIVELEVELS BETWEEN 5 AND 25 IU/L MAY INDICATEEARLY AND SHOULD BE REPEATED QUANG BLOOD SAMPLE AFTER 48 HOURS.PERFORMED BY [facility]ICAL [facility]AFF ID Date Data Source [id number] 10/23/2020 12:01:22 PM EDT [facility] [place] [facility] Name Value Range Interpretation Code Description Data Jeannette rce(s) Supporting Document(s) POC BHCG [facility] 6.9 IU/L [facility] [place] [facility] [place] INTERPRETATION:<5.0 NEGATIVE5.0- 25.0 INDETERMINATE>25.0 POSITIVELEVELS BETWEEN 5 AND 25 IU/L MAY INDICATEEARLY AND SHOULD BE REPEATED QUANG BLOOD SAMPLE AFTER 48 HOURS.PERFORMED BY [facility] ID Date Data Source [id number] 10/23/2020 11:38:54 AM EDT [facility] toni [facility] Name Value Range Interpretation Code Description Data Jeannette rce(s) Supporting Document(s) POC NOVA GLU 85 mg/dL (70-99) [facility] PERFORMED BY [facility] ID Date Data Source [id number] 10/28/2020 05:53:33 PM EDT [facility] [address] [place], [place] [address]Xom# Surgical Pathology ReportPatient Name: CORIE LOVE: 1985Accession [...] 10/28/2020Electronically Signed Out By Joshua Johnson MD [facility] [place], [place] [address]hwkAxurrbrdl component performed at [facility], Histopathology, [address] [place] [address], [address].[facility] at [facility], [address] [place], [place], [address]. This report may includeimmunohistochemical or in-situ hybridization results. Testing wasdeveloped and the performance characteristics determined by [facility], [facility] as required by CLIA '88. The FDA hasdetermined that approval for specific use is not necessary for clinicaluse. The quality of Hematoxylin and Eosin stains and as applicable, forall immunohistochemical and/or special stains, including positive andnegative contro ls, were reviewed and considered appropriate.ICD codes E66.01 K76.0CPT codesA: 92073J, 26903B, 96369H, 23741U, 72135C Name Value Range Interpretation Code Description Data Jeannette rce(s) Supporting Document(s) ID Date Data Source [id number] 10/21/2020 09:15:00 AM EDT [facility] Name Value Range Interpretation Code Description Data Jeannette rce(s) Supporting Document(s) SARS-CoV-2 (COVID-19) RNA [Presence] in Respiratory specimen by KSENIA with probe detection Not Detected [facility] This lab was ordered by [facility] and reported by [employer] ID Date Data Source [id number] 10/18/2020 09:20:00 AM EDT [facility] Name Value Range Interpretation Code Description Data Jeannette rce(s) Supporting Document(s) SARS coronavirus 2 RNA Not Detected [facility] This lab was ordered by [facility] and reported by [employer]. ID Date Data Source [id number] 10/19/2020 12:09:02 PM EDT [facility] Name Value Range Interpretation Code Description Data Jeannette rce(s) Supporting Document(s) SARS-COV-2 KSENIA [facility] Not DetectedReference range: Not Detecte d This nucleic acid amplification test was developed and its performance characteristics determined by [employer]. Nucleic acid amplification tests include RT-PCR and [...] detected) result in this assay. Performed At: [facility] [place], [place] [id number] Keegan Cook PhD Ph:[phone] ID Date Data Source [id number] 10/14/2020 08:31:00 AM EDT [facility] Name Value Range Interpretation Code Description Data Jeannette rce(s) Supporting Document(s) SARS-CoV-2 (COVID-19) RNA [Presence] in Respiratory specimen by KSENIA with probe detection Not Detected [facility] This lab was ordered by [facility] and reported by [employer]. ID Date Data Source [id number] 10/09/2020 02:05:02 PM EDT [facility] Name Value Range Interpretation Code Description Data Jeannette rce(s) Supporting Document(s) EKG [facility] [id number] jb2 [file] 9WeHf+BUILDING ARCHITECT+e3+[id number]/[id number]+[id number] [file] [id number]== ID Date Data Source [id number] 10/09/2020 06:31:24 PM EDT [facility] [place] [facility] SPEC EXP DATE 10/24/2020ATI ENT ABO/Rh O POSITIVEANTIBODY SCREEN NEGATIVETESTING SITE PERFORMED AT [address] [place] [address] Name Value Range Interpretation Code Description Data Jeannette rce(s) Supporting Document(s) TYPE AND SCREEN [facility] [place] [facility] ANTIBODY SCREEN NEGATIVE ID Date Data Source [id number] 10/09/2020 06:30:24 PM EDT [facility] [place] [facility] Name Value Range Interpretation Code Description Data Jeannette rce(s) Supporting Document(s) HEMOGLOBIN A1C @ 5.2 % (4.0-6.0) [facility] [place] [facility] Performed using [employer] [place] immunoassa y.Care must be taken when interpreting [id number] in patients with a hemoglobin variantor decreased erythrocyte lifespan. Values 5.7 - 6.4% suggest prediabetes.Values >=6.5% are diagnostic for diabetes.REFERENCE: DIABETES CARE 2018: 41(S13-S27). EST AVERAGE GLUCOSE 103 mg/dL [facility] ID Date Data Source [id number] 10/09/2020 06:19:42 PM EDT [facility] [place] [facility] Name Value Range Interpretation Code Description Data Jeannette rce(s) Supporting Document(s) SODIUM 140 mmol/L (136-145) [facility] [place] [facility] POTASSIUM 4.2 mmol/L (3.6-5.2) [facility] [place] [facility] CHLORIDE 112 mmol/L (100-108) H [facility] [place] [facility] CO2 20 mmol/L (22-31) L [facility] [place] [facility] ANION GAP 8 mmol/L (7-16) [facility] [place] [facility] UREA NITROGEN 12 mg/dL (7-24) [facility] [place] [facility] CREATININE 0.83 mg/dL (0.60-1.00) [facility] [place] [facility] BUN/CREAT RATIO 14.5 RATIO (10.0-20.0) [facility] GLUCOSE 86 mg/dL (70-99) [facility] [place] [facility] CALCIUM 8.6 mg/dL (8.4-10.2) [facility] [place] [facility] TOTAL PROTEIN 7.1 g/dL (6.4-8.2) [facility] [place] [facility] ALBUMIN 3.5 g/dL (3.5-4.6) [facility] [place] [facility] GLOBULIN 3.6 g/dL (2.7-4.3) [facility] [place] [facility] ALB/GLOB RATIO 1.0 RATIO [facility] [place] [facility] ALKALINE PHOSPHATASE 121 U/L (45-117) H [facility] BILIRUBIN,TOTAL 0.3 mg/dL (0.0-1.0) [facility] [place] [facility] PLEASE NOTE:Total bilirubin results may be falselyelevated in patients taking Eltrombopag. AST (SGOT) 15 U/L (11-39) [facility] [place] [facility] ALT (SGPT) 26 U/L (12-78) [facility] [place] [facility] GFR >60 ml/min/1.73m2 (>59) [facility] [place] [facility] GFR ( AMER) >60 ml/min/1.73m2 (>59) [facility] [place] [facility] GFR INTERPRETATION [facility] --NORMAL KIDNEY FUNCTION OR MILD DISEASE - GFR >OR= 60CHRONIC KIDNEY DISEASE - GFR 15 - 59RENAL FAILURE - GFR <15 Est. GFR calculation based on the MDRDstudy equation, which assumes a steadystate for creatinine. Est. GFR should notbe used for medication dosing. ID Date Data Source [id number] 10/09/2020 06:19:42 PM EDT [facility] [place] [facility] Name Value Range Interpretation Code Description Data Jeannette rce(s) Supporting Document(s) TSH,ULTRASENSITIVE @ 0.435 mIU/L (0.360-4.170) [facility] [place] [facility] ID Date Data Source [id number] 10/09/2020 05:25:59 PM EDT [facility] [place] [facility] Name Value Range Interpretation Code Description Data Jeannette rce(s) Supporting Document(s) WBC 11.9 10*3/uL (4.1-11.0) H [facility] [place] [facility] RBC 5.48 10*6/uL (4.00-5.40) H [facility] [place] [facility] HGB 13.5 g/dL (12.0-16.0) [facility] [place] [facility] HCT 41.8 % (36.0-47.0) [facility] [place] [facility] MCV 76.3 fL (80.0-95.0) L [facility] [place] [facility] MCH 24.7 pg (27.0-32.0) L [facility] [place] [facility] MCHC 32.3 g/dL (32.0-36.0) [facility] [place] [facility] RDW 15.8 % (10.5-14.5) H [facility] [place] [facility] PLT 352 10*3/uL (150-450) Lab [facility] MPV 8.2 fL (7.1-10.7) [facility] [place] [facility] PABLOY ID Date Data Source [id number] 10/09/2020 01:29:28 PM EDT [facility] NT INFORMATIONPatient MRN Name Date of Age Gend*PT [id number] Corie Love 1985 35 years F OPPT Location Admission Date/Time Visit ID Attending Provider --- --- --- Cristobal Peña MD([id number]) EPI ID CSN Admitting Provider [id number] Cristobal Peña MD([id number])HISTORY PHYSICALName: Corie Love : 1985 Sex: female [...] warm and dry.HEENT: She is normocephalic, atraumatic. Elroy conjunctivae. Anicteric sclerae.Pupils are equal, round, reactive [...] patosplenomegaly. Negative CVAT.GENITAL/RECTAL: Deferred.MUSCLE/SKELETAL: Strength is 5/5. Fibre Composite Technician are equal.NEUROLOGICALLY: Cranial nerves II through XII [...] parts of this document, were dictated using Via software. A reas onable attempt at proofreading has beenmade to minimize errors. Please call with any questions or corrections. Name Value Range Interpretation Code Description Data Jeannette rce(s) Supporting Document(s) ID Date Data Source [id number] 10/07/2020 01:15:00 PM EDT [facility] Name Value Range Interpretation Code Description Data Jeannette rce(s) Supporting Document(s) SARS-CoV-2 (COVID-19) RNA [Presence] in Respiratory specimen by KSENIA with probe detection Not Detected [facility] This lab was ordered by [facility] and reported by [employer]. ID Date Data Source [id number] 09/30/2020 07:56:00 AM EDT [facility] Name Value Range Interpretation Code Description Data Jeannette rce(s) Supporting Document(s) SARS-CoV-2 (COVID-19) RNA [Presence] in Respiratory specimen by KSENIA with probe detection Not Detected [facility] This lab was ordered by [facility] and reported by [employer] ID Date Data Source [id number] 09/30/2020 12:00:00 AM EDT [facility] Name Value Range Interpretation Code Description Data Jeannette rce(s) Supporting Document(s) SARS coronavirus 2 Ag Negative [facility] This lab was ordered by [facility] and reported by [facility]. ID Date Data Source [id number] 09/23/2020 10:00:00 AM EDT [facility] Name Value Range Interpretation Code Description Data Jeannette rce(s) Supporting Document(s) SARS coronavirus 2 RNA Not Detected [facility] This lab was ordered by [facility] and reported by [employer]. ID Date Data Source [id number] 09/19/2020 12:00:00 AM EDT [facility] Name Value Range Interpretation Code Description Data Jeannette rce(s) Supporting Document(s) SARS coronavirus 2 Ag Negative [facility] This lab was ordered by [facility] and reported by [facility]. ID Date Data Source [id number] 09/16/2020 12:00:00 AM EDT [facility] Name Value Range Interpretation Code Description Data Jeannette rce(s) Supporting Document(s) SARS coronavirus 2 Ag Negative [facility] This lab was ordered by [facility] and reported by [facility]. ID Date Data Source [id number] 08/22/2020 12:00:00 AM EST [facility] Name Value Range Interpretation Code Description Data Jeannette rce(s) Supporting Document(s) SARS coronavirus 2 Ag Negative [facility] This lab was ordered by [facility] and reported by [facility]. ID Date Data Source [id number] 08/19/2020 12:00:00 AM EST [facility] Name Value Range Interpretation Code Description Data Jeannette rce(s) Supporting Document(s) SARS coronavirus 2 Ag Negative [facility] This lab was ordered by Daron Simon and reported by [facility]. ID Date Data Source [id number] 08/19/2020 04:33:17 PM EST [facility] LABORATORY [address] [address]Ogm# Surgical Pathology ReportPatient Name: CORIE LOVE: 1985Accession [...] 08/19/2020Electronically Signed Out By Feliciano Parker MD [facility] [place] [id number] component performed [facility], [facility], [address] [place] [address], [address].Reported at [facility], [address] [place] [address], [address]. This report may includeimmunohistochemical or in-situ hybridization results. Testing wasdeveloped and the performance characteristics determined by [facility] as required by CLIA '88. The FDA hasdetermined that approval for specific use is not necessary for clinicaluse. The quality of Hematoxylin and Eosin stains and as applicable, forall immu nohistochemical and/or special stains, including positive andnegative controls, were reviewed and considered appropriate.ICD codes K21.9 K29.30CPT codesA: 62212D, 98788b Name Value Range Interpretation Code Description Data Jeannette rce(s) Supporting Document(s) ID Date Data Source [id number] 08/18/2020 11:19:49 AM EST [facility] NT INFORMATIONPatient MRN Name Date of Age Gend*PT [id number] Corie Love 1985 35 years F OPPT Location Admission Date/Time [facility] --- Hieu Ibrahim MD([id number]) EPI ID CSN Admitting Provider [id number] Hieu Ibrahim MD([id number])Endoscopic Gastroduodenoscopy Procedure NotePatient: Corie Green LolarSurgery Date: [...] rce(s) Supporting Document(s) ID Date Data Source [id number] 08/18/2020 11:19:[address] [facility] NT INFORMATIONPatient MRN Name Date of Age Gend*PT [id number] dominguez [facility] 1985 35 years F OPPT Location Admission Date/Time Visit ID Attending [facility] 08/18/20 1003 --- Hieu Ibrahim MD([id number]) EPI ID CSN Admitting Provider [id number] Hieu Ibrahim MD([id number])H&P reviewed. The patient was examined and there are no changes to the H&P.Hieu Ibrahim MD11:19 AM Name Value Range Interpretation Code Description Data Jeannette rce(s) Supporting Document(s) ID Date Data Source [id number] 08/18/2020 11:19:[address] [facility] NT INFORMATIONPatient MRN Name Date of Age Gend*PT [id number] Corie Love 1985 35 years F OPPT Location Admission Date/Time Visit ID Attending [facility] 08/18/20 1003 --- Hieu Ibrahim MD([id number]) EPI ID CSN Admitting Provider [id number] Hieu Ibrahim MD([id number])Pre-Procedure History and Physical:Past Medical History:Diagnosis Date AsthmaPast [...] rce(s) Supporting Document(s) ID Date Data Source [id number] 08/18/2020 12:04:42 PM EST Lab [facility] Name Value Range Interpretation Code Description Data Jeannette rce(s) Supporting Document(s) POC BHCG [facility] <5.0 IU/L [facility] INTERPRETATION:<5.0 NEGATIVE5.0- 25.0 INDETERMINATE>25.0 POSITIVELEVELS BETWEEN 5 AND 25 IU/L MAY INDICATEEARLY AND SHOULD BE REPEATED QUANG BLOOD SAMPLE AFTER 48 HOURS.PERFORMED BY [facility] CLINICAL STAFF ID Date Data Source [id number] 08/13/2020 06:24:00 AM EST [facility] Name Value Range Interpretation Code Description Data Jeannette rce(s) Supporting Document(s) SARS coronavirus 2 RNA Not Detected [facility] This lab was ordered by [facility] and reported by [employer]. ID Date Data Source [id number] 08/14/2020 03:09:05 PM EST [facility] Name Value Range Interpretation Code Description Data Jeannette rce(s) Supporting Document(s) SARS-COV-2 KSENIA [facility] Not DetectedReference range: Not Detecte d This nucleic acid amplification test was developed and its performance characteristics determined by [employer]. Nucleic acid amplification tests include RT-PCR and [...] detected) result in this assay. Performed At: [facility] [address] [place], [place] [id number] Keegan Cook PhD Ph:[phone] ID Date Data Source [id number] 08/12/2020 05:47:00 AM EST [facility] Name Value Range Interpretation Code Description Data Jeannette rce(s) Supporting Document(s) SARS coronavirus 2 RNA Not Detected [facility] This lab was ordered by [facility] and reported by [employer]. ID Date Data Source [id number] 08/05/2020 08:30:00 AM EST [facility] Name Value Range Interpretation Code Description Data Jeannette rce(s) Supporting Document(s) SARS coronavirus 2 RNA Not Detected [facility] This lab was ordered by [facility] and reported by [facility]. ID Date Data Source [id number] 07/29/2020 12:00:00 PM EST [facility] Name Value Range Interpretation Code Description Data Jeannette rce(s) Supporting Document(s) SARS coronavirus 2 RNA Not Detected [facility] This lab was ordered by [facility] and reported by [facility]. ID Date Data Source [id number] 07/22/2020 01:38:00 PM EST [facility] Name Value Range Interpretation Code Description Data Jeannette rce(s) Supporting Document(s) SARS coronavirus 2 RNA Not Detected [facility] This lab was ordered by [facility] and reported by [facility]. ID Date Data Source [id number] 2020 11:30:00 AM EST [facility] Name Value Range Interpretation Code Description Data Jeannette rce(s) Supporting Document(s) SARS coronavirus 2 RNA Not Detected [facility] This lab was ordered by [facility] and reported by [facility]. ID Date Data Source [id number] 07/08/2020 08:00:00 AM EST [facility] Name Value Range Interpretation Code Description Data Jeannette rce(s) Supporting Document(s) SARS coronavirus 2 RNA Not Detected [facility] This lab was ordered by [facility] and reported by [facility]. ID Date Data Source [id number] 07/01/2020 08:36:00 AM EST [facility] Name Value Range Interpretation Code Description Data Jeannette rce(s) Supporting Document(s) SARS coronavirus 2 RNA [facility] This lab was ordered by [facility] and reported by [facility]. ID Date Data Source [id number] 06/30/2020 12:00:00 AM EST [facility] Name Value Range Interpretation Code Description Data Jeannette rce(s) Supporting Document(s) SARS-CoV2 Rapid Antigen [facility] This lab was ordered by [facility] and reported by [facility]. ID Date Data Source [id number] 06/19/2020 12:00:00 AM EST [facility] Name Value Range Interpretation Code Description Data Jeannette rce(s) Supporting Document(s) SARS-CoV2 Rapid Antigen [facility] This lab was ordered by [facility] and reported by [facility]. ID Date Data Source [id number] 06/17/2020 09:15:00 AM EST [facility] Name Value Range Interpretation Code Description Data Jeannette rce(s) Supporting Document(s) SARS coronavirus 2 RNA [facility] This lab was ordered by [facility] and reported by [facility]. ID Date Data Source [id number] 06/10/2020 09:00:00 AM EST [facility] Name Value Range Interpretation Code Description Data Jeannette rce(s) Supporting Document(s) SARS coronavirus 2 RNA [facility] This lab was ordered by [facility] and reported by [facility]. ID Date Data Source [id number] 06/03/2020 05:32:00 AM EST [facility] Name Value Range Interpretation Code Description Data Jeannette rce(s) Supporting Document(s) SARS coronavirus 2 RNA [facility] This lab was ordered by [facility] and reported by [facility]. ID Date Data Source [id number] 05/27/2020 09:00:00 AM EST [facility] Name Value Range Interpretation Code Description Data Jeannette rce(s) Supporting Document(s) SARS coronavirus 2 RNA [facility] This lab was ordered by [facility] and reported by [facility]. ID Date Data Source [id number] 05/20/2020 08:00:00 AM EST [facility] Name Value Range Interpretation Code Description Data Jeannette rce(s) Supporting Document(s) SARS coronavirus 2 RNA [facility] This lab was ordered by [facility] and reported by [facility]. ID Date Data Source [id number] 05/13/2020 09:00:00 AM EST [facility] Name Value Range Interpretation Code Description Data Jeannette rce(s) Supporting Document(s) SARS coronavirus 2 RNA [facility] This lab was ordered by [facility] and reported by [facility]. ID Date Data Source [id number] 05/08/2020 08:21:05 PM EST [facility] Name Value Range Interpretation Code Description Data Jeannette rce(s) Supporting Document(s) TSH,ULTRASENSITIVE @ 0.826 mIU/L (0.360-4.170) Laboratory [facility] ID Date Data Source [id number] 05/08/2020 07:59:14 PM EST [facility] Name Value Range Interpretation Code Description Data Jeannette rce(s) Supporting Document(s) HEMOGLOBIN A1C @ 5.9 % (4.0-6.0) [facility] Performed using [employer] [place] immunoassa y.Care must be taken when interpreting [id number] in patients with a hemoglobin variantor decreased erythrocyte lifespan. Values 5.7 - 6.4% suggest prediabetes.Values >=6.5% are diagnostic for diabetes.REFERENCE: DIABETES CARE 2018: 41(S13-S27). EST AVERAGE GLUCOSE 123 mg/dL [facility] [place] [facility] ID Date Data Source [id number] 05/06/2020 09:20:00 AM EST [facility] Name Value Range Interpretation Code Description Data Jeannette rce(s) Supporting Document(s) SARS coronavirus 2 RNA [facility] This lab was ordered by [facility] and reported by [facility]. ID Date Data Source [id number] 04/29/2020 07:30:00 AM EDT [facility] Name Value Range Interpretation Code Description Data Jeannette rce(s) Supporting Document(s) SARS coronavirus 2 RNA [facility] This lab was ordered by [facility] and reported by [facility]. ID Date Data Source [id number] 04/22/2020 07:55:00 AM EDT [facility] Name Value Range Interpretation Code Description Data Jeannette rce(s) Supporting Document(s) SARS coronavirus 2 RNA [facility] This lab was ordered by [facility] and reported by [facility]. ID Date Data Source [id number] 04/15/2020 07:00:00 AM EDT [facility] Name Value Range Interpretation Code Description Data Jeannette rce(s) Supporting Document(s) SARS coronavirus 2 RNA [facility] This lab was ordered by [facility] and reported by [facility]. ID Date Data Source [id number] 04/08/2020 08:00:00 AM EDT [facility] Name Value Range Interpretation Code Description Data Jeannette rce(s) Supporting Document(s) SARS coronavirus 2 RNA [facility] This lab was ordered by [facility] and reported by [facility]. ID Date Data Source [id number] 04/01/2020 07:00:00 AM EDT [facility] Name Value Range Interpretation Code Description Data Jeannette rce(s) Supporting Document(s) SARS coronavirus 2 RNA [facility] This lab was ordered by [facility] and reported by [facility]. ID Date Data Source [id number] 03/25/2020 08:02:00 AM EDT [facility] Name Value Range Interpretation Code Description Data Jeannette rce(s) Supporting Document(s) SARS coronavirus 2 RNA [facility] This lab was ordered by [facility] and reported by [facility]. ID Date Data Source [id number] 03/18/2020 08:00:00 AM EDT [facility] Name Value Range Interpretation Code Description Data Jeannette rce(s) Supporting Document(s) SARS coronavirus 2 RNA [facility] This lab was ordered by [facility] and reported by [facility]. Procedure Social History Code Duration Value Status Description Data Source(s ) Smoking 05/01/2021 12:00:00 AM EDT Patient is a former smoker completed Patient is a former smoker [facility] ([facility]) Alcohol intake 10/23/2020 12:00:00 AM EDT Current drinker of al cohol (finding) completed Current drinker of alcohol (finding) [facility] Alcohol intake 10/09/2020 12:00:00 AM EDT Yes completed [facility] Cigarette pack-years 10/09/2020 12:00:00 AM EDT UNK completed [facility] Cigarettes smoked current (pack per day) - Reported 10/10/19 12:00:00 AM EDT UNK completed [facility] Smoking 10/09/2020 12:00:00 AM EDT Current every day smoker co mpleted Current every day smoker [facility] Tobacco use and exposure 08/18/2020 12:00:00 AM EST Never used co mpleted Never used [facility] Cigarette pack-years 08/18/2020 12:00:00 AM EST UNK completed [facility] Cigarettes smoked current (pack per day) - Reported 08/18/19 12:00:00 AM EST UNK completed [facility] Smoking 08/18/2020 12:00:00 AM EST Current every day smoker co mpleted Current every day smoker [facility] Alcohol intake 08/18/2020 12:00:00 AM EST Not Currently completed [facility] Cigarettes smoked current (pack per day) - Reported 08/18/19 12:00:00 AM EST UNK completed [facility] Smoking 08/18/2020 12:00:00 AM EST Current every day smoker co mpleted Current every day smoker [facility] Vital Signs ID Date Data Source UNK Name Value Range Interpretation Code Description Data Source(s) Body weight 220.00 [lb_av] 220.00 [lb_av] [facility] T ([facility]) Body height 66 [in_i] 66 [in_i] [facility] 5'6" Body mass index (BMI) [Ratio] 35.5 kg/m2 35.5 k g/m2 [facility] ([facility]) Heart rate 48 /min 48 /min [facility] ([facility]) Systolic blood pressure--sitting 113 mm[Hg] 113 mm[Hg] [facility] ([facility]) Omron large cuff, Ra Diastolic blood pressure--sitting 72 mm[Hg] 72 mm[Hg] [facility] ([facility]) Omron large cuff, Ra Body height 67 [in_i] 67 [in_i] [facility] ([facility]) 5'7" Systolic blood pressure 130 mm[Hg] 130 mm[Hg] M EDENT ([facility]) Diastolic blood pressure 78 mm[Hg] 78 mm[Hg] [facility] ([facility]) Body surface area Derived from formula 2.11 m2 2.11 m2 [facility] ([facility]) Heart rate 75 /min 75 /min [facility] ([facility]) Oxygen saturation in Arterial blood by Pulse oximetry 100 % 100 % [facility] ([facility]) Body weight 220.25 [lb_av] 220.25 [lb_av] [facility] T ([facility]) Body weight 99.905 kg 99.905 kg [facility] ([facility]) Body mass index (BMI) [Ratio] 34.5 kg/m2 34.5 k g/m2 [facility] ([facility]) Diastolic blood pressure 72 mm[Hg] 72 mm[Hg] [facility] ([facility]) Body weight 218.12 [lb_av] 218.12 [lb_av] [facility] T ([facility]) Body weight 98.942 kg 98.942 kg [facility] ([facility]) Systolic blood pressure 110 mm[Hg] 110 mm[Hg] M [facility] ([facility]) Heart rate 60 /min 60 /min [facility] ([facility]) Respiratory rate 16 /min 16 /min [facility] ( [facility]) Oxygen saturation in Arterial blood by Pulse oximetry 99 % 99 % [facility] ([facility]) Body height 67 [in_i] 67 [in_i] [facility] ([facility]) 5'7" Body mass index (BMI) [Ratio] 34.2 kg/m2 34.2 k g/m2 [facility] ([facility]) Body surface area Derived from formula 2.10 m2 2.10 m2 [facility] Oxygen saturation in Arterial blood by Pulse oximetry 99 % 99 % [facility] ([facility]) Body weight 217.00 [lb_av] 217.00 [lb_av] [facility] T ([facility]) Body weight 98.431 kg 98.431 kg [facility] ([facility]) Body temperature 97.3 [degF] 97.3 [degF] [facility] ([facility]) Respiratory rate 16 /min 16 /min [facility] ( [facility]) Body surface area Derived from formula 2.09 m2 2.09 m2 [facility] ([facility]) Systolic blood pressure 106 mm[Hg] 106 mm[Hg] M [facility] ([facility]) Diastolic blood pressure 60 mm[Hg] 60 mm[Hg] [facility] ([facility]) Heart rate 58 /min 58 /min [facility] ([facility]) Body height 67 [in_i] 67 [in_i] [facility] ([facility]) 5'7" Body mass index (BMI) [Ratio] 34.0 kg/m2 34.0 k g/m2 [facility] ([facility]) Body temperature 98.2 [degF] 98.2 [degF] [facility] ([facility]) Respiratory rate 16 /min 16 /min [facility] ( [facility]) Oxygen saturation in Arterial blood by Pulse oximetry 98 % 98 % [facility] ([facility]) Heart rate 63 /min 63 /min [facility] ([facility]) Body weight 221.00 [lb_av] 221.00 [lb_av] [facility] T ([facility]) Body weight 100.246 kg 100.246 kg [facility] ([facility]) Body height 67 [in_i] 67 [in_i] [facility] ([facility]) 5'7" Body mass index (BMI) [Ratio] 34.6 kg/m2 34.6 k g/m2 [facility] ([facility]) Body surface area Derived from formula 2.11 m2 2.11 m2 [facility] ([facility]) Systolic blood pressure 120 mm[Hg] 120 mm[Hg] M [facility] ([facility]) Diastolic blood pressure 72 mm[Hg] 72 mm[Hg] [facility] ([facility]) Systolic blood pressure 122 mm[Hg] 122 mm[Hg] [facility] Diastolic blood pressure 83 mm[Hg] 83 mm[Hg] [facility] Heart rate 54 /min 54 /min [facility] Body temperature 36.56 Allison 36.56 Allison [facility] Respiratory rate 18 /min 18 /min [facility] Oxygen saturation in Arterial blood by Pulse oximetry 99 % 99 % [facility] Body height 167.6 cm 167.6 cm [facility] Body weight 115.214 kg 115.214 kg [facility] Body mass index (BMI) [Ratio] 41.00 kg/m2 41.00 kg/m2 [facility] Systolic blood pressure 135 mm[Hg] 135 mm[Hg] [facility] Diastolic blood pressure 70 mm[Hg] 70 mm[Hg] [facility] Heart rate 85 /min 85 /min [facility] Respiratory rate 22 /min 22 /min [facility] Oxygen saturation in Arterial blood by Pulse oximetry 99 % 99 % [facility] Body height 167.6 cm 167.6 cm [facility] Body weight 119.659 kg 119.659 kg [facility] Body mass index (BMI) [Ratio] 42.58 kg/m2 42.58 kg/m2 [facility] Systolic blood pressure 139 mm[Hg] 139 mm[Hg] [facility] Diastolic blood pressure 96 mm[Hg] 96 mm[Hg] [facility] Heart rate 81 /min 81 /min [facility] Respiratory rate 18 /min 18 /min [facility] Oxygen saturation in Arterial blood by Pulse oximetry 99 % 99 % [facility] Body temperature 36.78 Allison 36.78 Allison [facility] Body height 167.6 cm 167.6 cm [facility] Body weight 123.378 kg 123.378 kg [facility] Body mass index (BMI) [Ratio] 43.90 kg/m2 43.90 kg/m2 [facility] Systolic blood pressure 139 mm[Hg] 139 mm[Hg] M EDENT ([facility]) Diastolic blood pressure 91 mm[Hg] 91 mm[Hg] [facility] ([facility]) Heart rate 91 /min 91 /min [facility] ([facility], [facility]) Respiratory rate 16 /min 16 /min [facility] ( [facility]) Oxygen saturation in Arterial blood by Pulse oximetry 98 % 98 % [facility] ([facility]) Body temperature 97.9 [degF] 97.9 [degF] [facility] ([facility]) Body weight 317.00 [lb_av] 317.00 [lb_av] [facility] T ([facility], [facility]) Body height 66 [in_i] 66 [in_i] [facility] ([facility]) 5'6" Body mass index (BMI) [Ratio] 51.2 kg/m2 51.2 k g/m2 [facility] ([facility]) Patient Treatment Plan of Care Planned Activity Planned Date Details Description Data Source (s) ondansetron (ZOFRAN-ODT) disintegrating tablet 8 mg 10/25/19 06:00:00 AM EDT [facility] metoclopramide (REGLAN) injection 10 mg 10/23/2020 05:07:20 PM EDT [facility] Prochlorperazine 10 MG Oral Tablet 10/23/2020 05:07:19 PM EDT [facility] Promethazine Hydrochloride 25 MG Oral Tablet 10/23/2020 05:07:19 PM EDT [facility] enalaprilat (VASOTEC) injection 1.25 mg 10/23/2020 05:07:18 PM EDT [facility] Simethicone 80 MG Chewable Tablet 10/23/2020 12:00:00 AM EDT [facility] Omeprazole 40 MG Delayed Release Oral Capsule 10/23/2020 12:00:00 A M EDT [facility] Vitamin B 12 0.5 MG Oral Tablet 10/23/2020 12:00:00 AM EDT [facility] Ondansetron 4 MG Disintegrating Oral Tablet 10/23/2020 12:00:00 AM EDT [facility] Magnesium Hydroxide 80 MG/ML Oral Suspension 10/23/2020 12:00:00 AM EDT [facility] 0.4 ML Enoxaparin sodium 100 MG/ML Prefilled Syringe 021 12:00:00 AM EDT [facility] Phentermine Hydrochloride 37.5 MG Oral Tablet [facility] topiramate 50 MG Oral Tablet [facility]
[2021-05-11] MEDS ORDERED: IRON65TA2 PO (23:21)
[2021-05-11] MEDS ORDERED: VITMTA PO (23:21)
[2021-05-11] MEDS ORDERED: BIOT1CAP2 PO (23:21)
== END 2021-05-11 16:42 | disposition left against medical advice (07) ==
LOC: M ED 11:31
DX: Z53.21 Procedure and treatment not carried out due to patient leaving prior to being seen by health care provider (principal)

== ENCOUNTER 2021-05-11 23:09 | Emergency (ER) | payer OTHER ==
[~2021-05-11] VITALS: Ht 167.6 cm; Wt 101.4 kg
[~2021-05-11 23:09] MED LIST changes: +OMEP-221 PO
--- OUTSIDE RECORDS SUMMARY | 2021-05-11 23:16 | CCD ---
Author Author [facility] Organization [facility] Address Unknown Phone Unavailable Care Team Providers Care Tapper Supervisor Name Role Phone Maring, Jacques PA Unavailable Unavailable Maring, Jacques PA Unavailable Unavailable Maring, Jacques PA Unavailable Unavailable Maring, Jacques PA Unavailable Unavailable Maring, Jacques PA Unavailable Unavailable Maring, Jacques PA Unavailable Unavailable Maring, Jacques PA Unavailable Unavailable Maring, Jacques PA Unavailable Unavailable Maring, Jacques PA Unavailable Unavailable Maring, Jacques PA Unavailable Unavailable Maring, Jacques PA Unavailable Unavailable Maring, Jaqcues PA Unavailable Unavailable Maring, Jacques PA Unavailable [...] Ibrahim MD Unavailable Unavailable LAROCK, J CRISTOBAL PLASTICS NURSE Unavailable Unavailable LAROCK, J CRISTOBAL PLASTICS NURSE Unavailable Unavailable LAROCK, J CRISTOBAL PLASTICS NURSE Unavailable Unavailable LAROCK, J CRISTOBAL PLASTICS NURSE Unavailable Unavailable LAROCK, J CRISTOBAL PLASTICS NURSE Unavailable Unavailable LAROCK, J CRISTOBAL PLASTICS NURSE Unavailable Unavailable LAROCK, J CRISTOBAL PLASTICS NURSE Unavailable Unavailable LAROCK, J CRISTOBAL PLASTICS NURSE Unavailable Unavailable LAROCK, J CRISTOBAL PLASTICS NURSE Unavailable Unavailable LAROCK, J CRISTOBAL PLASTICS NURSE Unavailable Unavailable LAROCK, J CRISTOBAL PLASTICS NURSE Unavailable Unavailable LAROCK, J CRISTOBAL PLASTICS NURSE Unavailable Unavailable LAROCK, J CRISTOBAL PLASTICS NURSE Unavailable Unavailable LAROCK, J CRISTOBAL PLASTICS NURSE Unavailable Unavailable LAROCK, J CRISTOBAL PLASTICS NURSE Unavailable Unavailable LAROCK, J CRISTOBAL PLASTICS NURSE Unavailable Unavailable LAROCK, J CRISTOBAL PLASTICS NURSE Unavailable Unavailable LAROCK, J CRISTOBAL PLASTICS NURSE Unavailable Unavailable LAROCK, J CRISTOBAL PLASTICS NURSE Unavailable Unavailable LAROCK, J CRISTOBAL PLASTICS NURSE Unavailable Unavailable LAROCK, J CRISTOBAL PLASTICS NURSE Unavailable Unavailable LAROCK, J CRISTOBAL PLASTICS NURSE Unavailable Unavailable Feola, T Jazmyne PA Unavailable [...] Unavailable Feola, T Jazmyne PA Unavailable Unavailable ABDULAZIZ BLAIR MD Unavailable Unavailable ABDULAZIZ BLAIR MD Unavailable Unavailable ABDULAZIZ BLAIR MD Unavailable Unavailable ABDULAZIZ BLAIR MD Unavailable Unavailable ABDULAZIZ BLAIR MD Unavailable Unavailable ABDULAZIZ BLAIR MD Unavailable Unavailable ABDULAZIZ BLAIR MD Unavailable Unavailable ABDULAZIZ BLAIR MD Unavailable Unavailable ABDULAZIZ BLAIR MD Unavailable Unavailable ABDULAZIZ BLAIR MD Unavailable Unavailable ABDULAZIZ BLAIR MD Unavailable Unavailable ABDULAZIZ BLAIR MD Unavailable Unavailable ABDULAZIZ BLAIR MD Unavailable Unavailable ABDULAZIZ BLAIR MD Unavailable Unavailable ABDULAZIZ BLAIR MD Unavailable Unavailable ABDULAZIZ BLAIR MD Unavailable Unavailable ABDULAZIZ BLAIR MD Unavailable Unavailable ABDULAZIZ BLAIR MD Unavailable Unavailable ABDULAZIZ BLAIR MD Unavailable Unavailable ABDULAZIZ BLAIR MD Unavailable Unavailable ABDULAZIZ BLAIR MD Unavailable Unavailable ABDULAZIZ BLAIR MD Unavailable Unavailable BLAIRABDULAZIZ TREJO MD Unavailable Unavailable ABDULAZIZ BLAIR MD Unavailable Unavailable ABDULAZIZ BLAIR MD Unavailable Unavailable ABDULAZIZ BLAIR MD Unavailable Unavailable ABDULAZIZ BLAIR MD Unavailable Unavailable ABDULAZIZ BLAIR MD Unavailable Unavailable ABDULAZIZ BLAIR MD Unavailable Unavailable ABDULZAIZ BLAIR MD Unavailable Unavailable ABDULAZIZ BLAIR MD Unavailable Unavailable ABDULAZIZ BLAIR MD Unavailable Unavailable ABDULAZIZ BLAIR MD Unavailable Unavailable ABDULAZIZ BLAIR MD Unavailable Unavailable ABDULAZIZ BLAIR MD Unavailable Unavailable ABDULAZIZ BLAIR MD Unavailable Unavailable BLAIRABDULAZIZ TREJO MD Unavailable Unavailable ABDULAZIZ BLAIR MD Unavailable Unavailable BLAIR ABDULAZIZ MD Unavailable [...] Unavailable BLAIR ABDULAZIZ MD Unavailable Unavailable BLAIRABDULAZIZ TRJEO MD Unavailable Unavailable BLAIR ABDULAZIZ MD Unavailable Unavailable BLAIRABDULAZIZ MD Unavailable Unavailable BLAIRABDULAZIZ MD Unavailable Unavailable BLAIRABDULAZIZ MD Unavailable Unavailable BLAIRABDULAZIZ TREJO MD Unavailable Unavailable BLAIR ABDULAZIZ MD Unavailable Unavailable BLAIRABDULAZIZ MD Unavailable Unavailable BLAIR ABDULAZIZ MD Unavailable Unavailable BLAIR ABDULAZIZ MD Unavailable Unavailable BLAIR ABDULAZIZ MD Unavailable Unavailable ROCK, AICHA URY PLASTICS NURSE Unavailable Unavailable ROCK, AICHA RUY PLASTICS NURSE Unavailable Unavailable ROCK, AICHA RUY PLASTICS NURSE Unavailable Unavailable ROCK, AICHA RUY PLASTICS NURSE Unavailable Unavailable ROCK, AICHA RUY PLASTICS NURSE Unavailable Unavailable ROCK, AICHA RUY PLASTICS NURSE Unavailable Unavailable ROCK, AICHA RUY PLASTICS NURSE Unavailable Unavailable ROCK, AICHA RUY PLASTICS NURSE Unavailable Unavailable ROCK, AICHA RUY PLASTICS NURSE Unavailable Unavailable ROCK, AICHA RUY PLASTICS NURSE Unavailable Unavailable ROCK, AICHA RUY PLASTICS NURSE Unavailable Unavailable ROCK, AICHA RUY PLASTICS NURSE Unavailable Unavailable ROCK, AICHA RUY PLASTICS NURSE Unavailable Unavailable ROCK, AICHA RUY PLASTICS NURSE Unavailable Unavailable ROCK, AICHA RUY PLASTICS NURSE Unavailable Unavailable ROCK, AICHA RUY PLASTICS NURSE Unavailable Unavailable ROCK, AICHA RUY PLASTICS NURSE Unavailable Unavailable ROCK, AICHA RUY PLASTICS NURSE Unavailable Unavailable ROCK, AICHA RUY PLASTICS NURSE Unavailable Unavailable ROCK, AICHA RUY PLASTICS NURSE Unavailable Unavailable ROCK, AICHA RUY PLASTICS NURSE Unavailable Unavailable ROCK, AICHA RUY PLASTICS NURSE Unavailable Unavailable ROCK, AICHA RUY PLASTICS NURSE Unavailable Unavailable Moses MOROCHO MD Unavailable Unavailable BAILEEMoses MD Unavailable Unavailable BAILEEMoses BENNY MD Unavailable Unavailable BAILEEMoses MD Unavailable Unavailable BAILEEMoses MD Unavailable Unavailable BAILEEMoses MD Unavailable Unavailable BAILEEMoses MD Unavailable Unavailable BAILEE F BENNY BA Unavailable Unavailable BAILEEMoses MD Unavailable Unavailable BAILEE F BENNY MD Unavailable Unavailable BAILEEMoses MD Unavailable Unavailable BAILEE F BENNY BA Unavailable Unavailable BAILEEMoses MD Unavailable Unavailable BAILEE F BENNY BA Unavailable Unavailable BAILEEMoses MD Unavailable Unavailable BAILEE F BENNY BA Unavailable Unavailable BAILEEMoses MD Unavailable Unavailable BAILEE F BENNY BA Unavailable [...] Marlene MCINTYRE MD Unavailable Unavailable ANTECOL, Marlene MCINTRYE MD Unavailable Unavailable ANTECOL, Marlene MCINTYRE MD [...] Unavailable Casey, Joey Jain MD Unavailable Unavailable Casye, Joey Jain MD Unavailable Unavailable Casey, A Cristobal BA Unavailable Unavailable Casey, A Cristobal BA Unavailable Unavailable Caesy, A Cristobal BA Unavailable Unavailable Casey, A [...] Casey, A Cristobal BA Unavailable Unavailable Casey, Joey Jain MD Unavailable Unavailable Casey, A Cristobal BA Unavailable Unavailable Casey, A Cristobal BA Unavailable Unavailable Casey, A Cristobal BA Unavailable Unavailable Casey, A Cristobal BA Unavailable Unavailable Casey, A Cristobal BA Unavailable Unavailable Casey, Joey Jain MD Unavailable Unavailable Casey, Joey Jain MD Unavailable Unavailable Casey, Joey Jain MD Unavailable Unavailable Casey, A Cristobal BA Unavailable Unavailable Casey, A Cristobal BA Unavailable Unavailable Casey, A Cristobal BA Unavailable Unavailable Casey, A Cristobal BA Unavailable Unavailable Casey, Joey Jain MD Unavailable Unavailable Casey, Joey Jain MD Unavailable Unavailable Casey, Joey Jain MD Unavailable Unavailable Casey, Joey Jain MD Unavailable Unavailable Casey, A Cristobal AB Unavailable Unavailable Casey, A Cristobal BA Unavailable Unavailable Casey, A Cristobal BA Unavailable Unavailable Casey, A Cristobal BA Unavailable Unavailable Casey, A Cristobal BA Unavailable Unavailable Casey, Joey Jain MD Unavailable Unavailable Casey, Joey Jain MD Unavailable Unavailable Casey, Joey Jain MD Unavailable Unavailable Casey, Joey Jain MD Unavailable Unavailable Casey, Joey Jain MD Unavailable Unavailable Csaey, Joey Jain MD Unavailable Unavailable Casey, Joey [...] Unavailable Casey, A Cristobal BA Unavailable Unavailable Macho, Landon Richard MD Unavailable Unavailable Macho, Landon Richard MD Unavailable Unavailable Pritchard, Landon [...] Unavailable Pritchard, Landon Richard MD Unavailable Unavailable Landon Pritchard MD Unavailable Unavailable Pritchard, Landon Richard MD Unavailable Unavailable Pritchard, Landon Richard MD Unavailable Unavailable Pritchard, Landon Richard MD Unavailable Unavailable Macho, Landon Richard MD Unavailable Unavailable Macho, Landon Richard MD Unavailable Unavailable Macho, Landon Richard MD Unavailable Unavailable Macho, Landon Richard MD Unavailable Unavailable Macho, Landon Richard MD Unavailable Unavailable Landon Pritchard MD Unavailable Unavailable Landon Pritchard MD Unavailable Unavailable Re-disclosure Warning The records [...] is protected by Article 27-F of the [facility] [place] Public Health law. If you continue you may have access to information: Regarding HIV / AIDS; Provided by facilities licensed or operated by the [facility] Office of Mental Health; or Provided by the [facility] Office for People With Developmental Disabilities. If such information is present, then the following [facility] mandated warning applies: This information has been [...] law may result in a fine or fdc sentence or both. A general authorization for the release of medical or other information is NOT sufficient authorization for further disc losure. Allergies and Adverse Reactions Type Description Substance Reaction Status Data Source(s ) No Known Drug Allergies No Known Drug Allergies [facility] No Known Environmental Allergies No Known Environmental Al lergies [facility] No Known Food Allergies No Known Food Allergies [facility] Family History Family Member Name Family Member Gender Family Member Status Date o f Status Description Data Source(s) Unknown Unknown Problem [facility] Unknown Female Problem [facility] ([facility]) Unknown Female Problem [facility] ([facility]) Unknown Female Problem [facility] ([facility]) Encounters Encounter Providers Location Date Indications Data Source(s ) Outpatient Attender: FRANCISCO JAVIER LAZCANO MD Main Office 05/01/2021 08:00:00 AM EDT [facility] ([facility]) Outpatient Attender: BENNY MOROCHO MD Family Practice 04/03 10:15:00 AM EDT [facility] Outpatient Attender: BENNY MOROCHO MDConsultant: ABDULAZIZ ROBERTSON MD 04/17/2021 10:09:00 AM EDT - 04/17/2021 10:09:00 AM EDT [facility] Outpatient Attender: RUY ROCK NP Family Practice 03/26/2021 03 :00:00 PM EDT [facility] ([facility]) Outpatient Attender: RUY ROCK NPConsultant: ABDULAZIZ BLAIR MD 03/26/2021 02:46:00 PM EDT - 03/26/2021 02:46:00 PM EDT [facility] Outpatient Attender: ABDULAZIZ BLAIR MDConsultant: ABDULAZIZ Garg MD 03/17/2021 09:40:00 AM EDT - 03/17/2021 09:40:00 AM EDT [facility] Outpatient Attender: ABDULAZIZ BLAIR MD Family Practice 03/05/2021 1 0:00:00 AM EDT [facility] ([facility]) Outpatient Attender: ABDULAZIZ BLAIR MDConsultant: ABDULAZIZ Garg MD 03/05/2021 09:37:00 AM EDT - 03/05/2021 09:37:00 AM EDT [facility] Outpatient Attender: RUY ROCK NP [facility] 02/05/2021 10 :30:00 AM EDT [facility] ([facility]) Outpatient Attender: RUY ROCK NPConsultant: ABDULAZIZ BLAIR MD 02/05/2021 10:03:00 AM EDT - 02/05/2021 10:03:00 AM EDT [facility] Outpatient Attender: CRISTOBAL LEONARD NP 10/04 12:30:12 PM EDT - 10/31/2020 12:37:04 PM EDT [facility] ([facility] ) Outpatient Attender: Jazmyne MANSFIELD 021 11:52:48 AM EDT - 10/28/2020 12:20:03 PM EDT [facility] ([facility] ) Outpatient Attender: Hilary Pritchard MD 0 10/18/2020 06:13:11 PM EDT - 10/18/2020 06:18:11 PM EDT [facility] ([facility]) Outpatient Admitter: Cristobal Peña MD MOB-MOB.PAT 10/02 12:00:00 AM EDT - 10/18/2020 09:51:01 AM EDT [facility] Outpatient Attender: Jacques MANSFIELD 10/17/19 11:55:48 AM EDT - 10/16/2020 12:29:35 PM EDT [facility] ([facility] ) Outpatient Attender: Cristobal Peña MDAdmitter: Cristobal mercer MD MOB-MOB.PAT 10/09/2020 12:45:58 PM EDT - 10/09/2020 01:38:04 PM EDT [facility] Inpatient Attender: Cristobal Peña MDAdmitter: Cristobal mercer MD [id number] 09/16/2020 03:54:20 PM EDT - 10/24/2020 01:52:00 PM EDT [facility] Patient discharged. Outpatient MOB-MOB.PAT 08/13/2020 09:50:11 AM EST [facility] Outpatient Attender: Hieu Ibrahim MDAdmit ter: Hieu Ibrahim MDReferrer: LYNDON GLYNN MD [id number] 06/30/2020 11:35:29 AM EST - 08/18/2020 11:53:00 AM EST [facility] Patient discharged. Outpatient Attender: MEHNAZ de la fuente 04/21/2020 08:00:00 AM EDT [facility] ([facility]) Medications Medication Brand Name Start Date Product Form Dose Route Admi nistrative Instructions Pharmacy Instructions Status Indications Reaction Description Data Source(s) Omeprazole 40 MG Delayed Release Oral Capsule Omeprazole 04/30/2021 12:00:00 AM EDT ORAL active [facility] Biotin 2.5 MG Oral Capsule Biotin 04/30/2021 12:00:00 AM EDT ORAL active [facility] ([facility]) Flintstones Complete 04/30/2021 12:00:00 AM EDT ORAL active [facility] ([facility]) ferrous sulfate 325 MG Oral Tablet Ferrous Sulfate 04/30/2021 12:00 :00 AM EDT ORAL active [facility] ([facility]) Clindamycin 300 MG Oral Capsule CLINDAMYCIN [...] saline flush 0.9 % injection 3 mL [id number] 10/24/2020 06:00:00 AM EDT 3 mL Intravenous active 3 mL , Intravenous, PROTOCOL, First dose on Tue10/24/20 at 0600, Post-op
Convert to saline lock after discontinuing D5LR IV.
[facility] Medication administered onsite lactated ringers bolus 1,000 mL [id number] 10/24/2020 06:00:00 AM EDT 1000 mL Intravenous completed 1,000 mL , Intravenous, Administer over 2 Hours, Once, On Tue10/24/20 at 0600, For 1 dose, Post-op [facility] Medication administered onsite ondansetron (ZOFRAN-ODT) disintegrating [...] at 0600, Post- op [Order 2 End] [facility] Medication administered onsite Acetaminophen 500 MG Oral Tablet acetaminophen (TYLENO L) tablet 1,000 mg acetaminophen (TYLENOL) tablet 1,000 mg 10/23/2020 11:00:00 PM EDT 1000 mg Oral active 1,000 mg, Oral , Every 8 hours, First dose on Tue10/23/20 at 2300, For 48 hours, Post-op [facility] Medication administered onsite gabapentin 300 MG Oral Capsule gabapentin (NEURONTIN) capsule 300 mg gabapentin (NEURONTIN) capsule 300 mg 10/23/2020 09:00:00 PM EDT 300 mg Oral active 300 mg, Oral, 3 times daily, First dose on Tue10/23/20 at 2100, Post-op [facility] Medication administered onsite Ondansetron 4 MG Disintegrating Oral Tab let ondansetron (ZOFRAN-ODT) disintegrating tablet 8 mg ondansetron (ZOFRAN-ODT) disintegrating tablet 8 mg 10/23/2020 09:00:00 PM EDT 8 mg Oral active 8 mg, Oral, Every 6 hours (scheduled), First dose on Tue10/23/20 at 2100, For 24 hours, Post-op [facility] Medication administered onsite Calcium Chloride 0.001 [...] saline lock in AM of POD #1.
[facility] Medication administered onsite Insulin Lispro 100 [...] 14 units >420 16 units, Call MD
[facility] Medication administered onsite Simethicone 80 MG Chewable Tablet simethicone (MYLICON ) chewable tablet 80 mg simethicone (MYLICON) chewable tablet 80 mg 10/23/2020 06:00:00 PM EDT 80 mg Oral active 80 mg, Oral, E very 4 hours (relative), First dose on Helen 10/23/20 at 1800, Post-op
Don't wake pt up at night
[facility] Medication administered onsite 1 ML Ketorolac Tromethamine 30 MG/ML Car tridge ketorolac (TORADOL) injection 30 mg ketorolac (TORADOL) injection 30 mg 10/23/2020 06:00:00 PM EDT 30 mg Intravenous completed Moderate to Severe Pain 30 mg, Intravenous, Every 6 hours (relative), First dose on Helen 10/23/20 at 1800, For 4 doses, Post-op [facility] Moderate to Severe Pain Medication administered onsite pantoprazole 40 MG Delayed Release Oral Tablet pantoprazole (PROTONIX) EC tablet 40 mg pantoprazole (PROTONIX) EC tablet 40 mg 10/23/2020 06:00:00 PM E DT 40 mg Oral active Stress Ulcer Prophylaxis 40 mg, Oral, Daily, Indications: Stress Ulcer Prophylaxis, First dose on Helen 10/23/20 at 1800, Post-op [facility] Stress Ulcer Prophylaxis Medication administered onsite heparin (porcine) injection 5,000 Units [id number] 10/24/19 06:00:00 PM EDT 5000 U Subcutaneous active 5,000 Units , Subcutaneous, Every 8 hours (relative), First dose on Helen 10/23/20 at 1800, Post-op
If platelet count is less than 100,000 or hematocrit is less than 30, or there is a 5 point decrease in hematocrit, do not give the dose and call physician/designee
[facility] Medication administered onsite metoclopramide (REGLAN) injection [...] hours PRN for nausea
[Order 2 End] [facility] Medication administered onsite Promethazine Hydrochloride 25 MG Oral Ta blet promethazine (PHENERGAN) tablet 12.5 mg promethazine (PHENERGAN) tablet 12.5 mg 10/23/2020 05:07:19 PM E DT 12.5 mg Oral active 12.5 mg, O ral, Every 4 hours PRN, nausea, Starting on Helen 10/23/20 at 1707, Post-op [facility] Medication administered onsite Prochlorperazine 10 MG Oral Tablet prochlorperazine (C OMPAZINE) tablet 10 mg prochlorperazine (COMPAZINE) tablet 10 mg 10/23/2020 05:07:19 PM EDT 10 mg Oral active 10 mg, Oral, E very 6 hours PRN, nausea, Starting on Helen 10/23/20 at 1707, Post-op [facility] Medication administered onsite enalaprilat (VASOTEC) injection 1.25 mg [id number] 10/24/19 05:07:18 PM EDT 1.25 mg Intravenous active 1.25 mg, Int ravenous, Every 6 hours PRN, for SBP > 140 mmHg and/or DBP > 90 mmHg, Starting on Helen 10/23/20 at 1707, Post- op
Mix in 50 mL NS, infuse over 30 minutes via infusion pump. For IVMB on NON-ICU units.
[facility] Medication administered onsite 0.4 ML Enoxaparin sodium 100 MG/ML Prefi lled Syringe enoxaparin (LOVENOX) syringe 40 mg enoxaparin (LOVENOX) syringe 40 mg 10/23/2020 05:07:18 PM EDT 40 mg Subcutaneous completed 40 mg, Subcutaneous, Before Discharge, DVT prophilaxis, Starting on Helen 10/23/20 at 1707, For 1 dose, Post-op
At discharge. To be administered by patient or significant other.
[facility] Medication administered onsite Insulin Lispro 100 [...] 14 units >420 16 units, Call MD
[facility] Medication administered onsite Insulin Glargine 100 UNT/ML Injectable S olution [Lantus] insulin glargine (LANTUS) injection 20 Units insulin glargine (LANTUS) injection 20 Units 10/23/2020 05:00:00 PM EDT 20 U Subcutaneous complete d 20 Units, Subcutaneous, Once, On Helen 10/23/20 at 1700, For 1 dose, PACU (only) [facility] Medication administered onsite Calcium Chloride 0.0014 MEQ/ML / Potassi um Chloride 0.004 MEQ/ML / Sodium Chloride 0.103 MEQ/ML / Sodium Lactate 0.028 MEQ/ML Injectable Solution lactated ringers infusion lactated ringers infusion 10/23/2020 01:00:00 PM EDT Intravenous active at 100 mL/hr, Intravenous, Continuous, Starting on Helen 10/23/20 at 1300, PACU (only) [facility] Medication administered onsite Albuterol 0.83 MG/ML Inhalant Solution a lbuterol (PROVENTIL) nebulizer solution 2.5 mg albuterol (PROVENTIL) nebulizer solution 2.5 mg 2020 12:00:00 PM EDT 2.5 mg completed 2.5 mg , Nebulization, call center trainer, On Helen 10/23/20 at 1200, For 1 dose, Pre-op
To be started by pre-op unit
[facility] Medication administered onsite Calcium Chloride 0.0014 MEQ/ML / Potassi um Chloride 0.004 MEQ/ML / Sodium Chloride 0.103 MEQ/ML / Sodium Lactate 0.028 MEQ/ML Injectable Solution lactated ringers infusion lactated ringers infusion 10/23/2020 12:00:00 PM EDT 100 mL/h Intravenous active at 100 m L/hr, 100 mL/hr, Intravenous, Continuous, Starting on Helen 10/23/20 at 1200, Pre-op
Please place IV on left side if able
[facility] Medication administered onsite Dexamethasone 4 MG Oral Tablet dexamethasone (DECADRON ) tablet 4 mg dexamethasone (DECADRON) tablet 4 mg 10/23/2020 12:00:00 PM EDT 4 mg Oral completed 4 mg, Oral, call center trainer, On Helen 10/23 at 1200, For 1 dose, Pre-op [facility] Medication administered onsite gabapentin 600 MG Oral Tablet gabapentin (NEURONTIN) t ablet 600 mg gabapentin (NEURONTIN) tablet 600 mg 10/23/2020 12:00:00 PM EDT 600 mg Oral completed 600 mg, Oral, On rinku l, On Helen 10/23/20 at 1200, For 1 dose, Pre-op
Hold if age greater than 70 or chronic renal failure/insufficiency
[facility] Medication administered onsite heparin (porcine) injection 5,000 Units [id number] 10/24/19 12:00:00 PM EDT 5000 U Subcutaneous completed 5,000 Uni ts, Subcutaneous, call center trainer, On Helen 10/23/20 at 1200, For 1 dose, Pre-op
If platelet count is less than 100,000 or hematocrit is less than 25, or if there is a 5 point decrease in hematocrit, do not give the dose and call physician/designee.
[facility] Medication administered onsite Prochlorperazine 10 MG Oral Tablet prochlorperazine (C OMPAZINE) tablet 10 mg prochlorperazine (COMPAZINE) tablet 10 mg 10/23/2020 12:00:00 PM EDT 10 mg Oral completed 10 mg, Oral, O n call, On Helen 10/23/20 at 1200, For 1 dose, Pre-op [facility] Medication administered onsite Tetrahydrocannabinol 2.5 MG Oral Capsule dronabinol (M ARINOL) capsule 5 mg dronabinol (MARINOL) capsule 5 mg 10/23/2020 12:00:00 PM EDT 5 mg Oral completed 5 mg, Oral, call center trainer, On 10/23 at 1200, For 1 dose, Pre-op [facility] Medication administered onsite celecoxib 100 MG Oral Capsule celecoxib (CeleBREX) cap esa 200 mg celecoxib (CeleBREX) capsule 200 mg 10/23/2020 12:00:00 PM EDT 200 mg Oral completed 200 mg, Oral, call center trainer, On Tue at 1200, For 1 dose, Pre-op [facility] Medication administered onsite Acetaminophen 325 MG Oral Tablet acetaminophen (TYLENO L) 325 MG tablet 975 mg acetaminophen (TYLENOL) 325 MG tablet 975 mg 10/23/2020 12:00:00 PM EDT 975 mg Oral completed 975 mg, Or al, call center trainer, On Helen 10/23/20 at 1200, For 1 dose, Pre-op
"Maximum dose of acetaminophen is 4,000 mg from all sources in 24 hours."
[facility] Medication administered onsite Clonidine Hydrochloride 0.1 MG Oral Tablet cloNIDine ( CATAPRES) tablet 0.1 mg cloNIDine (CATAPRES) tablet 0.1 mg 10/23/2020 12:00:00 PM EDT 0.1 mg Oral completed 0.1 mg, Oral, call center trainer, On Tue at 1200, For 1 dose, Pre-op [facility] Medication administered onsite Alprazolam 0.25 MG Oral Tablet ALPRAZolam (XANAX) tabl et 0.25 mg ALPRAZolam (XANAX) tablet 0.25 mg 10/23/2020 12:00:00 PM EDT 0.25 mg Oral completed 0.25 mg, Oral, call center trainer, On Tue10/23/20 a t 1200, For 1 dose, Pre-op [facility] Medication administered onsite scopolamine (TRANSDERM-SCOP) 1.5 MG (Bariatric only) 1 patch [id number] 10/23/2020 11:07:41 AM EDT 1 {patch} Transdermal aborted 1 patch, Transdermal, Administer over 24 Hours, Every 24 hours (relative), First dose on Tue10/23/20 at 1200, For 1 dose, Pre-op
Scopolamine patch applied behind ear. Hold for any of the followin+ yrs old, hx of glaucoma, hx of vertigo, dementia.
[facility] Medication administered onsite Simethicone 80 MG Chewable Tablet simethicone (MYLICON ) 80 MG chewable tablet simethicone (MYLICON) 80 MG chewable tablet 10/23/2020 12:00:00 AM EDT 80 mg Oral active Chew 1 tablet (80 mg total) every 6 (six) hours as needed for flatulence [facility] Omeprazole 40 MG Delayed Release Oral Ca psule omeprazole (PriLOSEC) 40 MG capsule omeprazole (PriLOSEC) 40 MG capsule 10/23/2020 12:00:00 AM EDT 40 mg Oral active Take 1 capsule (40 m g total) by mouth daily [facility] Vitamin B 12 0.5 MG Oral Tablet vitamin B-12 (CYANOCOB ALAMIN) 500 MCG tablet vitamin B-12 (CYANOCOBALAMIN) 500 MCG tablet 10/23/2020 12:00:00 AM EDT 500 ug Oral active Take 1 tablet (500 mcg t otal) by mouth daily [facility] Ondansetron 4 MG Disintegrating Oral Tab let ondansetron (ZOFRAN-ODT) 4 MG disintegrating tablet ondansetron (ZOFRAN-ODT) 4 MG disintegrating tablet 10/23/2020 12:00:00 AM EDT 4 mg Oral active Take 1 tablet (4 mg total) by mouth every 8 (eight) hours as needed for nausea [facility] 0.4 ML Enoxaparin sodium 100 MG/ML Prefi lled Syringe enoxaparin (Lovenox) 40 MG/0.4ML SOLN enoxaparin (Lovenox) 40 MG/0.4ML SOLN 10/23/2020 12:00:00 AM EDT 40 mg Subcutaneous active Inject 0.4 mL (40 mg total) under the skin daily for 10 days [facility] Magnesium Hydroxide 80 MG/ML Oral Suspen kerri magnesium hydroxide (Milk of Magnesia) 400 MG/5ML suspension magnesium hydroxide (Milk of Magnesia) 4 00 MG/5ML suspension 10/23/2020 12:00:00 AM EDT 30 mL Oral active Take 30 mL by mouth daily as needed for constipation [facility] 40 mg 09/12/2020 12:00:00 AM EST [...] FOR 3 MONTHS AFTER SURGERY SOLD: 01/01/2021 [facility] normal saline flush 0.9 % injection 3 mL [id number] 08/18/2020 02:00:00 PM EST 3 mL Intravenous active 3 mL , Intravenous, Every 8 hours (scheduled), First dose on Tue08/18/20 at 1400, PACU (only)
flush per protocol, D/C Main IV fluid if appropriate
[facility] Medication administered onsite Magnesium Chloride 0.38921 MEQ/ML / Pota ssium Chloride 0.0497 MEQ/ML / Sodium Acetate 0.0163 MEQ/ML / Sodium Chloride 0.0899 MEQ/ML / Sodium gluconate 5.02 MG/ML Injectable Solution [Normosol-R] electrolyte-R (NORMOSOL-R/PLASMALYTE-R) solution electrolyte-R (NORMOSOL-R/PLASMALYTE-R) solution 08/18 12:00:00 PM EST Intravenous active at 1 00 mL/hr, Intravenous, Continuous, Starting Tue08/18/20 at 1200, PACU (only) [facility] Medication administered onsite ondansetron (ZOFRAN) injection 4 mg [id number] 08/18/2020 11:22:4 0 AM EST 4 mg Intravenous active 4 mg, In travenous, Once as needed, nausea, vomiting, if not given in last 4 hours, Starting Tue08/18/20 at 1122, For 1 dose, PACU & Post-op [facility] Medication administered onsite fentaNYL Citrate (PF) (SUBLIMAZE) injection 25 mcg [id number] 08/18/2020 11:22:34 AM EST 25 ug Intravenous active 25 mcg, Intravenous, Every 5 min PRN, moderate pain (4 to 6), Starting Tue08/18/20 at 1122, For 8 doses, PACU (only) [facility] Medication administered onsite Albuterol 0.833 MG/ML / Ipratropium Brom rossy 0.167 MG/ML Inhalant Solution ipratropium-albuterol (DUO-NEB) 0.5-2.5 mg/mL nebulizer solution 3 mL ipratropium-albuterol (DUO-NEB) 0.5-2.5 mg/mL nebulizer solution 3 mL 08/18/2020 11:22:34 AM EST 3 mL Inhalation active 3 mL, Inhalation, Once as needed, shortness of breath, Starting Tue08/18/20 at 1122, For 1 dose, PACU (only) [facility] Medication administered onsite 10 ML Atropine Sulfate 0.1 MG/ML Prefill ed Syringe atropine sulfate injection 0.5 mg atropine sulfate injection 0.5 mg 08/18/2020 11:22:33 AM EST 0.5 mg active 0.5 mg, Intrave nous Push, Every 5 min PRN, other, As needed, for heart rate less than 60 BPM and the patient is hemodynamically unstable and/or SBP is less than 90mmHg, Starting Tue08/18/20 at 1122, For 1 day, PACU (only)
Not to exceed a total of 3 mg or 0.04 mg/kg. Max of 6 doses
[facility] Medication administered onsite 37.5 mg 05/09/2020 [...] TABLET BY MOUTH AT BEDTIME SOLD: 04/21/2020 [facility] 500 mg 04/21/2020 12:00:00 AM [...] 04/21/2020 12:00:00 AM EDT ORAL active [facility] ([facility]) topiramate 50 MG Oral Tablet topiramate (TOPAMAX) 50 M G tablet topiramate (TOPAMAX) 50 MG tablet 50 mg Oral aborted Take 50 mg by mouth 2 (two) times a day [facility] Phentermine Hydrochloride 37.5 MG Oral T ablet phentermine (ADIPEX-P) 37.5 MG tablet phentermine (ADIPEX-P) 37.5 MG tablet 37.5 mg Oral aborted Take 37.5 mg by mouth every morning before breakfast [facility] Insurance Providers Payer name Policy type / Coverage type Policy ID Covered green party ID Covered green party's relationship to whitaker Policy Whitaker Plan Information Medicaid S [id number] S [id number] Managed Care - Community Plan [facility] P [id number] S [id number] Medicaid S [id number] S [id number] Managed Care - Community Plan [facility] P [id number] S [id number] Medicaid S [id number] S [id number] [facility] I [id number] Self [id number] [employer] COMMUNITY PLAN MCDO [id number] SP [id number] Medicaid S [id number] S [id number] Managed Care - Community Plan [facility] P [id number] S [id number] Managed Care - [facility] Community Plan P [id number] S [id number] [facility] MEDICAID [id number] [id number] [facility] MEDICAID [id number] Janet [id number] INSURANCE COVID-19 [id number] INSURANCE COVID-19 COVID Janet C OVID SELF PAY [facility] MED emp [id number] Employee [id number] FFS Self Pay [id number] Self [id number] [facility] Health Maintenance Organization (HMO) [id number] Self [id number] [facility] Health Maintenance Organization (HMO) [id number] Self [id number] [facility] O [id number] S [id number] [facility] Community Plan Medicaid [id number] Self [id number] [facility] COMMUNITY PLAN [id number] 18 [id number] [facility] Community Plan Medicaid [id number] Self [id number] [facility] Community Plan Medicaid [id number] Self [id number] [facility] Health Maintenance Organization (HMO) [id number] Self [id number] [facility] Communty Plan Medicaid [id number] Self [id number] [facility] AMERICHOICE XIX -O [id number] 18 [id number] [facility] O [id number] S [id number] [facility] MANAGEMENT [facility] [id number] [facility] COMMUNITY PLAN XIX [id number] 18 [id number] [facility] COMMUNTY PLAN [id number] [facility] Community Plan Medicaid 44 Self [facility] Health Maintenance Organization (HMO) [id number] Self [id number] Problems, Conditions, and Diagnoses Code Display Name Description Problem Type Effective Dates Data Source(s) 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 Diagnosis 03/26/2021 02:46:00 PM EDT [facility] E7800 Pure hypercholesterolemia, unspecified P ure hypercholesterolemia, unspecified Diagnosis 03/17/2021 09:40:00 AM EDT [facility] D509 Iron deficiency anemia, unspecified Iron deficie ncy anemia, unspecified Diagnosis 03/17/2021 09:40:00 AM [facility] R739 Hyperglycemia, unspecified Hyperglycemia, unspecified Diagnosis 03/17/2021 09:40:00 AM EDT [facility] R011 Cardiac murmur, unspecified Cardiac murmur, unspecifie d Diagnosis 03/05/2021 09:37:00 AM EDT [facility] L659 Nonscarring hair loss, unspecified Nonscarring h air loss, unspecified Diagnosis 03/05/2021 09:37:00 AM T [facility] E785 Hyperlipidemia, unspecified Hyperlipidemia, unspecifie d Diagnosis 03/05/2021 09:37:00 AM EDT [facility] Z9884 Bariatric surgery status Bariatric surgery status Diag nosis 03/05/2021 09:37:00 AM EDT [facility] Z0001 Encounter for general adult medical exam ination with abnormal findings Encounter for general adult medical examination with abnormal findings Diagnosis 03/05/2021 09:37:00 AM EDT [facility] Z803 Family history of malignant neoplasm of breast Family history of malignant neoplasm of breast Diagnosis 02/05/2021 10:03:00 AM EDT [facility] [id number] Encounter for gynecological examination (general) (routine) without abnormal findings Encounter for gynecological examination (general) (routine) without abnormal findings Diagnosis 02/05/2021 10:03:00 AM EDT [facility] E66.01 Morbid (severe) obesity due to excess ca lories Morbid (severe) obesity due to excess ca Diagnosis 10/23/2020 10:09:00 AM EDT [facility] U07.1 COVID-19 COVID-19 Diagnosis 10/18/2020 09:50:58 AM ED T [facility] K21.9 Gastro-esophageal reflux disease without esophagitis Gastro-esophageal reflux disease without Diagnosis 08/18/2020 10:03:00 AM EST [facility] R01.1 Heart murmur Heart murmur Problem 05/01/2021 12:00:00 A M EDT [facility] ([facility]) E66.09 Obesity Obesity Problem 05/01/2021 12:00:00 AM ED T [facility] ([facility]) Z71.3 Dietary management surveillance Dietary management ben veillance Problem 05/01/2021 12:00:00 AM EDT [facility] ([facility]) Z00.00 Adult health examination Adult health examination Prob xavier 03/05/2021 12:00:00 AM EDT [facility] ([facility]) R73.9 Abnormal glucose level Abnormal glucose level Problem 03/05/2021 12:00:00 AM EDT [facility] ([facility]) E78.5 Hyperlipidemia Hyperlipidemia Problem 03/05/2021 12:00: 00 AM EDT [facility] ([facility]) D50.9 Iron deficiency anemia Iron deficiency anemia Problem 03/05/2021 12:00:00 AM EDT [facility] ([facility]) L65.9 Alopecia Alopecia Problem 03/05/2021 12:00:00 AM ED T [facility]) [id number] Tootie-en-Y gastrojejunostomy Tootie-en-Y gastrojejunostom y Problem 02/05/2021 12:00:00 AM EDT [facility] ([facility]) Note: done 10/22 E66.01 Morbid obesity Morbid obesity [id number] 10/23/2020 12:00: 00 AM EDT [facility] Surgeries/Procedures Procedure Description Date Indications Data Source(s) ECG ROUTINE ECG W/LEAST 12 LDS W/I&R 05/01/2021 12:00: 00 AM EDT [facility] ([facility]) OFFICE OUTPATIENT NEW 45 MINUTES 05/01/2021 12:00:00 A M EDT [facility] ([facility]) OFFICE OUTPATIENT VISIT 10 MINUTES 04/17/2021 12:00:00 AM EDT [facility] ([facility]) OFFICE OUTPATIENT VISIT 25 MINUTES 03/26/2021 12:00:00 AM EDT [facility] ([facility]) PHYSICIAN TELEPHONE EVALUATION 5-10 MIN 03/17/2021 12: 00:00 AM EDT [facility] ([facility]) PERIODIC PREVENTIVE MED EST PATIENT 18-39 YRS 03/05/20 12:00:00 AM EDT [facility] ([facility]) PERIODIC PREVENTIVE MED EST PATIENT 18-39 YRS 02/06/20 12:00:00 AM EDT [facility] ([facility]) GLUC BLD GLUC MNTR DEV CLEARED FDA SPEC HOME USE <td>P OCT GLUCOSE</td><td>Routine</td><td>10/24/2020 11:49 AM EDT</td><td></td><td> </td> 10/24/2020 11:49:00 AM EDT [facility] GLUC BLD GLUC MNTR DEV CLEARED FDA SPEC HOME USE <td>P OCT GLUCOSE</td><td>Routine</td><td>10/24/2020 6:05 AM EDT</td><td></td><td> </td> 10/24/2020 06:05:00 AM EDT [facility] GLUC BLD GLUC MNTR DEV CLEARED FDA SPEC HOME USE <td>P OCT GLUCOSE</td><td>Routine</td><td>10/24/2020 12:02 AM EDT</td><td></td><td> </td> 10/24/2020 12:02:00 AM EDT [facility] GLUC BLD GLUC MNTR DEV CLEARED FDA SPEC HOME USE <td>P OCT GLUCOSE</td><td>Routine</td><td>10/23/2020 6:50 PM EDT</td><td></td><td> </td> 10/23/2020 06:50:00 PM EDT [facility] GLUC BLD GLUC MNTR DEV CLEARED FDA SPEC HOME USE <td>P OCT GLUCOSE</td><td>Routine</td><td>10/23/2020 4:01 PM EDT</td><td></td><td> </td> 10/23/2020 04:01:00 PM EDT [facility] LAPS GSTR RSTCV PX W/BYP TOOTIE-EN-Y LIMB <150 CM <td>CR EATION, GASTRIC BYPASS, TOOTIE-EN-Y, LAPAROSCOPIC, WITH SLEEVE GASTRECTOMY IF INDICATED, WITH LIVER BIOPSY IF INDICATED, WITH HIATAL HERNIA REPAIR IF INDICATED, WITH LAPAROTOMY IF INDICATED</td><td></td><td>10/23/2020 1:21 PM EDT</td><td> Morbid obesity Fatty liver</td><td></td> 10/23/2020 01:21:00 PM EDT - 10/23/2020 04:19:00 PM EDT Fatty liverMorbid obesity [facility] Fatty liver Morbid obesity POCT I-STAT BETA HCG <td>POCT I-STAT BETA HCG</td ><td>Routine</td><td>10/23/2020 11:49 AM EDT</td><td></td><td> </td> 10/23/2020 11:49:00 AM EDT [facility] POCT I-STAT BETA HCG <td>POCT I-STAT BETA HCG</td ><td>Routine</td><td>10/23/2020 11:39 AM EDT</td><td></td><td> </td> 10/23/2020 11:39:00 AM EDT [facility] GLUC BLD GLUC MNTR DEV CLEARED FDA SPEC HOME USE <td>P OCT GLUCOSE</td><td>Routine</td><td>10/23/2020 11:32 AM EDT</td><td></td><td> </td> 10/23/2020 11:32:00 AM EDT [facility] BLOOD TYPING ABO <td>TYPE AND SCREEN</td><td> Routine</td><td>10/09/2020 1:50 PM EDT</td><td> Morbid obesity</td><td> </td> 10/09/2020 05:50:00 PM EDT Morbid obesity [facility] Morbid obesity ECG ROUTINE ECG W/LEAST 12 LDS TRCG ONLY W/O I&R <td>E CG 12- LEAD</td><td>Routine</td><td>10/09/2020 1:36 PM EDT</td><td> Morbid obesity</td><td></td> 10/09/2020 05:36:42 PM EDT Morbid obesity [facility] Morbid obesity BLOOD COUNT COMPLETE AUTOMATED <td>CBC</td><td>Routine </td><td>10/09/2020 1:30 PM EDT</td><td> Morbid obesity</td><td> </td> 10/09/2020 05:30:00 PM EDT Morbid obesity [facility] Morbid obesity THYROID STIMULATING HORMONE TSH <td>TSH</td><td>Routin e</td><td>10/09/2020 1:30 PM EDT</td><td> Morbid obesity</td><td> </td> 10/09/2020 05:30:00 PM EDT Morbid obesity [facility] Morbid obesity HEMOGLOBIN GLYCOSYLATED A1C <td>HEMOGLOBIN A1C</td><td>Routine</td><td>10/09/2020 1:30 PM EDT</td><td> Morbid obesity</td><td> </td> 10/09/2020 05:30:00 PM EDT Morbid obesity [facility] Morbid obesity COMPREHENSIVE METABOLIC PANEL <td>COMPREHENSIVE METABO LIC PANEL</td><td>Routine</td><td>10/09/2020 1:30 PM EDT</td><td> Morbid obesity</td><td> </td> 10/09/2020 05:30:00 PM EDT Morbid obesity [facility] Morbid obesity UPPER NDSC BIOPSY SINGLE/MULTIPLE 08/18/2020 12:00:00 AM EST [facility] ([facility]) Results ID Date Data Source [id number] 05/04/2021 12:00:00 AM EDT [facility] Name Value Range Interpretation Code Description Data Jeannette rce(s) Supporting Document(s) SARS coronavirus 2 Ag Negative [facility] This lab was ordered by Daron Simon and reported by Daron Simon. ID Date Data Source [id number] 04/22/2021 01:19:00 PM EDT [facility] ([facility]) Name Value Range Interpretation Code Description Data Jeannette rce(s) Supporting Document(s) White Blood Count 9.2 10 4.0-10.0 Normal (applies to non-numeri c results) [facility] ([facility]) Red Blood Count 5.32 10 4.00-5.40 Normal (applies to non-numeric results) [facility] ([facility]) Hemoglobin 13.9 g/dL 12.0-15.5 Normal (applies to non-numeric resul ts) [facility] ([facility]) Hematocrit 43.3 % 36.0-47.0 Normal (applies to non-numeric resul ts) [facility] ([facility]) Mean Corpuscular Volume 81.4 fl 80.0-96.0 Normal ( applies to non-numeric results) [facility] ([facility]) Mean Corpuscular Hemoglobin 26.1 pg 27.0-33.0 Below low normal [facility] ([facility]) Mean Corpuscular HGB Conc 32.1 g/dL 32.0-36.5 Normal (applies to non-numeric results) [facility] ([facility]) Platelet Count, Automated 297 10 150-450 Normal (applies to non-numeric results) [facility] ([facility]) Red Cell Distribution Width 13.8 % 11.5-14.5 Norm al (applies to non-numeric results) [facility] ([facility]) Lymph % 37.5 % 24.0-44.0 Normal (applies to non-numeric resul ts) [facility] ([facility]) Hawkins % 5.3 % 2.0-8.0 Normal (applies to non-numeric resul ts) [facility] ([facility]) Neutrophils % 53.8 % 36.0-66.0 Normal (applies to non-numeric re sults) [facility] ([facility]) Eos % 2.6 % 0.0-3.0 Normal (applies to non-numeric resul ts) [facility] ([facility]) Baso % 0.5 % 0.0-1.0 Normal (applies to non-numeric resul ts) [facility] ([facility]) Immature Granulocyte % 0.3 % 0-3.0 Normal (applies to non-n umeric results) [facility] ([facility]) Nucleated Red Blood Cell % 0.0 % 0-0 Normal (applies to n on-numeric results) [facility] ([facility]) Neutrophils # 5.0 10 1.5-8.5 Normal (applies to non-numeric re sults) [facility] ([facility]) Hawkins # 0.5 10 0.0-0.8 Normal (applies to non-numeric resul ts) [facility] ([facility]) Lymph # 3.5 10 1.5-5.0 Normal (applies to non-numeric resul ts) [facility] ([facility]) Eos # 0.2 10 0.0-0.5 Normal (applies to non-numeric resul ts) [facility] ([facility]) Baso # 0.1 10 0.0-0.2 Normal (applies to non-numeric resul ts) [facility] ([facility]) ID Date Data Source [id number] 04/22/2021 01:19:00 PM EDT [facility] ([facility]) Name Value Range Interpretation Code Description Data Jeannette rce(s) Supporting Document(s) Hematocrit 45.1 % 36.0-47.0 Normal (applies to non-numeric resul ts) [facility] ([facility]) RBC Folate 591 ng/mL 280-791 Normal (applies to non-numeric resul ts) [facility] ([facility]) ID Date Data Source [id number] 04/22/2021 01:19:00 PM EDT [facility] ([facility]) Name Value Range Interpretation Code Description Data Jeannette rce(s) Supporting Document(s) Cobalamin (Vitamin B12) [Mass/volume] in Serum or Plasma Lab oratory test result 247-911 Above high normal [facility] ([facility]) VITAMIN B12 NORMAL RANGE NORMAL 247 - 911 PG/ML INDETERMINATE 211 - 246 PG/ML DEFICIENT LESS THAN 211 PG/ML Calcidiol [Mass/volume] in Serum or Plasma 25.6 ng/mL 30.0- 100.0 Below low normal [facility] ([facility]) Ferritin [Mass/volume] in Serum or Plasma 16 ng/mL 8-252 Normal (applies to non- numeric results) [facility]) ID Date Data Source [id number] 04/22/2021 01:19:00 PM EDT [facility] ([facility]) Name Value Range Interpretation Code Description Data Jeannette rce(s) Supporting Document(s) Iron (Fe) 33 ug/dL 50-170 Below low normal [facility] ( [facility]) Total Iron Binding Capacity 390 ug/dL 250-450 Norm al (applies to non-numeric results) [facility] ([facility]) Percent Saturation 8.5 % 13.2-45.0 Below low normal [facility] ([facility]) ID Date Data Source [id number] 04/22/2021 01:19:00 PM EDT [facility] ([facility]) Name Value Range Interpretation Code Description Data Jeannette rce(s) Supporting Document(s) Magnesium [Mass/volume] in Serum or Plasma 2.2 mg/dL 1.8-2 .4 Normal (applies to non-numeric results) [facility] ([facility]) Phosphate [Moles/volume] in Serum or Plasma 4.2 mg/dL 2.5- 4.9 Normal (applies to non-numeric results) [facility] ([facility] ) ID Date Data Source [id number] 04/22/2021 01:19:00 PM EDT [facility] ([facility]) Name Value Range Interpretation Code Description Data Jeannette rce(s) Supporting Document(s) Glucose, Fasting 68 mg/dL 70-100 Below low normal [facility] ([facility]) Blood Urea Nitrogen 14 mg/dL 7-18 Normal (applies to non-nume isela results) [facility] ([facility]) Glomerular Filtration Rate Laboratory test result Normal (applies to non- numeric results) [facility] ([facility]) <content>Units are mL/min/1.73 m2</content>
<content></content>
<content>Chronic Kidney Disease Staging per NKF:</content>
<content></content>
<content>Stage I & II GFR >=60 Normal to Mildly Decreased</content>
<content>Stage III GFR 30- 59 Moderately Decreased</content>
<content>Stage IV GFR 15-29 Severely Decreased</content>
<content>Stage V GFR <15 Very Little GFR Left</content>
<content>ESRD GFR <15 on ED CASE MANAGER</content>
<content></content> Creatinine For GFR 0.64 mg/dL 0.55-1.30 Normal (applies to non -numeric results) [facility] ([facility]) Potassium Serum 4.2 meq/L 3.5-5.1 Normal (applies to non-numeric results) [facility] ([facility]) Sodium Level 140 meq/L 136-145 Normal (applies to non-numeric res ults) [facility] ([facility]) Chloride Level 111 meq/L 98-107 Above high normal [facility] ([facility]) Carbon Dioxide Level 24 meq/L 21-32 Normal (applies to non-num arlette results) [facility] ([facility]) Anion Gap 5 meq/L 8-16 Below low normal [facility] ( [facility]) Ast/Sgot 13 U/L 7-37 Normal (applies to non-numeric resul ts) [facility] ([facility]) Calcium Level 9.1 mg/dL 8.5-10.1 Normal (applies to non-numeric re sults) [facility] ([facility]) Alkaline Phosphatase 107 U/L 45-117 Normal (applies to non-num arlette results) [facility] ([facility]) Alt/SGPT 28 U/L 12-78 Normal (applies to non-numeric resul ts) [facility] ([facility]) Bilirubin,Total 0.2 mg/dL 0.2-1.0 Normal (applies to non-numeric results) [facility] ([facility]) Albumin 3.6 GM/DL 3.2-5.2 Normal (applies to non-numeric resul ts) [facility]) Total Protein 7.3 GM/DL 6.4-8.2 Normal (applies to non-numeric re sults) [facility] ([facility]) Albumin/Globulin Ratio 1.0 1.2-2.2 Below low normal [facility] ([facility]) ID Date Data Source [id number] 04/22/2021 01:19:00 PM EDT [facility] ([facility]) Name Value Range Interpretation Code Description Data Jeannette rce(s) Supporting Document(s) Hemoglobin A1c 5.1 % Normal (applies to non-numeric r esults) [facility]) <content>REFERENCE RANGES:</content><br/ ><content></content>
<content><=5.6% NORMAL</content>
<content>5.7-6.4% SUGGESTS IMPAIRED GLUCOSE METABOLISM/PREDIABETIC</content>
<content>>= 6.5% ABNORMAL</content>
<content></content> Estimated Average Glucose 100 mg/dL 60-110 Normal (applies to non-numeric results) [facility]) ID Date Data Source [id number] 03/26/2021 04:54:00 PM EDT [facility] ([facility]) Name Value Range Interpretation Code Description Data Jeannette rce(s) Supporting Document(s) Reagin Ab [Presence] in Serum by RPR Laboratory test result Normal (applies to non-numeric results) [facility] ([facility] ) HIV 1+2 Ab [Presence] in Serum Laboratory test result Normal (applies to non- numeric results) [facility]) <content>This assay was performed utiliz ing a [...] is</content>
<content>99.6-99.8%.</content>
<content></content> ID Date Data Source [id number] 03/26/2021 04:54:00 PM EDT [facility] ([facility]) Name Value Range Interpretation Code Description Data Jeannette rce(s) Supporting Document(s) Hepatitis C Quantitation Laboratory test result Normal (applies to non-numeric results) [facility] ([facility]) HCV Not Detected Hepatitis C log10 Laboratory test result Normal (applies to non-numeric results) [facility] ([facility]) Test Information: Laboratory test result Normal (applies to non-numeric results) [facility] ([facility]) . The quantitative range of this assay is 15 IU/mL to 100 million IU/mL. ID Date Data Source [id number] 03/26/2021 04:54:00 PM EDT [facility] ([facility]) Name Value Range Interpretation Code Description Data Jeannette rce(s) Supporting Document(s) Laboratory test finding (navigational concept) Laboratory test r esult 0.00-0.90 Normal (applies to non-numeric results) [facility] ([facility]) <content>Negative <0.91</content>
<content>Equivocal 0.91 - 1.09</content>
<content>Positive >1.09</content>
<content>Performed at: [facility]</content>
<content>[address] [place] [address] [id number]</content>
<content>Radiologic Technologist: Lois Billy MD, Phone: [phone]</content>
<content></content> ID Date Data Source [id number] 03/26/2021 04:54:00 PM EDT [facility] ([facility]) Name Value Range Interpretation Code Description Data Jeannette rce(s) Supporting Document(s) HSV Type II IgG Specific 10.50 index 0.00-0.90 Above high normal [facility] ([facility]) <content>Negative <0.91</content>
<content>Equivocal 0.91 - 1.09</content>
<content>Positive >1.09</content>
<content>Note: Negative indicates no antibodies detected to</content>
<content>HSV-2. Equivocal may suggest early infection. If</content>
<content>clinically appropriate, retest at later date. Positive</content>
<content>indicates antibodies detected to HSV-2.</content>
<content></content> HSV Type I IgG Specific 56.60 index 0.00-0.90 Above high normal [facility] ([facility]) <content>Negative <0.91</content>
<content>Equivocal 0.91 - 1.09</content>
<content>Positive >1.09</content>
<content>Note: Negative indicates no antibodies detected to</content>
<content>HSV-1. Equivocal may suggest early infection. If</content>
<content>clinically appropriate, retest at later date. Positive</content>
<content>indicates antibodies detected to HSV-1.</content>
<content></content> ID Date Data Source [id number] 03/26/2021 03:26:00 PM EDT [facility] ([facility]) Name Value Range Interpretation Code Description Data Jeannette rce(s) Supporting Document(s) Cervical Biopsy Jar 1 Laboratory test result [facility] ([facility]) Endocervical Biopsy Jar 1 Laboratory test result [facility] ([facility]) ID Date Data Source [id number] 03/26/2021 02:53:00 PM EDT [facility] ([facility]) Name Value Range Interpretation Code Description Data Jeannette rce(s) Supporting Document(s) Choriogonadotropin.beta subunit ( test) [Pres ence] in Urine Laboratory test result [facility] ([facility]) ID Date Data Source [id number] 03/26/2021 08:01:00 AM EDT [facility] ([facility]) Name Value Range Interpretation Code Description Data Jeannette rce(s) Supporting Document(s) Treponema pallidum Ab [Presence] in Serum Laboratory test result [facility] ([facility]) Laboratory test finding (navigational concept) Laboratory test result [facility] ([facility]) ID Date Data Source [id number] 03/05/2021 10:06:00 AM EDT [facility] ([facility]) Name Value Range Interpretation Code Description Data Jeannette rce(s) Supporting Document(s) Iron 38 ug/dL 42-135 [facility] ([facility]) Is patient fasting? N Iron binding capacity [Mass/volume] in Serum or Plasma 350 ug/dL 250 -450 [facility] ([facility]) Is patient fasting? N Iron binding capacity.unsaturated [Mass/volume] in Serum or Plasma 312 ug/dL 112-347 [facility] ([facility]) Is patient fasting? N Iron Sat 11 % [facility] ([facility]) Is patient fasting? N ID Date Data Source [id number] 03/05/2021 10:06:00 AM EDT [facility] ([facility]) Name Value Range Interpretation Code Description Data Jeannette rce(s) Supporting Document(s) Cobalamin (Vitamin B12) [Mass/volume] in Serum or Plasma Lab oratory test result [id number] [facility] ([facility]) Is patient fasting? N Calcidiol [Mass/volume] in Serum or Plasma 46 ng/mL [facility] ([facility]) Is patient fasting? N Thyrotropin [Units/volume] in Serum or Plasma 0.73 uIU/mL 0.47-5.01 [facility] ([facility]) Is patient fasting? N Folate [Mass/volume] in Serum or Plasma 14.4 ng/mL 4.4-31.0 [facility] ([facility]) Is patient fasting? N ID Date Data Source [id number] 03/05/2021 10:06:00 AM EDT [facility] ([facility]) Name Value Range Interpretation Code Description Data Jeannette rce(s) Supporting Document(s) Sed Rate Reenter 5 [facility] ([facility]) Is patient fasting? N Erythrocyte sedimentation rate by Westergren method 5 mm/hr 0-20 [facility] ([facility]) Is patient fasting? N ID Date Data Source [id number] 03/05/2021 10:06:00 AM EDT [facility] ([facility]) Name Value Range Interpretation Code Description Data Jeannette rce(s) Supporting Document(s) Hemoglobin A1c/Hemoglobin.total in Blood 4.9 % 4.4-6.1 [facility] ([facility]) Is patient fasting? N C reactive protein [Mass/volume] in Serum or Plasma by High sensitivity method 2.52 mg/L 1.00-3.00 [facility] ([facility]) Is patient fasting? N ID Date Data Source [id number] 03/05/2021 10:06:00 AM EDT [facility] ([facility]) Name Value Range Interpretation Code Description Data Jeannette rce(s) Supporting Document(s) Comprehensive Metabo Laboratory test result [facility] ([facility]) Is patient fasting? N Sodium 139 meq/L 134-153 [facility] Is patient fasting? N Potassium 3.9 meq/L 3.6-5.0 [facility] Is patient fasting? N Chloride 106 meq/L 98-107 [facility] ([facility]) Is patient fasting? N Co2 22 meq/L 22-30 [facility] ([facility]) Is patient fasting? N Glucose 137 mg/dL 70-99 [facility] Is patient fasting? N BUN 14 mg/dL 7-21 [facility] Is patient fasting? N Creatinine 0.7 mg/dL 0.7-1.5 [facility] ([facility]) Is patient fasting? N Albumin 4.3 g/dL 3.9-5.0 [facility] Is patient fasting? N BUN/Creat 20 8-27 [facility] ([facility]) Is patient fasting? N Total Protein 7.1 g/dL 6.3-8.2 [facility] ([facility]) Is patient fasting? N Globulin [Mass/volume] in Serum by calculation 2.8 GM/DL 2.4-3.2 [facility] ([facility]) Is patient fasting? N Calcium 9.2 mg/dL 8.4-10.2 [facility]? N A/G Ratio 1.5 0.8-2.0 [facility] Is patient fasting? N Alkaline Phos 104 U/L 38-126 [facility] ([facility]) Is patient fasting? N Sgot/Ast 18 U/L 5-40 [facility] Is patient fasting? N Total Bili Laboratory test result 0.2-1.3 ME D[facility] ([facility]) Is patient fasting? N SGPT/Alt 15 U/L 7-56 [facility] Is [facility]? N Anion gap in Serum or Plasma 11.0 mmol/L 8.0-16.0 [facility] ([facility]) Is patient fasting? N Non-Aa GFR Laboratory test result [facility] ([facility]) Is patient fasting? N Age 35 yrs [facility] ([facility]) Is patient fasting? N Afr Amer GFR Laboratory test result MEDE NT ([facility]) Is patient fasting? N ID Date Data Source [id number] 03/05/2021 10:06:00 AM EDT [facility] ([facility]) Name Value Range Interpretation Code Description Data Jeannette rce(s) Supporting Document(s) Cholesterol 159 mg/dL 131-200 [facility] ([facility]) Is patient fasting? N Cve Panel Laboratory test result [facility] ([facility]) Is patient fasting? N Triglycerides 127 mg/dL 35-160 [facility] ([facility]) Is patient fasting? N HDL 44 mg/dL 29-86 [facility]? N Risk Factor 3.6 3.2-4.4 [facility] ([facility]) Is patient fasting? N LDL 103 mg/dL 65-175 [facility] ([facility]) Is patient fasting? N LDL/HDL 2.34 1.47-3.22 [facility] ([facility]) Is patient fasting? N ID Date Data Source [id number] 03/05/2021 10:06:00 AM EDT [facility] ([facility]) Name Value Range Interpretation Code Description Data Jeannette rce(s) Supporting Document(s) Ferritin [Mass/volume] in Serum or Plasma 25.9 ng/mL 3.0-105 [facility] ([facility]) Is patient fasting? N ID Date Data Source [id number] 03/05/2021 10:06:00 AM EDT [facility] ([facility]) Name Value Range Interpretation Code Description Data Jeannette rce(s) Supporting Document(s) Ferritin [Mass/volume] in Serum or Plasma 25.9 ng/mL 3.0-105 [facility] ([facility]) Is patient fasting? N ID Date Data Source [id number] 03/05/2021 10:06:00 AM EDT [facility] ([facility]) Name Value Range Interpretation Code Description Data Jeannette rce(s) Supporting Document(s) WBC 7.3 10^3/uL 4.2-11.0 [facility] ([facility]) Is patient fasting? N CBC W/Automated Diff Laboratory test result [facility] ([facility]) Is patient fasting? N RBC 5.31 10^6/uL 4.20-5.40 [facility] ([facility]) Is patient fasting? N Hemoglobin 13.8 g/dL 12.0-16.0 [facility] ([facility]) Is patient fasting? N Hematocrit 42.7 % 37.0-47.0 [facility] ([facility]) Is patient fasting? N MCV 80.4 fL 81.0-101 Below low normal [facility] ([facility]) Is patient fasting? N MCHC 32.3 g/dL 31.0-36.0 [facility] ([facility]) Is patient fasting? N MCH 26.0 pg 27.0-34.0 Below low normal [facility] ( [facility]) Is patient fasting? N RDW 14.2 % 11.5-14.5 [facility] ([facility]) Is patient fasting? N Platelets 306 10^3/uL 150-450 [facility] ([facility]) Is patient fasting? N MPV 10.5 fL 7.4-10.4 Above high normal [facility] ([facility]) Is patient fasting? N Neut 60.3 % 37.0-80.0 [facility] ([facility]) Is patient fasting? N Lymph 32.7 % 25.0-40.0 [facility] ([facility]) Is patient fasting? N Hawkins 4.6 % 3.0-8.0 [facility] ([facility]) Is patient fasting? N Baso 0.4 % 0.0-2.5 [facility] ([facility]) Is patient fasting? N Eos 1.9 % 0.0-7.0 [facility] ([facility]) Is patient fasting? N %NRBC 0.0 % 0.0-0.0 [facility] ([facility]) Is patient fasting? N %Ig 0.1 % 0.0-0.0 Above high normal [facility] ([facility]) Is patient fasting? N #Lymph 2.39 10^3/uL 0.60-3.40 [facility] ([facility]) Is patient fasting? N #Neut 4.41 10^3/uL 2.00-6.90 [facility] ([facility]) Is patient fasting? N #Eos 0.14 10^3/uL 0.00-0.70 [facility] ([facility]) Is patient fasting? N #Hawkins 0.34 10^3/uL 0.00-0.90 [facility] ([facility]) Is patient fasting? N #Baso 0.03 10^3/uL 0.00-0.20 [facility] ([facility]) Is patient fasting? N #Ig 0.01 10^3/uL 0.00-0.10 [facility] ([facility]) Is patient fasting? N RBC Morph Laboratory test result [facility] ([facility]) Is patient fasting? N #NRBC 0.00 10^3/uL 0.00-0.00 [facility] ([facility]) Is patient fasting? N Manual Diff Laboratory test result M EDENT ([facility]) Is patient fasting? N ID Date Data Source [id number] 03/05/2021 10:06:00 AM EDT [facility] ([facility]) Name Value Range Interpretation Code Description Data Jeannette rce(s) Supporting Document(s) Cve Panel Laboratory test result [facility] ([facility]) Is patient fasting? N Cholesterol 159 mg/dL 131-200 [facility] ([facility]) Is patient fasting? N Triglycerides 127 mg/dL 35-160 [facility] ([facility]) Is patient fasting? N HDL 44 mg/dL 29-86 [facility] ([facility]) Is patient fasting? N LDL 103 mg/dL 65-175 [facility] ([facility]) Is patient fasting? N Risk Factor 3.6 3.2-4.4 [facility] ([facility]) Is patient fasting? N LDL/HDL 2.34 1.47-3.22 [facility] ([facility]) Is patient fasting? N ID Date Data Source [id number] 03/05/2021 10:06:00 AM EDT [facility] ([facility]) Name Value Range Interpretation Code Description Data Jeannette rce(s) Supporting Document(s) Sodium 139 meq/L 134-153 [facility] ([facility]) Is patient fasting? N Comprehensive Metabo Laboratory test result [facility] ([facility]) Is patient fasting? N Potassium 3.9 meq/L 3.6-5.0 [facility] ([facility]) Is patient fasting? N Chloride 106 meq/L 98-107 [facility] ([facility]) Is patient fasting? N Co2 22 meq/L 22-30 [facility] ([facility]) Is patient fasting? N Glucose 137 mg/dL 70-99 Above high normal [facility] ([facility]) Is patient fasting? N BUN 14 mg/dL 7-21 [facility] ([facility]) Is patient fasting? N Creatinine 0.7 mg/dL 0.7-1.5 [facility] ([facility]) Is patient fasting? N BUN/Creat 20 8-27 [facility] ([facility]) Is patient fasting? N Albumin 4.3 g/dL 3.9-5.0 [facility] Is patient fasting? N Total Protein 7.1 g/dL 6.3-8.2 [facility] ([facility]) Is patient fasting? N Globulin 2.8 GM/DL 2.4-3.2 [facility] ([facility]) Is patient fasting? N A/G Ratio 1.5 0.8-2.0 [facility] ([facility]) Is patient fasting? N Calcium 9.2 mg/dL 8.4-10.2 [facility] ([facility]) Is patient fasting? N Total Bili Laboratory test result 0.2-1.3 ME D[facility] ([facility]) Is patient fasting? N Alkaline Phos 104 U/L 38-126 [facility] ([facility]) Is patient fasting? N Sgot/Ast 18 U/L 5-40 [facility] ([facility]) Is patient fasting? N Anion Gap 11.0 mmol/L 8.0-16.0 [facility] ([facility]) Is patient fasting? N SGPT/Alt 15 U/L 7-56 [facility] ([facility]) Is patient fasting? N Age 35 yrs [facility] ([facility]) Is patient fasting? N Non-Aa GFR Laboratory test result [facility] ([facility]) Is patient fasting? N Afr Amer GFR Laboratory test result [facility] ([facility]) Is patient fasting? N ID Date Data Source [id number] 03/05/2021 10:06:00 AM EDT [facility] ([facility]) Name Value Range Interpretation Code Description Data Jeannette rce(s) Supporting Document(s) Erythrocyte sedimentation rate by Westergren method Laboratory test result [facility] ([facility]) Calcidiol [Mass/volume] in Serum or Plasma Laboratory test result [facility] ([facility]) Cobalamin (Vitamin B12) [Mass/volume] in Serum or Plasma Lab oratory test result [facility] ([facility] Thyrotropin [Units/volume] in Serum or Plasma Laboratory test result [facility] ([facility]) Folate [Mass/volume] in Serum or Plasma Laboratory test result [facility] ([facility]) Hemoglobin A1c/Hemoglobin.total in Blood 4.9 % 4.4-6.1 [facility] ([facility]) Is patient fasting? N C reactive protein [Mass/volume] in Serum or Plasma by High sensitivity method 2.52 mg/L 1.00-3.00 [facility] ([facility]) Is patient fasting? N ID Date Data Source [id number] 03/05/2021 10:06:00 AM EDT [facility] ([facility]) Name Value Range Interpretation Code Description Data Jeannette rce(s) Supporting Document(s) Sed Rate 5 mm/hr 0-20 [facility] ([facility]) Is patient fasting? N Sed Rate Reenter 5 [facility] ([facility]) Is patient fasting? N ID Date Data Source [id number] 03/05/2021 10:06:00 AM EDT [facility] ([facility]) Name Value Range Interpretation Code Description Data Jeannette rce(s) Supporting Document(s) Cobalamin (Vitamin B12) [Mass/volume] in Serum or Plasma Lab oratory test result [id number] Above high normal [facility] ([facility]) Is patient fasting? N Calcidiol [Mass/volume] in Serum or Plasma 46 ng/mL [facility] ([facility]) Is patient fasting? N Thyrotropin [Units/volume] in Serum or Plasma 0.73 uIU/mL 0.47-5.01 [facility] ([facility]) Is patient fasting? N Folate [Mass/volume] in Serum or Plasma 14.4 ng/mL 4.4-31.0 [facility] ([facility]) Is patient fasting? N ID Date Data Source [id number] 03/05/2021 10:06:00 AM EDT [facility] ([facility]) Name Value Range Interpretation Code Description Data Jeannette rce(s) Supporting Document(s) Iron 38 ug/dL 42-135 Below low normal [facility] ([facility]) Is patient fasting? N Uibc 312 ug/dL 112-347 [facility] ([facility]) Is patient fasting? N Tibc 350 ug/dL 250-450 [facility] ([facility]) Is patient fasting? N Iron Sat 11 % [facility] ([facility]) Is patient fasting? N ID Date Data Source [id number] 03/06/2021 07:12:00 AM EDT [facility] Name Value Range Interpretation Code Description Data Jeannette rce(s) Supporting Document(s) Calcidiol [Moles/volume] in Serum or Plasma 46 NG/ML [facility] VITAMIN-D(2 5HYDROXY) Deficiency: <=20 ng/ml Insufficiency: 21-29 ng/ml Preferred level: => 30 ng/ml ID Date Data Source [id number] 03/05/2021 06:10:[address] [facility] Value Range Interpretation Code Description Data Jeannette rce(s) Supporting Document(s) Cobalamin (Vitamin B12) [Mass/volume] in Serum or Plasma >2000 P G/ML 232 - 1245 H [facility] ID Date Data Source [id number] 03/05/2021 05:30:[address] [facility] Value Range Interpretation Code Description Data Jeannette rce(s) Supporting Document(s) Erythrocyte sedimentation rate by Westergren method 5 mm/hr 0 - 20 [facility] SED RATE REENTER 5 [facility] ID Date Data Source [id number] 03/05/2021 05:25:[address] [facility] Value Range Interpretation Code Description Data Jeannette rce(s) Supporting Document(s) Folate [Mass/volume] in Serum or Plasma 14.4 NG/ML 4.4 - 31.0 [facility] ID Date Data Source [id number] 03/05/2021 05:25:[address] [facility] Value Range Interpretation Code Description Data Jeannette rce(s) Supporting Document(s) Ferritin [Mass/volume] in Serum or Plasma 25.9 ng/mL 3.0 - 105 [facility] ID Date Data Source [id number] 03/05/2021 05:25:00 PM EDT [facility] Name Value Range Interpretation Code Description Data Jeannette rce(s) Supporting Document(s) Thyrotropin [Units/volume] in Serum or Plasma by Detec tion limit <= 0.05 mIU/L 0.73 uIU/mL 0.47 - 5.01 [facility] ID Date Data Source [id number] 03/05/2021 05:24:00 PM EDT [facility] Name Value Range Interpretation Code Description Data Jeannette rce(s) Supporting Document(s) C reactive protein [Mass/volume] in Serum or Plasma by High sensitivity method 2.52 MG/L 1.00 - 3.00 [facility] CDC/S HS-CRP CUT-OFF: RELATIVE RISK: <1.0 mg/L Low 1.0 - 3.0 mg/L Average >3.0 mg/L High Optimally, the average of HS-CRP results repeated two weeks apart should be used for risk assessment. ID Date Data Source [id number] 03/05/2021 05:24:00 PM EDT [facility] Name Value Range Interpretation Code Description Data Jeannette rce(s) Supporting Document(s) Iron [Mass/volume] in Serum or Plasma 38 UG/DL 42 - 135 L [facility] Iron binding capacity.unsaturated [Mass/volume] in Serum or Plasma 312 UG/DL 112 - 347 [facility] Iron binding capacity [Mass/volume] in Serum or Plasma 350 ug/dL 250 - 450 [facility] Iron saturation [Mass Fraction] in Serum or Plasma 11 % [facility] ID Date Data Source [id number] 03/05/2021 05:24:00 PM EDT [facility] Name Value Range Interpretation Code Description Data Jeannette rce(s) Supporting Document(s) COMPREHENSIVE METABOLIC PANEL [facility] COMPREHENSIVE METABOLIC PANEL Sodium [Moles/volume] in Serum or Plasma 139 mEq/L 134 - 153 [facility] Potassium [Moles/volume] in Serum or Plasma 3.9 mEq/L 3.6 - 5.0 [facility] Chloride [Moles/volume] in Serum or Plasma 106 mEq/L 98 - 107 [facility] Carbon dioxide, total [Moles/volume] in Serum or Plasma 22 MEQ/L 22 - 30 [facility] Glucose [Mass/volume] in Serum or Plasma 137 MG/DL 70 - 99 H [facility] BUN 14 MG/DL 7 - 21 [facility] Creatinine [Mass/volume] in Serum or Plasma 0.7 MG/DL 0.7 - 1.5 [facility] BUN/CREAT 20 8 - 27 [facility] Protein [Mass/volume] in Serum or Plasma 7.1 G/DL 6.3 - 8.2 [facility] Albumin [Mass/volume] in Serum or Plasma 4.3 G/DL 3.9 - 5.0 [facility] Globulin [Mass/volume] in Serum by calculation 2.8 GM/DL 2.4 - 3.2 [facility] A/G RATIO 1.5 0.8 - 2.0 [facility] Calcium [Mass/volume] in Serum or Plasma 9.2 MG/DL 8.4 - 10.2 [facility] Bilirubin.total [Mass/volume] in Serum or Plasma <0.7 MG/DL 0.2 - 1.3 [facility] Alkaline phosphatase [Enzymatic activity/volume] in Serum or Plasma 104 U/L 38 - 126 [facility] Aspartate aminotransferase [Enzymatic activity/volume] in Serum or Plasma 18 U/L 5 - 40 [facility] Alanine aminotransferase [Enzymatic activity/volume] in Seru m or Plasma 15 U/L 7 - 56 [facility] Anion gap 3 in Serum or Plasma 11.0 mmol/L 8.0 - 16.0 [facility] AGE 35 yrs [facility] NON-AA GFR >60 mL/min [facility] AFR AMER GFR >60 mL/min [facility] Male GFR In terprentation [...] >32 mL/min Normal ID Date Data Source [id number] 03/05/2021 05:24:00 PM EDT [facility] Name Value Range Interpretation Code Description Data Jeannette rce(s) Supporting Document(s) [facility] Cholesterol [Mass/volume] in Serum or Plasma 159 MG/DL 131 - 200 [facility] Deprecated Triglyceride [Mass/volume] in Serum or Plasma 127 MG/DL 3 5 - 160 [facility] HDL 44 MG/DL 29 - 86 [facility] Cholesterol in LDL [Mass/volume] in Serum or Plasma by Direc t assay 103 mg/dL 65 - 175 [facility] Cholesterol.total/Cholesterol in HDL [Mass Ratio] in Serum o r Plasma 3.6 3.2 - 4.4 [facility] LDL/HDL 2.34 1.47 - 3.22 [facility] CVE RISK CHOL/HDL LDL/HDLMEN: 1/2 AVERAGE 3.43 1.00 AVERAGE 4.97 3.55 2X AVERAGE 9.55 6.25 3X AVERAGE 23.99 7.99WOMEN: 1/2 AVERAGE 3.27 1.47 AVERAGE 4.44 3.22 2X AVERAGE 7.05 5.03 3X AVERAGE 11.04 6.14 ID Date Data Source [id number] 03/05/2021 05:08:00 PM EDT [facility] Name Value Range Interpretation Code Description Data Jeannette rce(s) Supporting Document(s) Hemoglobin A1c/Hemoglobin.total in Blood 4.9 % 4.4 - 6.1 [facility] {A1]{HB] ID Date Data Source [id number] 03/05/2021 04:54:00 PM EDT [facility] Name Value Range Interpretation Code Description Data Jeannette rce(s) Supporting Document(s) CBC W/AUTOMATED DIFF [facility] COMPLETE BLOOD COUNT Leukocytes [#/volume] in Blood by Automated count 7.3 10^3/uL 4.2 - 1 1.0 [facility] Erythrocytes [#/volume] in Blood by Automated count 5.31 10^6/uL 4. 20 - 5.40 [facility] Hemoglobin [Mass/volume] in Blood 13.8 g/dL 12.0 - 16.0 [facility] Hematocrit [Volume Fraction] of Blood by Automated count 42.7 % 3 7.0 - 47.0 [facility] Erythrocyte mean corpuscular volume [Entitic volume] by Auto mated count 80.4 fL 81.0 - 101 L [facility] Erythrocyte mean corpuscular hemoglobin [Entitic mass] by Automated count 26.0 pg 27.0 - 34.0 L [facility] Erythrocyte mean corpuscular hemoglobin concentration [Mass/volume] by Automated count 32.3 g/dL 31.0 - 36.0 [facility] Erythrocyte distribution width [Ratio] by Automated count 14.2 % 11.5 - 14.5 [facility] Platelets [#/volume] in Blood by Automated count 306 10^3/uL 150 - 45 0 [facility] Platelet mean volume [Entitic volume] in Blood by Automated count 10.5 fL 7.4 - 10.4 H [facility] Neutrophils/100 leukocytes in Blood by Automated count 60.3 % 37. 0 - 80.0 [facility] Lymphocytes/100 leukocytes in Blood by Manual count 32.7 % 25.0 - 40.0 [facility] Monocytes/100 leukocytes in Blood by Automated count 4.6 % 3.0 - 8.0 [facility] Eosinophils/100 leukocytes in Blood by Automated count 1.9 % 0.0 - 7.0 [facility] Basophils/100 leukocytes in Blood by Automated count 0.4 % 0.0 - 2.5 [facility] %IG 0.1 % 0.0 - 0.0 [facility] 0.0 % 0.0 - 0.0 [facility] al Neutrophils [#/volume] in Blood by Automated count 4.41 10^3/uL 2.00 - 6.90 [facility] Lymphocytes [#/volume] in Blood by Automated count 2.39 10^3/uL 0.60 - 3.40 [facility] Monocytes [#/volume] in Blood by Automated count 0.34 10^3/uL 0.00 - 0.90 [facility] Eosinophils [#/volume] in Blood by Automated count 0.14 10^3/uL 0.00 - 0.70 [facility] Basophils [#/volume] in Blood by Automated count 0.03 10^3/uL 0.00 - 0.20 [facility] #IG 0.01 10^3/uL 0.00 - 0.10 [facility] #NRBC 0.00 10^3/uL 0.00 - 0.00 [facility] MANUAL DIFF NOT INDICATED [facility] RBC MORPH NOT INDICATED [facility] spital ID Date Data Source [id number] 03/05/2021 10:06:00 AM EDT [facility] ([facility]) Name Value Range Interpretation Code Description Data Jeannette rce(s) Supporting Document(s) Iron [Mass/volume] in Serum or Plasma Laboratory test result [facility] ([facility]) Iron binding capacity [Mass/volume] in Serum or Plasma Laborator y test result [facility] ([facility]) Ferritin [Mass/volume] in Serum or Plasma Laboratory test result [facility] ([facility]) ID Date Data Source [id number] 03/02/2021 12:00:00 AM EDT [facility] Name Value Range Interpretation Code Description Data Jeannette rce(s) Supporting Document(s) SARS coronavirus 2 Ag Negative [facility] This lab was ordered by [facility] and reported by [facility]. ID Date Data Source [id number] 02/26/2021 07:30:00 PM EDT [facility] Name Value Range Interpretation Code Description Data Jeannette rce(s) Supporting Document(s) SARS coronavirus 2 RNA [Presence] in Res piratory specimen by KSENIA with probe detection anterior nasal swabs [facility] This lab was ordered by [facility] and re ported by [facility]. ID Date Data Source [id number] 02/26/2021 03:30:00 PM EDT [facility] Name Value Range Interpretation Code Description Data Jeannette rce(s) Supporting Document(s) SARS-CoV-2 NEGATIVE [facility] This lab was ordered by [facility] and reported by [facility]. ID Date Data Source [id number] 02/05/2021 10:30:00 AM EDT [facility] ([facility]) Name Value Range Interpretation Code Description Data Jeannette rce(s) Supporting Document(s) Chlamydia trachomatis,Ksenia Laboratory test result [facility] ([facility]) {SOURCE:~.~.~<DG1.3.1>Z01.419</DG1.3.1>< DG1.3.1>Z01.419</DG1.3.1> Neisseria gonorrhoeae,Ksenia Laboratory test result [facility] ([facility]) {SOURCE:~.~.~<DG1.3.1>Z01.419</DG1.3.1>< DG1.3.1>Z01.419</DG1.3.1> ID Date Data Source [id number] 02/07/2021 06:30:00 AM EDT [facility] Name Value Range Interpretation Code Description Data Jeannette rce(s) Supporting Document(s) Chlamydia trachomatis rRNA [Presence] in Unspecified specimen by Probe and target amplification method Negative Negative [facility] Neisseria gonorrhoeae rRNA [Presence] in Unspecified specimen by Probe and target amplification method Negative Negative [facility] ID Date Data Source [id number] 02/05/2021 10:30:00 AM EDT [facility] ([facility]) Name Value Range Interpretation Code Description Data Jeannette rce(s) Supporting Document(s) Cytology report of Cervical or vaginal smear or scrapi ng Cyto stain.thin prep Laboratory test result [facility] ([facility]) ID Date Data Source [id number] 02/20/2021 08:31:17 AM EDT [facility] [address] HPV GENOTYPES 16, 18/45 TO QUEST 9 1826HPV GENOTYPES 16, 18/45HPV 16 RNADETECTED (A)HPV 18/45 RNANOT DETECTEDREFERENCE RANGE: HPV 16 RNA: NOT DETECTEDHPV 18/45 RNA: NOT DETECTEDMethodology: Canteen Attendant Mediated AmplificationThe analytical performance characteristics of this assay have been determined by [facility]. The modifications have not been cleared or approved by the FDA. This assay has been validated pursuant to the CLIA regulations and is used for clinical purposes. Name Value Range Interpretation Code Description Data Jeannette rce(s) Supporting Document(s) PERFORMING LAB: [facility] [address] [place] [address] ID Date Data Source [id number] 12/09/2020 08:32:00 AM EDT [facility] Name Value Range Interpretation Code Description Data Jeannette rce(s) Supporting Document(s) SARS-CoV-2 (COVID-19) RNA [Presence] in Respiratory specimen by KSENIA with probe detection Not Detected [facility] This lab was ordered by [facility] and reported by [employer]. ID Date Data Source [id number] 11/19/2020 01:21:00 PM EDT [facility] ([facility]) Name Value Range Interpretation Code Description Data Jeannette rce(s) Supporting Document(s) RBC Folate 539 ng/mL 280-791 [facility] ([facility]) Hematocrit 40.5 % 36.0-47.0 [facility] ([facility]) ID Date Data Source [id number] 11/19/2020 01:21:00 PM EDT [facility] ([facility]) Name Value Range Interpretation Code Description Data Jeannette rce(s) Supporting Document(s) White Blood Count 8.3 10 4.0-10.0 [facility] [place] [place] Hemoglobin 12.6 g/dL 12.0-15.5 [facility] ([facility]) Hematocrit 40.0 % 36.0-47.0 [facility] ([facility]) Red Blood Count 4.99 10 4.00-5.40 [facility] ([facility]) Mean Corpuscular Volume 80.2 fl 80.0-96.0 M [facility] ([facility]) Mean Corpuscular Hemoglobin 25.3 pg 27.0-33.0 [facility] ([facility]) Mean Corpuscular HGB Conc 31.5 g/dL 32.0-36.5 [facility] ([facility]) Red Cell Distribution Width 15.3 % 11.5-14.5 [facility] ([facility]) Platelet Count, Automated 282 10 150-450 [facility] ([facility]) Neutrophils % 62.6 % 36.0-66.0 [facility] ([facility] Lymphocytes/100 leukocytes in Blood by Automated count 26.8 % 24. 0-44.0 [facility] ([facility]) Baso % 0.5 % 0.0-1.0 [facility] Hawkins % 5.2 % 2.0-8.0 [facility] ([facility]iology A [...] 1.5-5.0 [facility] Hawkins # 0.4 10 0.0-0.8 [facility] Eos # 0.4 10 0.0-0.5 [facility] Baso # 0.0 10 0.0-0.2 [facility] ID Date Data Source [id number] 11/19/2020 01:21:00 PM EDT [facility] ([facility] Name Value Range Interpretation Code Description Data Jeannette rce(s) Supporting Document(s) Phosphate [Moles/volume] in Serum or Plasma 3.0 mg/dL 2.5-4.9 [facility] ([facility]) Magnesium [Mass/volume] in Serum or Plasma 2.2 mg/dL 1.8-2.4 [facility] ([facility]) ID Date Data Source [id number] 11/19/2020 01:21:00 PM EDT [facility] ([facility] Name Value Range Interpretation Code Description Data Jeannette rce(s) Supporting Document(s) Iron (Fe) 30 ug/dL 50-170 [facility] ([facility]) Total Iron Binding Capacity 311 ug/dL 250-450 [facility] ([facility]) Percent Saturation 9.6 % 13.2-45.0 [facility] ([facility]) ID Date Data Source [id number] 11/19/2020 01:21:00 PM EDT [facility] ([facility]) Name Value Range Interpretation Code Description Data Jeannette rce(s) Supporting Document(s) Cobalamin (Vitamin B12) [Mass/volume] in Serum or Plasma 599 pg/mL 2 47-911 [facility] ([facility]) VITAMIN B12 NORMAL RANGE NORMAL 247 - 911 PG/ML INDETERMINATE 211 - 246 PG/ML DEFICIENT LESS THAN 211 PG/ML Calcidiol [Mass/volume] in Serum or Plasma 35.5 ng/mL 30.0-100.0 [facility] ([facility]) Ferritin [Mass/volume] in Serum or Plasma 15 ng/mL 8-252 [facility] ([facility]) ID Date Data Source [id number] 11/19/2020 01:21:00 PM EDT [facility] ([facility]) Name Value Range Interpretation Code Description Data Jeannette rce(s) Supporting Document(s) Hemoglobin A1c 5.4 % [facility] ([facility] <content>REFERENCE RANGES:</content><br/ ><content></content>
<content><=5.6% NORMAL</content>
<content>5.7-6.4% SUGGESTS IMPAIRED GLUCOSE METABOLISM/PREDIABETIC</content>
<content>>= 6.5% ABNORMAL</content>
<content></content>
<content></content> Estimated Average Glucose 108 mg/dL 60-110 [facility] ([facility]) ID Date Data Source [id number] 11/19/2020 01:21:00 PM EDT [facility] ([facility]) Name Value Range Interpretation Code Description Data Jeannette rce(s) Supporting Document(s) Thiamine [Mass/volume] in Blood 129.9 nmol/L 66.5-200.0 [facility] ([facility]) Performed at: - [facility] [id number] 61 Radiologic Technologist: Margarita Nicholas MD, Phone: [phone] ID Date Data Source [id number] 11/19/2020 01:21:00 PM EDT [facility] ([facility]) Name Value Range Interpretation Code Description Data Jeannette rce(s) Supporting Document(s) Glucose, Fasting 138 mg/dL 70-100 [facility] ([facility]) Blood Urea Nitrogen 8 mg/dL 7-18 [facility] ([facility]) Creatinine For GFR 0.68 mg/dL 0.55-1.30 [facility] ([facility]) Glomerular Filtration Rate Laboratory test result [facility] ([facility]) <content>Units are mL/min/1.73 m2</content>
<content></content>
<content>Chronic Kidney Disease Staging per NKF:</content>
<content></content>
<content>Stage I & II GFR >=60 Normal to Mildly Decreased</content>
<content>Stage III GFR 30- 59 Moderately Decreased</content>
<content>Stage IV GFR 15-29 Severely Decreased</content>
<content>Stage V GFR <15 Very Little GFR Left</content>
<content>ESRD GFR <15 on ED CASE MANAGER</content>
<content></content>
<content></content> Potassium Serum 3.6 meq/L 3.5-5.1 [facility] ([facility]) Sodium Level 142 meq/L 136-145 [facility] ([facility]) Chloride Level 112 meq/L 98-107 [facility] ([facility]) Anion gap in Serum or Plasma 5 meq/L 8-16 [facility] ([facility]) Carbon Dioxide Level 25 meq/L 21-32 [facility] ([facility]) Calcium Level 8.5 mg/dL 8.5-10.1 [facility] ([facility]) Aspartate aminotransferase [Enzymatic activity/volume] in Serum or Plasma 19 U/L 7-37 [facility] ([facility]) Alkaline phosphatase [Enzymatic activity/volume] in Serum or Plasma 97 U/L 45-117 [facility] ([facility]) Alanine aminotransferase [Enzymatic activity/volume] in Seru m or Plasma 23 U/L 12-78 [facility] ([facility]) Total Protein 6.3 GM/DL 6.4-8.2 [facility] ([facility]) Bilirubin,Total 0.3 mg/dL 0.2-1.0 [facility] ([facility]) Albumin/Globulin Ratio 1.1 1.2-2.2 [facility] ([facility]) Albumin 3.3 GM/DL 3.2-5.2 [facility] ([facility]) ID Date Data Source [id number] 11/19/2020 01:21:00 PM EDT [facility] ([facility]) Name Value Range Interpretation Code Description Data Jeannette rce(s) Supporting Document(s) Thiamine [Mass/volume] in Blood 129.9 nmol/L 66.5-200.0 Normal (applies to non- numeric results) [facility] ([facility]) Performed at: [address] [id number] 61 Radiologic Technologist: Margarita Nicholas MD, Phone: [phone] ID Date Data Source [id number] 11/19/2020 01:21:00 PM EDT [facility] Name Value Range Interpretation Code Description Data Jeannette rce(s) Supporting Document(s) Hemoglobin A1c 5.4 % Normal (applies to non-numeric r esults) [facility] ([facility]) <content>REFERENCE RANGES:</content><br/ ><content></content>
<content><=5.6% NORMAL</content>
<content>5.7-6.4% SUGGESTS IMPAIRED GLUCOSE METABOLISM/PREDIABETIC</content>
<content>>= 6.5% ABNORMAL</content>
<content></content> Estimated Average Glucose 108 mg/dL 60-110 Normal (applies to non-numeric results) [facility] ([facility]) ID Date Data Source [id number] 11/19/2020 01:21:00 PM EDT [facility] Name Value Range Interpretation Code Description Data Jeannette rce(s) Supporting Document(s) Cobalamin (Vitamin B12) [Mass/volume] in Serum or Plasma 599 pg/ mL 247-911 Normal (applies to non-numeric results) [facility] ([facility]) VITAMIN B12 NORMAL RANGE NORMAL 247 - 911 PG/ML INDETERMINATE 211 - 246 PG/ML DEFICIENT LESS THAN 211 PG/ML Ferritin [Mass/volume] in Serum or Plasma 15 ng/mL 8-252 Normal (applies to non- numeric results) [facility] ([facility]) Calcidiol [Mass/volume] in Serum or Plasma 35.5 ng/mL 30.0- 100.0 Normal (applies to non-numeric results) [facility] ([facility]) ID Date Data Source [id number] 11/19/2020 01:21:00 PM EDT [facility] Name Value Range Interpretation Code Description Data Jeannette rce(s) Supporting Document(s) Iron (Fe) 30 ug/dL 50-170 Below low normal [facility] ( [facility]) Total Iron Binding Capacity 311 ug/dL 250-450 Norm al (applies to non-numeric results) [facility] ([facility]) Percent Saturation 9.6 % 13.2-45.0 Below low normal [facility] ([facility]) ID Date Data Source [id number] 11/19/2020 01:21:00 PM EDT [facility] Name Value Range Interpretation Code Description Data Jeannette rce(s) Supporting Document(s) Phosphate [Moles/volume] in Serum or Plasma 3.0 mg/dL 2.5- 4.9 Normal (applies to non-numeric results) [facility] ([facility] ) Magnesium [Mass/volume] in Serum or Plasma 2.2 mg/dL 1.8-2 .4 Normal (applies to non-numeric results) [facility] ([facility]) ID Date Data Source [id number] 11/19/2020 01:21:00 PM EDT [facility] ([facility]) Name Value Range Interpretation Code Description Data Jeannette rce(s) Supporting Document(s) Glucose, Fasting 138 mg/dL 70-100 Above high normal M [facility] ([facility]) Blood Urea Nitrogen 8 mg/dL 7-18 Normal (applies to non-nume isela results) [facility] ([facility]) Glomerular Filtration Rate Laboratory test result Normal (applies to non- numeric results) [facility] ([facility]) <content>Units are mL/min/1.73 m2</content>
<content></content>
<content>Chronic Kidney Disease Staging per NKF:</content>
<content></content>
<content>Stage I & II GFR >=60 Normal to Mildly Decreased</content>
<content>Stage III GFR 30- 59 Moderately Decreased</content>
<content>Stage IV GFR 15-29 Severely Decreased</content>
<content>Stage V GFR <15 Very Little GFR Left</content>
<content>ESRD GFR <15 on ED CASE MANAGER</content>
<content></content> Creatinine For GFR 0.68 mg/dL 0.55-1.30 Normal (applies to non -numeric results) [facility] ([facility]) Sodium Level 142 meq/L 136-145 Normal (applies to non-numeric res ults) [facility] ([facility]) Potassium Serum 3.6 meq/L 3.5-5.1 Normal (applies to non-numeric results) [facility] ([facility]) Chloride Level 112 meq/L 98-107 Above high normal [facility] ([facility]) Carbon Dioxide Level 25 meq/L 21-32 Normal (applies to non-num arlette results) [facility] ([facility]) Anion Gap 5 meq/L 8-16 Below low normal [facility] Calcium Level 8.5 mg/dL 8.5-10.1 Normal (applies to non-numeric re sults) [facility] ([facility]) Ast/Sgot 19 U/L 7-37 Normal (applies to non-numeric resul ts) [facility] ([facility]) Alt/SGPT 23 U/L 12-78 Normal (applies to non-numeric resul ts) [facility] ([facility]) Alkaline Phosphatase 97 U/L 45-117 Normal (applies to non-num arlette results) [facility] ([facility]) Bilirubin,Total 0.3 mg/dL 0.2-1.0 Normal (applies to non-numeric results) [facility] ([facility]) Total Protein 6.3 GM/DL 6.4-8.2 Below low normal [facility] ([facility]) Albumin 3.3 GM/DL 3.2-5.2 Normal (applies to non-numeric resul ts) [facility] ([facility]) Albumin/Globulin Ratio 1.1 1.2-2.2 Below low normal [facility] ID Date Data Source [id number] 11/19/2020 01:21:00 PM EDT [facility] ([facility]) Name Value Range Interpretation Code Description Data Jeannette rce(s) Supporting Document(s) White Blood Count 8.3 10 4.0-10.0 Normal (applies to non-numeri c results) [facility] ([facility]) Red Blood Count 4.99 10 4.00-5.40 Normal (applies to non-numeric results) [facility] ([facility]) Hematocrit 40.0 % 36.0-47.0 Normal (applies to non-numeric resul ts) [facility] ([facility]) Hemoglobin 12.6 g/dL 12.0-15.5 Normal (applies to non-numeric resul ts) [facility] ([facility]) Mean Corpuscular Volume 80.2 fl 80.0-96.0 Normal ( applies to non-numeric results) [facility] ([facility]) Mean Corpuscular Hemoglobin 25.3 pg 27.0-33.0 Below low normal [facility] Mean Corpuscular HGB Conc 31.5 g/dL 32.0-36.5 Below low normal [facility] ([facility]) Red Cell Distribution Width 15.3 % 11.5-14.5 Above high normal [facility] ([facility]) Platelet Count, Automated 282 10 150-450 Normal (applies to non-numeric results) [facility] ([facility]) Neutrophils % 62.6 % 36.0-66.0 Normal (applies to non-numeric re sults) [facility] ([facility]) Lymph % 26.8 % 24.0-44.0 Normal (applies to non-numeric resul ts) [facility] ([facility]) Hawkins % 5.2 % 2.0-8.0 Normal (applies to non-numeric resul ts) [facility] ([facility]) Eos % 4.5 % 0.0-3.0 Above high normal [facility] ([facility]) Baso % 0.5 % 0.0-1.0 Normal (applies to non-numeric resul ts) [facility] ([facility]) Immature Granulocyte % 0.4 % 0-3.0 Normal (applies to non-n umeric results) [facility] ([facility]) Nucleated Red Blood Cell % 0.0 % 0-0 Normal (applies to n on-numeric results) [facility] ([facility]) Neutrophils # 5.2 10 1.5-8.5 Normal (applies to non-numeric re sults) [facility] ([facility]) Lymph # 2.2 10 1.5-5.0 Normal (applies to non-numeric resul ts) [facility] ([facility]) Hawkins # 0.4 10 0.0-0.8 Normal (applies to non-numeric resul ts) [facility] ([facility]) Eos # 0.4 10 0.0-0.5 Normal (applies to non-numeric resul ts) [facility] ([facility]) Baso # 0.0 10 0.0-0.2 Normal (applies to non-numeric resul ts) [facility] ([facility]) ID Date Data Source [id number] 11/19/2020 01:21:00 PM EDT [facility] ([facility]) Name Value Range Interpretation Code Description Data Jeannette rce(s) Supporting Document(s) Hematocrit 40.5 % 36.0-47.0 Normal (applies to non-numeric resul ts) [facility] ([facility]) RBC Folate 539 ng/mL 280-791 Normal (applies to non-numeric resul ts) [facility] ([facility]) ID Date Data Source [id number] 10/27/2020 01:17:59 PM EDT [facility] INFORMATIONPatient MRN Name Date of Age Gend*PT [id number] Corie Love 1985 35 years F IPPT Location Admission Date/Time Visit ID Attending [id number] 10/23/20 1009 --- --- EPI ID CSN Admitting Provider [id number] Cristobal Peña [id number]) Attestation signed by Cristobal Peña MD at [...] Get Your MedicationsThese medications were sent to [id number] - [place] - [address] [place] [id number] enoxaparin 40 MG/0.4ML Soln omeprazole 40 MG [...] 2440 ml+urine occurences General: Alert, conversing appropriatelyHeart: H3D6Tnsxe: Resp unlaboredAbdomen: obese, soft ND min tender [...] rce(s) Supporting Document(s) ID Date Data Source [id number] 10/24/2020 11:50:29 AM EDT [facility] Name Value Range Interpretation Code Description Data Jeannette rce(s) Supporting Document(s) POC NOVA GLU 79 mg/dL (70-99) [facility] [place] [facility] CLINICAL STAFF ID Date Data Source [id number] 10/24/2020 06:15:21 AM EDT [facility] Name Value Range Interpretation Code Description Data Jeannette rce(s) Supporting Document(s) POC NOVA GLU 115 mg/dL (70-99) H [facility] CLINICAL STAFF ID Date Data Source [id number] 10/24/2020 12:04:35 AM EDT [facility] Name Value Range Interpretation Code Description Data Jeannette rce(s) Supporting Document(s) POC NOVA GLU 146 mg/dL (70-99) H [facility] [place] [facility] CLINICAL STAFF ID Date Data Source [id number] 10/23/2020 06:51:29 PM EDT [facility] Name Value Range Interpretation Code Description Data Jeannette rce(s) Supporting Document(s) POC NOVA GLU 168 mg/dL (70-99) H [facility] [place] [facility] CLINICAL STAFF ID Date Data Source [id number] 10/23/2020 04:06:57 PM EDT [facility] Name Value Range Interpretation Code Description Data Jeannette rce(s) Supporting Document(s) POC NOVA GLU 207 mg/dL (70-99) H [facility] [place] [place] PERFORMED BY [facility] CLINICAL STAFF ID Date Data Source [id number] 10/23/2020 03:27:57 PM EDT [facility] NT INFORMATIONPatient MRN Name Date of Age Gend*PT [id number] Corie Love 1985 35 years F SDAPT Location Admission Date/Time Visit ID [facility]9 --- Cristobal Peña MD([id number]) EPI ID CSN Admitting Provider [id number] Cristobal Peña MD([id number])Bariatric Surgery Operative ReportPatient Name: Corie MartinezrDate of : 1985 35 years SurgeonLAVERN Camposrocedure : ,Laparoscopic Tootie Y Gastric Bypass, antecolic, antegastric, 50 cmPancreatico Biliary Limb, 150 cm Tootie Limb,Wedge Liver BiopsyEsophagogastrojejuosocopy Ruth Aaron MDOR Aerospace Project Manager: Jane Cardona RN; Lou Llanos RNOR Relief Aerospace Project Manager: Yuliana Shannon RNOR Relief Scrub: Kameron King [...] His, the pouch from the stomachusing a 30-Cymraes bougie as a guide. The gastrojejunal anastomosis was createdby stapling the Tootie to the anterior wall of the pouch with a 60-mm bluecartridge inserted 3 cm, the remaining enterotomy was closed in 2 layers with aV-Loc and the Tootie limb was anchored to the pouch at the apex of the anastomosiswith another V-Loc. This was tested for leaks, my ambulance assistant clamped the Rouxlimb with a bowel [...] rce(s) Supporting Document(s) ID Date Data Source [id number] 10/23/2020 01:42:03 PM EDT [facility] NT INFORMATIONPatient MRN Name Date of Age Gend*PT [id number] Corie Love 1985 35 years F SDAPT Location Admission Date/Time Visit ID Attending Provider --- --- --- --- EPI ID CSN Admitting Provider [id number] ---AirwayPatient location during procedure: ORUrgency: electiveDifficult airway: [...] cmPlacement verified by: chest auscultation and + [id number]: equal breath sounds bilateralGrade view: grade IIa - partial view of glottis Name Value Range Interpretation Code Description Data Jeannette rce(s) Supporting Document(s) ID Date Data Source [id number] 10/23/2020 12:20:39 PM EDT [facility] NT INFORMATIONPatient MRN Name Date of Age Gend*PT [id number] Corie Love Norma 1985 35 years F SDAPT Location Admission Date/Time Visit ID [facility] 10/23/20 1009 --- Cristobal Peña MD([id number]) EPI ID [facility] Admitting Provider [id number] Cristobal Peña MD([id number])H&P reviewed. The patient was examined and there are no changes to the H&P.Signature: JOE Camposate: October 23, 2020Time: 12:20 PM Name Value Range Interpretation Code Description Data Jeannette rce(s) Supporting Document(s) ID Date Data Source [id number] 10/23/2020 12:01:22 PM EDT [facility] Name Value Range Interpretation Code Description Data Jeannette rce(s) Supporting Document(s) POC [facility] <5.0 IU/L [facility] INTERPRETATION:<5.0 NEGATIVE5.0- 25.0 INDETERMINATE>25.0 POSITIVELEVELS BETWEEN 5 AND 25 IU/L MAY INDICATEEARLY AND SHOULD BE REPEATED QUANG BLOOD SAMPLE AFTER 48 HOURS.PERFORMED BY [facility] CLINICAL STAFF ID Date Data Source [id number] 10/23/2020 12:01:22 PM EDT [facility] Name Value Range Interpretation Code Description Data Jeannette rce(s) Supporting Document(s) POC [facility] 6.9 IU/L [facility] INTERPRETATION:<5.0 NEGATIVE5.0- 25.0 INDETERMINATE>25.0 POSITIVELEVELS BETWEEN 5 AND 25 IU/L MAY INDICATEEARLY AND SHOULD BE REPEATED QUANG BLOOD SAMPLE AFTER 48 HOURS.PERFORMED BY [facility] CLINICAL STAFF ID Date Data Source [id number] 10/23/2020 11:38:54 AM EDT [facility] Name Value Range Interpretation Code Description Data Jeannette rce(s) Supporting Document(s) POC NOVA GLU 85 mg/dL (70-99) Lab [facility] PERFORMED BY [facility] CLINICAL STAFF ID Date Data Source [id number] 10/28/2020 05:53:33 PM EDT [facility] [address] [place], [place] [address]Jqm# Surgical Pathology ReportPatient Name: CORIE LOVE: 1985Accession [...] submitted as A1. Modified liver biopsy protocol. carie/ishan Reported: 10/28/2020Electronically Signed Out By Joshua Johnson MD [facility] [place], [place] [address]ypfJaoxmgopf component performed at [facility], Histopathology, [address] [place], [place], [address].Reported at [facility], [address] [place], [place], [address]. This report may includeimmunohistochemical or in-situ hybridization results. Testing wasdeveloped and the performance characteristics determined by [facility] Hospital[facility] as required by CLIA '88. The FDA hasdetermined that approval for specific use is not necessary for clinicaluse. The quality of Hematoxylin and Eosin stains and as applicable, forall immunohistochemical and/or special stains, including positive andnegative contro ls, were reviewed and considered appropriate.ICD codes E66.01 K76.0CPT codesA: 48986E, 26518L, 34359H, 06432X, 33269S Name Value Range Interpretation Code Description Data Jeannette rce(s) Supporting Document(s) ID Date Data Source [id number] 10/21/2020 09:15:00 AM EDT [facility] Name Value Range Interpretation Code Description Data Jeannette rce(s) Supporting Document(s) SARS-CoV-2 (COVID-19) RNA [Presence] in Respiratory specimen by KSENIA with probe detection Not Detected [facility] This lab was ordered by [facility] and reported by [employer]. ID Date Data Source [id number] 10/18/2020 09:20:00 AM EDT [facility] Name Value Range Interpretation Code Description Data Jeannette rce(s) Supporting Document(s) SARS coronavirus 2 RNA Not Detected [facility] [place] This lab was ordered by Lab [employer] [facility] and reported by [employer]. ID Date Data Source [id number] 10/19/2020 12:09:02 PM EDT [facility] Name Value Range Interpretation Code Description Data Jeannette rce(s) Supporting Document(s) SARS-COV-2 KSENIA [facility] Not DetectedReference range: Not Detecte d This nucleic acid amplification test was developed and its performance characteristics determined by [employer]. Nucleic acid amplification tests include RT-PCR and [...] detected) result in this assay. Performed At: [facility] [place], [place] [id number] Keegan Cook PhD Ph:[phone] ID Date Data Source [id number] 10/14/2020 08:31:00 AM EDT [facility] Name Value Range Interpretation Code Description Data Jeannette rce(s) Supporting Document(s) SARS-CoV-2 (COVID-19) RNA [Presence] in Respiratory specimen by KSENIA with probe detection Not Detected [facility] This lab was ordered by [facility] and reported by [employer]. ID Date Data Source [id number] 10/09/2020 02:05:02 PM EDT [facility] Name Value Range Interpretation Code Description Data Jeannette rce(s) Supporting Document(s) [facility] [id number] jb2 [file] 9WeHf+MODEL AND MOLD MAKER+e3+3Q9Vc4kEfziNyK/gffA5X5bKZ+B6f7 [file] [id number]== ID Date Data Source [id number] 10/09/2020 06:31:24 PM EDT [facility] SPEC EXP DATE 10/24/2020ATI ENT ABO/Rh O POSITIVEANTIBODY SCREEN NEGATIVETESTING SITE PERFORMED AT [address] [place] [address] Name Value Range Interpretation Code Description Data Jeannette rce(s) Supporting Document(s) TYPE AND SCREEN [facility] ANTIBODY SCREEN NEGATIVE ID Date Data Source [id number] 10/09/2020 06:30:24 PM EDT [facility] Name Value Range Interpretation Code Description Data Jeannette rce(s) Supporting Document(s) HEMOGLOBIN A1C @ 5.2 % (4.0-6.0) [facility] Performed using Siemens Carpenter immunoassa y.Care must be taken when interpreting BoL8qryurwkb in patients with a hemoglobin variantor decreased erythrocyte lifespan. Values 5.7 - 6.4% suggest prediabetes.Values >=6.5% are diagnostic for diabetes.REFERENCE: DIABETES CARE 2018: 41(S13-S27). EST AVERAGE GLUCOSE 103 mg/dL [facility] ID Date Data Source [id number] 10/09/2020 06:19:42 PM EDT [facility] Name Value Range Interpretation Code Description Data Jeannette rce(s) Supporting Document(s) SODIUM 140 mmol/L (136-145) [facility] POTASSIUM 4.2 mmol/L (3.6-5.2) [facility] CHLORIDE 112 mmol/L (100-108) H [facility] CO2 20 mmol/L (22-31) L [facility] ANION GAP 8 mmol/L (7-16) [facility] UREA NITROGEN 12 mg/dL (7-24) [facility] CREATININE 0.83 mg/dL (0.60-1.00) [facility] BUN/CREAT RATIO 14.5 RATIO (10.0-20.0) [facility] GLUCOSE 86 mg/dL (70-99) [facility] CALCIUM 8.6 mg/dL (8.4-10.2) [facility] TOTAL PROTEIN 7.1 g/dL (6.4-8.2) [facility] ALBUMIN 3.5 g/dL (3.5-4.6) [facility] GLOBULIN 3.6 g/dL (2.7-4.3) [facility] ALB/GLOB RATIO 1.0 RATIO [facility] ALKALINE PHOSPHATASE 121 U/L (45-117) H [facility] BILIRUBIN,TOTAL 0.3 mg/dL (0.0-1.0) [facility] PLEASE NOTE:Total bilirubin results may be falselyelevated in patients taking Eltrombopag. AST (SGOT) 15 U/L (11-39) [facility] ALT (SGPT) 26 U/L (12-78) [facility] GFR >60 ml/min/1.73m2 (>59) [facility] GFR ( AMER) >60 ml/min/1.73m2 (>59) [facility] GFR INTERPRETATION [facility] --NORMAL KIDNEY FUNCTION OR MILD DISEASE - GFR >OR= 60CHRONIC KIDNEY DISEASE - GFR 15 - 59RENAL FAILURE - GFR <15 Est. GFR calculation based on the MDRDstudy equation, which assumes a steadystate for creatinine. Est. GFR should notbe used for medication dosing. ID Date Data Source [id number] 10/09/2020 06:19:42 PM EDT [facility] Name Value Range Interpretation Code Description Data Jeannette rce(s) Supporting Document(s) TSH,ULTRASENSITIVE @ 0.435 mIU/L (0.360-4.170) [facility] ID Date Data Source [id number] 10/09/2020 05:25:59 PM EDT [facility] Name Value Range Interpretation Code Description Data Jeannette rce(s) Supporting Document(s) WBC 11.9 10*3/uL (4.1-11.0) H [facility] RBC 5.48 10*6/uL (4.00-5.40) H [facility] HGB 13.5 g/dL (12.0-16.0) [facility] HCT 41.8 % (36.0-47.0) [facility] MCV 76.3 fL (80.0-95.0) L [facility] MCH 24.7 pg (27.0-32.0) L [facility] MCHC 32.3 g/dL (32.0-36.0) [facility] RDW 15.8 % (10.5-14.5) H [facility] PLT 352 10*3/uL (150-450) [facility] MPV 8.2 fL (7.1-10.7) [facility] ID Date Data Source [id number] 10/09/2020 01:29:28 PM EDT [facility] NT INFORMATIONPatient MRN Name Date of Age Gend*PT [id number] Corie Love Norma 1985 35 years F OPPT Location Admission Date/Time Visit ID Attending Provider --- --- --- Cristobal Peña MD([id number]) EPI ID CSN Admitting Provider [id number] Cristobal Peña MD([id number])HISTORY PHYSICALName: Corie Love : 1985 Sex: female [...] warm and dry.HEENT: She is normocephalic, atraumatic. Svensen conjunctivae. Anicteric sclerae.Pupils are equal, round, reactive [...] patosplenomegaly. Negative CVAT.GENITAL/RECTAL: Deferred.MUSCLE/SKELETAL: Strength is 5/5. [employer] are equal.NEUROLOGICALLY: Cranial nerves II through XII [...] parts of this document, were dictated using [employer] speaking software. A reas onable attempt at proofreading has beenmade to minimize errors. Please call with any questions or corrections. Name Value Range Interpretation Code Description Data Jeannette rce(s) Supporting Document(s) ID Date Data Source [id number] 10/07/2020 01:15:00 PM EDT [facility] Name Value Range Interpretation Code Description Data Jeannette rce(s) Supporting Document(s) SARS-CoV-2 (COVID-19) RNA [Presence] in Respiratory specimen by KSENIA with probe detection Not Detected [facility] This lab was ordered by [facility] and reported by [employer]. ID Date Data Source [id number] 09/30/2020 07:56:00 AM EDT [facility] Name Value Range Interpretation Code Description Data Jeannette rce(s) Supporting Document(s) SARS-CoV-2 (COVID-19) RNA [Presence] in Respiratory specimen by KSENIA with probe detection Not Detected [facility] This lab was ordered by [facility] and reported by [employer] ID Date Data Source [id number] 09/30/2020 12:00:00 AM EDT [facility] Name Value Range Interpretation Code Description Data Jeannette rce(s) Supporting Document(s) SARS coronavirus 2 Ag Negative [facility] This lab was ordered by [facility] and reported by [facility]. ID Date Data Source [id number] 09/23/2020 10:00:00 AM EDT [facility] Name Value Range Interpretation Code Description Data Jeannette rce(s) Supporting Document(s) SARS coronavirus 2 RNA Not Detected [facility] This lab was ordered by [facility] and reported by [employer]. ID Date Data Source [id number] 09/19/2020 12:00:00 AM EDT [facility] Name Value Range Interpretation Code Description Data Jeannette rce(s) Supporting Document(s) SARS coronavirus 2 Ag Negative [facility] This lab was ordered by [facility] and reported by [facility]. ID Date Data Source [id number] 09/16/2020 12:00:00 AM EDT [facility] Name Value Range Interpretation Code Description Data Jeannette rce(s) Supporting Document(s) SARS coronavirus 2 Ag Negative [facility] This lab was ordered by [facility] and reported by [facility]. ID Date Data Source [id number] 08/22/2020 12:00:00 AM EST [facility] Name Value Range Interpretation Code Description Data Jeannette rce(s) Supporting Document(s) SARS coronavirus 2 Ag Negative [facility] This lab was ordered by [facility] and reported by Daron Simon. ID Date Data Source [id number] 08/19/2020 12:00:00 AM EST [facility] Name Value Range Interpretation Code Description Data Jeannette rce(s) Supporting Document(s) SARS coronavirus 2 Ag Negative [facility] This lab was ordered by Daron Simon and reported by Daron [facility]. ID Date Data Source [id number] 08/19/2020 04:33:17 PM EST Lab [facility] LABORATORY [address] [id number]# Surgical Pathology ReportPatient Name: CORIE LOVE: 1985Accession [...] 08/19/2020Electronically Signed Out By Feliciano Parker MD [facility] [place] [id number] component performed at [facility], Histopathology, [address] [place] [address], [address].Reported at [facility], [address] [place] [address], [address]. This report may includeimmunohistochemical or in-situ hybridization results. Testing wasdeveloped and the performance characteristics determined by [facility] HospitalL[facility] as required by CLIA '88. The FDA hasdetermined that approval for specific use is not necessary for clinicaluse. The quality of Hematoxylin and Eosin stains and as applicable, forall immu nohistochemical and/or special stains, including positive andnegative controls, were reviewed and considered appropriate.ICD codes K21.9 K29.30CPT codesA: 91233P, 40175b Name Value Range Interpretation Code Description Data Jeannette rce(s) Supporting Document(s) ID Date Data Source [id number] 08/18/2020 11:19:49 AM EST [facility] NT INFORMATIONPatient MRN Name Date of Age Gend*PT [id number] Corie Love 1985 35 years F OPPT Location Admission Date/Time Visit [facility] --- Hieu Ibrahim MD([id number]) EPI ID CSN Admitting Provider [id number] Hieu Ibrahim MD([id number])Endoscopic Gastroduodenoscopy Procedure NotePatient: Corie Green LolarSurgery Date: [...] patient tolerated the procedure well.Estimated Blood Loss: Tucker Ibrahim MD111:19 AM Name Value Range Interpretation Code Description Data [facility] rce(s) Supporting Document(s) ID Date Data Source [id number] 08/18/2020 11:19:29 AM [facility] NT INFORMATIONPatient MRN Name Date of Age Gend*PT [id number] [facility] 1985 35 years F OPPT Location Admission Date/Time Visit ID Attending [facility] 08/18/20 1003 --- Hieu Ibrahim MD([id number]) EPI ID CSN Admitting Provider [id number] Hieu Ibrahim MD([id number])H&P reviewed. The patient was examined and there are no changes to the H&P.Hieu Ibrahim MD11:19 AM Name Value Range Interpretation Code Description Data [facility] Supporting Document(s) ID Date Data Source [id number] 08/18/2020 11:19:13 AM EST [facility] NT INFORMATIONPatient MRN Name Date of Age Gend*PT [id number] [facility] 1985 35 years F OPPT Location Admission Date/Time Visit ID Attending [facility] 08/18/20 1003 --- Hieu Ibrahim MD([id number]) EPI ID CSN Admitting Provider [id number] Hieu Ibrahim MD([id number])Pre-Procedure History and Physical:Past Medical History:Diagnosis Date AsthmaPast [...] rce(s) Supporting Document(s) ID Date Data Source [id number] 08/18/2020 12:04:42 PM EST [facility] Name Value Range Interpretation Code Description Data Jeannette rce(s) Supporting Document(s) POC [facility] <5.0 IU/L [facility] INTERPRETATION:<5.0 NEGATIVE5.0- 25.0 INDETERMINATE>25.0 POSITIVELEVELS BETWEEN 5 AND 25 IU/L MAY INDICATEEARLY AND SHOULD BE REPEATED QUANG BLOOD SAMPLE AFTER 48 HOURS.PERFORMED BY [facility] CLINICAL STAFF ID Date Data Source [id number] 08/13/2020 06:24:00 AM EST [facility] Name Value Range Interpretation Code Description Data Jeannette rce(s) Supporting Document(s) SARS coronavirus 2 RNA Not Detected [facility] This lab was ordered by [facility] and reported by [employer]. ID Date Data Source [id number] 08/14/2020 03:09:05 PM EST [facility] Name Value Range Interpretation Code Description Data Jeannette rce(s) Supporting Document(s) SARS-COV-2 KSENIA [facility] Not DetectedReference range: Not Detecte d This nucleic acid amplification test was developed and its performance characteristics determined by [employer]. Nucleic acid amplification tests include RT-PCR and [...] detected) result in this assay. Performed At: [place], [place] [id number] Keegan Cook PhD Ph:[phone] ID Date Data Source [id number] 08/12/2020 05:47:00 AM EST [facility] Name Value Range Interpretation Code Description Data Jeannette rce(s) Supporting Document(s) SARS coronavirus 2 RNA Not Detected [facility] This lab was ordered by [facility] and reported by [employer]. ID Date Data Source [id number] 08/05/2020 08:30:00 AM EST [facility] Name Value Range Interpretation Code Description Data Jeannette rce(s) Supporting Document(s) SARS coronavirus 2 RNA Not Detected [facility] This lab was ordered by [facility] and reported by [employer]. ID Date Data Source [id number] 07/29/2020 12:00:00 PM EST [facility] Name Value Range Interpretation Code Description Data Jeannette rce(s) Supporting Document(s) SARS coronavirus 2 RNA Not Detected [facility] This lab was ordered by [facility] and reported by [employer]. ID Date Data Source [id number] 07/22/2020 01:38:00 PM EST [facility] Name Value Range Interpretation Code Description Data Jeannette rce(s) Supporting Document(s) SARS coronavirus 2 RNA Not Detected [facility] This lab was ordered by [facility] and reported by [employer]. ID Date Data Source [id number] 2020 11:30:00 AM EST [facility] Name Value Range Interpretation Code Description Data Jeannette rce(s) Supporting Document(s) SARS coronavirus 2 RNA Not Detected [facility] This lab was ordered by [facility] and reported by [employer]. ID Date Data Source [id number] 07/08/2020 08:00:00 AM EST [facility] Name Value Range Interpretation Code Description Data Jeannette rce(s) Supporting Document(s) SARS coronavirus 2 RNA Not Detected [facility] This lab was ordered by [facility] and reported by [employer]. ID Date Data Source [id number] 07/01/2020 08:36:00 AM EST [facility] Name Value Range Interpretation Code Description Data Jeannette rce(s) Supporting Document(s) SARS coronavirus 2 RNA [facility] This lab was ordered by [facility] and reported by [facility]. ID Date Data Source [id number] 06/30/2020 12:00:00 AM EST [facility] Name Value Range Interpretation Code Description Data Jeannette rce(s) Supporting Document(s) SARS-CoV2 Rapid Antigen [facility] This lab was ordered by [facility] and reported by [facility]. ID Date Data Source [id number] 06/19/2020 12:00:00 AM EST [facility] Name Value Range Interpretation Code Description Data Jeannette rce(s) Supporting Document(s) SARS-CoV2 Rapid Antigen [facility] This lab was ordered by [facility] and reported by [facility]. ID Date Data Source [id number] 06/17/2020 09:15:00 AM EST [facility] Name Value Range Interpretation Code Description Data Jeannette rce(s) Supporting Document(s) SARS coronavirus 2 RNA [facility] This lab was ordered by [facility] and reported by [facility]. ID Date Data Source [id number] 06/10/2020 09:00:00 AM EST [facility] Name Value Range Interpretation Code Description Data Jeannette rce(s) Supporting Document(s) SARS coronavirus 2 RNA [facility] This lab was ordered by [facility] and reported by [facility]. ID Date Data Source [id number] 06/03/2020 05:32:00 AM EST [facility] Name Value Range Interpretation Code Description Data Jeannette rce(s) Supporting Document(s) SARS coronavirus 2 RNA [facility] This lab was ordered by [facility] and reported by [facility]. ID Date Data Source [id number] 05/27/2020 09:00:00 AM EST [facility] Name Value Range Interpretation Code Description Data Jeannette rce(s) Supporting Document(s) SARS coronavirus 2 RNA [facility] This lab was ordered by [facility] and reported by [facility]. ID Date Data Source [id number] 05/20/2020 08:00:00 AM EST [facility] Name Value Range Interpretation Code Description Data Jeannette rce(s) Supporting Document(s) SARS coronavirus 2 RNA [facility] This lab was ordered by [facility] and reported by [facility]. ID Date Data Source [id number] 05/13/2020 09:00:00 AM EST [facility] Name Value Range Interpretation Code Description Data Jeannette rce(s) Supporting Document(s) SARS coronavirus 2 RNA [facility] This lab was ordered by [facility] and reported by [facility]. ID Date Data Source [id number] 05/08/2020 08:21:05 PM EST [facility] Name Value Range Interpretation Code Description Data Jeannette rce(s) Supporting Document(s) TSH,ULTRASENSITIVE @ 0.826 mIU/L (0.360-4.170) [facility] ID Date Data Source [id number] 05/08/2020 07:59:14 PM EST [facility] Name Value Range Interpretation Code Description Data Jeannette rce(s) Supporting Document(s) HEMOGLOBIN A1C @ 5.9 % (4.0-6.0) [facility] Performed using Siemens Carpenter immunoassa y.Care must be taken when interpreting AcU0porfxfth in patients with a hemoglobin variantor decreased erythrocyte lifespan. Values 5.7 - 6.4% suggest prediabetes.Values >=6.5% are diagnostic for diabetes.REFERENCE: DIABETES CARE 2018: 41(S13-S27). EST AVERAGE GLUCOSE 123 mg/dL [facility] ID Date Data Source [id number] 05/06/2020 09:20:00 AM EST [facility] Name Value Range Interpretation Code Description Data Jeannette rce(s) Supporting Document(s) SARS coronavirus 2 RNA [facility] This lab was ordered by [facility] and reported by [facility]. ID Date Data Source [id number] 04/29/2020 07:30:00 AM EDT [facility] Name Value Range Interpretation Code Description Data Jeannette rce(s) Supporting Document(s) SARS coronavirus 2 RNA [facility] This lab was ordered by [facility] and reported by [facility]. ID Date Data Source [id number] 04/22/2020 07:55:00 AM EDT [facility] Name Value Range Interpretation Code Description Data Jeannette rce(s) Supporting Document(s) SARS coronavirus 2 RNA [facility] This lab was ordered by [facility] and reported by [facility]. ID Date Data Source [id number] 04/15/2020 07:00:00 AM EDT [facility] Name Value Range Interpretation Code Description Data Jeannette rce(s) Supporting Document(s) SARS coronavirus 2 RNA [facility] This lab was ordered by [facility] and reported by [facility]. ID Date Data Source [id number] 04/08/2020 08:00:00 AM EDT [facility] Name Value Range Interpretation Code Description Data Jeannette rce(s) Supporting Document(s) SARS coronavirus 2 RNA [facility] This lab was ordered by [facility] and reported by [facility]. ID Date Data Source [id number] 04/01/2020 07:00:00 AM EDT [facility] Name Value Range Interpretation Code Description Data Jeannette rce(s) Supporting Document(s) SARS coronavirus 2 RNA [facility] This lab was ordered by [facility] and reported by [facility]. ID Date Data Source [id number] 03/25/2020 08:02:00 AM EDT [facility] Name Value Range Interpretation Code Description Data Jeannette rce(s) Supporting Document(s) SARS coronavirus 2 RNA [facility] This lab was ordered by [facility] and reported by [facility]. ID Date Data Source [id number] 03/18/2020 08:00:00 AM EDT [facility] Name Value Range Interpretation Code Description Data Jeannette rce(s) Supporting Document(s) SARS coronavirus 2 RNA [facility] This lab was ordered by [facility] and reported by [facility]. Procedure Social History Code Duration Value Status Description Data Source(s ) Smoking 05/01/2021 12:00:00 AM EDT Patient is a former smoker completed Patient is a former smoker [facility] ([facility]) Alcohol intake 10/23/2020 12:00:00 AM EDT Current drinker of al cohol (finding) completed Current drinker of alcohol (finding) [facility] Alcohol intake 10/09/2020 12:00:00 AM EDT Yes completed [facility] Cigarette pack-years 10/09/2020 12:00:00 AM EDT UNK completed [facility] Cigarettes smoked current (pack per day) - Reported 10/10/19 12:00:00 AM EDT UNK completed [facility] Smoking 10/09/2020 12:00:00 AM EDT Current every day smoker co mpleted Current every day smoker [facility] Tobacco use and exposure 08/18/2020 12:00:00 AM EST Never used co mpleted Never used [facility] Cigarette pack-years 08/18/2020 12:00:00 AM EST UNK completed [facility] Cigarettes smoked current (pack per day) - Reported 08/18/19 12:00:00 AM EST UNK completed [facility] Smoking 08/18/2020 12:00:00 AM EST Current every day smoker co mpleted Current every day smoker [facility] Alcohol intake 08/18/2020 12:00:00 AM EST Not Currently completed [facility] Cigarettes smoked current (pack per day) - Reported 08/18/19 12:00:00 AM EST UNK completed [facility] Smoking 08/18/2020 12:00:00 AM EST Current every day smoker co mpleted Current every day smoker [facility] Vital Signs ID Date Data Source UNK Name Value Range Interpretation Code Description Data Source(s) Body weight 220.00 [lb_av] 220.00 [lb_av] [facility] T ([facility]) Body height 66 [in_i] 66 [in_i] [facility]) 5'6" Body mass index (BMI) [Ratio] 35.5 kg/m2 35.5 k g/m2 [facility] ([facility]) Heart rate 48 /min 48 /min [facility] ([facility]) Systolic blood pressure--sitting 113 mm[Hg] 113 mm[Hg] [facility] ([facility]) Omron large cuff, Ra Diastolic blood pressure--sitting 72 mm[Hg] 72 mm[Hg] [facility] ([facility]) Omron large cuff, Ra Body height 67 [in_i] 67 [in_i] [facility] ([facility]) 5'7" Systolic blood pressure 130 mm[Hg] 130 mm[Hg] [facility] ([facility]) Diastolic blood pressure 78 mm[Hg] 78 mm[Hg] [facility] ([facility]) Body surface area Derived from formula 2.11 m2 2.11 m2 [facility] ([facility]) Heart rate 75 /min 75 /min [facility] ([facility]) Oxygen saturation in Arterial blood by Pulse oximetry 100 % 100 % [facility] ([facility]) Body weight 220.25 [lb_av] 220.25 [lb_av] [facility] T ([facility]) Body weight 99.905 kg 99.905 kg [facility] ([facility]) Body mass index (BMI) [Ratio] 34.5 kg/m2 34.5 k g/m2 [facility] ([facility]) Diastolic blood pressure 72 mm[Hg] 72 mm[Hg] [facility] ([facility]) Systolic blood pressure 110 mm[Hg] 110 mm[Hg] M [facility]ENT ([facility]) Body weight 218.12 [lb_av] 218.12 [lb_av] [facility] T ([facility]) Body weight 98.942 kg 98.942 kg [facility] ([facility]) Heart rate 60 /min 60 /min [facility] ([facility]) Respiratory rate 16 /min 16 /min [facility] ( [facility]) Oxygen saturation in Arterial blood by Pulse oximetry 99 % 99 % [facility] ([facility]) Body height 67 [in_i] 67 [in_i] [facility] ([facility]) 5'7" Body mass index (BMI) [Ratio] 34.2 kg/m2 34.2 k g/m2 [facility] ([facility]) Body surface area Derived from formula 2.10 m2 2.10 m2 [facility] ([facility]) Oxygen saturation in Arterial blood by Pulse oximetry 99 % 99 % [facility] ([facility]) Body weight 217.00 [lb_av] 217.00 [lb_av] [facility] T ([facility]) Body weight 98.431 kg 98.431 kg [facility] ([facility]) Body temperature 97.3 [degF] 97.3 [degF] [facility] ([facility]) Respiratory rate 16 /min 16 /min [facility] ( [facility]) Body surface area Derived from formula 2.09 m2 2.09 m2 [facility] ([facility]) Systolic blood pressure 106 mm[Hg] 106 mm[Hg] M [facility] ([facility]) Diastolic blood pressure 60 mm[Hg] 60 mm[Hg] [facility] ([facility]) Heart rate 58 /min 58 /min [facility] ([facility]) Body height 67 [in_i] 67 [in_i] [facility] ([facility]) 5'7" Body mass index (BMI) [Ratio] 34.0 kg/m2 34.0 k g/m2 [facility] ([facility]) Body temperature 98.2 [degF] 98.2 [degF] [facility] ([facility]) Respiratory rate 16 /min 16 /min [facility] ( [facility]) Oxygen saturation in Arterial blood by Pulse oximetry 98 % 98 % [facility] ([facility]) Heart rate 63 /min 63 /min [facility] ([facility]) Body weight 221.00 [lb_av] 221.00 [lb_av] [facility] T ([facility]) Body weight 100.246 kg 100.246 kg [facility] ([facility]) Body height 67 [in_i] 67 [in_i] [facility] ([facility]) 5'7" Body mass index (BMI) [Ratio] 34.6 kg/m2 34.6 [facility] Body surface area Derived from formula 2.11 m2 2.11 m2 [facility] ([facility]) Systolic blood pressure 120 mm[Hg] 120 mm[Hg] M [facility] ([facility]) Diastolic blood pressure 72 mm[Hg] 72 mm[Hg] [facility] ([facility]) Systolic blood pressure 122 mm[Hg] 122 mm[Hg] [facility] Diastolic blood pressure 83 mm[Hg] 83 mm[Hg] [facility] Heart rate 54 /min 54 /min [facility] Body temperature 36.[address] [facility] Respiratory rate 18 /min 18 /min [facility] Oxygen saturation in Arterial blood by Pulse oximetry 99 % 99 % [facility] Body height 167.6 cm 167.6 cm [facility] Body weight 115.214 kg 115.214 kg [facility] Body mass index (BMI) [Ratio] 41.00 kg/m2 41.00 kg/m2 [facility] Systolic blood pressure 135 mm[Hg] 135 mm[Hg] [facility] Diastolic blood pressure 70 mm[Hg] 70 mm[Hg] [facility] Heart rate 85 /min 85 /min [facility] Respiratory rate 22 /min 22 /min [facility] Oxygen saturation in Arterial blood by Pulse oximetry 99 % 99 % [facility] Body height 167.6 cm 167.6 cm [facility] Body weight 119.659 kg 119.659 kg [facility] Body mass index (BMI) [Ratio] 42.58 kg/m2 42.58 kg/m2 [facility] Systolic blood pressure 139 mm[Hg] 139 mm[Hg] [facility] Diastolic blood pressure 96 mm[Hg] 96 mm[Hg] [facility] Heart rate 81 /min 81 /min [facility] Respiratory rate 18 /min 18 /min [facility] Oxygen saturation in Arterial blood by Pulse oximetry 99 % 99 % [facility] Body temperature 36.[address] [facility] Body height 167.6 cm 167.6 cm [facility] Body weight 123.378 kg 123.378 kg [facility] Body mass index (BMI) [Ratio] 43.90 kg/m2 43.90 kg/m2 [facility] Systolic blood pressure 139 mm[Hg] 139 mm[Hg] M [facility] ([facility]) Diastolic blood pressure 91 mm[Hg] 91 mm[Hg] [facility] ([facility]) Heart rate 91 /min 91 /min [facility]) Respiratory rate 16 /min 16 /min [facility] ( [facility]) Oxygen saturation in Arterial blood by Pulse oximetry 98 % 98 % [facility] ([facility]) Body temperature 97.9 [degF] 97.9 [degF] [facility] ([facility]) Body weight 317.00 [lb_av] 317.00 [lb_av] [facility] T ([facility], [facility]) Body height 66 [in_i] 66 [in_i] [facility] ([facility]) 5'6" Body mass index (BMI) [Ratio] 51.2 kg/m2 51.2 k g/m2 [facility] ([facility]) Patient Treatment Plan of Care Planned Activity Planned Date Details Description Data Source (s) ondansetron (ZOFRAN-ODT) disintegrating tablet 8 mg 10/25/19 21 06:00:00 AM EDT [facility] metoclopramide (REGLAN) injection 10 mg 10/23/2020 05:07:20 PM EDT [facility] Prochlorperazine 10 MG Oral Tablet 10/23/2020 05:07:19 PM EDT [facility] Promethazine Hydrochloride 25 MG Oral Tablet 10/23/2020 05:07:19 PM EDT [facility] enalaprilat (VASOTEC) injection 1.25 mg 10/23/2020 05:07:18 PM EDT [facility] Simethicone 80 MG Chewable Tablet 10/23/2020 12:00:00 AM EDT [facility] Omeprazole 40 MG Delayed Release Oral Capsule 10/23/2020 12:00:00 A M EDT [facility] Vitamin B 12 0.5 MG Oral Tablet 10/23/2020 12:00:00 AM EDT [facility] Ondansetron 4 MG Disintegrating Oral Tablet 10/23/2020 12:00:00 AM EDT [facility] Magnesium Hydroxide 80 MG/ML Oral Suspension 10/23/2020 12:00:00 AM EDT [facility] 0.4 ML Enoxaparin sodium 100 MG/ML Prefilled Syringe 021 12:00:00 AM EDT [facility] Phentermine Hydrochloride 37.5 MG Oral Tablet [facility] topiramate 50 MG Oral Tablet [facility]
[2021-05-11] MEDS ORDERED: IRON65TA2 PO (23:21)
[2021-05-11] MEDS ORDERED: VITMTA PO (23:21)
[2021-05-11] MEDS ORDERED: BIOT1CAP2 PO (23:21)
--- NOTE | 2021-05-12 02:13 | REPVR ---
PROCEDURE INFORMATION: Exam: XR Right Shoulder Exam date and time: 05/12/2021 1:27 AM Age: 35 years old Clinical indication: Pain; Shoulder; Right; Additional info: Injured at work pain getting worse TECHNIQUE: Imaging protocol: XR Right shoulder. Views: 2 or more views. COMPARISON: CR Chest, 2 view PA, Lat 03/30/2017 8:54 AM FINDINGS: Bones/joints: Normal. Soft tissues: Normal. IMPRESSION: Negative right shoulder. Electronically signed by: Henry Lake On 05/12/2021 02:12:24 AM
[2021-05-12 04:23] VITALS: BP 155/93
--- OUTSIDE RECORDS SUMMARY | 2021-05-12 05:13 | CCD ---
Author Author [facility] Organization [facility] Address Unknown Phone Unavailable Care Team Providers Care Healthcare Liaison Name Role Phone Maring, Jacques PA Unavailable [...] Unavailable Landon Ibrahim MD Unavailable Unavailable Landon Irbahim MD Unavailable Unavailable Landon Ibrahim MD Unavailable [...] Ibrahim MD Unavailable Unavailable LAROCK, J CRISTOBAL TELEGRAPH SERVICE RATER Unavailable Unavailable LAROCK, J CRISTOBAL TELEGRAPH SERVICE RATER Unavailable Unavailable LAROCK, J CRISTOBAL TELEGRAPH SERVICE RATER Unavailable Unavailable LAROCK, J CRISTOBAL TELEGRAPH SERVICE RATER Unavailable Unavailable LAROCK, J CRISTOBAL TELEGRAPH SERVICE RATER Unavailable Unavailable LAROCK, J CRISTOBAL TELEGRAPH SERVICE RATER Unavailable Unavailable LAROCK, J CRISTOBAL TELEGRAPH SERVICE RATER Unavailable Unavailable LAROCK, J CRISTOBAL TELEGRAPH SERVICE RATER Unavailable Unavailable LAROCK, J CRISTOBAL TELEGRAPH SERVICE RATER Unavailable Unavailable LAROCK, J CRISTOBAL TELEGRAPH SERVICE RATER Unavailable Unavailable LAROCK, J CRISTOBAL TELEGRAPH SERVICE RATER Unavailable Unavailable LAROCK, J CRISTOBAL TELEGRAPH SERVICE RATER Unavailable Unavailable LAROCK, J CRISTOBAL TELEGRAPH SERVICE RATER Unavailable Unavailable LAROCK, J CRISTOBAL TELEGRAPH SERVICE RATER Unavailable Unavailable LAROCK, J CRISTOBAL TELEGRAPH SERVICE RATER Unavailable Unavailable LAROCK, J CRISTOBAL TELEGRAPH SERVICE RATER Unavailable Unavailable LAROCK, J CRISTOBAL TELEGRAPH SERVICE RATER Unavailable Unavailable LAROCK, J CRISTOBAL TELEGRAPH SERVICE RATER Unavailable Unavailable LAROCK, J CRISTOBAL TELEGRAPH SERVICE RATER Unavailable Unavailable LAROCK, J CRISTOBAL TELEGRAPH SERVICE RATER Unavailable Unavailable LAROCK, J CRISTOBAL TELEGRAPH SERVICE RATER Unavailable Unavailable LAROCK, J CRISTOBAL TELEGRAPH SERVICE RATER Unavailable Unavailable Feola, T Jazmyne PA Unavailable [...] Unavailable Unavailable BLAIR ABDULAZIZ MD Unavailable Unavailable BLIAR ABDULAZIZ MD Unavailable Unavailable BLAIR ABDULAZIZ MD [...] BLAIR ABDULAZIZ MD Unavailable Unavailable ROCK, AICHA RUY TELEGRAPH SERVICE RATER Unavailable Unavailable ROCK, AICHA RUY TELEGRAPH SERVICE RATER Unavailable Unavailable ROCK, AICHA RUY TELEGRAPH SERVICE RATER Unavailable Unavailable ROCK, AICHA RUY TELEGRAPH SERVICE RATER Unavailable Unavailable ROCK, AICHA RUY TELEGRAPH SERVICE RATER Unavailable Unavailable ROCK, AICHA RUY TELEGRAPH SERVICE RATER Unavailable Unavailable ROCK, AICHA RUY TELEGRAPH SERVICE RATER Unavailable Unavailable ROCK, AICHA RUY TELEGRAPH SERVICE RATER Unavailable Unavailable ROCK, AICHA RUY TELEGRAPH SERVICE RATER Unavailable Unavailable ROCK, AICHA RUY TELEGRAPH SERVICE RATER Unavailable Unavailable ROCK, AICHA RUY TELEGRAPH SERVICE RATER Unavailable Unavailable ROCK, AICHA RUY TELEGRAPH SERVICE RATER Unavailable Unavailable ROCK, AICHA RUY TELEGRAPH SERVICE RATER Unavailable Unavailable ROCK, AICHA RUY TELEGRAPH SERVICE RATER Unavailable Unavailable ROCK, AICHA RUY TELEGRAPH SERVICE RATER Unavailable Unavailable ROCK, AICHA RUY TELEGRAPH SERVICE RATER Unavailable Unavailable ROCK, AICHA RUY TELEGRAPH SERVICE RATER Unavailable Unavailable ROCK, AICHA RUY TELEGRAPH SERVICE RATER Unavailable Unavailable ROCK, AICHA RUY TELEGRAPH SERVICE RATER Unavailable Unavailable ROCK, AICHA RUY TELEGRAPH SERVICE RATER Unavailable Unavailable ROCK, AICHA RUY TELEGRAPH SERVICE RATER Unavailable Unavailable ROCK, AICHA RUY TELEGRAPH SERVICE RATER Unavailable Unavailable ROCK, AICHA RUY TELEGRAPH SERVICE RATER Unavailable Unavailable Moses MOROCHO MD Unavailable Unavailable [...] Marlene MCINTYRE MD Unavailable Unavailable ANTECOL, Marlene MCNITYRE MD Unavailable Unavailable ANTECOL, Marlene MCINTYRE MD [...] Landon Richard MD Unavailable Unavailable Macho, Landon Ricahrd MD Unavailable Unavailable Pritchard, Landon Richard MD [...] Unavailable Unavailable Landon Pritchard MD Unavailable Unavailable Landno Pritchard MD Unavailable Unavailable Re-disclosure Warning The [...] is protected by Article 27-F of the [facility] Public Health law. If you continue you may have access to information: Regarding HIV / AIDS; Provided by facilities licensed or operated by the [facility] Office of Mental Health; or Provided by the [facility] Office for People With Developmental Disabilities. If such information is present, then the following [facility] mandated warning applies: This information has [...] law may result in a fine or detention sentence or both. A general authorization for the release of medical or other information is NOT sufficient authorization for further disc losure. Allergies and Adverse Reactions Type Description Substance Reaction Status Data Source(s ) No Known Drug Allergies No Known Drug Allergies [facility] No Known Environmental Allergies No Known Environmental Al lergies [facility] No Known Food Allergies No Known Food Allergies [facility] Family History Family Member Name Family Member Gender Family Member Status Date o f Status Description Data Source(s) Unknown Unknown Problem [facility] Unknown Female Problem [facility] ([facility]) Unknown Female Problem [facility] ([facility]) Unknown Female Problem [facility] ([facility]) Encounters Encounter Providers Location Date Indications Data Source(s ) Outpatient Attender: FRANCISCO JAVIER LAZCANO MD Main Office 05/01/2021 08:00:00 AM EDT [facility] ([facility]) Outpatient Attender: BENNY MOROCHO MD Family Practice 04/03 10:15:00 AM EDT [facility] Outpatient Attender: BENNY MOROCHO MDConsultant: ABDULAZIZ ROBERTSON MD 04/17/2021 10:09:00 AM EDT - 04/17/2021 10:09:00 AM EDT [facility] Outpatient Attender: RUY ROCK NP Family Practice 03/26/2021 03 :00:00 PM EDT [facility] ([facility]) Outpatient Attender: RUY ROCK NPConsultant: ABDULAZIZ BLAIR MD 03/26/2021 02:46:00 PM EDT - 03/26/2021 02:46:00 PM EDT [facility] Outpatient Attender: ABDULAZIZ BLAIR MDConsultant: ABDULAZIZ Garg MD 03/17/2021 09:40:00 AM EDT - 03/17/2021 09:40:00 AM EDT [facility] Outpatient Attender: ABDULAZIZ BLAIR MD Family Practice 03/05/2021 1 0:00:00 AM EDT [facility] ([facility]) Outpatient Attender: ABDULAZIZ BLAIR MDConsultant: ABDULAZIZ Garg MD 03/05/2021 09:37:00 AM EDT - 03/05/2021 09:37:00 AM EDT [facility] Outpatient Attender: RUY ROCK NP [facility] 02/05/2021 10 :30:00 AM EDT [facility] ([facility]) Outpatient Attender: RUY ROCK NPConsultant: ABDULAZIZ BLAIR MD 02/05/2021 10:03:00 AM EDT - 02/05/2021 10:03:00 AM EDT [facility] Outpatient Attender: CRISTOBAL LEONARD NP 10/04 [...] AM EDT - 10/18/2020 09:51:01 AM EDT [facility] Outpatient Attender: Jacques MANSFIELD 10/17/19 11:55:48 AM EDT - 10/16/2020 12:29:35 PM EDT [facility] ([facility] ) Outpatient Attender: Cristobal Peña MDAdmitter: Cristobal mercer MD MOB-MOB.PAT 10/09/2020 12:45:58 PM EDT - 10/09/2020 01:38:04 PM EDT [facility] Inpatient Attender: Cristobal Peña MDAdmitter: Cristobal mercer MD [id number] 09/16/2020 03:54:20 PM EDT - 10/24/2020 01:52:00 PM EDT [facility] Patient discharged. Outpatient MOB-MOB.PAT 08/13/2020 09:50:11 AM EST [facility] Outpatient Attender: Hieu Ibrahim MDAdmit ter: Hieu Ibrahim MDReferrer: LYNDON GLYNN MD [id number] 06/30/2020 11:35:29 AM EST - 08/18/2020 11:53:00 AM EST [facility] Patient discharged. Outpatient Attender: MEHNAZ de la fuente 04/21/2020 08:00:00 AM EDT [facility] ([facility]) Medications Medication Brand Name Start Date Product Form Dose Route Admi nistrative Instructions Pharmacy Instructions Status Indications Reaction Description Data Source(s) Omeprazole 40 MG Delayed Release Oral Capsule Omeprazole 04/30/2021 12:00:00 AM EDT ORAL active [facility] Biotin 2.5 MG Oral Capsule Biotin 04/30/2021 12:00:00 AM EDT ORAL active [facility] ([facility]) Flintstones Complete 04/30/2021 12:00:00 AM EDT ORAL active [facility] ([facility]) ferrous sulfate 325 MG Oral Tablet Ferrous Sulfate 04/30/2021 12:00 :00 AM EDT ORAL active [facility] ([facility]) Clindamycin 300 MG Oral Capsule CLINDAMYCIN HCL [...] saline flush 0.9 % injection 3 mL [id number] 10/24/2020 06:00:00 AM EDT 3 mL Intravenous active 3 mL , Intravenous, PROTOCOL, First dose on Tue10/24/20 at 0600, Post-op
Convert to saline lock after discontinuing D5LR IV.
[facility] Medication administered onsite lactated ringers bolus 1,000 mL [id number] 10/24/2020 06:00:00 AM EDT 1000 mL Intravenous completed 1,000 mL , Intravenous, Administer over 2 Hours, Once, On Tue10/24/20 at 0600, For 1 dose, Post-op [facility] Medication administered onsite ondansetron (ZOFRAN-ODT) disintegrating [...] at 0600, Post- op [Order 2 End] [facility] Medication administered onsite Acetaminophen 500 MG Oral Tablet acetaminophen (TYLENO L) tablet 1,000 mg acetaminophen (TYLENOL) tablet 1,000 mg 10/23/2020 11:00:00 PM EDT 1000 mg Oral active 1,000 mg, Oral , Every 8 hours, First dose on Tue10/23/20 at 2300, For 48 hours, Post-op [facility] Medication administered onsite gabapentin 300 MG Oral Capsule gabapentin (NEURONTIN) capsule 300 mg gabapentin (NEURONTIN) capsule 300 mg 10/23/2020 09:00:00 PM EDT 300 mg Oral active 300 mg, Oral, 3 times daily, First dose on Tue10/23/20 at 2100, Post-op [facility] Medication administered onsite Ondansetron 4 MG Disintegrating Oral Tab let ondansetron (ZOFRAN-ODT) disintegrating tablet 8 mg ondansetron (ZOFRAN-ODT) disintegrating tablet 8 mg 10/23/2020 09:00:00 PM EDT 8 mg Oral active 8 mg, Oral, Every 6 hours (scheduled), First dose on Tue10/23/20 at 2100, For 24 hours, Post-op [facility] Medication administered onsite Calcium Chloride 0.001 [...] saline lock in AM of POD #1.
[facility] Medication administered onsite Insulin Lispro 100 [...] 14 units >420 16 units, Call MD
[facility] Medication administered onsite Simethicone 80 MG Chewable Tablet simethicone (MYLICON ) chewable tablet 80 mg simethicone (MYLICON) chewable tablet 80 mg 10/23/2020 06:00:00 PM EDT 80 mg Oral active 80 mg, Oral, E very 4 hours (relative), First dose on Helen 10/23/20 at 1800, Post-op
Don't wake pt up at night
[facility] Medication administered onsite 1 ML Ketorolac Tromethamine 30 MG/ML Car tridge ketorolac (TORADOL) injection 30 mg ketorolac (TORADOL) injection 30 mg 10/23/2020 06:00:00 PM EDT 30 mg Intravenous completed Moderate to Severe Pain 30 mg, Intravenous, Every 6 hours (relative), First dose on Helen 10/23/20 at 1800, For 4 doses, Post-op [facility] Moderate to Severe Pain Medication administered onsite pantoprazole 40 MG Delayed Release Oral Tablet pantoprazole (PROTONIX) EC tablet 40 mg pantoprazole (PROTONIX) EC tablet 40 mg 10/23/2020 06:00:00 PM E DT 40 mg Oral active Stress Ulcer Prophylaxis 40 mg, Oral, Daily, Indications: Stress Ulcer Prophylaxis, First dose on Helen 10/23/20 at 1800, Post-op [facility] Stress Ulcer Prophylaxis Medication administered onsite heparin (porcine) injection 5,000 Units [id number] 10/24/19 06:00:00 PM EDT 5000 U Subcutaneous active 5,000 Units , Subcutaneous, Every 8 hours (relative), First dose on Helen 10/23/20 at 1800, Post-op
If platelet count is less than 100,000 or hematocrit is less than 30, or there is a 5 point decrease in hematocrit, do not give the dose and call physician/designee
[facility] Medication administered onsite metoclopramide (REGLAN) injection [...] hours PRN for nausea
[Order 2 End] [facility] Medication administered onsite Promethazine Hydrochloride 25 MG Oral Ta blet promethazine (PHENERGAN) tablet 12.5 mg promethazine (PHENERGAN) tablet 12.5 mg 10/23/2020 05:07:19 PM E DT 12.5 mg Oral active 12.5 mg, O ral, Every 4 hours PRN, nausea, Starting on Helen 10/23/20 at 1707, Post-op [facility] Medication administered onsite Prochlorperazine 10 MG Oral Tablet prochlorperazine (C OMPAZINE) tablet 10 mg prochlorperazine (COMPAZINE) tablet 10 mg 10/23/2020 05:07:19 PM EDT 10 mg Oral active 10 mg, Oral, E very 6 hours PRN, nausea, Starting on Helen 10/23/20 at 1707, Post-op [facility] Medication administered onsite enalaprilat (VASOTEC) injection 1.25 mg [id number] 10/24/19 05:07:18 PM EDT 1.25 mg Intravenous active 1.25 mg, Int ravenous, Every 6 hours PRN, for SBP > 140 mmHg and/or DBP > 90 mmHg, Starting on Helen 10/23/20 at 1707, Post- op
Mix in 50 mL NS, infuse over 30 minutes via infusion pump. For IVMB on NON-ICU units.
[facility] Medication administered onsite 0.4 ML Enoxaparin sodium 100 MG/ML Prefi lled Syringe enoxaparin (LOVENOX) syringe 40 mg enoxaparin (LOVENOX) syringe 40 mg 10/23/2020 05:07:18 PM EDT 40 mg Subcutaneous completed 40 mg, Subcutaneous, Before Discharge, DVT prophilaxis, Starting on Helen 10/23/20 at 1707, For 1 dose, Post-op
At discharge. To be administered by patient or significant other.
[facility] Medication administered onsite Insulin Lispro 100 [...] 14 units >420 16 units, Call MD
[facility] Medication administered onsite Insulin Glargine 100 UNT/ML Injectable S olution [Lantus] insulin glargine (LANTUS) injection 20 Units insulin glargine (LANTUS) injection 20 Units 10/23/2020 05:00:00 PM EDT 20 U Subcutaneous complete d 20 Units, Subcutaneous, Once, On Helen 10/23/20 at 1700, For 1 dose, PACU (only) [facility] Medication administered onsite Calcium Chloride 0.0014 MEQ/ML / Potassi um Chloride 0.004 MEQ/ML / Sodium Chloride 0.103 MEQ/ML / Sodium Lactate 0.028 MEQ/ML Injectable Solution lactated ringers infusion lactated ringers infusion 10/23/2020 01:00:00 PM EDT Intravenous active at 100 mL/hr, Intravenous, Continuous, Starting on Helen 10/23/20 at 1300, PACU (only) [facility] Medication administered onsite Albuterol 0.83 MG/ML Inhalant Solution a lbuterol (PROVENTIL) nebulizer solution 2.5 mg albuterol (PROVENTIL) nebulizer solution 2.5 mg 2020 12:00:00 PM EDT 2.5 mg completed 2.5 mg , Nebulization, call out clerk, On Helen 10/23/20 at 1200, For 1 dose, Pre-op
To be started by pre-op unit
[facility] Medication administered onsite Calcium Chloride 0.0014 MEQ/ML / Potassi um Chloride 0.004 MEQ/ML / Sodium Chloride 0.103 MEQ/ML / Sodium Lactate 0.028 MEQ/ML Injectable Solution lactated ringers infusion lactated ringers infusion 10/23/2020 12:00:00 PM EDT 100 mL/h Intravenous active at 100 m L/hr, 100 mL/hr, Intravenous, Continuous, Starting on Helen 10/23/20 at 1200, Pre-op
Please place IV on left side if able
[facility] Medication administered onsite Dexamethasone 4 MG Oral Tablet dexamethasone (DECADRON ) tablet 4 mg dexamethasone (DECADRON) tablet 4 mg 10/23/2020 12:00:00 PM EDT 4 mg Oral completed 4 mg, Oral, call out clerk, On Helen 10/23 at 1200, For 1 dose, Pre-op [facility] Medication administered onsite gabapentin 600 MG Oral Tablet gabapentin (NEURONTIN) t ablet 600 mg gabapentin (NEURONTIN) tablet 600 mg 10/23/2020 12:00:00 PM EDT 600 mg Oral completed 600 mg, Oral, On rinku l, On Helen 10/23/20 at 1200, For 1 dose, Pre-op
Hold if age greater than 70 or chronic renal failure/insufficiency
[facility] Medication administered onsite heparin (porcine) injection 5,000 Units [id number] 10/24/19 12:00:00 PM EDT 5000 U Subcutaneous completed 5,000 Uni ts, Subcutaneous, call out clerk, On Helen 10/23/20 at 1200, For 1 dose, Pre-op
If platelet count is less than 100,000 or hematocrit is less than 25, or if there is a 5 point decrease in hematocrit, do not give the dose and call physician/designee.
[facility] Medication administered onsite Prochlorperazine 10 MG Oral Tablet prochlorperazine (C OMPAZINE) tablet 10 mg prochlorperazine (COMPAZINE) tablet 10 mg 10/23/2020 12:00:00 PM EDT 10 mg Oral completed 10 mg, Oral, O n call, On Helen 10/23/20 at 1200, For 1 dose, Pre-op [facility] Medication administered onsite Tetrahydrocannabinol 2.5 MG Oral Capsule dronabinol (M ARINOL) capsule 5 mg dronabinol (MARINOL) capsule 5 mg 10/23/2020 12:00:00 PM EDT 5 mg Oral completed 5 mg, Oral, call out clerk, On 10/23 at 1200, For 1 dose, Pre-op [facility] Medication administered onsite celecoxib 100 MG Oral Capsule celecoxib (CeleBREX) cap esa 200 mg celecoxib (CeleBREX) capsule 200 mg 10/23/2020 12:00:00 PM EDT 200 mg Oral completed 200 mg, Oral, call out clerk, On Tue at 1200, For 1 dose, Pre-op [facility] Medication administered onsite Acetaminophen 325 MG Oral Tablet acetaminophen (TYLENO L) 325 MG tablet 975 mg acetaminophen (TYLENOL) 325 MG tablet 975 mg 10/23/2020 12:00:00 PM EDT 975 mg Oral completed 975 mg, Or al, call out clerk, On Helen 10/23/20 at 1200, For 1 dose, Pre-op
"Maximum dose of acetaminophen is 4,000 mg from all sources in 24 hours."
[facility] Medication administered onsite Clonidine Hydrochloride 0.1 MG Oral Tablet cloNIDine ( CATAPRES) tablet 0.1 mg cloNIDine (CATAPRES) tablet 0.1 mg 10/23/2020 12:00:00 PM EDT 0.1 mg Oral completed 0.1 mg, Oral, call out clerk, On Tue at 1200, For 1 dose, Pre-op [facility] Medication administered onsite Alprazolam 0.25 MG Oral Tablet ALPRAZolam (XANAX) tabl et 0.25 mg ALPRAZolam (XANAX) tablet 0.25 mg 10/23/2020 12:00:00 PM EDT 0.25 mg Oral completed 0.25 mg, Oral, call out clerk, On Tue10/23/20 a t 1200, For 1 dose, Pre-op [facility] Medication administered onsite scopolamine (TRANSDERM-SCOP) 1.5 MG (Bariatric only) 1 patch [id number] 10/23/2020 11:07:41 AM EDT 1 {patch} Transdermal aborted 1 patch, Transdermal, Administer over 24 Hours, Every 24 hours (relative), First dose on Tue10/23/20 at 1200, For 1 dose, Pre-op
Scopolamine patch applied behind ear. Hold for any of the followin+ yrs old, hx of glaucoma, hx of vertigo, dementia.
[facility] Medication administered onsite Simethicone 80 MG Chewable Tablet simethicone (MYLICON ) 80 MG chewable tablet simethicone (MYLICON) 80 MG chewable tablet 10/23/2020 12:00:00 AM EDT 80 mg Oral active Chew 1 tablet (80 mg total) every 6 (six) hours as needed for flatulence [facility] Omeprazole 40 MG Delayed Release Oral Ca psule omeprazole (PriLOSEC) 40 MG capsule omeprazole (PriLOSEC) 40 MG capsule 10/23/2020 12:00:00 AM EDT 40 mg Oral active Take 1 capsule (40 m g total) by mouth daily [facility] Vitamin B 12 0.5 MG Oral Tablet vitamin B-12 (CYANOCOB ALAMIN) 500 MCG tablet vitamin B-12 (CYANOCOBALAMIN) 500 MCG tablet 10/23/2020 12:00:00 AM EDT 500 ug Oral active Take 1 tablet (500 mcg t otal) by mouth daily [facility] Ondansetron 4 MG Disintegrating Oral Tab let ondansetron (ZOFRAN-ODT) 4 MG disintegrating tablet ondansetron (ZOFRAN-ODT) 4 MG disintegrating tablet 10/23/2020 12:00:00 AM EDT 4 mg Oral active Take 1 tablet (4 mg total) by mouth every 8 (eight) hours as needed for nausea [facility] 0.4 ML Enoxaparin sodium 100 MG/ML Prefi lled Syringe enoxaparin (Lovenox) 40 MG/0.4ML SOLN enoxaparin (Lovenox) 40 MG/0.4ML SOLN 10/23/2020 12:00:00 AM EDT 40 mg Subcutaneous active Inject 0.4 mL (40 mg total) under the skin daily for 10 days [facility] Magnesium Hydroxide 80 MG/ML Oral Suspen kerri magnesium hydroxide (Milk of Magnesia) 400 MG/5ML suspension magnesium hydroxide (Milk of Magnesia) 4 00 MG/5ML suspension 10/23/2020 12:00:00 AM EDT 30 mL Oral active Take 30 mL by mouth daily as needed for constipation [facility] 40 mg 09/12/2020 12:00:00 AM EST [...] saline flush 0.9 % injection 3 mL [id number] 08/18/2020 02:00:00 PM EST 3 mL Intravenous active 3 mL , Intravenous, Every 8 hours (scheduled), First dose on Tue08/18/20 at 1400, PACU (only)
flush per protocol, D/C Main IV fluid if appropriate
[facility] Medication administered onsite Magnesium Chloride 0.06443 MEQ/ML / Pota ssium Chloride 0.0497 MEQ/ML / Sodium Acetate 0.0163 MEQ/ML / Sodium Chloride 0.0899 MEQ/ML / Sodium gluconate 5.02 MG/ML Injectable Solution [Normosol-R] electrolyte-R (NORMOSOL-R/PLASMALYTE-R) solution electrolyte-R (NORMOSOL-R/PLASMALYTE-R) solution 08/18 12:00:00 PM EST Intravenous active at 1 00 mL/hr, Intravenous, Continuous, Starting Tue08/18/20 at 1200, PACU (only) [facility] Medication administered onsite ondansetron (ZOFRAN) injection 4 mg [id number] 08/18/2020 11:22:4 0 AM EST 4 mg Intravenous active 4 mg, In travenous, Once as needed, nausea, vomiting, if not given in last 4 hours, Starting Tue08/18/20 at 1122, For 1 dose, PACU & Post-op [facility] Medication administered onsite fentaNYL Citrate (PF) (SUBLIMAZE) injection 25 mcg [id number] 08/18/2020 11:22:34 AM EST 25 ug Intravenous active 25 mcg, Intravenous, Every 5 min PRN, moderate pain (4 to 6), Starting Tue08/18/20 at 1122, For 8 doses, PACU (only) [facility] Medication administered onsite Albuterol 0.833 MG/ML / Ipratropium Brom rossy 0.167 MG/ML Inhalant Solution ipratropium-albuterol (DUO-NEB) 0.5-2.5 mg/mL nebulizer solution 3 mL ipratropium-albuterol (DUO-NEB) 0.5-2.5 mg/mL nebulizer solution 3 mL 08/18/2020 11:22:34 AM EST 3 mL Inhalation active 3 mL, Inhalation, Once as needed, shortness of breath, Starting Tue08/18/20 at 1122, For 1 dose, PACU (only) [facility] Medication administered onsite 10 ML Atropine [...] or 0.04 mg/kg. Max of 6 doses
[facility] Medication administered onsite 37.5 mg 05/09/2020 [...] 04/21/2020 12:00:00 AM EDT active M [facility] ([facility]) Naproxen 500 MG Oral Tablet Naproxen 04/21/2020 12:00:00 AM EDT ORAL active [facility] ([facility]) topiramate 50 MG Oral Tablet topiramate (TOPAMAX) 50 M G tablet topiramate (TOPAMAX) 50 MG tablet 50 mg Oral aborted Take 50 mg by mouth 2 (two) times a day [facility] Phentermine Hydrochloride 37.5 MG Oral T ablet phentermine (ADIPEX-P) 37.5 MG tablet phentermine (ADIPEX-P) 37.5 MG tablet 37.5 mg Oral aborted Take 37.5 mg by mouth every morning before breakfast [facility] Insurance Providers Payer name Policy type / Coverage type Policy ID Covered libertarian ID Covered libertarian's relationship to whitaker Policy Whitaker Plan Information Medicaid S [id number] S [id number] Managed Care - Community Plan [facility] P [id number] S [id number] Medicaid S [id number] S [id number] Managed Care - Community Plan [facility] P [id number] S [id number] Medicaid S [id number] S [id number] [facility] I [id number] Self [id number] UNHC COMMUNITY PLAN MCDO [id number] SP [id number] Medicaid S [id number] S [id number] Managed Care - Community Plan [facility] P [id number] S [id number] Managed Care - [facility] Community Plan P [id number] S [id number] [facility] MEDICAID [id number] xxxxxxxxx [id number] [facility] MEDICAID [id number] Janet [id number] INSURANCE COVID-19 [id number] [phone] [id number] INSURANCE COVID-19 COVID Janet C OVID SELF PAY [employer] [facility] MED emp [id number] Employee [id number] FFS Self Pay [id number] Self [id number] [facility] Health Maintenance Organization (HMO) [id number] Self [id number] [facility] Health Maintenance Organization (HMO) [id number] Self [id number] [facility] O [id number] S [id number] [facility] Medicaid [id number] Self [id number] [facility] COMMUNITY PLAN [id number] 18 [id number] [facility] Medicaid [id number] Self [id number] [facility] Community [facility] Medicaid [id number] Self [id number] [facility] Health Maintenance Organization (HMO) [id number] Self [id number] [facility] Communty Plan Medicaid [id number] Self [id number] [facility] X[facility] -O [id number] 18 [id number] [facility] O [id number] S [id number] [facility] MANAGEMENT [facility] [id number] [facility] COMMUNITY PLAN XIX [id number] 18 [id number] [facility] COMMUNTY PLAN [id number] 18 [id number] [facility] Community Plan Medicaid 44 Self [facility] Health Maintenance Organization (HMO) [id number] Self [id number] Problems, Conditions, and Diagnoses Code Display Name Description Problem Type Effective Dates Data Source(s) 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 Diagnosis 03/26/2021 02:46:00 PM EDT [facility] E7800 Pure hypercholesterolemia, unspecified P ure hypercholesterolemia, unspecified Diagnosis 03/17/2021 09:40:00 AM EDT [facility] D509 Iron deficiency anemia, unspecified Iron deficie ncy anemia, unspecified Diagnosis 03/17/2021 09:40:00 AM [facility] R739 Hyperglycemia, unspecified Hyperglycemia, unspecified Diagnosis 03/17/2021 09:40:00 AM EDT [facility] R011 Cardiac murmur, unspecified Cardiac murmur, unspecifie d Diagnosis 03/05/2021 09:37:00 AM EDT [facility] L659 Nonscarring hair loss, unspecified Nonscarring h air loss, unspecified Diagnosis 03/05/2021 09:37:00 AM T [facility] E785 Hyperlipidemia, unspecified Hyperlipidemia, unspecifie d Diagnosis 03/05/2021 09:37:00 AM EDT [facility] Z9884 Bariatric surgery status Bariatric surgery status Diag nosis 03/05/2021 09:37:00 AM EDT [facility] Z0001 Encounter for general adult medical exam ination with abnormal findings Encounter for general adult medical examination with abnormal findings Diagnosis 03/05/2021 09:37:00 AM EDT [facility] Z803 Family history of malignant neoplasm of breast Family history of malignant neoplasm of breast Diagnosis 02/05/2021 10:03:00 AM EDT [facility] [id number] Encounter for gynecological examination (general) (routine) without abnormal findings Encounter for gynecological examination (general) (routine) without abnormal findings Diagnosis 02/05/2021 10:03:00 AM EDT [facility] E66.01 Morbid (severe) obesity due to excess ca lories Morbid (severe) obesity due to excess ca Diagnosis 10/23/2020 10:09:00 AM EDT [facility] U07.1 COVID-19 COVID-19 Diagnosis 10/18/2020 09:50:58 AM ED T [facility] K21.9 Gastro-esophageal reflux disease without esophagitis Gastro-esophageal reflux disease without Diagnosis 08/18/2020 10:03:00 AM EST [facility] R01.1 Heart murmur Heart murmur Problem 05/01/2021 12:00:00 A M EDT [facility] ([facility]) E66.09 Obesity Obesity Problem 05/01/2021 12:00:00 AM ED T [facility] ([facility]) Z71.3 Dietary management surveillance Dietary management ben veillance Problem 05/01/2021 12:00:00 AM EDT [facility] ([facility]) Z00.00 Adult health examination Adult health examination Prob xavier 03/05/2021 12:00:00 AM EDT [facility] ([facility]) R73.9 Abnormal glucose level Abnormal glucose level Problem 03/05/2021 12:00:00 AM EDT [facility] ([facility]) E78.5 Hyperlipidemia Hyperlipidemia Problem 03/05/2021 12:00: 00 AM EDT [facility] ([facility]) D50.9 Iron deficiency anemia Iron deficiency anemia Problem 03/05/2021 12:00:00 AM EDT [facility] ([facility]) L65.9 Alopecia Alopecia Problem 03/05/2021 12:00:00 AM ED T [facility]) [id number] Tootie-en-Y gastrojejunostomy Tootie-en-Y gastrojejunostom y Problem 02/05/2021 12:00:00 AM EDT [facility] ([facility]) Note: done 10/22 E66.01 Morbid obesity Morbid obesity [id number] 10/23/2020 12:00: 00 AM EDT [facility] Surgeries/Procedures Procedure Description Date Indications Data Source(s) ECG ROUTINE ECG W/LEAST 12 LDS W/I&R 05/01/2021 12:00: 00 AM EDT [facility]) OFFICE OUTPATIENT NEW 45 MINUTES 05/01/2021 12:00:00 A M EDT [facility] ([facility]) OFFICE OUTPATIENT VISIT 10 MINUTES 04/17/2021 12:00:00 AM EDT [facility] ([facility]) OFFICE OUTPATIENT VISIT 25 MINUTES 03/26/2021 12:00:00 AM EDT [facility] ([facility]) PHYSICIAN TELEPHONE EVALUATION 5-10 MIN 03/17/2021 12: 00:00 AM EDT [facility] ([facility]) PERIODIC PREVENTIVE MED EST PATIENT 18-39 YRS 03/05/20 12:00:00 AM EDT [facility] ([facility]) PERIODIC PREVENTIVE MED EST PATIENT 18-39 YRS 02/06/20 12:00:00 AM EDT [facility] ([facility]) GLUC BLD GLUC MNTR DEV CLEARED FDA SPEC HOME USE <td>P OCT GLUCOSE</td><td>Routine</td><td>10/24/2020 11:49 AM EDT</td><td></td><td> </td> 10/24/2020 11:49:00 AM EDT [facility] GLUC BLD GLUC MNTR DEV CLEARED FDA SPEC HOME USE <td>P OCT GLUCOSE</td><td>Routine</td><td>10/24/2020 6:05 AM EDT</td><td></td><td> </td> 10/24/2020 06:05:00 AM EDT [facility] GLUC BLD GLUC MNTR DEV CLEARED FDA SPEC HOME USE <td>P OCT GLUCOSE</td><td>Routine</td><td>10/24/2020 12:02 AM EDT</td><td></td><td> </td> 10/24/2020 12:02:00 AM EDT [facility] GLUC BLD GLUC MNTR DEV CLEARED FDA SPEC HOME USE <td>P OCT GLUCOSE</td><td>Routine</td><td>10/23/2020 6:50 PM EDT</td><td></td><td> </td> 10/23/2020 06:50:00 PM EDT [facility] GLUC BLD GLUC MNTR DEV CLEARED FDA SPEC HOME USE <td>P OCT GLUCOSE</td><td>Routine</td><td>10/23/2020 4:01 PM EDT</td><td></td><td> </td> 10/23/2020 04:01:00 PM EDT [facility] LAPS GSTR RSTCV PX W/BYP TOOTIE-EN-Y LIMB <150 CM <td>CR EATION, GASTRIC BYPASS, TOOTIE-EN-Y, LAPAROSCOPIC, WITH SLEEVE GASTRECTOMY IF INDICATED, WITH LIVER BIOPSY IF INDICATED, WITH HIATAL HERNIA REPAIR IF INDICATED, WITH LAPAROTOMY IF INDICATED</td><td></td><td>10/23/2020 1:21 PM EDT</td><td> Morbid obesity Fatty liver</td><td></td> 10/23/2020 01:21:00 PM EDT - 10/23/2020 04:19:00 PM EDT Fatty liverMorbid obesity [facility] Fatty liver Morbid obesity POCT I-STAT BETA HCG <td>POCT I-STAT BETA HCG</td ><td>Routine</td><td>10/23/2020 11:49 AM EDT</td><td></td><td> </td> 10/23/2020 11:49:00 AM EDT [facility] POCT I-STAT BETA HCG <td>POCT I-STAT BETA HCG</td ><td>Routine</td><td>10/23/2020 11:39 AM EDT</td><td></td><td> </td> 10/23/2020 11:39:00 AM EDT [facility] GLUC BLD GLUC MNTR DEV CLEARED FDA SPEC HOME USE <td>P OCT GLUCOSE</td><td>Routine</td><td>10/23/2020 11:32 AM EDT</td><td></td><td> </td> 10/23/2020 11:32:00 AM EDT [facility] BLOOD TYPING ABO <td>TYPE AND SCREEN</td><td> Routine</td><td>10/09/2020 1:50 PM EDT</td><td> Morbid obesity</td><td> </td> 10/09/2020 05:50:00 PM EDT Morbid obesity [facility] Morbid obesity ECG ROUTINE ECG W/LEAST 12 LDS TRCG ONLY W/O I&R <td>E CG 12- LEAD</td><td>Routine</td><td>10/09/2020 1:36 PM EDT</td><td> Morbid obesity</td><td></td> 10/09/2020 05:36:42 PM EDT Morbid obesity [facility] Morbid obesity BLOOD COUNT COMPLETE AUTOMATED <td>CBC</td><td>Routine </td><td>10/09/2020 1:30 PM EDT</td><td> Morbid obesity</td><td> </td> 10/09/2020 05:30:00 PM EDT Morbid obesity [facility] Morbid obesity THYROID STIMULATING HORMONE TSH <td>TSH</td><td>Routin e</td><td>10/09/2020 1:30 PM EDT</td><td> Morbid obesity</td><td> </td> 10/09/2020 05:30:00 PM EDT Morbid obesity [facility] Morbid obesity HEMOGLOBIN GLYCOSYLATED A1C <td>HEMOGLOBIN A1C</td><td>Routine</td><td>10/09/2020 1:30 PM EDT</td><td> Morbid obesity</td><td> </td> 10/09/2020 05:30:00 PM EDT Morbid obesity [facility] Morbid obesity COMPREHENSIVE METABOLIC PANEL <td>COMPREHENSIVE METABO LIC PANEL</td><td>Routine</td><td>10/09/2020 1:30 PM EDT</td><td> Morbid obesity</td><td> </td> 10/09/2020 05:30:00 PM EDT Morbid obesity [facility] Morbid obesity UPPER NDSC BIOPSY SINGLE/MULTIPLE 08/18/2020 12:00:00 AM EST [facility] ([facility]) Results ID Date Data Source [id number] 05/04/2021 12:00:00 AM EDT [facility] Name Value Range Interpretation Code Description Data Jeannette rce(s) Supporting Document(s) SARS coronavirus 2 Ag Negative [facility] This lab was ordered by Daron Simon and reported by Daron Simon. ID Date Data Source [id number] 04/22/2021 01:19:00 PM EDT [facility] ([facility]) Name Value Range Interpretation Code Description Data Jeannette rce(s) Supporting Document(s) White Blood Count 9.2 10 4.0-10.0 Normal (applies to non-numeri c results) [facility] ([facility]) Red Blood Count 5.32 10 4.00-5.40 Normal (applies to non-numeric results) [facility] ([facility]) Hemoglobin 13.9 g/dL 12.0-15.5 Normal (applies to non-numeric resul ts) [facility] ([facility]) Hematocrit 43.3 % 36.0-47.0 Normal (applies to non-numeric resul ts) [facility] ([facility]) Mean Corpuscular Volume 81.4 fl 80.0-96.0 Normal ( applies to non-numeric results) [facility] ([facility]) Mean Corpuscular Hemoglobin 26.1 pg 27.0-33.0 Below low normal [facility] ([facility]) Mean Corpuscular HGB Conc 32.1 g/dL 32.0-36.5 Normal (applies to non-numeric results) [facility] ([facility]) Platelet Count, Automated 297 10 150-450 Normal (applies to non-numeric results) [facility] ([facility]) Red Cell Distribution Width 13.8 % 11.5-14.5 Norm al (applies to non-numeric results) [facility] ([facility]) Lymph % 37.5 % 24.0-44.0 Normal (applies to non-numeric resul ts) [facility] ([facility]) Williams % 5.3 % 2.0-8.0 Normal (applies to non-numeric resul ts) [facility] ([facility]) Neutrophils % 53.8 % 36.0-66.0 Normal (applies to non-numeric re sults) [facility] ([facility]) Eos % 2.6 % 0.0-3.0 Normal (applies to non-numeric resul ts) [facility] ([facility]) Baso % 0.5 % 0.0-1.0 Normal (applies to non-numeric resul ts) [facility] ([facility]) Immature Granulocyte % 0.3 % 0-3.0 Normal (applies to non-n umeric results) [facility] ([facility]) Nucleated Red Blood Cell % 0.0 % 0-0 Normal (applies to n on-numeric results) [facility] ([facility]) Neutrophils # 5.0 10 1.5-8.5 Normal (applies to non-numeric re sults) [facility] ([facility]) Williams # 0.5 10 0.0-0.8 Normal (applies to non-numeric resul ts) [facility] ([facility]) Lymph # 3.5 10 1.5-5.0 Normal (applies to non-numeric resul ts) [facility] ([facility]) Eos # 0.2 10 0.0-0.5 Normal (applies to non-numeric resul ts) [facility] ([facility]) Baso # 0.1 10 0.0-0.2 Normal (applies to non-numeric resul ts) [facility] ([facility]) ID Date Data Source [id number] 04/22/2021 01:19:00 PM EDT [facility] ([facility]) Name Value Range Interpretation Code Description Data Jeannette rce(s) Supporting Document(s) Hematocrit 45.1 % 36.0-47.0 Normal (applies to non-numeric resul ts) [facility] ([facility]) RBC Folate 591 ng/mL 280-791 Normal (applies to non-numeric resul ts) [facility] ([facility]) ID Date Data Source [id number] 04/22/2021 01:19:00 PM EDT [facility] ([facility]) Name Value Range Interpretation Code Description Data Jeannette rce(s) Supporting Document(s) Cobalamin (Vitamin B12) [Mass/volume] in Serum or Plasma Lab oratory test result 247-911 Above high normal [facility] ([facility]) VITAMIN B12 NORMAL RANGE NORMAL 247 - 911 PG/ML INDETERMINATE 211 - 246 PG/ML DEFICIENT LESS THAN 211 PG/ML Calcidiol [Mass/volume] in Serum or Plasma 25.6 ng/mL 30.0- 100.0 Below low normal [facility] ([facility]) Ferritin [Mass/volume] in Serum or Plasma 16 ng/mL 8-252 Normal (applies to non- numeric results) [facility]) ID Date Data Source [id number] 04/22/2021 01:19:00 PM EDT [facility] ([facility]) Name Value Range Interpretation Code Description Data Jeannette rce(s) Supporting Document(s) Iron (Fe) 33 ug/dL 50-170 Below low normal [facility] ( [facility]) Total Iron Binding Capacity 390 ug/dL 250-450 Norm al (applies to non-numeric results) [facility] ([facility]) Percent Saturation 8.5 % 13.2-45.0 Below low normal [facility] ([facility]) ID Date Data Source [id number] 04/22/2021 01:19:00 PM EDT [facility] ([facility]) Name Value Range Interpretation Code Description Data Jeannette rce(s) Supporting Document(s) Magnesium [Mass/volume] in Serum or Plasma 2.2 mg/dL 1.8-2 .4 Normal (applies to non-numeric results) [facility] ([facility]) Phosphate [Moles/volume] in Serum or Plasma 4.2 mg/dL 2.5- 4.9 Normal (applies to non-numeric results) [facility] ([facility] ) ID Date Data Source [id number] 04/22/2021 01:19:00 PM EDT [facility] ([facility]) Name Value Range Interpretation Code Description Data Jeannette rce(s) Supporting Document(s) Glucose, Fasting 68 mg/dL 70-100 Below low normal [facility] ([facility]) Blood Urea Nitrogen 14 mg/dL 7-18 Normal (applies to non-nume isela results) [facility] ([facility]) Glomerular Filtration Rate Laboratory test result Normal (applies to non- numeric results) [facility] ([facility]) <content>Units are mL/min/1.73 m2</content>
<content></content>
<content>Chronic Kidney Disease Staging per NKF:</content>
<content></content>
<content>Stage I & II GFR >=60 Normal to Mildly Decreased</content>
<content>Stage III GFR 30- 59 Moderately Decreased</content>
<content>Stage IV GFR 15-29 Severely Decreased</content>
<content>Stage V GFR <15 Very Little GFR Left</content>
<content>ESRD GFR <15 on FILING [employer] POLISHING SUPERVISOR</content>
<content></content> Creatinine For GFR 0.64 mg/dL 0.55-1.30 Normal (applies to non -numeric results) [facility] ([facility]) Potassium Serum 4.2 meq/L 3.5-5.1 Normal (applies to non-numeric results) [facility] ([facility]) Sodium Level 140 meq/L 136-145 Normal (applies to non-numeric res ults) [facility] ([facility]) Chloride Level 111 meq/L 98-107 Above high normal [facility] ([facility]) Carbon Dioxide Level 24 meq/L 21-32 Normal (applies to non-num arlette results) [facility] ([facility]) Anion Gap 5 meq/L 8-16 Below low normal [facility] ( [facility]) Ast/Sgot 13 U/L 7-37 Normal (applies to non-numeric resul ts) [facility] ([facility]) Calcium Level 9.1 mg/dL 8.5-10.1 Normal (applies to non-numeric re sults) [facility] ([facility]) Alkaline Phosphatase 107 U/L 45-117 Normal (applies to non-num arlette results) [facility] ([facility]) Alt/SGPT 28 U/L 12-78 Normal (applies to non-numeric resul ts) [facility] ([facility]) Bilirubin,Total 0.2 mg/dL 0.2-1.0 Normal (applies to non-numeric results) [facility] ([facility]) Albumin 3.6 GM/DL 3.2-5.2 Normal (applies to non-numeric resul ts) [facility]) Total Protein 7.3 GM/DL 6.4-8.2 Normal (applies to non-numeric re sults) [facility] ([facility]) Albumin/Globulin Ratio 1.0 1.2-2.2 Below low normal [facility] ([facility]) ID Date Data Source [id number] 04/22/2021 01:19:00 PM EDT [facility] ([facility]) Name Value Range Interpretation Code Description Data Jeannette rce(s) Supporting Document(s) Hemoglobin A1c 5.1 % Normal (applies to non-numeric r esults) [facility]) <content>REFERENCE RANGES:</content><br/ ><content></content>
<content><=5.6% NORMAL</content>
<content>5.7-6.4% SUGGESTS IMPAIRED GLUCOSE METABOLISM/PREDIABETIC</content>
<content>>= 6.5% ABNORMAL</content>
<content></content> Estimated Average Glucose 100 mg/dL 60-110 Normal (applies to non-numeric results) [facility]) ID Date Data Source [id number] 03/26/2021 04:54:00 PM EDT [facility] ([facility]) Name Value Range Interpretation Code Description Data Jeannette rce(s) Supporting Document(s) Reagin Ab [Presence] in Serum by RPR Laboratory test result Normal (applies to non-numeric results) [facility] ([facility] ) HIV 1+2 Ab [Presence] in Serum Laboratory test result Normal (applies to non- numeric results) [facility]) <content>This assay was performed utiliz ing a [...] is</content>
<content>99.6-99.8%.</content>
<content></content> ID Date Data Source [id number] 03/26/2021 04:54:00 PM EDT [facility] ([facility]) Name Value Range Interpretation Code Description Data Jeannette rce(s) Supporting Document(s) Hepatitis C Quantitation Laboratory test result Normal (applies to non-numeric results) [facility] ([facility]) HCV Not Detected Hepatitis C log10 Laboratory test result Normal (applies to non-numeric results) [facility] ([facility]) Test Information: Laboratory test result Normal (applies to non-numeric results) [facility] ([facility]) . The quantitative range of this assay is 15 IU/mL to 100 million IU/mL. ID Date Data Source [id number] 03/26/2021 04:54:00 PM EDT [facility] ([facility]) Name Value Range Interpretation Code Description Data Jeannette rce(s) Supporting Document(s) Laboratory test finding (navigational concept) Laboratory test r esult 0.00-0.90 Normal (applies to non-numeric results) [facility] ([facility]) <content>Negative <0.91</content>
<content>Equivocal 0.91 - 1.09</content>
<content>Positive >1.09</content>
<content>Performed at: [facility]</content>
<content>[address] [place] [address] [id number]</content>
<content>Instructional Consultant: Lois Billy MD, Phone: [phone]</content>
<content></content> ID Date Data Source [id number] 03/26/2021 04:54:00 PM EDT [facility] ([facility]) Name Value Range Interpretation Code Description Data Jeannette rce(s) Supporting Document(s) HSV Type II IgG Specific 10.50 index 0.00-0.90 Above high normal [facility] ([facility]) <content>Negative <0.91</content>
<content>Equivocal 0.91 - 1.09</content>
<content>Positive >1.09</content>
<content>Note: Negative indicates no antibodies detected to</content>
<content>HSV-2. Equivocal may suggest early infection. If</content>
<content>clinically appropriate, retest at later date. Positive</content>
<content>indicates antibodies detected to HSV-2.</content>
<content></content> HSV Type I IgG Specific 56.60 index 0.00-0.90 Above high normal [facility] ([facility]) <content>Negative <0.91</content>
<content>Equivocal 0.91 - 1.09</content>
<content>Positive >1.09</content>
<content>Note: Negative indicates no antibodies detected to</content>
<content>HSV-1. Equivocal may suggest early infection. If</content>
<content>clinically appropriate, retest at later date. Positive</content>
<content>indicates antibodies detected to HSV-1.</content>
<content></content> ID Date Data Source [id number] 03/26/2021 03:26:00 PM EDT [facility] ([facility]) Name Value Range Interpretation Code Description Data Jeannette rce(s) Supporting Document(s) Cervical Biopsy Jar 1 Laboratory test result [facility] ([facility]) Endocervical Biopsy Jar 1 Laboratory test result [facility] ([facility]) ID Date Data Source [id number] 03/26/2021 02:53:00 PM EDT [facility] ([facility]) Name Value Range Interpretation Code Description Data Jeannette rce(s) Supporting Document(s) Choriogonadotropin.beta subunit ( test) [Pres ence] in Urine Laboratory test result [facility] ([facility]) ID Date Data Source [id number] 03/26/2021 08:01:00 AM EDT [facility] ([facility]) Name Value Range Interpretation Code Description Data Jeannette rce(s) Supporting Document(s) Treponema pallidum Ab [Presence] in Serum Laboratory test result [facility] ([facility]) Laboratory test finding (navigational concept) Laboratory test result [facility] ([facility]) ID Date Data Source [id number] 03/05/2021 10:06:00 AM EDT [facility] ([facility]) Name Value Range Interpretation Code Description Data Jeannette rce(s) Supporting Document(s) Iron 38 ug/dL 42-135 [facility] ([facility]) Is patient fasting? N Iron binding capacity [Mass/volume] in Serum or Plasma 350 ug/dL 250 -450 [facility] ([facility]) Is patient fasting? N Iron binding capacity.unsaturated [Mass/volume] in Serum or Plasma 312 ug/dL 112-347 [facility] ([facility]) Is patient fasting? N Iron Sat 11 % [facility] ([facility]) Is patient fasting? N ID Date Data Source [id number] 03/05/2021 10:06:00 AM EDT [facility] ([facility]) Name Value Range Interpretation Code Description Data Jeannette rce(s) Supporting Document(s) Cobalamin (Vitamin B12) [Mass/volume] in Serum or Plasma Lab oratory test result [id number] [facility] ([facility]) Is patient fasting? N Calcidiol [Mass/volume] in Serum or Plasma 46 ng/mL [facility] ([facility]) Is patient fasting? N Thyrotropin [Units/volume] in Serum or Plasma 0.73 uIU/mL 0.47-5.01 [facility] ([facility]) Is patient fasting? N Folate [Mass/volume] in Serum or Plasma 14.4 ng/mL 4.4-31.0 [facility] ([facility]) Is patient fasting? N ID Date Data Source [id number] 03/05/2021 10:06:00 AM EDT [facility] ([facility]) Name Value Range Interpretation Code Description Data Jeannette rce(s) Supporting Document(s) Sed Rate Reenter 5 [facility] ([facility]) Is patient fasting? N Erythrocyte sedimentation rate by Westergren method 5 mm/hr 0-20 [facility] ([facility]) Is patient fasting? N ID Date Data Source [id number] 03/05/2021 10:06:00 AM EDT [facility] ([facility]) Name Value Range Interpretation Code Description Data Jeannette rce(s) Supporting Document(s) Hemoglobin A1c/Hemoglobin.total in Blood 4.9 % 4.4-6.1 [facility] (Cardiology [facility]) Is patient fasting? N C reactive protein [Mass/volume] in Serum or Plasma by High sensitivity method 2.52 mg/L 1.00-3.00 [facility] ([facility]) Is patient fasting? N ID Date Data Source [id number] 03/05/2021 10:06:00 AM EDT [facility] ([facility] Name Value Range Interpretation Code Description Data Jeannette rce(s) Supporting Document(s) Comprehensive Metabo Laboratory test result [facility] ([facility]) Is patient fasting? N Sodium 139 meq/L 134-153 [facility] Is patient fasting? N Potassium 3.9 meq/L 3.6-5.0 [facility] Is patient fasting? N Chloride 106 meq/L 98-107 [facility] ([facility]) Is patient fasting? N Co2 22 meq/L 22-30 [facility] ([facility]) Is patient fasting? N Glucose 137 mg/dL 70-99 [facility] Is patient fasting? N BUN 14 mg/dL 7-21 [facility] Is patient fasting? N Creatinine 0.7 mg/dL 0.7-1.5 [facility] ([facility]) Is patient fasting? N Albumin 4.3 g/dL 3.9-5.0 [facility] Is patient fasting? N BUN/Creat 20 8-27 [facility] ([facility]) Is patient fasting? N Total Protein 7.1 g/dL 6.3-8.2 [facility] ([facility]) Is patient fasting? N Globulin [Mass/volume] in Serum by calculation 2.8 GM/DL 2.4-3.2 [facility] ([facility]) Is patient fasting? N Calcium 9.2 mg/dL 8.4-10.2 [facility]? N A/G Ratio 1.5 0.8-2.0 [facility] Is patient fasting? N Alkaline Phos 104 U/L 38-126 [facility] ([facility]) Is patient fasting? N Sgot/Ast 18 U/L 5-40 [facility] Is patient fasting? N Total Bili Laboratory test result 0.2-1.3 ME D[facility] ([facility]) Is patient fasting? N SGPT/Alt 15 U/L 7-56 [facility]? N Anion gap in Serum or Plasma 11.0 mmol/L 8.0-16.0 [facility] ([facility]) Is patient fasting? N Non-Aa GFR Laboratory test result [facility] ([facility]) Is patient fasting? N Age 35 yrs [facility] ([facility]) Is patient fasting? N Afr Amer GFR Laboratory test result MEDE NT ([facility]) Is patient fasting? N ID Date Data Source [id number] 03/05/2021 10:06:00 AM EDT [facility] ([facility]) Name Value Range Interpretation Code Description Data Jeannette rce(s) Supporting Document(s) Cholesterol 159 mg/dL 131-200 [facility] ([facility]) Is patient fasting? N Cve Panel Laboratory test result [facility] ([facility]) Is patient fasting? N Triglycerides 127 mg/dL 35-160 [facility] ([facility]) Is patient fasting? N HDL 44 mg/dL 29-86 [facility]? N Risk Factor 3.6 3.2-4.4 [facility] ([facility]) Is patient fasting? N LDL 103 mg/dL 65-175 [facility] ([facility]) Is patient fasting? N LDL/HDL 2.34 1.47-3.22 [facility] ([facility]) Is patient fasting? N ID Date Data Source [id number] 03/05/2021 10:06:00 AM EDT [facility] ([facility]) Name Value Range Interpretation Code Description Data Jeannette rce(s) Supporting Document(s) Ferritin [Mass/volume] in Serum or Plasma 25.9 ng/mL 3.0-105 [facility] ([facility] [facility]) Is patient fasting? N ID Date Data Source [id number] 03/05/2021 10:06:00 AM EDT [facility] ([facility]) Name Value Range Interpretation Code Description Data Jeannette rce(s) Supporting Document(s) Ferritin [Mass/volume] in Serum or Plasma 25.9 ng/mL 3.0-105 [facility] ([facility]) Is patient fasting? N ID Date Data Source [id number] 03/05/2021 10:06:00 AM EDT [facility] ([facility]) Name Value Range Interpretation Code Description Data Jeannette rce(s) Supporting Document(s) WBC 7.3 10^3/uL 4.2-11.0 [facility] ([facility]) Is patient fasting? N CBC W/Automated Diff Laboratory test result [facility] ([facility]) Is patient fasting? N RBC 5.31 10^6/uL 4.20-5.40 [facility] ([facility]) Is patient fasting? N Hemoglobin 13.8 g/dL 12.0-16.0 [facility] ([facility]) Is patient fasting? N Hematocrit 42.7 % 37.0-47.0 [facility] ([facility]) Is patient fasting? N MCV 80.4 fL 81.0-101 Below low normal [facility] ([facility]) Is patient fasting? N MCHC 32.3 g/dL 31.0-36.0 [facility] ([facility]) Is patient fasting? N MCH 26.0 pg 27.0-34.0 Below low normal [facility] ( [facility]) Is patient fasting? N RDW 14.2 % 11.5-14.5 [facility] ([facility]) Is patient fasting? N Platelets 306 10^3/uL 150-450 [facility] ([facility]) Is patient fasting? N MPV 10.5 fL 7.4-10.4 Above high normal [facility] ([facility]) Is patient fasting? N Neut 60.3 % 37.0-80.0 [facility] ([facility]) Is patient fasting? N Lymph 32.7 % 25.0-40.0 [facility] ([facility]) Is patient fasting? N Williams 4.6 % 3.0-8.0 [facility] ([facility]) Is patient fasting? N Baso 0.4 % 0.0-2.5 [facility] ([facility]) Is patient fasting? N Eos 1.9 % 0.0-7.0 [facility] ([facility]) Is patient fasting? N %NRBC 0.0 % 0.0-0.0 [facility] ([facility]) Is patient fasting? N %Ig 0.1 % 0.0-0.0 Above high normal [facility] ([facility]) Is patient fasting? N #Lymph 2.39 10^3/uL 0.60-3.40 [facility] ([facility]) Is patient fasting? N #Neut 4.41 10^3/uL 2.00-6.90 [facility] ([facility]) Is patient fasting? N #Eos 0.14 10^3/uL 0.00-0.70 [facility] ([facility]) Is patient fasting? N #Williams 0.34 10^3/uL 0.00-0.90 [facility] ([facility]) Is patient fasting? N #Baso 0.03 10^3/uL 0.00-0.20 [facility] ([facility]) Is patient fasting? N #Ig 0.01 10^3/uL 0.00-0.10 [facility] ([facility]) Is patient fasting? N RBC Morph Laboratory test result [facility] ([facility]) Is patient fasting? N #NRBC 0.00 10^3/uL 0.00-0.00 [facility] ([facility]) Is patient fasting? N Manual Diff Laboratory test result M EDENT ([facility]) Is patient fasting? N ID Date Data Source [id number] 03/05/2021 10:06:00 AM EDT [facility] ([facility]) Name Value Range Interpretation Code Description Data Jeannette rce(s) Supporting Document(s) Cve Panel Laboratory test result [facility] ([facility]) Is patient fasting? N Cholesterol 159 mg/dL 131-200 [facility] ([facility]) Is patient fasting? N Triglycerides 127 mg/dL 35-160 [facility] ([facility]) Is patient fasting? N HDL 44 mg/dL 29-86 [facility] ([facility]) Is patient fasting? N LDL 103 mg/dL 65-175 [facility] ([facility]) Is patient fasting? N Risk Factor 3.6 3.2-4.4 [facility] ([facility]) Is patient fasting? N LDL/HDL 2.34 1.47-3.22 [facility] ([facility]) Is patient fasting? N ID Date Data Source [id number] 03/05/2021 10:06:00 AM EDT [facility] ([facility]) Name Value Range Interpretation Code Description Data Jeannette rce(s) Supporting Document(s) Sodium 139 meq/L 134-153 [facility] ([facility]) Is patient fasting? N Comprehensive Metabo Laboratory test result [facility] ([facility]) Is patient fasting? N Potassium 3.9 meq/L 3.6-5.0 [facility] ([facility]) Is patient fasting? N Chloride 106 meq/L 98-107 [facility] ([facility]) Is patient fasting? N Co2 22 meq/L 22-30 [facility] ([facility]) Is patient fasting? N Glucose 137 mg/dL 70-99 Above high normal [facility] ([facility]) Is patient fasting? N BUN 14 mg/dL 7-21 [facility] ([facility]) Is patient fasting? N Creatinine 0.7 mg/dL 0.7-1.5 [facility] ([facility]) Is patient fasting? N BUN/Creat 20 8-27 [facility] ([facility]) Is patient fasting? N Albumin 4.3 g/dL 3.9-5.0 [facility] Is patient fasting? N Total Protein 7.1 g/dL 6.3-8.2 [facility] ([facility]) Is patient fasting? N Globulin 2.8 GM/DL 2.4-3.2 [facility] ([facility]) Is patient fasting? N A/G Ratio 1.5 0.8-2.0 [facility] ([facility]) Is patient fasting? N Calcium 9.2 mg/dL 8.4-10.2 [facility] ([facility]) Is patient fasting? N Total Bili Laboratory test result 0.2-1.3 ME [facility] ([facility]) Is patient fasting? N Alkaline Phos 104 U/L 38-126 [facility] ([facility]) Is patient fasting? N Sgot/Ast 18 U/L 5-40 [facility] ([facility]) Is patient fasting? N Anion Gap 11.0 mmol/L 8.0-16.0 [facility] ([facility]) Is patient fasting? N SGPT/Alt 15 U/L 7-56 [facility] ([facility]) Is patient fasting? N Age 35 yrs [facility] ([facility]) Is patient fasting? N Non-Aa GFR Laboratory test result [facility] ([facility]) Is patient fasting? N Afr Amer GFR Laboratory test result [facility] ([facility]) Is patient fasting? N ID Date Data Source [id number] 03/05/2021 10:06:00 AM EDT [facility] ([facility]) Name Value Range Interpretation Code Description Data Jeannette rce(s) Supporting Document(s) Erythrocyte sedimentation rate by Westergren method Laboratory test result [facility] ([facility]) Calcidiol [Mass/volume] in Serum or Plasma Laboratory test result [facility] ([facility]) Cobalamin (Vitamin B12) [Mass/volume] in Serum or Plasma Lab oratory test result [facility] Thyrotropin [Units/volume] in Serum or Plasma Laboratory test result [facility] ([facility]) Folate [Mass/volume] in Serum or Plasma Laboratory test result [facility] ([facility]) Hemoglobin A1c/Hemoglobin.total in Blood 4.9 % 4.4-6.1 [facility] ([facility]) Is patient fasting? N C reactive protein [Mass/volume] in Serum or Plasma by High sensitivity method 2.52 mg/L 1.00-3.00 [facility] ([facility]) Is patient fasting? N ID Date Data Source [id number] 03/05/2021 10:06:00 AM EDT [facility] ([facility]) Name Value Range Interpretation Code Description Data Jeannette rce(s) Supporting Document(s) Sed Rate 5 mm/hr 0-20 [facility] ([facility]) Is patient fasting? N Sed Rate Reenter 5 [facility] ([facility]) Is patient fasting? N ID Date Data Source [id number] 03/05/2021 10:06:00 AM EDT [facility] ([facility]) Name Value Range Interpretation Code Description Data Jeannette rce(s) Supporting Document(s) Cobalamin (Vitamin B12) [Mass/volume] in Serum or Plasma Lab oratory test result [id number] Above high normal [facility] ([facility]) Is patient fasting? N Calcidiol [Mass/volume] in Serum or Plasma 46 ng/mL [facility] ([facility]) Is patient fasting? N Thyrotropin [Units/volume] in Serum or Plasma 0.73 uIU/mL 0.47-5.01 [facility] ([facility]) Is patient fasting? N Folate [Mass/volume] in Serum or Plasma 14.4 ng/mL 4.4-31.0 [facility] ([facility]) Is patient fasting? N ID Date Data Source [id number] 03/05/2021 10:06:00 AM EDT [facility] ([facility]) Name Value Range Interpretation Code Description Data Jeannette rce(s) Supporting Document(s) Iron 38 ug/dL 42-135 Below low normal [facility] ([facility]) Is patient fasting? N Uibc 312 ug/dL 112-347 [facility] ([facility]) Is patient fasting? N Tibc 350 ug/dL 250-450 [facility] ([facility]) Is patient fasting? N Iron Sat 11 % [facility] ([facility]) Is patient fasting? N ID Date Data Source [id number] 03/06/2021 07:12:00 AM EDT [facility] Name Value Range Interpretation Code Description Data Jeannette rce(s) Supporting Document(s) Calcidiol [Moles/volume] in Serum or Plasma 46 NG/ML [facility] VITAMIN-D(2 5HYDROXY) Deficiency: <=20 ng/ml Insufficiency: 21-29 ng/ml Preferred level: => 30 ng/ml ID Date Data Source [id number] 03/05/2021 06:10:00 PM T [facility] Value Range Interpretation Code Description Data Jeannette rce(s) Supporting Document(s) Cobalamin (Vitamin B12) [Mass/volume] in Serum or Plasma >2000 P G/ML 232 - 1245 H [facility] ID Date Data Source [id number] 03/05/2021 05:30:00 PM T [facility] Value Range Interpretation Code Description Data Jeannette rce(s) Supporting Document(s) Erythrocyte sedimentation rate by Westergren method 5 mm/hr 0 - 20 [facility] SED RATE REENTER 5 [facility] ID Date Data Source [id number] 03/05/2021 05:25:00 PM EDT [facility] Value Range Interpretation Code Description Data Jeannette rce(s) Supporting Document(s) Folate [Mass/volume] in Serum or Plasma 14.4 NG/ML 4.4 - 31.0 [facility] ID Date Data Source [id number] 03/05/2021 05:25:00 PM EDT [facility] Value Range Interpretation Code Description Data Jeannette rce(s) Supporting Document(s) Ferritin [Mass/volume] in Serum or Plasma 25.9 ng/mL 3.0 - 105 [facility] ID Date Data Source [id number] 03/05/2021 05:25:00 PM EDT [facility] Name Value Range Interpretation Code Description Data Jeannette rce(s) Supporting Document(s) Thyrotropin [Units/volume] in Serum or Plasma by Detec tion limit <= 0.05 mIU/L 0.73 uIU/mL 0.47 - 5.01 [facility] ID Date Data Source [id number] 03/05/2021 05:24:00 PM EDT [facility] Name Value Range Interpretation Code Description Data Jeannette rce(s) Supporting Document(s) C reactive protein [Mass/volume] in Serum or Plasma by High sensitivity method 2.52 MG/L 1.00 - 3.00 [facility] CDC/S HS-CRP CUT-OFF: RELATIVE RISK: <1.0 mg/L Low 1.0 - 3.0 mg/L Average >3.0 mg/L High Optimally, the average of HS-CRP results repeated two weeks apart should be used for risk assessment. ID Date Data Source [id number] 03/05/2021 05:24:00 PM EDT [facility] Name Value Range Interpretation Code Description Data Jeannette rce(s) Supporting Document(s) Iron [Mass/volume] in Serum or Plasma 38 UG/DL 42 - 135 L [facility] Iron binding capacity.unsaturated [Mass/volume] in Serum or Plasma 312 UG/DL 112 - 347 [facility] Iron binding capacity [Mass/volume] in Serum or Plasma 350 ug/dL 250 - 450 [facility] Iron saturation [Mass Fraction] in Serum or Plasma 11 % [facility] ID Date Data Source [id number] 03/05/2021 05:24:00 PM EDT [facility] Name Value Range Interpretation Code Description Data Jeannette rce(s) Supporting Document(s) COMPREHENSIVE METABOLIC PANEL [facility] COMPREHENSIVE METABOLIC PANEL Sodium [Moles/volume] in Serum or Plasma 139 mEq/L 134 - 153 [facility] Potassium [Moles/volume] in Serum or Plasma 3.9 mEq/L 3.6 - 5.0 [facility] Chloride [Moles/volume] in Serum or Plasma 106 mEq/L 98 - 107 [facility] Carbon dioxide, total [Moles/volume] in Serum or Plasma 22 MEQ/L 22 - 30 [facility] Glucose [Mass/volume] in Serum or Plasma 137 MG/DL 70 - 99 H [facility] BUN 14 MG/DL 7 - 21 [facility] Creatinine [Mass/volume] in Serum or Plasma 0.7 MG/DL 0.7 - 1.5 [facility] BUN/CREAT 20 8 - 27 [facility] Protein [Mass/volume] in Serum or Plasma 7.1 G/DL 6.3 - 8.2 [facility] Albumin [Mass/volume] in Serum or Plasma 4.3 G/DL 3.9 - 5.0 [facility] Globulin [Mass/volume] in Serum by calculation 2.8 GM/DL 2.4 - 3.2 [facility] A/G RATIO 1.5 0.8 - 2.0 [facility] Calcium [Mass/volume] in Serum or Plasma 9.2 MG/DL 8.4 - 10.2 [facility] Bilirubin.total [Mass/volume] in Serum or Plasma <0.7 MG/DL 0.2 - 1.3 [facility] Alkaline phosphatase [Enzymatic activity/volume] in Serum or Plasma 104 U/L 38 - 126 [facility] Aspartate aminotransferase [Enzymatic activity/volume] in Serum or Plasma 18 U/L 5 - 40 [facility] Alanine aminotransferase [Enzymatic activity/volume] in Seru m or Plasma 15 U/L 7 - 56 [facility] Anion gap 3 in Serum or Plasma 11.0 mmol/L 8.0 - 16.0 [facility] AGE 35 yrs [facility] al NON-AA GFR >60 mL/min [facility] ital AFR AMER GFR >60 mL/min [facility] Male GFR In terprentation [...] >32 mL/min Normal ID Date Data Source [id number] 03/05/2021 05:24:00 PM EDT [facility] Name Value Range Interpretation Code Description Data Jeannette rce(s) Supporting Document(s) [facility] L[facility] Cholesterol [Mass/volume] in Serum or Plasma 159 MG/DL 131 - 200 [facility] Deprecated Triglyceride [Mass/volume] in Serum or Plasma 127 MG/DL 3 5 - 160 [facility] HDL 44 MG/DL 29 - 86 [facility] Cholesterol in LDL [Mass/volume] in Serum or Plasma by Direc t assay 103 mg/dL 65 - 175 [facility] Cholesterol.total/Cholesterol in HDL [Mass Ratio] in Serum o r Plasma 3.6 3.2 - 4.4 [facility] LDL/HDL 2.34 1.47 - 3.22 [facility] ital CVE RISK CHOL/HDL LDL/HDLMEN: 1/2 AVERAGE 3.43 1.00 AVERAGE 4.97 3.55 2X AVERAGE 9.55 6.25 3X AVERAGE 23.99 7.99WOMEN: 1/2 AVERAGE 3.27 1.47 AVERAGE 4.44 3.22 2X AVERAGE 7.05 5.03 3X AVERAGE 11.04 6.14 ID Date Data Source [id number] 03/05/2021 05:08:00 PM EDT [facility] Name Value Range Interpretation Code Description Data Jeannette rce(s) Supporting Document(s) Hemoglobin A1c/Hemoglobin.total in Blood 4.9 % 4.4 - 6.1 [facility] {A1]{HB] ID Date Data Source [id number] 03/05/2021 04:54:00 PM EDT [facility] Name Value Range Interpretation Code Description Data Jeannette rce(s) Supporting Document(s) CBC W/AUTOMATED DIFF [facility] COMPLETE BLOOD COUNT Leukocytes [#/volume] in Blood by Automated count 7.3 10^3/uL 4.2 - 1 1.0 [facility] Erythrocytes [#/volume] in Blood by Automated count 5.31 10^6/uL 4. 20 - 5.40 [facility] Hemoglobin [Mass/volume] in Blood 13.8 g/dL 12.0 - 16.0 [facility] Hematocrit [Volume Fraction] of Blood by Automated count 42.7 % 3 7.0 - 47.0 [facility] Erythrocyte mean corpuscular volume [Entitic volume] by Auto mated count 80.4 fL 81.0 - 101 L [facility] Erythrocyte mean corpuscular hemoglobin [Entitic mass] by Automated count 26.0 pg 27.0 - 34.0 L [facility] Erythrocyte mean corpuscular hemoglobin concentration [Mass/volume] by Automated count 32.3 g/dL 31.0 - 36.0 [facility] Erythrocyte distribution width [Ratio] by Automated count 14.2 % 11.5 - 14.5 [facility] Platelets [#/volume] in Blood by Automated count 306 10^3/uL 150 - 45 0 [facility] Platelet mean volume [Entitic volume] in Blood by Automated count 10.5 fL 7.4 - 10.4 H [facility] Neutrophils/100 leukocytes in Blood by Automated count 60.3 % 37. 0 - 80.0 [facility] Lymphocytes/100 leukocytes in Blood by Manual count 32.7 % 25.0 - 40.0 [facility] Monocytes/100 leukocytes in Blood by Automated count 4.6 % 3.0 - 8.0 [facility] Eosinophils/100 leukocytes in Blood by Automated count 1.9 % 0.0 - 7.0 [facility] Basophils/100 leukocytes in Blood by Automated count 0.4 % 0.0 - 2.5 [facility] %IG 0.1 % 0.0 - 0.0 [facility] %NRBC 0.0 % 0.0 - 0.0 [facility] al Neutrophils [#/volume] in Blood by Automated count 4.41 10^3/uL 2.00 - 6.90 [facility] Lymphocytes [#/volume] in Blood by Automated count 2.39 10^3/uL 0.60 - 3.40 [facility] Monocytes [#/volume] in Blood by Automated count 0.34 10^3/uL 0.00 - 0.90 [facility] Eosinophils [#/volume] in Blood by Automated count 0.14 10^3/uL 0.00 - 0.70 [facility] Basophils [#/volume] in Blood by Automated count 0.03 10^3/uL 0.00 - 0.20 [facility] #IG 0.01 10^3/uL 0.00 - 0.10 [facility] ospital #NRBC 0.00 10^3/uL 0.00 - 0.00 [facility] ospital MANUAL DIFF NOT INDICATED [facility] RBC MORPH NOT INDICATED [facility] spital ID Date Data Source [id number] 03/05/2021 10:06:00 AM EDT [facility] ([facility]) Name Value Range Interpretation Code Description Data Jeannette rce(s) Supporting Document(s) Iron [Mass/volume] in Serum or Plasma Laboratory test result [facility] ([facility]) Iron binding capacity [Mass/volume] in Serum or Plasma Laborator y test result [facility] ([facility]) Ferritin [Mass/volume] in Serum or Plasma Laboratory test result [facility] ([facility]) ID Date Data Source [id number] 03/02/2021 12:00:00 AM EDT [facility] Name Value Range Interpretation Code Description Data Jeannette rce(s) Supporting Document(s) SARS coronavirus 2 Ag Negative [facility] This lab was ordered by [facility] and reported by [facility]. ID Date Data Source [id number] 02/26/2021 07:30:00 PM EDT [facility] Name Value Range Interpretation Code Description Data Jeannette rce(s) Supporting Document(s) SARS coronavirus 2 RNA [Presence] in Res piratory specimen by KSENIA with probe detection [facility]abs [facility] This lab was ordered by [facility] and re ported by [facility]. ID Date Data Source [id number] 02/26/2021 03:30:00 PM EDT [facility] Name Value Range Interpretation Code Description Data Jeannette rce(s) Supporting Document(s) SARS-CoV-2 NEGATIVE [facility] This lab was ordered by [facility] and reported by [employer]. ID Date Data Source [id number] 02/05/2021 10:30:00 AM EDT [facility] ([facility]) Name Value Range Interpretation Code Description Data Jeannette rce(s) Supporting Document(s) Chlamydia trachomatis,Ksenia Laboratory test result [facility] ([facility]) {SOURCE:~.~.~<DG1.3.1>[id number]</DG1.3.1>< DG1.3.1>Z01.419</DG1.3.1> Neisseria gonorrhoeae,Ksenia Laboratory test result [facility] ([facility]) {SOURCE:~.~.~<DG1.3.1>Z01.419</DG1.3.1>< DG1.3.1>Z01.419</DG1.3.1> ID Date Data Source [id number] 02/07/2021 06:30:00 AM EDT [facility] Name Value Range Interpretation Code Description Data Jeannette rce(s) Supporting Document(s) Chlamydia trachomatis rRNA [Presence] in Unspecified specimen by Probe and target amplification method Negative Negative [facility] Neisseria gonorrhoeae rRNA [Presence] in Unspecified specimen by Probe and target amplification method Negative Negative [facility] ID Date Data Source [id number] 02/05/2021 10:30:00 AM EDT [facility] ([facility]) Name Value Range Interpretation Code Description Data Jeannette rce(s) Supporting Document(s) Cytology report of Cervical or vaginal smear or scrapi ng Cyto stain.thin prep Laboratory test result [facility] ([facility]) ID Date Data Source [id number] 02/20/2021 08:31:17 AM EDT Laboratory [facility] [address] HPV GENOTYPES 16, 18/45 TO QUEST 9 1826HPV GENOTYPES 16, 18/45HPV 16 RNADETECTED (A)HPV 18/45 RNANOT DETECTEDREFERENCE RANGE: HPV 16 RNA: NOT DETECTEDHPV 18/45 RNA: NOT DETECTEDMethodology: Occupational Safety And Health Manager Mediated AmplificationThe analytical performance characteristics of this assay have been determined by [facility]. The modifications have not been cleared or approved by the FDA. This assay has been validated pursuant to the CLIA regulations and is used for clinical purposes. Name Value Range Interpretation Code Description Data Jeannette rce(s) Supporting Document(s) PERFORMING LAB: Laboratory [facility] [address] [place] [address] ID Date Data Source [id number] 12/09/2020 08:32:00 AM EDT [facility] Name Value Range Interpretation Code Description Data Jeannette rce(s) Supporting Document(s) SARS-CoV-2 (COVID-19) RNA [Presence] in Respiratory specimen by [facility] with probe detection Not Detected [facility] This lab was ordered by [facility] and reported by [facility]. ID Date Data Source [id number] 11/19/2020 01:21:00 PM EDT [facility] ([facility] Name Value Range Interpretation Code Description Data Jeannette rce(s) Supporting Document(s) RBC Folate 539 ng/mL 280-791 [facility] ([facility]) Hematocrit 40.5 % 36.0-47.0 [facility] ([facility]) ID Date Data Source [id number] 11/19/2020 01:21:00 PM EDT [facility] ([facility] Name Value Range Interpretation Code Description Data Jeannette rce(s) Supporting Document(s) White Blood Count 8.3 10 4.0-10.0 [facility] Hemoglobin 12.6 g/dL 12.0-15.5 [facility] ([facility]) Hematocrit 40.0 % 36.0-47.0 [facility] ([facility]) Red Blood Count 4.99 10 4.00-5.40 [facility] (Cardio logy [facility]) Mean Corpuscular Volume 80.2 fl 80.0-96.0 M EDENT ([facility]) Mean Corpuscular Hemoglobin 25.3 pg 27.0-33.0 [facility] ([facility]) Mean Corpuscular HGB Conc 31.5 g/dL 32.0-36.5 [facility] ([facility]) Red Cell Distribution Width 15.3 % 11.5-14.5 [facility] ([facility]) Platelet Count, Automated 282 10 150-450 [facility] ([facility]) Neutrophils % 62.6 % 36.0-66.0 [facility] ([facility]) Lymphocytes/100 leukocytes in Blood by Automated count 26.8 % 24. 0-44.0 [facility] ([facility]) Baso % 0.5 % 0.0-1.0 [facility] Williams % 5.2 % 2.0-8.0 [facility] ([facility]iology A [...] 1.5-5.0 [facility] Williams # 0.4 10 0.0-0.8 [facility] Eos # 0.4 10 0.0-0.5 [facility] Baso # 0.0 10 0.0-0.2 [facility] ID Date Data Source [id number] 11/19/2020 01:21:00 PM EDT [facility] ([facility] Name Value Range Interpretation Code Description Data Jeannette rce(s) Supporting Document(s) Phosphate [Moles/volume] in Serum or Plasma 3.0 mg/dL 2.5-4.9 [facility] ([facility]) Magnesium [Mass/volume] in Serum or Plasma 2.2 mg/dL 1.8-2.4 [facility] ([facility]) ID Date Data Source [id number] 11/19/2020 01:21:00 PM EDT [facility] ([facility] Name Value Range Interpretation Code Description Data Jeannette rce(s) Supporting Document(s) Iron (Fe) 30 ug/dL 50-170 [facility] ([facility]) Total Iron Binding Capacity 311 ug/dL 250-450 [facility] ([facility]) Percent Saturation 9.6 % 13.2-45.0 [facility] ([facility]) ID Date Data Source [id number] 11/19/2020 01:21:00 PM EDT [facility] ([facility] Name Value Range Interpretation Code Description Data Jeannette rce(s) Supporting Document(s) Cobalamin (Vitamin B12) [Mass/volume] in Serum or Plasma 599 pg/mL 2 47-911 [facility] ([facility] VITAMIN B12 NORMAL RANGE NORMAL 247 - 911 PG/ML INDETERMINATE 211 - 246 PG/ML DEFICIENT LESS THAN 211 PG/ML Calcidiol [Mass/volume] in Serum or Plasma 35.5 ng/mL 30.0-100.0 [facility] ([facility]) Ferritin [Mass/volume] in Serum or Plasma 15 ng/mL 8-252 [facility] ([facility]) ID Date Data Source [id number] 11/19/2020 01:21:00 PM EDT [facility] ([facility]) Name Value Range Interpretation Code Description Data Jeannette rce(s) Supporting Document(s) Hemoglobin A1c 5.4 % [facility] [place] <content>REFERENCE RANGES:</content><br/ ><content></content>
<content><=5.6% NORMAL</content>
<content>5.7-6.4% SUGGESTS IMPAIRED GLUCOSE METABOLISM/PREDIABETIC</content>
<content>>= 6.5% ABNORMAL</content>
<content></content>
<content></content> Estimated Average Glucose 108 mg/dL 60-110 [facility] ([facility]) ID Date Data Source [id number] 11/19/2020 01:21:00 PM EDT [facility] ([facility]) Name Value Range Interpretation Code Description Data Jeannette rce(s) Supporting Document(s) Thiamine [Mass/volume] in Blood 129.9 nmol/L 66.5-200.0 [facility] ([facility]) Performed at: - [facility] [id number] Instructional Consultant: Margarita Nicholas MD, Phone: [phone] ID Date Data Source [id number] 11/19/2020 01:21:00 PM EDT [facility] ([facility]) Name Value Range Interpretation Code Description Data Jeannette rce(s) Supporting Document(s) Glucose, Fasting 138 mg/dL 70-100 [facility] ([facility]i [facility]) Blood Urea Nitrogen 8 mg/dL 7-18 [facility] ([facility]) Creatinine For GFR 0.68 mg/dL 0.55-1.30 [facility] ([facility]) Glomerular Filtration Rate Laboratory test result [facility] ([facility]) <content>Units are mL/min/1.73 m2</content>
<content></content>
<content>Chronic Kidney Disease Staging per NKF:</content>
<content></content>
<content>Stage I & II GFR >=60 Normal to Mildly Decreased</content>
<content>Stage III GFR 30- 59 Moderately Decreased</content>
<content>Stage IV GFR 15-29 Severely Decreased</content>
<content>Stage V GFR <15 Very Little GFR Left</content>
<content>ESRD GFR <15 on FILING AND POLISHING SUPERVISOR</content>
<content></content>
<content></content> Potassium Serum 3.6 meq/L 3.5-5.1 [facility] ([facility]) Sodium Level 142 meq/L 136-145 [facility] ([facility]) Chloride Level 112 meq/L 98-107 [facility] ([facility]) Anion gap in Serum or Plasma 5 meq/L 8-16 [facility] ([facility]) Carbon Dioxide Level 25 meq/L 21-32 [facility] ([facility]) Calcium Level 8.5 mg/dL 8.5-10.1 [facility] ([facility]) Aspartate aminotransferase [Enzymatic activity/volume] in Serum or Plasma 19 U/L 7-37 [facility] [place] Alkaline phosphatase [Enzymatic activity/volume] in Serum or Plasma 97 U/L 45-117 [facility] ([facility]) Alanine aminotransferase [Enzymatic activity/volume] in Seru m or Plasma 23 U/L 12-78 [facility] ([facility]) Total Protein 6.3 GM/DL 6.4-8.2 [facility] ([facility]) Bilirubin,Total 0.3 mg/dL 0.2-1.0 [facility] ([facility]) Albumin/Globulin Ratio 1.1 1.2-2.2 [facility] ([facility]) Albumin 3.3 GM/DL 3.2-5.2 [facility] ([facility]) ID Date Data Source [id number] 11/19/2020 01:21:00 PM EDT [facility] ([facility]) Name Value Range Interpretation Code Description Data Jeannette rce(s) Supporting Document(s) Thiamine [Mass/volume] in Blood 129.9 nmol/L 66.5-200.0 Normal (applies to non- numeric results) [facility] ([facility]) Performed at: [address] [id number] Instructional Consultant: Margarita Nicholas MD, Phone: [phone] ID Date Data Source [id number] 11/19/2020 01:21:00 PM [address] [facility] Name Value Range Interpretation Code Description Data Jeannette rce(s) Supporting Document(s) Hemoglobin A1c 5.4 % Normal (applies to non-numeric r esults) [facility] ([facility]) <content>REFERENCE RANGES:</content><br/ ><content></content>
<content><=5.6% NORMAL</content>
<content>5.7-6.4% SUGGESTS IMPAIRED GLUCOSE METABOLISM/PREDIABETIC</content>
<content>>= 6.5% ABNORMAL</content>
<content></content> Estimated Average Glucose 108 mg/dL 60-110 Normal (applies to non-numeric results) [facility] ([facility]) ID Date Data Source [id number] 11/19/2020 01:21:00 [address] [facility]) Name Value Range Interpretation Code Description Data Jeannette rce(s) Supporting Document(s) Cobalamin (Vitamin B12) [Mass/volume] in Serum or Plasma 599 pg/ mL 247-911 Normal (applies to non-numeric results) [facility] ([facility]) VITAMIN B12 NORMAL RANGE NORMAL 247 - 911 PG/ML INDETERMINATE 211 - 246 PG/ML DEFICIENT LESS THAN 211 PG/ML Ferritin [Mass/volume] in Serum or Plasma 15 ng/mL 8-252 Normal (applies to non- numeric results) [facility] ([facility]) Calcidiol [Mass/volume] in Serum or Plasma 35.5 ng/mL 30.0- 100.0 Normal (applies to non-numeric results) [facility] ([facility]) ID Date Data Source [id number] 11/19/2020 01:21:00 PM [address] [facility]) Name Value Range Interpretation Code Description Data Jeannette rce(s) Supporting Document(s) Iron (Fe) 30 ug/dL 50-170 Below low normal [facility] ( [facility]) Total Iron Binding Capacity 311 ug/dL 250-450 Norm al (applies to non-numeric results) [facility] ([facility]) Percent Saturation 9.6 % 13.2-45.0 Below low normal [facility] ([facility]) ID Date Data Source [id number] 11/19/2020 01:21:00 PM [address] [facility]) Name Value Range Interpretation Code Description Data Jeannette rce(s) Supporting Document(s) Phosphate [Moles/volume] in Serum or Plasma 3.0 mg/dL 2.5- 4.9 Normal (applies to non-numeric results) [facility] ([facility] ) Magnesium [Mass/volume] in Serum or Plasma 2.2 mg/dL 1.8-2 .4 Normal (applies to non-numeric results) [facility] ([facility]) ID Date Data Source [id number] 11/19/2020 01:21:00 PM EDT [facility] ([facility]) Name Value Range Interpretation Code Description Data Jeannette rce(s) Supporting Document(s) Glucose, Fasting 138 mg/dL 70-100 Above high normal M EDENT ([facility]) Blood Urea Nitrogen 8 mg/dL 7-18 Normal (applies to non-nume isela results) [facility] ([facility]) Glomerular Filtration Rate Laboratory test result Normal (applies to non- numeric results) [facility] ([facility]) <content>Units are mL/min/1.73 m2</content>
<content></content>
<content>Chronic Kidney Disease Staging per NKF:</content>
<content></content>
<content>Stage I & II GFR >=60 Normal to Mildly Decreased</content>
<content>Stage III GFR 30- 59 Moderately Decreased</content>
<content>Stage IV GFR 15-29 Severely Decreased</content>
<content>Stage V GFR <15 Very Little GFR Left</content>
<content>ESRD GFR <15 on FILING AND POLISHING SUPERVISOR</content>
<content></content> Creatinine For GFR 0.68 mg/dL 0.55-1.30 Normal (applies to non -numeric results) [facility] ([facility]) Sodium Level 142 meq/L 136-145 Normal (applies to non-numeric res ults) [facility] ([facility]) Potassium Serum 3.6 meq/L 3.5-5.1 Normal (applies to non-numeric results) [facility] ([facility]) Chloride Level 112 meq/L 98-107 Above high normal [facility] ([facility]) Carbon Dioxide Level 25 meq/L 21-32 Normal (applies to non-num arlette results) [facility] ([facility]) Anion Gap 5 meq/L 8-16 Below low normal [facility]) Calcium Level 8.5 mg/dL 8.5-10.1 Normal (applies to non-numeric re sults) [facility] ([facility]) Ast/Sgot 19 U/L 7-37 Normal (applies to non-numeric resul ts) [facility] ([facility]) Alt/SGPT 23 U/L 12-78 Normal (applies to non-numeric resul ts) [facility] ([facility]) Alkaline Phosphatase 97 U/L 45-117 Normal (applies to non-num arlette results) [facility] ([facility]) Bilirubin,Total 0.3 mg/dL 0.2-1.0 Normal (applies to non-numeric results) [facility] ([facility]) Total Protein 6.3 GM/DL 6.4-8.2 Below low normal [facility]EN T ([facility]) Albumin 3.3 GM/DL 3.2-5.2 Normal (applies to non-numeric resul ts) [facility] ([facility]) Albumin/Globulin Ratio 1.1 1.2-2.2 Below low normal [facility]) ID Date Data Source [id number] 11/19/2020 01:21:00 PM EDT [facility] ([facility]) Name Value Range Interpretation Code Description Data Jeannette rce(s) Supporting Document(s) White Blood Count 8.3 10 4.0-10.0 Normal (applies to non-numeri c results) [facility] ([facility]) Red Blood Count 4.99 10 4.00-5.40 Normal (applies to non-numeric results) [facility] ([facility]) Hematocrit 40.0 % 36.0-47.0 Normal (applies to non-numeric resul ts) [facility] ([facility]) Hemoglobin 12.6 g/dL 12.0-15.5 Normal (applies to non-numeric resul ts) [facility] ([facility]) Mean Corpuscular Volume 80.2 fl 80.0-96.0 Normal ( applies to non-numeric results) [facility] ([facility]) Mean Corpuscular Hemoglobin 25.3 pg 27.0-33.0 Below low normal [facility]) Mean Corpuscular HGB Conc 31.5 g/dL 32.0-36.5 Below low normal [facility] ([facility]) Red Cell Distribution Width 15.3 % 11.5-14.5 Above high normal [facility] ([facility]) Platelet Count, Automated 282 10 150-450 Normal (applies to non-numeric results) [facility] ([facility]) Neutrophils % 62.6 % 36.0-66.0 Normal (applies to non-numeric re sults) [facility] ([facility]) Lymph % 26.8 % 24.0-44.0 Normal (applies to non-numeric resul ts) [facility] ([facility]) Williams % 5.2 % 2.0-8.0 Normal (applies to non-numeric resul ts) [facility] ([facility]) Eos % 4.5 % 0.0-3.0 Above high normal [facility] ([facility]) Baso % 0.5 % 0.0-1.0 Normal (applies to non-numeric resul ts) [facility] ([facility]) Immature Granulocyte % 0.4 % 0-3.0 Normal (applies to non-n umeric results) [facility] ([facility]) Nucleated Red Blood Cell % 0.0 % 0-0 Normal (applies to n on-numeric results) [facility] ([facility]) Neutrophils # 5.2 10 1.5-8.5 Normal (applies to non-numeric re sults) [facility] ([facility]) Lymph # 2.2 10 1.5-5.0 Normal (applies to non-numeric resul ts) [facility] ([facility]) Williams # 0.4 10 0.0-0.8 Normal (applies to non-numeric resul ts) [facility] ([facility]) Eos # 0.4 10 0.0-0.5 Normal (applies to non-numeric resul ts) [facility] ([facility]) Baso # 0.0 10 0.0-0.2 Normal (applies to non-numeric resul ts) [facility] ([facility]) ID Date Data Source [id number] 11/19/2020 01:21:00 PM EDT [facility] ([facility]) Name Value Range Interpretation Code Description Data Jeannette rce(s) Supporting Document(s) Hematocrit 40.5 % 36.0-47.0 Normal (applies to non-numeric resul ts) [facility] ([facility]) RBC Folate 539 ng/mL 280-791 Normal (applies to non-numeric resul ts) [facility] ([facility]) ID Date Data Source [id number] 10/27/2020 01:17:59 PM EDT [facility]FORMATIONPatient [facility]N Name Date of Age Gend*PT [id number] Corie Love 1985 35 years F IPPT Location Admission Date/Time Visit ID Attending [id number] 10/23/20 1009 --- --- EPI ID CSN Admitting Provider [id number] Cristobal Peña MD([id number]) Attestation signed by Cristobal Peña MD at [...] Get Your MedicationsThese medications were sent to [facility] - [place], [place] - [address] [place] [id number] enoxaparin 40 MG/0.4ML Soln omeprazole 40 MG [...] 2440 ml+urine occurences General: Alert, conversing appropriatelyHeart: Q3N1Vxanf: Resp unlaboredAbdomen: obese, soft ND min tender [...] rce(s) Supporting Document(s) ID Date Data Source [id number] 10/24/2020 11:50:29 AM EDT [facility] Name Value Range Interpretation Code Description Data Jeannette rce(s) Supporting Document(s) POC NOVA GLU 79 mg/dL (70-99) [facility] [place] [facility] [place] [facility] CL[facility]ICAL STAFF ID Date Data Source [id number] 10/24/2020 06:15:21 AM EDT [facility] Name Value Range Interpretation Code Description Data Jeannette rce(s) Supporting Document(s) POC NOVA GLU 115 mg/dL (70-99) H [facility] [place] [facility] [place] [facility] ID Date Data Source [id number] 10/24/2020 12:04:35 AM EDT [facility] Name Value Range Interpretation Code Description Data Jeannette rce(s) Supporting Document(s) POC NOVA GLU 146 mg/dL (70-99) H [facility] [place] [facility] [place] [facility] ID Date Data Source [id number] 10/23/2020 06:51:29 PM EDT [facility] Name Value Range Interpretation Code Description Data Jeannette rce(s) Supporting Document(s) POC NOVA GLU 168 mg/dL (70-99) H [facility] [place] [facility] [place] PERFORMED BY [facility] CL[facility] STA[facility] ID Date Data Source [id number] 10/23/2020 04:06:57 PM EDT [facility] Name Value Range Interpretation Code Description Data Jeannette rce(s) Supporting Document(s) POC NOVA GLU 207 mg/dL (70-99) H [facility] [place] [facility] [place] PERFOR[facility] STA[facility] ID Date Data Source [id number] 10/23/2020 03:27:57 PM EDT [facility] INFORMATIONPatient MRN Name Date of Age Gend*PT [id number] Corie Love 1985 35 years F SDAPT Location Admission Date/Time Visit ID [facility]/23[facility]20 1009 --- Cristobal Peña MD([id number]) EPI ID CSN Admitting Provider [id number] Cristobal Peña MD([id number])Bariatric Surgery Operative ReportPatient Name: Corie MartinezrDate of : 1985 35 years SurgeonLAVERN Camposrocedure : ,Laparoscopic Tootie Y Gastric Bypass, antecolic, antegastric, 50 cmPancreatico Biliary Limb, 150 cm Tootie Limb,Wedge Liver BiopsyEsophagogastrojejuosocopy Ruth Aaron MDOR Cancer Spec: Jane Cardona RN; Lou Llanos RNOR Relief Cancer Spec: Yuliana Shannon RNOR Relief Scrub: Kameron King [...] His, the pouch from the stomachusing a 30-Cuban bougie as a guide. The gastrojejunal anastomosis was createdby stapling the Tootie to the anterior wall of the pouch with a 60-mm bluecartridge inserted 3 cm, the remaining enterotomy was closed in 2 layers with aV-Loc and the Tootie limb was anchored to the pouch at the apex of the anastomosiswith another V-Loc. This was tested for leaks, my assistant golf course superintendent clamped the Rouxlimb with a bowel clamp, [...] rce(s) Supporting Document(s) ID Date Data Source [id number] 10/23/2020 01:42:03 PM EDT [facility] INFORMATIONPatient MRN Name Date of Age Gend*PT [id number] Corie Love 1985 35 years F SDAPT Location Admission Date/Time Visit ID Attending Provider --- --- --- --- EPI ID CSN Admitting Provider [id number] ---AirwayPatient location during procedure: ORUrgency: electiveDifficult airway: [...] cmPlacement verified by: chest auscultation and + [id number]: equal breath sounds bilateralGrade view: grade IIa - partial view of glottis Name Value Range Interpretation Code Description Data Jeannette rce(s) Supporting Document(s) ID Date Data Source [id number] 10/23/2020 12:20:39 PM EDT [facility] NT INFORMATIONPatient MRN Name Date of Age Gend*PT [id number] Corie Love Norma 1985 35 years F SDAPT Location Admission Date/Time Visit ID [facility] 10/23/20 1009 --- Cristobal Peña MD([id number]) EPI ID [facility] Admitting Provider [id number] Cristobal Peña MD([id number])H&P reviewed. The patient was examined and there are no changes to the H&P.Signature: JOE Camposate: October 23, 2020Time: 12:20 PM Name Value Range Interpretation Code Description Data Jeannette rce(s) Supporting Document(s) ID Date Data Source [id number] 10/23/2020 12:01:22 PM EDT [facility] [place] [facility] Name Value Range Interpretation Code Description Data Jeannette rce(s) Supporting Document(s) POC [facility] <5.0 IU/L [facility] [place] [facility] [place] INTERPRETATION:<5.0 NEGATIVE5.0- 25.0 INDETERMINATE>25.0 POSITIVELEVELS BETWEEN 5 AND 25 IU/L MAY INDICATEEARLY AND SHOULD BE REPEATED QUANG BLOOD SAMPLE AFTER 48 HOURS.PERFORMED BY [facility] CLINICAL STAFF ID Date Data Source [id number] 10/23/2020 12:01:22 PM EDT [facility] [place] [facility] [place] Name Value Range Interpretation Code Description Data Jeannette rce(s) Supporting Document(s) POC [facility] 6.9 IU/L Lab [facility] INTERPRETATION:<5.0 NEGATIVE5.0- 25.0 INDETERMINATE>25.0 POSITIVELEVELS BETWEEN 5 AND 25 IU/L MAY INDICATEEARLY AND SHOULD BE REPEATED QUANG BLOOD SAMPLE AFTER 48 HOURS.PERFORMED BY [facility] CLINICAL STAFF ID Date Data Source [id number] 10/23/2020 11:38:54 AM EDT [facility] Name Value Range Interpretation Code Description Data Jeannette rce(s) Supporting Document(s) POC NOVA GLU 85 mg/dL (70-99) Lab [facility] PERFORMED BY [facility] CLIN[facility] STAFF ID Date Data Source [id number] 10/28/2020 05:53:33 PM EDT [facility] [address] [place], [place] [address]Zwe# Surgical Pathology ReportPatient Name: CORIE LOVE: 1985Accession [...] 10/28/2020Electronically Signed Out By Joshua Johnson MD [facility] [place], [place] [address]bhmPrqfejgwn component performed at [facility], Histopathology, [address], [place], [address].Reported at [facility], [address] [place], [place], [address]. This report may includeimmunohistochemical or in-situ hybridization results. Testing wasdeveloped and the performance characteristics determined by [facility] as required by CLIA '88. The FDA hasdetermined that approval for specific use is not necessary for clinicaluse. The quality of Hematoxylin and Eosin stains and as applicable, forall immunohistochemical and/or special stains, including positive andnegative contro ls, were reviewed and considered appropriate.ICD codes E66.01 K76.0CPT codesA: 78398Q, 77504D, 68767S, 65141L, 29429C Name Value Range Interpretation Code Description Data Jeannette rce(s) Supporting Document(s) ID Date Data Source [id number] 10/21/2020 09:15:00 AM EDT [facility] Name Value Range Interpretation Code Description Data Jeannette rce(s) Supporting Document(s) SARS-CoV-2 (COVID-19) RNA [Presence] in Respiratory specimen by KSENIA with probe detection Not Detected [facility] This lab was ordered by [facility] and reported by [facility]. ID Date Data Source [id number] 10/18/2020 09:20:00 AM EDT [facility] Name Value Range Interpretation Code Description Data Jeannette rce(s) Supporting Document(s) SARS coronavirus 2 RNA Not Detected [facility] [place] This lab was ordered by [facility] and reported by [facility]. ID Date Data Source [id number] 10/19/2020 12:09:02 PM EDT [facility] Name Value Range Interpretation Code Description Data Jeannette rce(s) Supporting Document(s) SARS-COV-2 KSENIA [facility] Not DetectedReference range: Not Detecte d This nucleic acid amplification test was developed and its performance characteristics determined by [employer]. Nucleic acid amplification tests include RT-PCR and [...] detected) result in this assay. Performed At: [facility] [place], [place] [id number] Keegan Cook PhD Ph:[phone] ID Date Data Source [id number] 10/14/2020 08:31:00 AM EDT [facility] Name Value Range Interpretation Code Description Data Jeannette rce(s) Supporting Document(s) SARS-CoV-2 (COVID-19) RNA [Presence] in Respiratory specimen by KSENIA with probe detection Not Detected [facility] This lab was ordered by [facility] and reported by [facility]. ID Date Data Source [id number] 10/09/2020 02:05:02 PM EDT [facility] Name Value Range Interpretation Code Description Data Jeannette rce(s) Supporting Document(s) [facility] [id number] [file] [id number] [file] [id number]== ID Date Data Source [id number] 10/09/2020 06:31:24 PM EDT [facility] [place] [facility] SPEC EXP DATE 10/24/2020ATI ENT ABO/Rh O POSITIVEANTIBODY SCREEN NEGATIVETESTING SITE PERFORMED AT [address] [place] [address] Name Value Range Interpretation Code Description Data Jeannette rce(s) Supporting Document(s) TYPE AND SCREEN [facility] [place] [facility] ANTIBODY SCREEN NEGATIVE ID Date Data Source [id number] 10/09/2020 06:30:24 PM EDT [facility] [place] [facility] Name Value Range Interpretation Code Description Data Jeannette rce(s) Supporting Document(s) HEMOGLOBIN A1C @ 5.2 % (4.0-6.0) [facility] [place] [facility] Performed using Siemens Almond immunoassa y.Care must be taken when interpreting [id number] in patients with a hemoglobin variantor decreased erythrocyte lifespan. Values 5.7 - 6.4% suggest prediabetes.Values >=6.5% are diagnostic for diabetes.REFERENCE: DIABETES CARE 2018: 41(S13-S27). EST AVERAGE GLUCOSE 103 mg/dL [facility] ID Date Data Source [id number] 10/09/2020 06:19:42 PM EDT [facility] [place] [facility] Name Value Range Interpretation Code Description Data Jeannette rce(s) Supporting Document(s) SODIUM 140 mmol/L (136-145) [facility] [place] [facility] POTASSIUM 4.2 mmol/L (3.6-5.2) [facility] [place] [facility] CHLORIDE 112 mmol/L (100-108) H [facility] [place] [facility] CO2 20 mmol/L (22-31) L [facility] [place] [facility] ANION GAP 8 mmol/L (7-16) [facility] [place] [facility] UREA NITROGEN 12 mg/dL (7-24) [facility] [place] [facility] CREATININE 0.83 mg/dL (0.60-1.00) [facility] [place] [facility] BUN/CREAT RATIO 14.5 RATIO (10.0-20.0) [facility] GLUCOSE 86 mg/dL (70-99) [facility] [place] [facility] CALCIUM 8.6 mg/dL (8.4-10.2) [facility] [place] [facility] TOTAL PROTEIN 7.1 g/dL (6.4-8.2) [facility] [place] [facility] ALBUMIN 3.5 g/dL (3.5-4.6) [facility] [place] [facility] GLOBULIN 3.6 g/dL (2.7-4.3) [facility] [place] [facility] ALB/GLOB RATIO 1.0 RATIO [facility] [place] [facility] ALKALINE PHOSPHATASE 121 U/L (45-117) H [facility] BILIRUBIN,TOTAL 0.3 mg/dL (0.0-1.0) [facility] [place] [facility] PLEASE NOTE:Total bilirubin results may be falselyelevated in patients taking Eltrombopag. AST (SGOT) 15 U/L (11-39) [facility] [place] [facility] ALT (SGPT) 26 U/L (12-78) [facility] [place] [facility] GFR >60 ml/min/1.73m2 (>59) [facility] [place] [facility] GFR ( AMER) >60 ml/min/1.73m2 (>59) [facility] [place] [facility] GFR INTERPRETATION [facility] --NORMAL KIDNEY FUNCTION OR MILD DISEASE - GFR >OR= 60CHRONIC KIDNEY DISEASE - GFR 15 - 59RENAL FAILURE - GFR <15 Est. GFR calculation based on the MDRDstudy equation, which assumes a steadystate for creatinine. Est. GFR should notbe used for medication dosing. ID Date Data Source [id number] 10/09/2020 06:19:42 PM EDT [facility] [place] [facility] Name Value Range Interpretation Code Description Data Jeannette rce(s) Supporting Document(s) TSH,ULTRASENSITIVE @ 0.435 mIU/L (0.360-4.170) [facility] [place] [facility] ID Date Data Source [id number] 10/09/2020 05:25:59 PM EDT [facility] [place] [facility] Name Value Range Interpretation Code Description Data Jeannette rce(s) Supporting Document(s) WBC 11.9 10*3/uL (4.1-11.0) H [facility] [place] [facility] RBC 5.48 10*6/uL (4.00-5.40) H [facility] [place] [facility] HGB 13.5 g/dL (12.0-16.0) [facility] [place] [facility] HCT 41.8 % (36.0-47.0) [facility] [place] [facility] MCV 76.3 fL (80.0-95.0) L [facility] [place] [facility] MCH 24.7 pg (27.0-32.0) L [facility] [place] [facility] MCHC 32.3 g/dL (32.0-36.0) [facility] [place] [facility] RDW 15.8 % (10.5-14.5) H [facility] [place] [facility] PLT 352 10*3/uL (150-450) [facility] [place] [facility] MPV 8.2 fL (7.1-10.7) [facility] [place] [facility] ID Date Data Source [id number] 10/09/2020 01:29:28 PM EDT [facility] INFORMATIONPatient MRN Name Date of Age Gend*PT [id number] Corie Love Norma 1985 35 years F OPPT Location Admission Date/Time Visit ID Attending Provider --- --- --- Cristobal Peña MD([id number]) EPI ID CSN Admitting Provider [id number] Cristobal Peña MD([id number])HISTORY PHYSICALName: Corie Love : 1985 Sex: female [...] warm and dry.HEENT: She is normocephalic, atraumatic. [place] conjunctivae. Anicteric sclerae.Pupils are equal, round, reactive [...] patosplenomegaly. Negative CVAT.GENITAL/RECTAL: Deferred.MUSCLE/SKELETAL: Strength is 5/5. Poker Supervisor are equal.NEUROLOGICALLY: Cranial nerves II through XII [...] parts of this document, were dictated using [employer] speaking software. A reas onable attempt at proofreading has beenmade to minimize errors. Please call with any questions or corrections. Name Value Range Interpretation Code Description Data Jeannette rce(s) Supporting Document(s) ID Date Data Source [id number] 10/07/2020 01:15:00 PM EDT [facility] Name Value Range Interpretation Code Description Data Jeannette rce(s) Supporting Document(s) SARS-CoV-2 (COVID-19) RNA [Presence] in Respiratory specimen by KSENIA with probe detection Not Detected [facility] This lab was ordered by [facility] and reported by [facility]. ID Date Data Source [id number] 09/30/2020 07:56:00 AM EDT [facility] Name Value Range Interpretation Code Description Data Jeannette rce(s) Supporting Document(s) SARS-CoV-2 (COVID-19) RNA [Presence] in Respiratory specimen by KSENIA with probe detection Not Detected [facility] This lab was ordered by [facility] and reported by [employer] ID Date Data Source [id number] 09/30/2020 12:00:00 AM EDT [facility] Name Value Range Interpretation Code Description Data Jeannette rce(s) Supporting Document(s) SARS coronavirus 2 Ag Negative [facility] This lab was ordered by [facility] and reported by [facility]. ID Date Data Source [id number] 09/23/2020 10:00:00 AM EDT [facility] Name Value Range Interpretation Code Description Data Jeannette rce(s) Supporting Document(s) SARS coronavirus 2 RNA Not Detected [facility] This lab was ordered by [facility] and reported by [facility]. ID Date Data Source [id number] 09/19/2020 12:00:00 AM EDT [facility] Name Value Range Interpretation Code Description Data Jeannette rce(s) Supporting Document(s) SARS coronavirus 2 Ag Negative [facility] This lab was ordered by [facility] and reported by [facility]. ID Date Data Source [id number] 09/16/2020 12:00:00 AM EDT [facility] Name Value Range Interpretation Code Description Data Jeannette rce(s) Supporting Document(s) SARS coronavirus 2 Ag Negative [facility] This lab was ordered by [facility] and reported by [facility]. ID Date Data Source [id number] 08/22/2020 12:00:00 AM EST [facility] Name Value Range Interpretation Code Description Data Jeannette rce(s) Supporting Document(s) SARS coronavirus 2 Ag Negative [facility] This lab was ordered by [facility] and reported by Daron Simon. ID Date Data Source [id number] 08/19/2020 12:00:00 AM EST [facility] Name Value Range Interpretation Code Description Data Jeannette rce(s) Supporting Document(s) SARS coronavirus 2 Ag Negative [facility] This lab was ordered by Daron Simon and reported by Daron Simon. ID Date Data Source [id number] 08/19/2020 04:33:17 PM EST Lab [facility] LABORATORY [address] [id number]# Surgical Pathology ReportPatient Name: CORIE LOVE: 1985Accession [...] 08/19/2020Electronically Signed Out By Feliciano Parker MD [facility] [place] [address] 57967ictVvclecyxe component performed at [facility], Histopathology, [address] [place] [address], [id number].Reported at [facility], [address] [place] [address], [address]. This report may includeimmunohistochemical or in-situ hybridization results. Testing wasdeveloped and the performance characteristics determined by [facility] as required by CLIA '88. The FDA hasdetermined that approval for specific use is not necessary for clinicaluse. The quality of Hematoxylin and Eosin stains and as applicable, forall immu nohistochemical and/or special stains, including positive andnegative controls, were reviewed and considered appropriate.ICD codes K21.9 K29.30CPT codesA: 14047P, 75231t Name Value Range Interpretation Code Description Data Jeannette rce(s) Supporting Document(s) ID Date Data Source [id number] 08/18/2020 11:19:49 AM EST [facility] NT INFORMATIONPatient MRN Name Date of Age Gend*PT [id number] Corie Love 1985 35 years F OPPT Location Admission Date/Time Visit [facility] --- Hieu Ibrahim MD([id number]) EPI ID CSN Admitting Provider [id number] Hieu Ibrahim MD([id number])Endoscopic Gastroduodenoscopy Procedure NotePatient: Corie Green LolarSurgery Date: [...] Name Value Range Interpretation Code Description Data [facility] rce(s) Supporting Document(s) ID Date Data Source [id number] 08/18/2020 11:19:29 AM [facility] NT INFORMATIONPatient MRN Name Date of Age Gend*PT [id number] [facility] 1985 35 years F OPPT Location Admission Date/Time Visit ID Attending [facility] 08/18/20 1003 --- Hieu Ibrahim MD([id number]) EPI ID CSN Admitting Provider [id number] Hieu Ibrahim MD([id number])H&P reviewed. The patient was examined and there are no changes to the H&P.Hieu Ibrahim MD11:19 AM Name Value Range Interpretation Code Description Data [facility] Supporting Document(s) ID Date Data Source [id number] 08/18/2020 11:19:13 AM EST [facility] NT INFORMATIONPatient MRN Name Date of Age Gend*PT [id number] [facility] 1985 35 years F OPPT Location Admission Date/Time Visit ID Attending [facility] 08/18/20 1003 --- Hieu Ibrahim MD([id number]) EPI ID CSN Admitting Provider [id number] Hieu Ibrahim MD([id number])Pre-Procedure History and Physical:Past Medical History:Diagnosis Date AsthmaPast [...] rce(s) Supporting Document(s) ID Date Data Source [id number] 08/18/2020 12:04:42 PM EST [facility] Name Value Range Interpretation Code Description Data Jeannette rce(s) Supporting Document(s) [facility] <5.0 IU/L Lab [facility] INTERPRETATION:<5.0 NEGATIVE5.0- 25.0 INDETERMINATE>25.0 POSITIVELEVELS BETWEEN 5 AND 25 IU/L MAY INDICATEEARLY AND SHOULD BE REPEATED QUANG BLOOD SAMPLE AFTER 48 HOURS.PERFORMED BY [facility] CLINICAL STAFF ID Date Data Source [id number] 08/13/2020 06:24:00 AM EST [facility] Name Value Range Interpretation Code Description Data Jeannette rce(s) Supporting Document(s) SARS coronavirus 2 RNA Not Detected [facility] This lab was ordered by [facility] and reported by [facility]. ID Date Data Source [id number] 08/14/2020 03:09:05 PM EST [facility] Name Value Range Interpretation Code Description Data Jeannette rce(s) Supporting Document(s) SARS-COV-2 SKENIA [facility] Not DetectedReference range: Not Detecte d This nucleic acid amplification test was developed and its performance characteristics determined by [employer]. Nucleic acid amplification tests include RT-PCR and [...] detected) result in this assay. Performed At: [employer] [place], [place] [id number] Keegan Cook PhD Ph:[phone] ID Date Data Source [id number] 08/12/2020 05:47:00 AM EST [facility] Name Value Range Interpretation Code Description Data Jeannette rce(s) Supporting Document(s) SARS coronavirus 2 RNA Not Detected [facility] This lab was ordered by [facility] and reported by [facility]. ID Date Data Source [id number] 08/05/2020 08:30:00 AM EST [facility] Name Value Range Interpretation Code Description Data Jeannette rce(s) Supporting Document(s) SARS coronavirus 2 RNA Not Detected [facility] This lab was ordered by [facility] and reported by [facility]. ID Date Data Source [id number] 07/29/2020 12:00:00 PM EST [facility] Name Value Range Interpretation Code Description Data Jeannette rce(s) Supporting Document(s) SARS coronavirus 2 RNA Not Detected [facility] This lab was ordered by [facility] and reported by [facility]. ID Date Data Source [id number] 07/22/2020 01:38:00 PM EST [facility] Name Value Range Interpretation Code Description Data Jeannette rce(s) Supporting Document(s) SARS coronavirus 2 RNA Not Detected [facility] This lab was ordered by [facility] and reported by [facility]. ID Date Data Source [id number] 2020 11:30:00 AM EST [facility] Name Value Range Interpretation Code Description Data Jeannette rce(s) Supporting Document(s) SARS coronavirus 2 RNA Not Detected [facility] This lab was ordered by [facility] and reported by [facility]. ID Date Data Source [id number] 07/08/2020 08:00:00 AM EST [facility] Name Value Range Interpretation Code Description Data Jeannette rce(s) Supporting Document(s) SARS coronavirus 2 RNA Not Detected [facility] This lab was ordered by [facility] and reported by [facility]. ID Date Data Source [id number] 07/01/2020 08:36:00 AM EST [facility] Name Value Range Interpretation Code Description Data Jeannette rce(s) Supporting Document(s) SARS coronavirus 2 RNA [facility] This lab was ordered by [facility] and reported by [facility]. ID Date Data Source [id number] 06/30/2020 12:00:00 AM EST [facility] Name Value Range Interpretation Code Description Data Jeannette rce(s) Supporting Document(s) SARS-CoV2 Rapid Antigen [facility] This lab was ordered by [facility] and reported by [facility]. ID Date Data Source [id number] 06/19/2020 12:00:00 AM EST [facility] Name Value Range Interpretation Code Description Data Jeannette rce(s) Supporting Document(s) SARS-CoV2 Rapid Antigen [facility] This lab was ordered by [facility] and reported by [facility]. ID Date Data Source [id number] 06/17/2020 09:15:00 AM EST [facility] Name Value Range Interpretation Code Description Data Jeannette rce(s) Supporting Document(s) SARS coronavirus 2 RNA [facility] This lab was ordered by [facility] and reported by [facility]. ID Date Data Source [id number] 06/10/2020 09:00:00 AM EST [facility] Name Value Range Interpretation Code Description Data Jeannette rce(s) Supporting Document(s) SARS coronavirus 2 RNA [facility] This lab was ordered by [facility] and reported by [facility]. ID Date Data Source [id number] 06/03/2020 05:32:00 AM EST [facility] Name Value Range Interpretation Code Description Data Jeannette rce(s) Supporting Document(s) SARS coronavirus 2 RNA [facility] This lab was ordered by [facility] and reported by [facility]. ID Date Data Source [id number] 05/27/2020 09:00:00 AM EST [facility] Name Value Range Interpretation Code Description Data Jeannette rce(s) Supporting Document(s) SARS coronavirus 2 RNA [facility] This lab was ordered by [facility] and reported by [facility]. ID Date Data Source [id number] 05/20/2020 08:00:00 AM EST [facility] Name Value Range Interpretation Code Description Data Jeannette rce(s) Supporting Document(s) SARS coronavirus 2 RNA [facility] This lab was ordered by [facility] and reported by [facility]. ID Date Data Source [id number] 05/13/2020 09:00:00 AM EST [facility] Name Value Range Interpretation Code Description Data Jeannette rce(s) Supporting Document(s) SARS coronavirus 2 RNA [facility] This lab was ordered by [facility] and reported by [facility]. ID Date Data Source [id number] 05/08/2020 08:21:05 PM EST [facility] Name Value Range Interpretation Code Description Data Jeannette rce(s) Supporting Document(s) TSH,ULTRASENSITIVE @ 0.826 mIU/L (0.360-4.170) [facility] [place] [facility] ID Date Data Source [id number] 05/08/2020 07:59:14 PM EST [facility] Name Value Range Interpretation Code Description Data Jeannette rce(s) Supporting Document(s) HEMOGLOBIN A1C @ 5.9 % (4.0-6.0) [facility] Performed using [employer] Almond immunoassa y.Care must be taken when interpreting [id number] in patients with a hemoglobin variantor decreased erythrocyte lifespan. Values 5.7 - 6.4% suggest prediabetes.Values >=6.5% are diagnostic for diabetes.REFERENCE: DIABETES CARE 2018: 41(S13-S27). EST AVERAGE GLUCOSE 123 mg/dL Laboratory [place] [facility] ID Date Data Source [id number] 05/06/2020 09:20:00 AM EST [facility] Name Value Range Interpretation Code Description Data Jeannette rce(s) Supporting Document(s) SARS coronavirus 2 RNA [facility] This lab was ordered by [facility] and reported by [facility]. ID Date Data Source [id number] 04/29/2020 07:30:00 AM EDT [facility] Name Value Range Interpretation Code Description Data Jeannette rce(s) Supporting Document(s) SARS coronavirus 2 RNA [facility] This lab was ordered by [facility] and reported by [facility]. ID Date Data Source [id number] 04/22/2020 07:55:00 AM EDT [facility] Name Value Range Interpretation Code Description Data Jeannette rce(s) Supporting Document(s) SARS coronavirus 2 RNA [facility] This lab was ordered by [facility] and reported by [facility]. ID Date Data Source [id number] 04/15/2020 07:00:00 AM EDT [facility] Name Value Range Interpretation Code Description Data Jeannette rce(s) Supporting Document(s) SARS coronavirus 2 RNA [facility] This lab was ordered by [facility] and reported by [facility]. ID Date Data Source [id number] 04/08/2020 08:00:00 AM EDT [facility] Name Value Range Interpretation Code Description Data Jeannette rce(s) Supporting Document(s) SARS coronavirus 2 RNA [facility] This lab was ordered by [facility] and reported by [facility]. ID Date Data Source [id number] 04/01/2020 07:00:00 AM EDT [facility] Name Value Range Interpretation Code Description Data Jeannette rce(s) Supporting Document(s) SARS coronavirus 2 RNA [facility] This lab was ordered by [facility] and reported by [facility]. ID Date Data Source [id number] 03/25/2020 08:02:00 AM EDT [facility] Name Value Range Interpretation Code Description Data Jeannette rce(s) Supporting Document(s) SARS coronavirus 2 RNA [facility] This lab was ordered by [facility] and reported by [facility]. ID Date Data Source [id number] 03/18/2020 08:00:00 AM EDT [facility] Name Value Range Interpretation Code Description Data Jeannette rce(s) Supporting Document(s) SARS coronavirus 2 RNA [facility] This lab was ordered by [facility] and reported by [facility]. Procedure Social History Code Duration Value Status Description Data Source(s ) Smoking 05/01/2021 12:00:00 AM EDT Patient is a former smoker completed Patient is a former smoker [facility] ([facility]) Alcohol intake 10/23/2020 12:00:00 AM EDT Current drinker of al cohol (finding) completed Current drinker of alcohol (finding) [facility] Alcohol intake 10/09/2020 12:00:00 AM EDT Yes completed [facility] Cigarette pack-years 10/09/2020 12:00:00 AM EDT UNK completed [facility] Cigarettes smoked current (pack per day) - Reported 10/10/19 12:00:00 AM EDT UNK completed [facility] Smoking 10/09/2020 12:00:00 AM EDT Current every day smoker co mpleted Current every day smoker [facility] Tobacco use and exposure 08/18/2020 12:00:00 AM EST Never used co mpleted Never used [facility] Cigarette pack-years 08/18/2020 12:00:00 AM EST UNK completed [facility] Cigarettes smoked current (pack per day) - Reported 08/18/19 12:00:00 AM EST UNK completed [facility] Smoking 08/18/2020 12:00:00 AM EST Current every day smoker co mpleted Current every day smoker [facility] Alcohol intake 08/18/2020 12:00:00 AM EST Not Currently completed [facility] Cigarettes smoked current (pack per day) - Reported 08/18/19 12:00:00 AM EST UNK completed [facility] Smoking 08/18/2020 12:00:00 AM EST Current every day smoker co mpleted Current every day smoker [facility] Vital Signs ID Date Data Source UNK Name Value Range Interpretation Code Description Data Source(s) Body weight 220.00 [lb_av] 220.00 [lb_av] [facility] ([facility]) Body height 66 [in_i] 66 [in_i] [facility]) 5'6" Body mass index (BMI) [Ratio] 35.5 kg/m2 35.5 k g/m2 [facility] ([facility]) Heart rate 48 /min 48 /min [facility] ([facility]) Systolic blood pressure--sitting 113 mm[Hg] 113 mm[Hg] [facility] ([facility]) Omron large cuff, Ra Diastolic blood pressure--sitting 72 mm[Hg] 72 mm[Hg] [facility] ([facility]) Omron large cuff, Ra Body height 67 [in_i] 67 [in_i] [facility] ([facility]) 5'7" Systolic blood pressure 130 mm[Hg] 130 mm[Hg] [facility] ([facility]) Diastolic blood pressure 78 mm[Hg] 78 mm[Hg] [facility] ([facility]) Body surface area Derived from formula 2.11 m2 2.11 m2 [facility] ([facility]) Heart rate 75 /min 75 /min [facility] ([facility]) Oxygen saturation in Arterial blood by Pulse oximetry 100 % 100 % [facility] ([facility]) Body weight 220.25 [lb_av] 220.25 [lb_av] MED[facility] T ([facility]) Body weight 99.905 kg 99.905 kg [facility] ([facility]) Body mass index (BMI) [Ratio] 34.5 kg/m2 34.5 k g/m2 [facility] ([facility]) Diastolic blood pressure 72 mm[Hg] 72 mm[Hg] [facility] ([facility]) Systolic blood pressure 110 mm[Hg] 110 mm[Hg] M EDENT ([facility]) Body weight 218.12 [lb_av] 218.12 [lb_av] MEDEN T ([facility]) Body weight 98.942 kg 98.942 kg [facility] ([facility]) Heart rate 60 /min 60 /min [facility] ([facility]) Respiratory rate 16 /min 16 /min [facility] ( [facility]) Oxygen saturation in Arterial blood by Pulse oximetry 99 % 99 % [facility] ([facility]) Body height 67 [in_i] 67 [in_i] [facility] ([facility]) 5'7" Body mass index (BMI) [Ratio] 34.2 kg/m2 34.2 k g/m2 [facility] ([facility]) Body surface area Derived from formula 2.10 m2 2.10 m2 [facility] ([facility]) Oxygen saturation in Arterial blood by Pulse oximetry 99 % 99 % [facility] ([facility]) Body weight 217.00 [lb_av] 217.00 [lb_av] MEDEN T ([facility]) Body weight 98.431 kg 98.431 kg [facility] ([facility]) Body temperature 97.3 [degF] 97.3 [degF] [facility] ([facility]) Respiratory rate 16 /min 16 /min [facility] ( [facility]) Body surface area Derived from formula 2.09 m2 2.09 m2 [facility] ([facility]) Systolic blood pressure 106 mm[Hg] 106 mm[Hg] M EDENT ([facility]) Diastolic blood pressure 60 mm[Hg] 60 mm[Hg] [facility] ([facility]) Heart rate 58 /min 58 /min [facility] ([facility]) Body height 67 [in_i] 67 [in_i] [facility] ([facility]) 5'7" Body mass index (BMI) [Ratio] 34.0 kg/m2 34.0 k g/m2 [facility] ([facility]) Body temperature 98.2 [degF] 98.2 [degF] [facility] ([facility]) Respiratory rate 16 /min 16 /min [facility] ( [facility]) Oxygen saturation in Arterial blood by Pulse oximetry 98 % 98 % [facility] ([facility]) Heart rate 63 /min 63 /min [facility] ([facility]) Body weight 221.00 [lb_av] 221.00 [lb_av] MEDEN T ([facility]) Body weight 100.246 kg 100.246 kg [facility] ([facility]) Body height 67 [in_i] 67 [in_i] [facility] ([facility]) 5'7" Body mass index (BMI) [Ratio] 34.6 kg/m2 34.6 k g[facility] Body surface area Derived from formula 2.11 m2 2.11 m2 [facility] ([facility]) Systolic blood pressure 120 mm[Hg] 120 mm[Hg] M EDENT ([facility]) Diastolic blood pressure 72 mm[Hg] 72 mm[Hg] [facility] ([facility]) Systolic blood pressure 122 mm[Hg] 122 mm[Hg] [facility] Diastolic blood pressure 83 mm[Hg] 83 mm[Hg] [facility] Heart rate 54 /min 54 /min [facility] Body temperature 36.56 Allison 36.56 Allison [facility] Respiratory rate 18 /min 18 /min [facility] Oxygen saturation in Arterial blood by Pulse oximetry 99 % 99 % [facility] Body height 167.6 cm 167.6 cm [facility] Body weight 115.214 kg 115.214 kg [facility] Body mass index (BMI) [Ratio] 41.00 kg/m2 41.00 kg/m2 [facility] Systolic blood pressure 135 mm[Hg] 135 mm[Hg] [facility] Diastolic blood pressure 70 mm[Hg] 70 mm[Hg] [facility] Heart rate 85 /min 85 /min [facility] Respiratory rate 22 /min 22 /min [facility] Oxygen saturation in Arterial blood by Pulse oximetry 99 % 99 % [facility] Body height 167.6 cm 167.6 cm [facility] Body weight 119.659 kg 119.659 kg [facility] Body mass index (BMI) [Ratio] 42.58 kg/m2 42.58 kg/m2 [facility] Systolic blood pressure 139 mm[Hg] 139 mm[Hg] S [facility] Diastolic blood pressure 96 mm[Hg] 96 mm[Hg] [facility] Heart rate 81 /min 81 /min [facility] Respiratory rate 18 /min 18 /min [facility] Oxygen saturation in Arterial blood by Pulse oximetry 99 % 99 % [facility] Body temperature 36.78 Allison 36.78 Allison [facility] Body height 167.6 cm 167.6 cm [facility] Body weight 123.378 kg 123.378 kg [facility] Body mass index (BMI) [Ratio] 43.90 kg/m2 43.90 kg/m2 [facility] Systolic blood pressure 139 mm[Hg] 139 mm[Hg] M ED[facility] ([facility]) Diastolic blood pressure 91 mm[Hg] 91 mm[Hg] [facility] ([facility]) Heart rate 91 /min 91 /min [facility]) Respiratory rate 16 /min 16 /min [facility] ( [facility]) Oxygen saturation in Arterial blood by Pulse oximetry 98 % 98 % [facility] ([facility]) Body temperature 97.9 [degF] 97.9 [degF] [facility] ([facility]) Body weight 317.00 [lb_av] 317.00 [lb_av] [facility] T ([facility]) Body height 66 [in_i] 66 [in_i] [facility] ([facility]) 5'6" Body mass index (BMI) [Ratio] 51.2 kg/m2 51.2 k g/m2 [facility] ([facility]) Patient Treatment Plan of Care Planned Activity Planned Date Details Description Data Source (s) ondansetron (ZOFRAN-ODT) disintegrating tablet 8 mg 10/25/19 21 06:00:00 AM EDT [facility] metoclopramide (REGLAN) injection 10 mg 10/23/2020 05:07:20 PM EDT [facility] Prochlorperazine 10 MG Oral Tablet 10/23/2020 05:07:19 PM EDT [facility] Promethazine Hydrochloride 25 MG Oral Tablet 10/23/2020 05:07:19 PM EDT [facility] enalaprilat (VASOTEC) injection 1.25 mg 10/23/2020 05:07:18 PM EDT [facility] Simethicone 80 MG Chewable Tablet 10/23/2020 12:00:00 AM EDT [facility] Omeprazole 40 MG Delayed Release Oral Capsule 10/23/2020 12:00:00 A M EDT [facility] Vitamin B 12 0.5 MG Oral Tablet 10/23/2020 12:00:00 AM EDT [facility] Ondansetron 4 MG Disintegrating Oral Tablet 10/23/2020 12:00:00 AM EDT [facility] Magnesium Hydroxide 80 MG/ML Oral Suspension 10/23/2020 12:00:00 AM EDT [facility] 0.4 ML Enoxaparin sodium 100 MG/ML Prefilled Syringe 021 12:00:00 AM EDT [facility] Phentermine Hydrochloride 37.5 MG Oral Tablet [facility] topiramate 50 MG Oral Tablet [facility]
== END 2021-05-12 05:07 | disposition left against medical advice (07) ==
LOC: M ED 23:09
DX: Z53.21 Procedure and treatment not carried out due to patient leaving prior to being seen by health care provider (principal)

== ENCOUNTER → 2021-07-27 | Outpatient (REF) ==
[~2021-07-27] MED LIST changes: +BIOT1CAP2 PO; +IRON65TA2 PO; -OMEP-221 PO; +OMEP40CA5 PO; +VITMTA PO
== END ==
LOC: M LABSMTC 09:40
PROVIDERS: ATTEND Family Medicine
DX: Z20.822 Contact with and (suspected) exposure to COVID-19 (principal)

== ENCOUNTER → 2022-01-12 | Outpatient (REF) | LOC: M EMP 09:34 | PROVIDERS: ATTEND Family Medicine | DX: Z11.52 Encounter for screening for COVID-19 (principal) ==

== ENCOUNTER → 2022-02-16 | Outpatient (CLI) | payer OTHER ==
[2022-02-16 08:32] LABS: BASO # 0.1 10^3/uL (0.0-0.2); BASO % 0.6 % (0.0-1.0); EOS # 0.3 10^3/uL (0.0-0.5); EOS % 3.1 % (0.0-3.0); HEMATOCRIT 33.1 % (36.0-47.0); HEMOGLOBIN 9.6 g/dl (12.0-15.5); LYMPH # 2.7 10^3/uL (1.5-5.0); LYMPH % 31.7 % (24.0-44.0); MONO # 0.4 10^3/uL (0.0-0.8); MONO % 5.1 % (2.0-8.0); NEUTROPHILS % 59.3 % (36.0-66.0); PLATELET COUNT, AUTOMATED 407 10^3/uL (150-450); WHITE BLOOD COUNT 8.4 10^3/uL (4.0-10.0)
[2022-02-16 09:23] LABS: ALBUMIN 3.5 GM/DL (3.2-5.2); ALT/SGPT 20 U/L (12-78); BILIRUBIN,TOTAL 0.4 MG/DL (0.2-1.0); BLOOD UREA NITROGEN 12 MG/DL (7-18); CALCIUM LEVEL 8.9 MG/DL (8.5-10.1); CARBON DIOXIDE LEVEL 25 MEQ/L (21-32); CHLORIDE LEVEL 109 MEQ/L (98-107); CHOLESTEROL LEVEL 138 MG/DL (<200); CHOLESTEROL RISK RATIO 2.509 (<5); CREATININE FOR GFR 0.76 MG/DL (0.55-1.30); FERRITIN 4 NG/ML (8-252); GLOMERULAR FILTRATION RATE > 60.0 (>60); GLUCOSE, FASTING 91 MG/DL (70-100); HDL CHOLESTEROL 55 MG/DL (>40); IRON (FE) 13 UG/DL (50-170); LDL CHOLESTEROL 69 MG/DL (<100); NON-HDL-C 83 MG/DL; PERCENT SATURATION 2.9 % (13.2-45.0); POTASSIUM SERUM 3.8 MEQ/L (3.5-5.1); SODIUM LEVEL 138 MEQ/L (136-145); TOTAL IRON BINDING CAPACITY 448 UG/DL (250-450); TRIGLYCERIDES LEVEL 68 MG/DL (<150)
[2022-02-16 09:51] LABS: TOTAL 25(OH) VITAMIN D 70.5 NG/ML (30.0-100.0); VITAMIN B12 LEVEL 853 PG/ML (247-911)
[2022-02-16 10:25] LABS: HEMOGLOBIN A1c 5.6 %
== END ==
LOC: M LAB 07:36
PROVIDERS: ATTEND Family Medicine
DX: D50.9 Iron deficiency anemia, unspecified (principal); E78.5 Hyperlipidemia, unspecified; R73.9 Hyperglycemia, unspecified; Z98.84 Bariatric surgery status; E55.9 Vitamin D deficiency, unspecified

== ENCOUNTER → 2022-02-16 | Outpatient (CLI) | payer OTHER ==
[2022-02-16 08:32] LABS: BASO % 0.5 % (0.0-1.0); EOS # 0.2 10^3/uL (0.0-0.5); HEMATOCRIT 31.9 % (36.0-47.0); HEMATOCRIT 33.2 % (36.0-47.0); HEMOGLOBIN 9.6 g/dl (12.0-15.5); LYMPH # 2.4 10^3/uL (1.5-5.0); LYMPH % 31.1 % (24.0-44.0); MEAN CORPUSCULAR HEMOGLOBIN 20.1 pg (27.0-33.0); MEAN CORPUSCULAR HGB CONC 28.9 g/dl (32.0-36.5); MEAN CORPUSCULAR VOLUME 69.5 fl (80.0-96.0); MONO # 0.5 10^3/uL (0.0-0.8); MONO % 5.9 % (2.0-8.0); NEUTROPHILS # 4.5 10^3/uL (1.5-8.5); NEUTROPHILS % 59.2 % (36.0-66.0); PLATELET COUNT, AUTOMATED 427 10^3/uL (150-450); RED BLOOD COUNT 4.78 10^6/uL (4.00-5.40); WHITE BLOOD COUNT 7.6 10^3/uL (4.0-10.0)
[2022-02-16 09:29] LABS: ALBUMIN 3.5 GM/DL (3.2-5.2); ALT/SGPT 21 U/L (12-78); BILIRUBIN,TOTAL 0.4 MG/DL (0.2-1.0); BLOOD UREA NITROGEN 11 MG/DL (7-18); CARBON DIOXIDE LEVEL 23 MEQ/L (21-32); CHLORIDE LEVEL 112 MEQ/L (98-107); CREATININE FOR GFR 0.76 MG/DL (0.55-1.30); FERRITIN 4 NG/ML (8-252); GLOMERULAR FILTRATION RATE > 60.0 (>60); GLUCOSE, FASTING 90 MG/DL (70-100); IRON (FE) 14 UG/DL (50-170); MAGNESIUM LEVEL 2.2 MG/DL (1.8-2.4); PERCENT SATURATION 3.1 % (13.2-45.0); PHOSPHORUS LEVEL 3.6 MG/DL (2.5-4.9); POTASSIUM SERUM 3.9 MEQ/L (3.5-5.1); SODIUM LEVEL 140 MEQ/L (136-145); TOTAL IRON BINDING CAPACITY 458 UG/DL (250-450); TOTAL PROTEIN 6.9 GM/DL (6.4-8.2)
[2022-02-16 10:01] LABS: TOTAL 25(OH) VITAMIN D 70.6 NG/ML (30.0-100.0); VITAMIN B12 LEVEL 901 PG/ML (247-911)
[2022-02-16 10:23] LABS: HEMOGLOBIN A1c 5.5 %
== END ==
LOC: M LAB 07:41
PROVIDERS: ATTEND Physician Assistant Surgical
DX: K91.2 Postsurgical malabsorption, not elsewhere classified (principal); Z98.84 Bariatric surgery status; E55.9 Vitamin D deficiency, unspecified; Z86.39 Personal history of other endocrine, nutritional and metabolic disease

== ENCOUNTER → 2022-05-11 | Outpatient (CLI) | payer OTHER | LOC: M WHC 10:02 | PROVIDERS: ATTEND Nurse Practitioner Family | DX: N60.11 Diffuse cystic mastopathy of right breast (principal) ==

== ENCOUNTER → 2022-07-26 | Outpatient (REF) | LOC: M LABSMTC 10:47 | PROVIDERS: ATTEND Family Medicine | DX: Z20.822 Contact with and (suspected) exposure to COVID-19 (principal) ==

== ENCOUNTER → 2022-07-30 | Outpatient (REF) | LOC: M EMP 10:05 | PROVIDERS: ATTEND Family Medicine | DX: Z20.822 Contact with and (suspected) exposure to COVID-19 (principal) ==

== ENCOUNTER 2022-08-27 19:49 | Emergency (ER) | payer OTHER ==
[~2022-08-27] VITALS: Ht 167.6 cm; Wt 99.8 kg
[2022-08-27 19:51] VITALS: BP 133/96
== END 2022-08-27 21:42 | disposition left against medical advice (07) ==
LOC: M ED 19:49
DX: Z53.21 Procedure and treatment not carried out due to patient leaving prior to being seen by health care provider (principal)